=== PATIENT | female | born 1990 | race African-American/Black ===

== ENCOUNTER 2020-05-08 11:35 | Outpatient (REF) | payer OTHER, SELFPAY ==
[2020-05-09 02:50] LABS: CT PCR NOT DETECTED (Not Detect.); NG PCR NOT DETECTED (Not Detect.)
[2020-05-09 09:07] LABS: BV Int Neg Control Negative (Negative); BV Int Pos Control Positive (Positive)
[2020-05-10 18:16] LABS: HPV mRNA E6/E7 rflx Not Detected (Not Detected)
== END 2020-05-08 11:36 | disposition home or self-care (01) ==
LOC: HO.LAB 11:35
PROVIDERS: PCP Internal Medicine Medical Oncology; Referring Provider Internal Medicine Medical Oncology; Visit Provider Advanced Practice Midwife
DX: Z01.419 Encounter for gynecological examination (general) (routine) without abnormal findings (principal); E10.65 Type 1 diabetes mellitus with hyperglycemia; R33.9 Retention of urine, unspecified; Z20.2 Contact with and (suspected) exposure to infections with a predominantly sexual mode of transmission
CPT/HCPCS: 87480; 87491; 87510; 87591; 87624; 87625; 87660; 88142

== ENCOUNTER 2020-06-06 06:51 | Outpatient (REF) | payer OTHER, SELFPAY | END 2020-06-06 06:52 | disposition home or self-care (01) | LOC: HO.LAB 06:51 | PROVIDERS: Visit Provider Internal Medicine | DX: Z20.828 Contact with and (suspected) exposure to other viral communicable diseases (principal) | CPT/HCPCS: C9803; U0003 ==

== ENCOUNTER 2020-06-20 23:56 | Emergency (ER) | payer OTHER, SELFPAY ==
--- NOTE | 2020-06-21 00:13 | ED.GENADULT ---
HPI - General Adult General Chief complaint: General Medical Stated complaint: Hyperglycemia Time Seen by Provider: 06/21/20 00:13 Source: patient Mode of arrival: ambulatory Limitations: no limitations History of Present Illness HPI narrative: Patient type 1 diabetic on insulin pump for last 2 days noticed her blood sugar in the range of 300 never used to be high before patient adjusted the insulin pump but still reading high 350 prior to arrival. Patient denied any nausea vomiting drinking enough fluids no urinary complaints no cough no fever no chills Onset (ago): day(s) (2) Related Data Home Medications Medication Instructions Recorded Confirmed etonogestrel 68 mg subdermal 68 mg SUBDERMAL ea 05/08/20 05/15/20 implant Previous Rx's Medication Instructions Recorded insulin lispro 100 unit/mL 0 - 75 unit SUBCUT DAILY #90 ml 06/17/20 subcutaneous solution Allergies Allergy/AdvReac Type Severity Reaction Status Date / Time No Known Allergies Allergy Verified 05/15/20 13:16 Review of Systems Review of Systems: Constitutional : No Weight loss, No Fever, No Chills ENT/Mouth : No sore throat, No Rhinorrhea Eyes: No Eye Pain, No Swelling Cardiovascular : No Chest Pain, no Dyspnea on Exertion, No Orthopnea, No Edema, No Palpitations, no SOB Respiratory : No Cough, No Sputum Gastrointestinal : no Nausea, No Vomiting, No Diarrhea, No abdominal Pain, No Hematochezia, No Melena Genitourinary : No Dysuria, No Urinary Frequency Musculoskeletal : No joint pain, No Myalgias, No Joint Swelling Skin : No Skin Lesions, No rash Neuro : No Weakness, No Numbness, No Dizziness, No Headache Psych : No Anxiety/Panic, No Depression Heme/Lymph: No Bruising, No Lymphadenopathy Endocrine : No Polyuria, No Polydipsia All other systems reviewed and are negative [facility]LY [facility] Past Medical History Medical History Type 1 diabetes mellitus with hyperglycemia Surgical History History of left breast biopsy Family History Family History Paternal Grandmother Diabetes Maternal Aunt Breast cancer Social History Social History Household Members: Family Alcohol intake: never Smoking Status: Never smoker Use of substances other than those prescribed or required for medical reasons: No Substance Use Type: Marijuana Advance Directives: No Advance Directives Information Provided: No Sexual orientation: Straight/Heterosexual Gender identity: female Physical Exam Vital Signs: Vital Signs: Last Vital Signs Temp 98.7 F 06/21/20 00:15 Pulse 76 06/21/20 00:15 Resp 18 06/21/20 01:59 BP 137/73 06/21/20 00:15 Pulse Ox 100 06/21/20 00:15 Body Mass Index 26.9 Appearance: Alert. Oriented X3. No acute distress. Eyes: Pupils equal, round and reactive to light. ENT: Pharynx normal. Neck: Normal inspection. Neck supple. CVS: Normal heart rate and rhythm. Pulses normal. Respiratory: No respiratory distress. Breath sounds normal. Abdomen: Soft and nontender. Bowel sounds are present, no mass palpable, no CVA tenderness Skin: Skin warm and dry. Normal skin color. Normal skin turgor. Extremities: No lower extremity edema. Neuro: Oriented X 3. No motor deficit. No sensory deficit. Medical Decision Making MDM Narrative Medical decision making narrative: Patient diabetic type 1 on insulin pump came with hypoglycemia workup showed hypogastrium without any ketoacidosis dehydrated. Patient improved after IV fluids patient advised to drink plenty of fluids and follow-up with PCP Differential Diagnosis Differential Diagnosis: Ketoacidosis, UTI Lab Data Lab results reviewed: Yes I reviewed the patient's lab results. Result diagrams: 06/21/20 00:50 06/21/20 00:50 Labs: Lab Results 06/21/20 06/21/20 06/21/20 Range/Units 00:14 00:28 00:28 WBC (4.8-10.8) X10*3/uL RBC (4.20-5.50) X10*6/uL Hgb (12.0-16.0) g/dl Hct (37-47) % MCV (80-98) fL MCH (27.0-33.0) pg MCHC (31.0-35.0) g/dl RDW (11.0-16.0) % Plt Count (160-400) X10*3/uL MPV (9.4-12.3) fL Immature Gran % (Auto) (0.0-0.4) % Neut % (Auto) (45-73) % Lymph % (Auto) (20-40) % [place] % (Auto) (2-11) % Eos % (Auto) (0-4) % Baso % (Auto) (0-2) % Lymph # (Auto) (1.2-4.9) X10*3/uL [place] # (Auto) (0.1-1.2) X10*3/uL Eos # (Auto) (0.0-0.4) X10*3/uL Baso # (Auto) (0.0-0.2) X10*3/uL Abs Immat Gran (auto) (0.00-0.03) X10*3/uL Absolute Neuts (auto) (2.0-8.3) X10*3/uL Absolute Nucleated RBC (0.0-0.012) X10*3/uL Nucleated RBC % (auto) (0.0-0.2) /100WBC Sodium (135-145) mmol/L Potassium (3.3-5.1) mmol/l Chloride (96-108) mmol/L Carbon Dioxide (22-29) mmol/L Anion Gap (12-20) BUN (9-16) mg/dL Creatinine (0.5-1.4) mg/dL Estim Creat Clear Calc Estimated GFR POC Glucose 306 H (60-115) mg/dL Random Glucose (60-115) mg/dL Calcium (8.4-10.2) mg/dL Total Bilirubin (0.0-1.0) mg/dL Direct Bilirubin (0.0-0.5) mg/dL AST (5-31) U/L ALT (0-31) U/L Alkaline Phosphatase (39-117) U/L Total Protein (6.5-8.0) g/dL Albumin (3.5-5.0) g/dL Lipase (8-78) U/L Urine Color YELLOW Urine Appearance CLEAR Urine pH 5.5 (5.0-8.0) Ur Specific Spencer 1.025 (1.005-1.025) Urine Protein NEG (NEG-TRACE) MG/DL Urine Glucose (UA) 250 H (NEG) MG/DL Urine Ketones >=80 (NEG) MG/DL Urine Blood NEG (NEG) Urine Nitrite NEG (NEG) Ur Leukocyte Esterase NEG (NEG) Urine Test NEGATIVE (NEGATIVE) Acetone, Qual (Negative) 06/21/20 06/21/20 06/21/20 Range/Units 00:50 00:50 00:50 WBC 6.7 (4.8-10.8) X10*3/uL RBC 4.13 L (4.20-5.50) X10*6/uL Hgb 12.7 (12.0-16.0) g/dl Hct 37.4 (37-47) % MCV 90.6 (80-98) fL MCH 30.8 (27.0-33.0) pg MCHC 34.0 (31.0-35.0) g/dl RDW 11.8 (11.0-16.0) % Plt Count 239 (160-400) X10*3/uL MPV 9.7 (9.4-12.3) fL Immature Gran % (Auto) 0.1 (0.0-0.4) % Neut % (Auto) 46.0 (45-73) % Lymph % (Auto) 43.6 H (20-40) % [place] % (Auto) 7.6 (2-11) % Eos % (Auto) 2.1 (0-4) % Baso % (Auto) 0.6 (0-2) % Lymph # (Auto) 2.9 (1.2-4.9) X10*3/uL [place] # (Auto) 0.5 (0.1-1.2) X10*3/uL Eos # (Auto) 0.1 (0.0-0.4) X10*3/uL Baso # (Auto) 0.0 (0.0-0.2) X10*3/uL Abs Immat Gran (auto) 0.01 (0.00-0.03) X10*3/uL Absolute Neuts (auto) 3.1 (2.0-8.3) X10*3/uL Absolute Nucleated RBC 0.000 (0.0-0.012) X10*3/uL Nucleated RBC % (auto) 0.0 (0.0-0.2) /100WBC Sodium 132 L (135-145) mmol/L Potassium 4.3 (3.3-5.1) mmol/l Chloride 101 (96-108) mmol/L Carbon Dioxide 20 L (22-29) mmol/L Anion Gap 15 (12-20) BUN 18 H (9-16) mg/dL Creatinine 0.91 (0.5-1.4) mg/dL Estim Creat Clear Calc 103.8 Estimated GFR > 60 POC Glucose (60-115) mg/dL Random Glucose 321 H (60-115) mg/dL Calcium 8.4 (8.4-10.2) mg/dL Total Bilirubin 1.1 H (0.0-1.0) mg/dL Direct Bilirubin 0.4 (0.0-0.5) mg/dL AST 21 (5-31) U/L ALT 14 (0-31) U/L Alkaline Phosphatase 53 (39-117) U/L Total Protein 6.7 (6.5-8.0) g/dL Albumin 3.9 (3.5-5.0) g/dL Lipase 19 (8-78) U/L Urine Color Urine Appearance Urine pH (5.0-8.0) Ur Specific Spencer (1.005-1.025) Urine Protein (NEG-TRACE) MG/DL Urine Glucose (UA) (NEG) MG/DL Urine Ketones (NEG) MG/DL Urine Blood (NEG) Urine Nitrite (NEG) Ur Leukocyte Esterase (NEG) Urine Test (NEGATIVE) Acetone, Qual Negative (Negative) 06/21/20 06/21/20 Range/Units 01:36 02:42 WBC (4.8-10.8) X10*3/uL RBC (4.20-5.50) X10*6/uL Hgb (12.0-16.0) g/dl Hct (37-47) % MCV (80-98) fL MCH (27.0-33.0) pg MCHC (31.0-35.0) g/dl RDW (11.0-16.0) % Plt Count (160-400) X10*3/uL MPV (9.4-12.3) fL Immature Gran % (Auto) (0.0-0.4) % Neut % (Auto) (45-73) % Lymph % (Auto) (20-40) % [place] % (Auto) (2-11) % Eos % (Auto) (0-4) % Baso % (Auto) (0-2) % Lymph # (Auto) (1.2-4.9) X10*3/uL [place] # (Auto) (0.1-1.2) X10*3/uL Eos # (Auto) (0.0-0.4) X10*3/uL Baso # (Auto) (0.0-0.2) X10*3/uL Abs Immat Gran (auto) (0.00-0.03) X10*3/uL Absolute Neuts (auto) (2.0-8.3) X10*3/uL Absolute Nucleated RBC (0.0-0.012) X10*3/uL Nucleated RBC % (auto) (0.0-0.2) /100WBC Sodium (135-145) mmol/L Potassium (3.3-5.1) mmol/l Chloride (96-108) mmol/L Carbon Dioxide (22-29) mmol/L Anion Gap (12-20) BUN (9-16) mg/dL Creatinine (0.5-1.4) mg/dL Estim Creat Clear Calc Estimated GFR POC Glucose 293 H 197 H (60-115) mg/dL Random Glucose (60-115) mg/dL Calcium (8.4-10.2) mg/dL Total Bilirubin (0.0-1.0) mg/dL Direct Bilirubin (0.0-0.5) mg/dL AST (5-31) U/L ALT (0-31) U/L Alkaline Phosphatase (39-117) U/L Total Protein (6.5-8.0) g/dL Albumin (3.5-5.0) g/dL Lipase (8-78) U/L Urine Color Urine Appearance Urine pH (5.0-8.0) Ur Specific Spencer (1.005-1.025) Urine Protein (NEG-TRACE) MG/DL Urine Glucose (UA) (NEG) MG/DL Urine Ketones (NEG) MG/DL Urine Blood (NEG) Urine Nitrite (NEG) Ur Leukocyte Esterase (NEG) Urine Test (NEGATIVE) Acetone, Qual (Negative) Discharge Plan Discharge Clinical Impression: Type 1 diabetes mellitus with hyperglycemia Patient Disposition: Home, Self-Care Instructions: Diabetic Hyperglycemia (ED) Additional Instructions: Drink plenty of fluids take your insulin as prescribed follow with PCP if not better Prescriptions: No Action insulin lispro [Humalog U-100 Insulin] 100 unit/mL solution 0 - 75 unit subcut DAILY Qty: 90 RF: 2 Nexplanon 68 mg implant 68 mg subdermal RF: 0
[2020-06-21 00:15] VITALS: BP 137/73; PULSE 76; RESP 18; TEMP 37.1; O2SAT 100; BMI 26.9
[2020-06-21 00:22] LABS: Glucose, Whole Blood 306 mg/dL (60-115)
[2020-06-21 00:34] LABS: Appearance Urine CLEAR; Color Urine YELLOW; Glucose Urine UA 250 MG/DL (NEG); Leukocyte Esterase Urine NEG (NEG); Nitrite Urine NEG (NEG); PH 5.5 (5.0-8.0); Specific Gravity - Urine 1.025 (1.005-1.025); UACC Culture Trigger NO; Urine Blood NEG (NEG); Urine Ketones >=80 MG/DL (NEG); Urine Protein NEG (NEG-TRACE)
[2020-06-21 00:35] LABS: UPreg QC Valid YES; Urine Pregnancy NEGATIVE (NEGATIVE)
[2020-06-21] MEDS: 0.9 % Sodium Chloride 1,000 ML 999 ML IVCONT ×2 (00:51→01:53)
[2020-06-21 00:57] LABS: Basophils Percent Auto 0.6 % (0-2); Eosinophils Absolute Auto 0.1 X10*3/uL (0.0-0.4); Eosinophils Percent Auto 2.1 % (0-4); Hematocrit 37.4 % (37-47); Hemoglobin 12.7 g/dl (12.0-16.0); Imm Gran Abs Auto 0.01 X10*3/uL (0.00-0.03); Imm Gran Pct Auto 0.1 % (0.0-0.4); Lymphocytes Absolute Auto 2.9 X10*3/uL (1.2-4.9); Lymphocytes Percent Auto 43.6 % (20-40); MANUAL DIFF FLAG NO; Mean Corpuscular Hemoglobin 30.8 pg (27.0-33.0); Mean Corpuscular Volume 90.6 fL (80-98); Mean Platelet Volume 9.7 fL (9.4-12.3); Monocytes Absolute Auto 0.5 X10*3/uL (0.1-1.2); Monocytes Percent Auto 7.6 % (2-11); Neutrophils Absolute Auto 3.1 X10*3/uL (2.0-8.3); Platelet Count 239 X10*3/uL (160-400); Red Blood Count 4.13 X10*6/uL (4.20-5.50); Red Cell Distribution Width 11.8 % (11.0-16.0); White Blood Count 6.7 X10*3/uL (4.8-10.8)
[2020-06-21 01:27] LABS: Anion Gap 15 (12-20); Blood Urea Nitrogen 18 mg/dL (9-16); Calcium 8.4 mg/dL (8.4-10.2); Carbon Dioxide 20 mmol/L (22-29); Chloride 101 mmol/L (96-108); Creatinine Clr Calc Pharmacy 103.8; Estimated Glomerular Filt Rate > 60; Glucose Random 321 mg/dL (60-115); Potassium 4.3 mmol/l (3.3-5.1); Sodium 132 mmol/L (135-145)
[2020-06-21 01:29] LABS: Alanine Aminotransferase 14 U/L (0-31); Albumin Level 3.9 g/dL (3.5-5.0); Alkaline Phosphatase 53 U/L (39-117); Aspartate Amino Transferase 21 U/L (5-31); Bilirubin Direct 0.4 mg/dL (0.0-0.5); Bilirubin Total 1.1 mg/dL (0.0-1.0); Lipase 19 U/L (8-78); Total Protein 6.7 g/dL (6.5-8.0)
[2020-06-21 01:41] LABS: Glucose, Whole Blood 293 mg/dL (60-115)
[2020-06-21] MEDS: Insulin Lispro 100 UNIT/ML 3 ML VIAL 8 UNIT SUBCUT (01:52)
[2020-06-21 01:59] VITALS: RESP 18
[2020-06-21 02:25] LABS: Acetone, serum QL Negative (Negative)
[2020-06-21 02:47] LABS: Glucose, Whole Blood 197 mg/dL (60-115)
== END 2020-06-21 03:15 | disposition home or self-care (01) ==
PROVIDERS: Emergency Provider Internal Medicine; PCP Internal Medicine Medical Oncology
DX: E10.65 Type 1 diabetes mellitus with hyperglycemia (principal); Z79.4 Long term (current) use of insulin; Z96.41 Presence of insulin pump (external) (internal)
CPT/HCPCS: 11981; 11982; 11983; 36415; 80048; 80076; 81003; 81025; 82009; 82947; 83690; 85025; 96360; 96361; 99284

== ENCOUNTER 2020-07-25 07:07 | Outpatient (REF) | payer OTHER, SELFPAY | END 2020-07-25 07:08 | disposition home or self-care (01) | LOC: HO.LAB 07:07 | PROVIDERS: Visit Provider Internal Medicine | DX: Z20.822 Contact with and (suspected) exposure to COVID-19 (principal) | CPT/HCPCS: 36415; C9803; U0003 ==

== ENCOUNTER 2020-08-10 07:52 | Outpatient (REF) | payer OTHER, SELFPAY | END 2020-08-10 07:53 | disposition home or self-care (01) | LOC: HO.LAB 07:52 | PROVIDERS: Visit Provider Internal Medicine | DX: Z20.822 Contact with and (suspected) exposure to COVID-19 (principal) | CPT/HCPCS: 36415; C9803; U0003; U0005 ==

== ENCOUNTER → 2020-09-11 14:31 | Outpatient (BNVA) | payer OTHER, SELFPAY | PROVIDERS: PCP Internal Medicine Medical Oncology; Visit Provider Nurse Practitioner Gerontology | DX: E10.65 Type 1 diabetes mellitus with hyperglycemia (principal); Z79.4 Long term (current) use of insulin; Z71.3 Dietary counseling and surveillance | CPT/HCPCS: 82947; 99212 ==

== ENCOUNTER 2020-09-12 08:47 | Outpatient (REF) | payer OTHER, SELFPAY | END 2020-09-12 08:48 | disposition home or self-care (01) | LOC: HO.LAB 08:47 | PROVIDERS: Visit Provider Internal Medicine | DX: Z20.822 Contact with and (suspected) exposure to COVID-19 (principal) | CPT/HCPCS: 36415; C9803; U0003; U0005 ==

== ENCOUNTER 2020-09-26 12:23 | Outpatient (REF) | payer OTHER, SELFPAY ==
[2020-09-26 14:08] LABS: MANUAL DIFF FLAG NO
[2020-09-26 14:16] LABS: Basophils Absolute Auto 0.1 X10*3/uL (0.0-0.2); Basophils Percent Auto 0.9 % (0-2); Eosinophils Absolute Auto 0.2 X10*3/uL (0.0-0.4); Eosinophils Percent Auto 3.3 % (0-4); Hematocrit 40.3 % (37-47); Hemoglobin 13.5 g/dl (12.0-16.0); Imm Gran Abs Auto 0.01 X10*3/uL (0.00-0.03); Imm Gran Pct Auto 0.2 % (0.0-0.4); Lymphocytes Absolute Auto 2.3 X10*3/uL (1.2-4.9); Lymphocytes Percent Auto 39.6 % (20-40); Mean Corpuscular HGB Conc 33.5 g/dl (31.0-35.0); Mean Corpuscular Hemoglobin 30.8 pg (27.0-33.0); Mean Platelet Volume 10.4 fL (9.4-12.3); Monocytes Absolute Auto 0.4 X10*3/uL (0.1-1.2); Monocytes Percent Auto 7.2 % (2-11); Neutrophils Absolute Auto 2.9 X10*3/uL (2.0-8.3); Neutrophils Percent Auto 48.8 % (45-73); Platelet Count 270 X10*3/uL (160-400); Red Blood Count 4.38 X10*6/uL (4.20-5.50); White Blood Count 5.8 X10*3/uL (4.8-10.8)
[2020-09-26 14:50] LABS: Alanine Aminotransferase 10 U/L (0-31); Albumin Level 4.1 g/dL (3.5-5.0); Alkaline Phosphatase 50 U/L (39-117); Anion Gap 13 (12-20); Aspartate Amino Transferase 16 U/L (5-31); Bilirubin Total 1.1 mg/dL (0.0-1.0); Blood Urea Nitrogen 18 mg/dL (9-16); Calcium 8.8 mg/dL (8.4-10.2); Carbon Dioxide 27 mmol/L (22-29); Chloride 101 mmol/L (96-108); Estimated Glomerular Filt Rate > 60; Glucose Random 179 mg/dL (60-115); Potassium 4.3 mmol/L (3.3-5.1); Sodium 137 mmol/L (135-145); Total Protein 7.1 g/dL (6.5-8.0)
[2020-09-26 14:58] LABS: Free T4 (Free Thyroxine) 0.79 ng/dL (0.71-1.85); Thyroid Stimulating Hormone 0.75 uIU/mL (0.32-4.0)
[2020-09-26 14:59] LABS: Erythrocyte Sedimentation Rate 6 MM/HR (0-20)
== END 2020-09-26 12:24 | disposition home or self-care (01) ==
LOC: HO.10HDL 12:23
PROVIDERS: Visit Provider Internal Medicine Medical Oncology
DX: E10.9 Type 1 diabetes mellitus without complications (principal); E66.09 Other obesity due to excess calories
CPT/HCPCS: 36415; 80053; 84439; 84443; 85025; 85652

== ENCOUNTER 2020-10-03 07:41 | Outpatient (REF) | payer OTHER, SELFPAY ==
[2020-10-03 09:52] LABS: SARS COV2 PCR INHOUSE NEGATIVE (Negative)
== END 2020-10-03 07:42 | disposition home or self-care (01) ==
LOC: HO.LAB 07:41
PROVIDERS: Visit Provider Internal Medicine
DX: Z20.822 Contact with and (suspected) exposure to COVID-19 (principal)
CPT/HCPCS: C9803; U0003

== ENCOUNTER 2020-10-04 08:01 | Outpatient (REF) | payer OTHER, SELFPAY ==
--- NOTE | ~2020-10-04 | US_ITS ---
EXAMINATION: US ABDOMEN COMPLETE CLINICAL INFORMATION: Bloating, abdominal pain. COMPARISON: None TECHNIQUE: Real-time imaging of the abdominal viscera. FINDINGS: PANCREAS: The visualized head and body of the pancreas appears unremarkable. Remainder of the pancreas is obscured by bowel gas. ABDOMINAL AORTA: The proximal, mid, and distal segments are normal in caliber. INFERIOR VENA CAVA: Visualized portions are normal. LIVER: The liver is normal in size. The liver contour is normal. Parenchymal echogenicity is normal. No focal hepatic lesion. There is no intrahepatic biliary duct dilatation seen. GALLBLADDER: Normal. The gallbladder is physiologically distended without evidence of stones, sludge, polyps, wall thickening or pericholecystic fluid. COMMON BILE DUCT: Normal in caliber measuring 0.3 cm in diameter. RIGHT KIDNEY: Normal. No hydronephrosis. No renal calculi or focal parenchymal lesions. The kidney measures 10.2 cm in maximum dimension. LEFT KIDNEY: Normal. No hydronephrosis. No renal calculi or focal parenchymal lesions. The kidney measures 11.4 cm in maximum dimension. SPLEEN: Normal. The spleen measures 9.2 cm in maximum dimension. FREE FLUID: None. US/US abdomen complete IMPRESSION: Unremarkable abdominal ultrasound. No acute findings seen.
== END 2020-10-04 08:02 | disposition home or self-care (01) ==
LOC: HO.US 08:01
PROVIDERS: PCP Family Medicine; Visit Provider Internal Medicine Medical Oncology
DX: R10.9 Unspecified abdominal pain (principal); R14.0 Abdominal distension (gaseous); R14.1 Gas pain
CPT/HCPCS: 76700

== ENCOUNTER → 2020-12-10 13:02 | Outpatient (BNVA) | payer OTHER, SELFPAY | PROVIDERS: PCP Internal Medicine Medical Oncology; Visit Provider Nurse Practitioner Gerontology | DX: E10.65 Type 1 diabetes mellitus with hyperglycemia (principal) | CPT/HCPCS: 82947 ==

== ENCOUNTER → 2021-01-14 11:45 | Outpatient (BNVA) | payer OTHER, SELFPAY | PROVIDERS: PCP Internal Medicine Medical Oncology; Visit Provider Advanced Practice Midwife ==

== ENCOUNTER → 2021-01-28 10:29 | Outpatient (BNVA) | payer OTHER, SELFPAY | PROVIDERS: Visit Provider Advanced Practice Midwife | DX: Z30.46 Encounter for surveillance of implantable subdermal contraceptive (principal); Z30.011 Encounter for initial prescription of contraceptive pills | CPT/HCPCS: 11982 ==

== ENCOUNTER 2021-04-30 16:22 | Outpatient (REF) | payer OTHER, SELFPAY ==
[2021-04-30 16:42] LABS: MANUAL DIFF FLAG NO
[2021-04-30 17:21] LABS: Basophils Absolute Auto 0.1 X10*3/uL (0.0-0.2); Basophils Percent Auto 0.8 % (0-2); Eosinophils Absolute Auto 0.1 X10*3/uL (0.0-0.4); Eosinophils Percent Auto 1.4 % (0-4); Hematocrit 38.9 % (37.0-47.0); Hemoglobin 13.1 g/dl (12.0-16.0); Imm Gran Abs Auto 0.02 X10*3/uL (0.00-0.03); Imm Gran Pct Auto 0.3 % (0.0-0.4); Lymphocytes Absolute Auto 2.4 X10*3/uL (1.2-4.9); Lymphocytes Percent Auto 36.6 % (20-40); Mean Corpuscular HGB Conc 33.7 g/dl (31.0-35.0); Mean Corpuscular Hemoglobin 30.3 pg (27.0-33.0); Mean Corpuscular Volume 89.8 fL (80.0-98.0); Mean Platelet Volume 9.7 fL (9.4-12.3); Monocytes Absolute Auto 0.5 X10*3/uL (0.1-1.2); Monocytes Percent Auto 7.9 % (2-11); Neutrophils Absolute Auto 3.48 x10*3/uL (2.0-8.3); Platelet Count 264 X10*3/uL (160-400); Red Blood Count 4.33 X10*6/uL (4.20-5.50); Red Cell Distribution Width 11.6 % (11.0-16.0); White Blood Count 6.6 X10*3/uL (4.8-10.8)
[2021-04-30 17:45] LABS: Alanine Aminotransferase 13 U/L (0-31); Albumin Level 3.9 g/dL (3.5-5.0); Alkaline Phosphatase 45 U/L (39-117); Anion Gap 12 (12-20); Aspartate Amino Transferase 21 U/L (5-31); Bilirubin Total 0.6 mg/dL (0.0-1.0); Blood Urea Nitrogen 19 mg/dL (9-16); C Reactive Protein 0.34 mg/dL (< or = 0.50); Calcium 8.6 mg/dL (8.4-10.2); Carbon Dioxide 27 mmol/L (22-29); Chloride 104 mmol/L (96-108); Estimated Glomerular Filt Rate > 60; Glucose Random 141 mg/dL (60-115); Potassium 4.5 mmol/L (3.3-5.1); Sodium 138 mmol/L (135-145); Total Protein 6.7 g/dL (6.5-8.0)
[2021-04-30 18:11] LABS: Erythrocyte Sedimentation Rate 7 MM/HR (0-20)
== END 2021-04-30 16:23 | disposition home or self-care (01) ==
LOC: HO.LAB 16:22
PROVIDERS: PCP Internal Medicine Medical Oncology; Visit Provider Internal Medicine Medical Oncology
DX: M31.6 Other giant cell arteritis (principal)
CPT/HCPCS: 36415; 80053; 85025; 85652; 86140

== ENCOUNTER → 2021-09-18 12:32 | Outpatient (BNVA) | payer OTHER, SELFPAY | PROVIDERS: PCP Internal Medicine Medical Oncology; Visit Provider Nurse Practitioner Gerontology | DX: E10.65 Type 1 diabetes mellitus with hyperglycemia (principal); Z79.4 Long term (current) use of insulin; Z96.41 Presence of insulin pump (external) (internal) | CPT/HCPCS: 82947; 83036; 99212 ==

== ENCOUNTER → 2021-09-26 07:56 | Outpatient (BNVA) | payer OTHER, SELFPAY | PROVIDERS: PCP Internal Medicine Medical Oncology; Visit Provider Registered Nurse Diabetes Educator | DX: E10.65 Type 1 diabetes mellitus with hyperglycemia (principal); Z71.3 Dietary counseling and surveillance | CPT/HCPCS: 99211 ==

== ENCOUNTER → 2021-12-18 07:29 | Outpatient (BNVA) | payer OTHER, SELFPAY | PROVIDERS: PCP Internal Medicine Medical Oncology; Visit Provider Nurse Practitioner Gerontology | DX: E10.65 Type 1 diabetes mellitus with hyperglycemia (principal); Z46.81 Encounter for fitting and adjustment of insulin pump; Z79.4 Long term (current) use of insulin | CPT/HCPCS: 82947; 99212 ==

== ENCOUNTER 2021-12-18 08:20 | Outpatient (REF) | payer OTHER, SELFPAY ==
[2021-12-18 10:36] LABS: Alanine Aminotransferase 15 U/L (0-31); Albumin Level 3.9 g/dL (3.5-5.0); Alkaline Phosphatase 46 U/L (39-117); Anion Gap 12 (12-20); Aspartate Amino Transferase 23 U/L (5-31); Bilirubin Total 1.1 mg/dL (0.0-1.0); Blood Urea Nitrogen 16 mg/dL (9-16); Calcium 8.6 mg/dL (8.4-10.2); Carbon Dioxide 26 mmol/L (22-29); Chloride 104 mmol/L (96-108); Cholesterol 189 mg/dL; Estimated Glomerular Filt Rate > 60; Glucose Fasting 80 mg/dL (60-99); HDL Cholesterol 81 mg/dL; LDL Cholesterol Calculated 99 mg/dl; Potassium 3.6 mmol/L (3.3-5.1); Sodium 138 mmol/L (135-145); Triglycerides 47 mg/dL
[2021-12-18 10:56] LABS: Free T4 (Free Thyroxine) 0.86 ng/dL (0.71-1.85)
[2021-12-18 11:14] LABS: Microalbum/Creatinine Ratio Ur 314.5 ug/mg cr
== END 2021-12-18 08:21 | disposition home or self-care (01) ==
LOC: HO.10HDL 08:20
PROVIDERS: Visit Provider Nurse Practitioner Gerontology
DX: E10.65 Type 1 diabetes mellitus with hyperglycemia (principal)
CPT/HCPCS: 36415; 80053; 80061; 82043; 84439; 84443

== ENCOUNTER → 2022-03-25 08:06 | Outpatient (BNVA) | payer OTHER, SELFPAY | PROVIDERS: PCP Internal Medicine Medical Oncology; Visit Provider Internal Medicine Endocrinology, Diabetes & Metabolism | DX: E10.65 Type 1 diabetes mellitus with hyperglycemia (principal); E10.29 Type 1 diabetes mellitus with other diabetic kidney complication; Z96.41 Presence of insulin pump (external) (internal) | CPT/HCPCS: 82947; 83036; 99212 ==

== ENCOUNTER → 2022-04-08 08:28 | Outpatient (BNVA) | payer OTHER, SELFPAY | PROVIDERS: PCP Internal Medicine Medical Oncology; Visit Provider Registered Nurse Diabetes Educator | DX: Z46.81 Encounter for fitting and adjustment of insulin pump (principal); E10.65 Type 1 diabetes mellitus with hyperglycemia; Z79.4 Long term (current) use of insulin | CPT/HCPCS: 99211 ==

== ENCOUNTER 2022-04-10 08:33 | Outpatient (REF) | payer OTHER, SELFPAY ==
[2022-04-10 16:49] LABS: CT PCR NOT DETECTED (Not Detect.); NG PCR NOT DETECTED (Not Detect.)
== END 2022-04-10 08:34 | disposition home or self-care (01) ==
LOC: HO.LNP 08:33
PROVIDERS: Visit Provider Advanced Practice Midwife
DX: Z01.419 Encounter for gynecological examination (general) (routine) without abnormal findings (principal); Z11.8 Encounter for screening for other infectious and parasitic diseases; Z11.3 Encounter for screening for infections with a predominantly sexual mode of transmission
CPT/HCPCS: 87491; 87591

== ENCOUNTER 2022-04-14 09:28 | Outpatient (REF) | payer OTHER, SELFPAY ==
[2022-04-14 11:01] LABS: Anion Gap 14 (12-20); Blood Urea Nitrogen 15 mg/dL (9-16); Calcium 8.6 mg/dL (8.4-10.2); Carbon Dioxide 26 mmol/L (22-29); Chloride 101 mmol/L (96-108); Estimated Glomerular Filt Rate > 60; Glucose Random 118 mg/dL (60-115); Sodium 137 mmol/L (135-145)
[2022-04-14 11:14] LABS: HBc Num1 0.11 S/CO (0.00-0.79); HIV AB/AG Nonreactive (Nonreactive); HIV Num 1 0.05 S/CO (0.00-0.99); Hepatitis B Core Antibody Nonreactive (Nonreactive); ~HepC Num1 0.15 S/CO (0.00-0.79); ~Hepatitis C Antibody Nonreactive (Nonreactive)
[2022-04-14 11:29] LABS: Syphilis Screen Nonreactive (Nonreactive)
== END 2022-04-14 09:29 | disposition home or self-care (01) ==
LOC: HO.10HDL 09:28
PROVIDERS: Absent Provider Internal Medicine Endocrinology, Diabetes & Metabolism; Visit Provider Advanced Practice Midwife
DX: Z11.4 Encounter for screening for human immunodeficiency virus [HIV] (principal); E10.29 Type 1 diabetes mellitus with other diabetic kidney complication; R80.9 Proteinuria, unspecified; Z20.2 Contact with and (suspected) exposure to infections with a predominantly sexual mode of transmission
CPT/HCPCS: 36415; 80048; 86704; 86780; 86803; 87389

== ENCOUNTER → 2022-10-22 10:27 | Outpatient (BNVA) | payer OTHER, SELFPAY | PROVIDERS: PCP Internal Medicine Medical Oncology; Visit Provider Internal Medicine Endocrinology, Diabetes & Metabolism | DX: E10.65 Type 1 diabetes mellitus with hyperglycemia (principal); E10.29 Type 1 diabetes mellitus with other diabetic kidney complication; R80.9 Proteinuria, unspecified | CPT/HCPCS: 82947; 83036; 99212 ==

== ENCOUNTER 2023-01-29 10:18 | Outpatient (AMB) | payer OTHER, SELFPAY ==
--- NOTE | 2023-01-29 10:20 | MHC.OFFVIS ---
Intake Vital Signs 01/29/23 10:23 Height 5 ft 9 in Weight 206 lb 2.115 oz BMI 30.4 BP 106/72 Blood Pressure Location Lt brachial Position Sitting Pulse 82 Intake Visit Reasons: dm1 Intake Note: Patient present today to follow up on Type 1 Diabetes Mellitus. Patient receives DME supplies through: [facility] Last Diabetic Eye exam: October 21, 2022 Last Podiatry Visit: Does not see a Animal Damage Control Agent Random Glucose: 154 mg/dl HgA1C: 6.8 Multi Sensor Operator Required: No Accompanied by: Self / Same As Patient Allergies No Known Allergies Allergy (Verified 01/29/23 10:23) Medication List - Last Reconciled 01/29/23 by William Drew MD blood-glucose meter,continuous (Dexcom G6 Furniture Upholstery Mechanic) As directed blood-glucose sensor (Dexcom G6 Sensor device) As directed blood-glucose transmitter (Dexcom G6 Transmitter device) As directed fluoxetine 10 mg PO DAILY glucagon 3 mg/actuation (Baqsimi) 3 mg intranasal ONCE insulin lispro (Humalog U-100 Insulin) up to 75 units per day via pump subcut daily; valsartan 80 mg PO DAILY HPI HPI Comments History of Present Illness Details Patient is a 31 yo female with DM type 1 diagnosed at age 11 who presents continued management of diabetes. Patient was last seen 12/18/21. Past medical history includes : Dm1 Micro and macrovascular complications: none hypoglycemia: about once and pump alarms appropriately. Hyperglycemia; blood sugars elevated after meals. Exercise: is working out for several hours at a time, CGM: Average 153 [address] 75 for the past 2 weeks. CGM in use 11 days. range 40-356 Below target range of less than 70 mg/dL 6%, within target range of 70-179 mg/dL 65%, above target range of 179 mg/dL 29%. Pattern shows overnight hypoglycemia Basal IQ use 100% of the time. Average suspension per day 9.5 times with an average suspension of 180 minutes. Cartridge and tubing changes every 3.0 days. Total daily dose 27.25units per day, 50% basal, 50% food bolus, 11% correction bolus Diabetes medications: Humalog via Tandem T:Slim basal rates 12:00 AM 0.75 units/hour 8:00 AM 0.80 units/hour, 1000 AM : 0.85 units/hour, 2 PM 0.8 10:00 pm 0.78units/hour, Correction factor 12:00 am 1u:52 mg/dl 8:00 am 1 u 50 10Am 1 u:45 2 PM 1:48 10 PM 1;50 Carb ratio 12 A =1:15 8 AM 1:12 breakfat 10AM =1:15 2PM 1:16 dinner target blood sugars 120, insulin action is 4 hours. Eye exam:08/2022 , appt denies retinopathy pattern shows falling blood sugars overnight but increases post breakfast and post dinner Laboratory Tests 09/18/21 12:47 Hgb A1c (Clinic) 7.2 H 09/26/20 12/10/20 04/30/21 12:38 14:02 16:40 Creatinine 0.85 0.86 Estimated GFR > 60 > 60 Hgb A1c (Clinic) 6.7 H PFSH Medical History Depression Type 1 diabetes mellitus with hyperglycemia Surgical History History of left breast biopsy Family History Paternal Grandmother Diabetes Maternal Aunt Breast cancer Social History Household Members: Family Housing: Apartment Alcohol intake: current Alcohol intake frequency: holidays/special occasions only Patient Tobacco Use Status: Never used Tobacco Substance Use Type: Marijuana Current occupational status: employed Current occupation: [id number] Sexual orientation: Straight/Heterosexual Gender identity: Female Female Reproductive History Menstrual Age of Menarche: 13 Physical Exam Vital Signs: Last Vital Signs Pulse 82 01/29/23 10:23 BP 106/72 01/29/23 10:23 BMI result Body Mass Index 30.4 Absence of Cushingoid features. Absence of acromegalic features. Neck exam reveals nl size thyroid about 15 gms. No thyroid nodules palpable. No carotid bruits present. Lungs CTA. Heart S1 S2, Reg R/R. No M/R/ G. Skin exam reveals absence of vitiligo or acanthosis nigricans. Abdominal exam reveals Soft NT/ND with NA BS. No organomegaly present. Extrem Other: Visual exam of foot performed. No ulcerations or open lesions. No onchomycosis, no callouses.Pulses 2 + distally. Sensation intact to monofilament exam. Vibratory sensation sensed 10 seconds in right, 10 seconds in left with 128 Hz tuning fork Results AMB Hemoglobin A1c AMB Hemoglobin A1c 6.8 % Last Edit by EVELIO Flores on 01/29/23 10:43 Results Reviewed Results Reviewed: 01/29/23 10:29 Glucose, Whole Blood Routine Laboratory Last Values Glucose (Clinic) 154 mg/dL (60-115) H 01/29/23 10:29 Assessment & Plan Assessment & Plan (1) Type 1 diabetes mellitus with hyperglycemia: Code(s): E10.65 - Type 1 diabetes mellitus with hyperglycemia Plan: This is a 31-year-old black female with a history of type 1 diabetes being treated with T-slim pump with Dexcom with excellent glycemic control and known microvascular complications namely micro albuminuria. Plan is to have the pt lower the overnight basal a 00:00 to 0.7 units/hour.Will have pt f/u with CDE. (2) Type 1 diabetes mellitus with proteinuria: Code(s): E10.29 - Type 1 diabetes mellitus with other diabetic kidney complication; R80.9 - Proteinuria, unspecified Orders: Orders AMB Hemoglobin A1c Today E11.9 - Type 2 diabetes mellitus without complications Coding Level of Care Code Est Pt Level 4 (39991) Diagnoses Type 1 diabetes mellitus with hyperglycemia E10.65 Type 1 diabetes mellitus with proteinuria E10.29; R80.9
[2023-01-29 10:23] VITALS: BP 106/72; PULSE 82; BMI 30.4
[2023-01-29 10:33] LABS: Glucose, Whole Blood 154 mg/dL (60-115)
== END 2023-01-29 12:05 | disposition home or self-care (01) ==
PROVIDERS: PCP Internal Medicine Medical Oncology; Visit Provider Internal Medicine Endocrinology, Diabetes & Metabolism
DX: E10.65 Type 1 diabetes mellitus with hyperglycemia (principal); E10.29 Type 1 diabetes mellitus with other diabetic kidney complication; R80.9 Proteinuria, unspecified; E11.9 Type 2 diabetes mellitus without complications
CPT/HCPCS: 99214

== ENCOUNTER → 2023-01-29 10:18 | Outpatient (BNVA) | payer OTHER, SELFPAY | PROVIDERS: Visit Provider Internal Medicine Endocrinology, Diabetes & Metabolism | DX: E10.65 Type 1 diabetes mellitus with hyperglycemia (principal); E10.29 Type 1 diabetes mellitus with other diabetic kidney complication; R80.9 Proteinuria, unspecified | CPT/HCPCS: 82947; 83036; 99212 ==

== ENCOUNTER 2023-06-08 14:31 | Outpatient (AMB) | payer OTHER, SELFPAY ==
--- NOTE | 2023-06-08 15:08 | MHC.AMDMED ---
Intake Intake Visit Reasons: dm1/CONFIRMED Certified Emergency Vehicle Technician Required: No Accompanied by: Self / Same As Patient Allergies No Known Allergies Allergy (Verified 01/29/23 10:23) [facility] Comprehensive Diabetes Asmnt Most Recent Diabetes Results: Creatinine 0.80 mg/dL (0.5-1.4) 04/14/22 Blood Urea Nitrogen 15 mg/dL (9-16) 04/14/22 Sodium 137 mmol/L (135-145) 04/14/22 Potassium 4.0 mmol/L (3.3-5.1) 04/14/22 Chloride 101 mmol/L (96-108) 04/14/22 Carbon Dioxide 26 mmol/L (22-29) 04/14/22 Calcium 8.6 mg/dL (8.4-10.2) 04/14/22 [facility] Medical History Depression Type 1 diabetes mellitus with hyperglycemia Surgical History History of left breast biopsy Family History Paternal Grandmother Diabetes Maternal Aunt Breast cancer Social History Household Members: Family Housing: Apartment Alcohol intake: current Alcohol intake frequency: holidays/special occasions only Patient Tobacco Use Status: Never used Tobacco Substance Use Type: Marijuana Current occupational status: employed 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 The following topics were reviewed today: -different between control IQ verses basal IQ - activity mode - sleep schedule -Pump therapy basic concepts: Basal/bolus, insulin to carb ratio, correction factor, insulin on board -CGM settings(if integrated system): Patient does not currently have high or low alert settings on her insulin Patient above target 50% At target 46% Below target 4% Insulin delivery settings patient reports she ran out of pump supplies and was manually injecting for approximately a week and half. She now has adequate amount of pump supplies but she had changed her overnight insulin to carb ratio to be 1-15 instead of 1-17, and strength in the correction factor which was causing overnight hypoglycemia Troubleshooting after starting new pod or inserting new insulin set: Occlusion, adhesive tape sensitivity, redness Check BG 2 hours after site change Safety information: Reviewed the Importance of a backup plan, for manual injections, proper prescriptions and emergency supplies ketone strips, and rules for testing for ketones, patient states she knows the rules for testing for ketones and how to manually calculate correction in mealtime boluses in case of pump failure Patient understands the basic concepts of pump therapy, how to give insulin for meals and snacks, how to troubleshoot for hyper and hypoglycemia. Setting verified by CDCES Basal rate(s) (units/hour) : 12 AM? to 12 AM? 0.8 units / hr Bolus setting Insulin Carbohydrate Ratio (s) 12 AM? to 8 AM? 1:15 New 12 AM? to 8 AM? 1:16 8 AM to 10 PM 1:17 10 PM to 12 AM 1:16 Correction Factor / Sensitivity Factor 12 AM? to 8 AM? 1:52 New 12 AM? to 8 AM? 1:55 8 AM to 10 PM 1:55 10 PM to 12 AM 1:55 Active Insulin Time:? 2 hours Target(s): 12 AM? to 12 AM? 120 Patient Instructions: patient will contact Diabetes Education if she needs assistance setting new insulin patient will follow-up with outreach educator JAMI Coding Level of Care Code Est Pt Level 1 (95419) Diagnoses Type 1 diabetes mellitus with proteinuria E10.29; R80.9
== END 2023-06-08 15:57 | disposition home or self-care (01) ==
PROVIDERS: PCP Internal Medicine Medical Oncology; Visit Provider Registered Nurse Diabetes Educator
DX: E10.29 Type 1 diabetes mellitus with other diabetic kidney complication (principal); R80.9 Proteinuria, unspecified

== ENCOUNTER → 2023-06-08 14:31 | Outpatient (BNVA) | payer OTHER, SELFPAY | PROVIDERS: PCP Internal Medicine Medical Oncology; Visit Provider Registered Nurse Diabetes Educator | DX: Z46.81 Encounter for fitting and adjustment of insulin pump (principal); E10.29 Type 1 diabetes mellitus with other diabetic kidney complication; R80.9 Proteinuria, unspecified | CPT/HCPCS: 99211 ==

== ENCOUNTER 2023-07-08 10:30 | Outpatient (AMB) | payer OTHER, SELFPAY ==
[2023-07-08 10:37] VITALS: BP 110/68; BMI 31.0
--- NOTE | 2023-07-08 10:37 | MHC.OFFVIS ---
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 Doing well with concerns: wants daily suppression therapy as she is a new relationship. She tries to eat healthy and stays active with exercise. Regular monthly menses x 4-5d, painful x 2 d. Uses OTC meds for cramping. Currently is sexually active, using condoms. She denies vaginal itching and irritation. STI screening offered; she accepts. Last pap smear 2019, negative. [facility] Medical History Depression Type 1 diabetes mellitus with hyperglycemia Surgical History History of left breast biopsy Family History Paternal Grandmother Diabetes Maternal Aunt Breast cancer Family/Other Colon cancer Social History Household Members: Family Housing: Apartment Alcohol intake: current Alcohol intake frequency: holidays/special occasions only Patient Tobacco Use Status: Never used Tobacco Substance Use Type: Marijuana Current occupational status: employed Current occupation: [employer] Sexual orientation: Straight/Heterosexual Gender identity: Female Female Reproductive History Menstrual Age of Menarche: 13 Duration of menses: 3-5 days Date of last menstrual period: 06/22/23 control method: none Total pregnancies: 0 Date of last pap smear: 05/09/20 (NEGATIVE) History of abnormal pap smear: No Review of Systems Const All systems reviewed & are unremarkable except as noted in HPI and below Reports as per HPI Eyes Reports no additional complaints ENT Reports no additional complaints Card Reports no additional complaints Resp Reports no additional complaints GI Reports as per HPI and Reports no additional complaints Reports as per HPI Musc Reports no additional complaints Skin/Breast Reports as per HPI Neuro Reports no additional complaints Psych Reports no additional complaints Endo Reports no additional complaints Casey/Lymph Reports no additional complaints Aller/Immun Reports no additional complaints Physical Exam Vital Signs: Last Vital Signs BP 110/68 07/08/23 10:37 BMI result Body Mass Index 31.0 Const General: cooperative, healthy appearing, no acute distress, well developed and alert Orientation/consciousness: patient oriented x3 HEENT Head: Yes normal to inspection Eyes General: appearance normal, both eyes and all related structures Neck Neck: Yes normal visual inspection Thyroid: Thyroid normal Chest Other: Left breast ridge of firm tissue from 5-7 o'clock overall breast on the left side is larger Chest palpation & inspection: normal inspection of the chest and other (no puckering, dimpling, peau de orange, retraction, discharge, masses) Breast/axilla inspection: normal inspection of the breasts Breast/axilla palpation: normal palpation of the breasts Resp Effort & Inspection: normal respiratory effort GI Inspection: Yes normal to inspection Palpation (GI): Soft to palpation Rectal Exam - Female: deferred General: Yes bladder normal to palpation External Female Exam: normal external appearance and normal appearance of the urethra Speculum Exam - Vagina: normal appearance of the vagina, normal palpation, normal vaginal discharge and vaginal bleeding Speculum Exam - Cervix: normal appearance of the cervix and normal palpation Bimanual exam- vagina & uterus: normal bimanual exam, normal palpation, uterine size normal, bladder normal to palpation, normal palpation and non-tender Bimanual Exam- Adnexa, other: no masses OB/external & speculum: vaginal bleeding Skin General skin exam: no rashes or lesions noted Rashes: no rashes Neuro General: patient oriented x3 Cognition (Neuro): normal cognition Extrem General: Yes normal to inspection Psych Attitude: cooperative Thought process: Normal thought process present Assessment & Plan Assessment & Plan (1) Well woman exam with routine gynecological exam: Code(s): Z01.419 - Encounter for gynecological examination (general) (routine) without abnormal findings (2) Breast lump: Code(s): N63.0 - Unspecified lump in unspecified breast Plan Discussed: Current recommendations for pap smears per ASCCP guidelines. Breast awareness and periodic breast exams. Maintain a healthy lifestyle including a well balanced diet and routine exercise. Use condoms for STI and prevention. Planned breast ultrasound and diagnostic mammogram for left breast, follow-up in person for results. All of her questions and concerns were addressed to the best of my ability and shared decision making. She is agreeable to the plan of care. 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 This note is constructed using voice recognition software. While every effort has been made to ensure accuracy, applications engineer manufacturing errors may have been included. Orders: Orders HIV Ab/Ag Today Z20.2 - Contact with and (suspected) exposure to infections with a predominantly sexual mode of transmission Hepatitis B Core Antibody Today Z20.2 - Contact with and (suspected) exposure to infections with a predominantly sexual mode of transmission Syphilis Screen Today Z20.2 - Contact with and (suspected) exposure to infections with a predominantly sexual mode of transmission US breast LT complete Today N63.0 - Unspecified lump in unspecified breast MM tomosynthesis diagnostic BI Today Z12.31 - Encounter for screening mammogram for malignant neoplasm of breast Hepatitis C Antibody Today Z20.2 - Contact with and (suspected) exposure to infections with a predominantly sexual mode of transmission Bacterial Vaginosis Panel Today Z20.2 - Contact with and (suspected) exposure to infections with a predominantly sexual mode of transmission CT NG by PCR Today Z20.2 - Contact with and (suspected) exposure to infections with a predominantly sexual mode of transmission Medications: New valacyclovir (Valtrex) taken daily 500 mg PO DAILY 90 tabs 4RF antiviral 90 days Coding Level of Care Code Est Pt Prev Care 18-39y(42963) Diagnoses Well woman exam with routine gynecological exam Z01.419 Breast lump N63.0
== END 2023-07-08 11:45 | disposition home or self-care (01) ==
LOC: HO.HWS 10:30
PROVIDERS: PCP Internal Medicine Medical Oncology; Visit Provider Advanced Practice Midwife
DX: Z01.419 Encounter for gynecological examination (general) (routine) without abnormal findings (principal); N63.0 Unspecified lump in unspecified breast
CPT/HCPCS: 99395

== ENCOUNTER 2023-07-08 10:30 | Outpatient (REF) | payer OTHER, SELFPAY ==
[2023-07-09 04:02] LABS: CT PCR NOT DETECTED (Not Detect.); NG PCR NOT DETECTED (Not Detect.)
[2023-07-09 09:22] LABS: BV Int Neg Control Negative (Negative); BV Int Pos Control Positive (Positive)
== END 2023-07-08 10:31 | disposition home or self-care (01) ==
LOC: HO.LNP 10:30
PROVIDERS: PCP Internal Medicine Medical Oncology; Visit Provider Advanced Practice Midwife
DX: Z01.419 Encounter for gynecological examination (general) (routine) without abnormal findings (principal); N94.10 Unspecified dyspareunia; N63.23 Unspecified lump in the left breast, lower outer quadrant; Z11.3 Encounter for screening for infections with a predominantly sexual mode of transmission; Z20.2 Contact with and (suspected) exposure to infections with a predominantly sexual mode of transmission
CPT/HCPCS: 0353U; 87480; 87510; 87660; 99395

== ENCOUNTER 2023-07-13 08:59 | Outpatient (AMB) | payer OTHER, SELFPAY ==
--- NOTE | 2023-07-13 09:01 | MHC.OFFVIS ---
Intake Vital Signs 07/13/23 09:02 Height 5 ft 9 in Weight 208 lb 1.862 oz BMI 30.7 Intake Visit Reasons: DM1-confirmed Intake Note: Patient presents today to follow up on D1MT. Last Diabetic Eye exam: 2022 Last Podiatry Visit: None Random Glucose: 270 mg/dl HgA1C: 8.2% Preventative Maintenance Technician Required: No Accompanied by: Self / Same As Patient Allergies No Known Allergies Allergy (Verified 07/13/23 09:19) Medication List - Last Reconciled 07/13/23 by William Drew MD blood-glucose meter,continuous (Dexcom G6 Press Tender Long Goods) As directed blood-glucose sensor (Dexcom G6 Sensor device) As directed blood-glucose transmitter (Dexcom G6 Transmitter device) As directed fluoxetine 10 mg PO DAILY glucagon 3 mg/actuation (Baqsimi) 3 mg intranasal ONCE insulin lispro (Humalog U-100 Insulin) up to 75 units per day via pump subcut daily; valacyclovir (Valtrex) 500 mg PO DAILY 90 days valsartan 80 mg PO DAILY HPI HPI Comments History of Present Illness Details Patient is a 33 yo female with DM type 1 diagnosed at age 11 who presents continued management of diabetes. Past medical history includes : Dm1 Micro and macrovascular complications: none hypoglycemia: about once and pump alarms appropriately. Hyperglycemia; blood sugars elevated after meals. Exercise: is working out for several hours at a time, CGM: Average 176 Sd 41.5 for the past 2 weeks. CGM in use 92.1 days. range lo - 390 Below target range of less than 70 mg/dL3 %, within target range of 70-179 mg/dL50 %, above target range of 179 mg/dL46 %. Pattern shows overnight hypoglycemia Basal IQ use 100% of the time. Average suspension per day 9.5 times with an average suspension of 180 minutes. Cartridge and tubing changes every 3.0 days. Total daily dose 34units per day, 52% basal, %48 food bolus, 2% correction bolus Diabetes medications: Humalog via Tandem T:Slim Basal rate(s) (units/hour) : 12 AM? to 8 AM? 0.85 units / hr 8 AM to 10 A = 0.9 10 A to 12 MN = 0.85 Bolus setting Insulin Carbohydrate Ratio (s) 12 AM? to 8 AM? 1:15 New 12 AM? to 8 AM? 1:16 8A-10A =1:17 10 AM to 2 PM 1:17 2 PM to 10 P= 1:17 10 PM to 8 AM 1:16 Correction Factor / Sensitivity Factor 12 AM? to 8 AM? 1:52 New 12 AM? to 8 AM? 1:55 8 AM to 10 PM 1:55 10 PM to 12 AM 1:55 Active Insulin Time:? 2 hours Target(s): 12 AM? to 12 AM? 120 Eye exam:08/2022 , appt denies retinopathy Some overnight hypoglycemia Laboratory Tests 09/18/21 12:47 Hgb A1c (Clinic) 7.2 H 09/26/20 12/10/20 04/30/21 12:38 14:02 16:40 Creatinine 0.85 0.86 Estimated GFR > 60 > 60 Hgb A1c (Clinic) 6.7 H PFSH Medical History Depression Type 1 diabetes mellitus with hyperglycemia Surgical History History of left breast biopsy Family History Paternal Grandmother Diabetes Maternal Aunt Breast cancer Family/Other Colon cancer Social History Household Members: Family Housing: Apartment Alcohol intake: current Alcohol intake frequency: holidays/special occasions only Patient Tobacco Use Status: Never used Tobacco Substance Use Type: Marijuana Current occupational status: employed 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 Absence of acromegalic features. Neck exam reveals nl size thyroid about 15 gms. No thyroid nodules palpable. No carotid bruits present. Lungs CTA. Heart S1 S2, Reg R/R. No M/R/ G. Skin exam reveals absence of vitiligo or acanthosis nigricans. Abdominal exam reveals Soft NT/ND with NA BS. No organomegaly present. Extrem Other: Visual exam of foot performed. No ulcerations or open lesions. No onchomycosis, no callouses.Pulses 2 + distally. Sensation intact to monofilament exam. Vibratory sensation sensed 10 seconds in right, 10 seconds in left with 128 Hz tuning fork Results AMB Hemoglobin A1c AMB Hemoglobin A1c 8.2 % Last Edit by Dahiana Agee on 07/13/23 09:26 Assessment & Plan Assessment & Plan (1) Type 1 diabetes mellitus with hyperglycemia: Code(s): E10.65 - Type 1 diabetes mellitus with hyperglycemia Plan: This is a 33-year-old black female with a history of type 1 diabetes being treated with T-slim pump with Dexcom with excellent glycemic control and known microvascular complications namely micro albuminuria. Plan is to decrease the basal rate to 0.8 units/hour overnight and tighten the bolus from 08:00 to 22:00 to 01:15..Will have pt f/u with CDE. Will also recheck basic metabolic panel, lipid profile microalbumin to creatinine ratio Orders: Orders Lipid Panel Today E10.29 - Type 1 diabetes mellitus with other diabetic kidney complication, E10.65 - Type 1 diabetes mellitus with hyperglycemia, R80.9 - Proteinuria, unspecified AMB Hemoglobin A1c Today E10.65 - Type 1 diabetes mellitus with hyperglycemia Basic Metabolic Panel Today E10.29 - Type 1 diabetes mellitus with other diabetic kidney complication, E10.65 - Type 1 diabetes mellitus with hyperglycemia, R80.9 - Proteinuria, unspecified Microalbumin, Random (w Creat) Today E10.29 - Type 1 diabetes mellitus with other diabetic kidney complication, E10.65 - Type 1 diabetes mellitus with hyperglycemia, R80.9 - Proteinuria, unspecified Coding Level of Care Code Est Pt Level 4 (91198) Diagnoses Type 1 diabetes mellitus with hyperglycemia E10.65
[2023-07-13 09:02] VITALS: BMI 30.7
[2023-07-13 09:21] LABS: Glucose, Whole Blood 270 mg/dL (60-115)
== END 2023-07-13 10:05 | disposition home or self-care (01) ==
PROVIDERS: PCP Internal Medicine Medical Oncology; Visit Provider Internal Medicine Endocrinology, Diabetes & Metabolism
DX: E10.65 Type 1 diabetes mellitus with hyperglycemia (principal)
CPT/HCPCS: 99214

== ENCOUNTER → 2023-07-13 08:59 | Outpatient (BNVA) | payer OTHER, SELFPAY | PROVIDERS: PCP Internal Medicine Medical Oncology; Visit Provider Internal Medicine Endocrinology, Diabetes & Metabolism | DX: Z46.81 Encounter for fitting and adjustment of insulin pump (principal); E10.65 Type 1 diabetes mellitus with hyperglycemia; Z79.4 Long term (current) use of insulin | CPT/HCPCS: 82947; 83036; 99212 ==

== ENCOUNTER 2023-07-30 14:25 | Outpatient (REF) | payer MEDICAID, SELFPAY ==
--- NOTE | ~2023-07-30 | MM_ITS ---
EXAMINATION: MM DIAGNOSTIC DIGITAL BREAST TOMOSYNTHESIS, BILATERAL US BREAST LIMITED, LEFT MAMMOGRAPHY: CLINICAL INFORMATION: 33-year-old female, history of benign excisional biopsy left breast in 2017, in which patient's provider felt a ridge of firm tissue spanning 5-7 o'clock inferior left breast, just below the excisional biopsy scar. Diagnostic for evaluation. Patient also due for bilateral screening. COMPARISON: Mammography: 02/10/2017 left mammogram. No prior right mammogram. TECHNIQUE: Digital breast tomosynthesis is performed in both the craniocaudal and mediolateral oblique views along with computer-aided detection (CAD). Synthesized 2D images are generated from the tomosynthesis. FINDINGS: The breasts are heterogeneously dense, which may obscure small masses (ACR BI-RADS breast composition Category c). Mammography demonstrates scar marker in the inferior left breast anterior one third. Palpable BB marker has been placed by the technologist just posterior to this in the left 6:00 axis approximately. No definite underlying mass, abnormal calcifications, or areas of architectural distortion aside from mild postsurgical scarring. No definite mammographic correlate to the palpable focus of concern. The parenchymal pattern is stable from the prior exam. Right breast demonstrates no suspicious masses, suspicious grouped calcifications, or areas of architectural distortion. There is no skin thickening or axillary abnormality in either breast. ULTRASOUND: CLINICAL INFORMATION: As above. COMPARISON: 02/10/2017 left breast, 06/27/2016 left breast. TECHNIQUE: Targeted sonographic evaluation LEFT breast was performed using a high frequency linear transducer. Attention was focused on the palpable region of concern, 5-7:00 axis anterior left breast just behind the scar. Selected archived documentation. FINDINGS: LEFT BREAST: There is heterogeneously dense fibroglandular tissue present. There is a prominent ridge of fibrocystic tissue which most likely relates and correlates to the focus of palpable concern in the 5-7 o'clock axis of the left breast. There is no cystic abnormality, suspicious mass, abnormal shadowing, or edema within the soft tissue planes. MM/MM tomosynthesis diagnostic BI IMPRESSION: There are no findings in either breast suspicious for malignancy. There are stable post excisional biopsy changes in the anterior inferior left breast. Region of palpable concern inferior left breast spanning 5-7 o'clock axis just behind the excisional biopsy scar appears to correlate with a linear focus of dense fibrocystic tissue in this region. No suspicious masses. Findings are benign and no further follow-up recommended. OVERALL ASSESSMENT: Mammography: BI-RADS 2 - Benign Findings Ultrasound: BI-RADS 2 - Benign Findings RECOMMENDATION: Mammo at 40 or earlier if clinically needed Results were provided to the patient at time of visit by the technologist. This patient's information was entered into a reminder system with a target due date for their next mammogram.
== END 2023-07-30 14:26 | disposition home or self-care (01) ==
LOC: HO.MAMMO 14:25
PROVIDERS: PCP Internal Medicine Medical Oncology; Visit Provider Advanced Practice Midwife
DX: N63.25 Unspecified lump in the left breast, overlapping quadrants (principal)
CPT/HCPCS: 76642; 77062; 77066

== ENCOUNTER → 2023-07-30 14:30 | Outpatient (BNV) | payer MEDICAID, SELFPAY | PROVIDERS: PCP Internal Medicine Medical Oncology; Visit Provider Radiology Diagnostic Radiology | DX: R92.322 Mammographic fibroglandular density, left breast (principal) | CPT/HCPCS: 76642; 77062; 77066 ==

== ENCOUNTER 2023-11-03 07:58 | Outpatient (AMB) | payer OTHER, SELFPAY ==
--- NOTE | 2023-11-03 08:04 | A.OFFVIS_ITS ---
Vital Signs 11/03/23 08:05 Height 5 ft 9 in Weight 207 lb 0.225 oz BMI 30.6 BP 116/72 Blood Pressure Location Rt brachial Position Sitting Pulse 62 Pulse Source Pulse Oximeter Intake Visit Reasons: [id number] Intake Note: Patient presents today to follow up on D1MT. Last Diabetic Eye exam: 02/2023 Last Podiatry Visit:Doesn't have one Random Glucose: 104 mg/dl HgA1c: 7.4% Steward/Stewardess Lounge Required: No Accompanied by: Self / Same As Patient Allergies No Known Allergies Allergy (Verified 11/03/23 08:13) HPI Comments Details: Patient is a 33 yo female with DM type 1 diagnosed at age 11 who presents continued management of diabetes. Past medical history includes : Dm1 Micro and macrovascular complications: none hypoglycemia: daily Hyperglycemia; blood sugars elevated after meals. Exercise: is working out for several hours at a time, CGM: Average 164 Sd 39 for the past 2 weeks. CGM in use 8.8 days. range lo - 390 Below target range of less than 70 mg/dL 4 %, within target range of 70-179 mg/dL59 %, above target range of 179 mg/dL366 %. Pattern shows overnight hypoglycemia Basal IQ use 100% of the time. Average suspension per day 9.5 times with an average suspension of 180 minutes. Cartridge and tubing changes every 3.0 days. Total daily dose 30units per day, 53% basal, %47 food bolus, 2% correction bolus Diabetes medications: Humalog via Tandem T:Slim Basal rate(s) (units/hour) : 12 AM? to 8 AM? 0.8 units / hr 8 AM to 10 A = 0.9 10 A to 2P = 0.85 2PM to 10 PM = 0.88 10 PM to 12 AM =0.9 Bolus setting Insulin Carbohydrate Ratio (s) New 12 AM? to 8 AM? 1:16 8A-10A =1:16 10 AM to 2 PM 1:16 2 PM to 10 P= 1:17 10 PM to 8 AM 1:17 Correction Factor / Sensitivity Factor 12 AM? to 8 AM? 1:52 New 12 AM? to 8 AM? 1:55 8 AM to 10 PM 1:55 10 PM to 12 AM 1:55 Active Insulin Time:? 2 hours Target(s): 12 AM? to 12 AM? 120 Eye exam: , needs to make appt jhad appt last Summer denies retinopathy Some overnight hypoglycemia and after lunch Laboratory Tests 09/18/21 12:47 Hgb A1c (Clinic) 7.2 H 09/26/20 12/10/20 04/30/21 12:38 14:02 16:40 Creatinine 0.85 0.86 Estimated GFR > 60 > 60 Hgb A1c (Clinic) 6.7 H PFS Medical History Depression Type 1 diabetes mellitus with hyperglycemia Surgical History History of left breast biopsy Family History Paternal Grandmother Diabetes Maternal Aunt Breast cancer Family/Other Colon cancer Social History Household Members: Family Housing: Apartment Alcohol intake: current Alcohol intake frequency: holidays/special occasions only Patient Tobacco Use Status: Never used Tobacco Substance Use Type: Marijuana Current occupational status: employed Current occupation: [employer] Sexual orientation: Straight/Heterosexual Gender identity: Female Female Reproductive History Menstrual Age of Menarche: 13 Physical Exam Vital Signs: Last Vital Signs Pulse 62 11/03/23 08:05 BP 116/72 11/03/23 08:05 BMI result Body Mass Index 30.6 Absence of Cushingoid features. Absence of acromegalic features. Neck exam reveals nl size thyroid about 15 gms. No thyroid nodules palpable. No carotid bruits present. Lungs CTA. Heart S1 S2, Reg R/R. No M/R/ G. Skin exam reveals absence of vitiligo or acanthosis nigricans. Abdominal exam reveals Soft NT/ND with NA BS. No organomegaly present. Extrem Other: Visual exam of foot performed. No ulcerations or open lesions. No onchomycosis, no callouses.Pulses 2 + distally. Sensation intact to monofilament exam. Vibratory sensation sensed 10 seconds in right, 10 seconds in left with 128 Hz tuning fork Results AMB Hemoglobin A1c AMB Hemoglobin A1c 7.4 % Last Edit by EVELIO Kennedy on 11/03/23 08:21 Results Reviewed Results Reviewed: Laboratory Last Values Glucose (Clinic) 104 mg/dL (60-115) 11/03/23 08:11 Assessment & Plan Assessment & Plan (1) Type 1 diabetes mellitus with hyperglycemia: Code(s): E10.65 - Type 1 diabetes mellitus with hyperglycemia Category: Medical Plan: This is a 33-year-old black female with a history of type 1 diabetes being treated with T-slim pump with Dexcom with good glycemic control and known microvascular complications namely micro albuminuria. Plan is to decrease the basal rate to 0.7 units/hour overnight at 12 AM and tighten the bolus from 08:00 to 10:00 to 01:15..Will have pt f/u with CDE. Will also recheck basic metabolic panel, lipid profile microalbumin to creatinine ratio. We also talked about potentially upgrading to a Tandem Mobi or potentially switching to an iLet . 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
[2023-11-03 08:05] VITALS: BP 116/72; PULSE 62; BMI 30.6
[2023-11-03 08:15] LABS: Glucose, Whole Blood 104 mg/dL (60-115)
== END 2023-11-03 08:42 | disposition home or self-care (01) ==
PROVIDERS: PCP Internal Medicine Medical Oncology; Visit Provider Internal Medicine Endocrinology, Diabetes & Metabolism
DX: Z13.9 Encounter for screening, unspecified (principal); E10.65 Type 1 diabetes mellitus with hyperglycemia
CPT/HCPCS: 99214

== ENCOUNTER → 2023-11-03 07:58 | Outpatient (BNVA) | payer MEDICAID, SELFPAY | PROVIDERS: PCP Internal Medicine Medical Oncology; Visit Provider Internal Medicine Endocrinology, Diabetes & Metabolism | DX: E10.65 Type 1 diabetes mellitus with hyperglycemia (principal); Z96.41 Presence of insulin pump (external) (internal) | CPT/HCPCS: 82947; 83036; 99212 ==

== ENCOUNTER 2023-11-03 08:44 | Outpatient (REF) | payer OTHER, SELFPAY ==
[2023-11-03 12:00] LABS: Anion Gap 14 (12-20); Blood Urea Nitrogen 15 mg/dL (9-16); Carbon Dioxide 27 mmol/L (22-29); Chloride 103 mmol/L (96-108); Cholesterol 199 mg/dL (<200); Estimated Glomerular Filt Rate > 60; Glucose Random 101 mg/dL (60-115); HDL Cholesterol 80 mg/dL (>40); LDL Cholesterol Calculated 108 mg/dL (<100); Potassium 3.7 mmol/L (3.3-5.1); Sodium 140 mmol/L (135-145); Triglycerides 59 mg/dL (<150)
== END 2023-11-03 08:45 | disposition home or self-care (01) ==
LOC: HO.10HDL 08:44
PROVIDERS: Visit Provider Internal Medicine Endocrinology, Diabetes & Metabolism
DX: E10.29 Type 1 diabetes mellitus with other diabetic kidney complication (principal); E10.65 Type 1 diabetes mellitus with hyperglycemia; R80.9 Proteinuria, unspecified
CPT/HCPCS: 36415; 80048; 80061; 82947; 83036; 99212

== ENCOUNTER 2024-02-03 08:39 | Outpatient (AMB) | payer MEDICAID, SELFPAY ==
--- NOTE | 2024-02-03 08:40 | A.OFFVIS_ITS ---
Vital Signs 02/03/24 08:42 Height 5 ft 9 in Weight 198 lb 6.656 oz BMI 29.3 BP 116/78 Blood Pressure Location Rt brachial Position Sitting Pulse 96 Pulse Source Pulse Oximeter Intake Visit Reasons: DM 1/CONFIRMED Intake Note: Patient presents today for to re-establish treatment for Type 1 Diabetes Mellitus: Last Diabetic eye exam was on: DUE Last Podiatry exam was on: Does not see a Green House Manager Most recent HbA1c: 7.2%, 02/03/2024 Random Glucose- 90 mg/dL, Today Receiving Worker Required: No Accompanied by: Self / Same As Patient Allergies No Known Allergies Allergy (Verified 02/03/24 08:40) HPI Comments Details: Patient is a 33 yo female with DM type 1 diagnosed at age 11 who presents for continued management of diabetes. She was last seen by Dr. Drew 11/19 and by Veronica TRAN 06/20. A new tandem pump with G7 was shipped to her house several months ago. She has not opened it and is considering a change to islet and we will contact company to see if the tandem in it's unopened box is returnable Past medical history includes : Dm1 Micro and macrovascular complications: nephropathy followed by Nephrology at [facility]. She is seen annually. Has annual eye exam. Has minor retinopathy which is unchanged over several years per patient history. Does not see podiatry. Denies numbness tingling cramping hypoglycemia: daily Hyperglycemia; blood sugars elevated after meals. Exercise: is working out for several hours at a time, G6 average glucose: [147] Glucose Management indicator unable to calculate TIme in range: [11 ] % very high (above 250) 16 % high (181-250) 65 % in range (70-180] 5 % low (69-55) 5 % very low (below 54) Pattern shows overnight hypoglycemia and lows after a higher sugar correction, she made a few adjustments to correct this several weeks ago. Basal IQ use 100% of the time. Average sensor use 82.3% Total daily dose 24.4 units per day, 62% basal, %38 bolus Diabetes medications: Humalog via Tandem T:Slim Basal rate(s) (units/hour) : 12 AM? to 8 AM? 0.75 units / hr New 0.7 8 AM to 10 A = 0.8 new 0.75 10 A to 2P = 0.8 2PM to 10 PM = 0.8 10 PM to 12 AM =0.8 Bolus setting Insulin Carbohydrate Ratio (s) 12AM 1:18 8 AM 1:17 2 PM 1:17 10 PM 1:17 Correction Factor / Sensitivity Factor 12 AM? 1:60 8 AM 1:59 10 AM 1:59 NEW 1:65 2 PM 1:59 NEW 1:65 10 PM 1:60 New 1:65 Active Insulin Time:? 2 hours Target(s): [facility] Medical History Depression Type 1 diabetes mellitus with hyperglycemia Surgical History History of left breast biopsy Family History Paternal Grandmother Diabetes Maternal Aunt Breast cancer Family/Other Colon cancer Social History Household Members: Family Housing: Apartment Alcohol intake: current Alcohol intake frequency: holidays/special occasions only Patient Tobacco Use Status: Never used Tobacco Substance Use Type: Marijuana Current occupational status: employed Current occupation: [employer] Sexual orientation: Straight/Heterosexual Gender identity: Female Female Reproductive History Menstrual Age of Menarche: 13 Physical Exam Vital Signs: Last Vital Signs Pulse 96 02/03/24 08:42 BP 116/78 02/03/24 08:42 BMI result Body Mass Index 29.3 Const General: cooperative and healthy appearing Nutritional Appearance: average body habitus Limitations: no limitations Neck Neck: Yes normal visual inspection Thyroid: Thyroid normal Lymphatic: no lymphadenopathy noted Resp Effort & Inspection: normal respiratory effort Cardio Jugular venous distension: no JVD Rate: regular rate Rhythm: regular rhythm Heart sounds: S1 normal heart sound present and S2 normal heart sound present Extrem Other: Visual exam of foot performed. No ulcerations or open lesions. No onchomycosis, very flat, plantar callouses . Sensation intact to monofilament exam. Vibratory sensation is normal with 128 Hz tuning fork. Results AMB Hemoglobin A1c AMB Hemoglobin A1c 7.2 % Last Edit by EVELIO Flores on 02/03/24 09:02 Results Reviewed Results Reviewed: Laboratory Last Values Glucose (Clinic) 90 mg/dL (60-115) 02/03/24 08:49 Laboratory Tests 09/26/20 04/30/21 12/18/21 12:38 16:40 08:25 Plt Count 264 Potassium Creatinine Estimated GFR Hgb A1c (Clinic) Calcium AST 23 ALT 15 Triglycerides Cholesterol LDL Cholesterol, Calc HDL Cholesterol TSH 0.75 Free T4 0.79 Urine Creatinine 311.92 Urine Microalbumin 981.0 Microalb/Creat Ratio 314.5 01/29/23 07/13/23 11/03/23 10:35 09:21 08:16 Plt Count Potassium Creatinine Estimated GFR Hgb A1c (Clinic) 6.8 H 8.2 H 7.4 H Calcium AST ALT Triglycerides Cholesterol LDL Cholesterol, Calc HDL Cholesterol TSH Free T4 Urine Creatinine Urine Microalbumin Microalb/Creat Ratio 11/03/23 08:46 Plt Count Potassium 3.7 Creatinine 0.84 Estimated GFR > 60 Hgb A1c (Clinic) Calcium 9.0 AST ALT Triglycerides 59 Cholesterol 199 LDL Cholesterol, Calc 108 H HDL Cholesterol 80 TSH Free T4 Urine Creatinine Urine Microalbumin Microalb/Creat Ratio Assessment & Plan Assessment & Plan (1) Type 1 diabetes mellitus with proteinuria: Code(s): E10.29 - Type 1 diabetes mellitus with other diabetic kidney complication; R80.9 - Proteinuria, unspecified Category: Medical Plan: Type 1 diabetic with A1c reduced today in the office to 7.2% from 7.4%. She is on a tandem pump with G6 and has received a new pump several months ago. She is considering calling the company to see if this can be returned in its unopened box. I advised her that I was not certain of the return policy with tandem. She is considering either an islet or Omnipod. She has been struggling with her blood sugars dropping too low after a higher sugar correction for lunch and supper and some nighttime hypoglycemia. She changed her pump settings several weeks ago but believes this is not enough of a change. Today we decreased overnight basal at 12 and 8 a.m. however this will do that all to change any over night hypoglycemia since she is primarily in auto mode. Her correction factor was adjusted from 10:00 to 22:00 and she will call if this has not taking care of the hypos and if her blood sugar average is not on target. She will contact her car filler and have her recent urine and blood work sent If she decides to stay with the T slim she will call to set up appointment with Veronica TRAN to set up new pump and to set up for G7. She will need a prescription at that point Patient teaching: The patient was counseled to always carry a source of sugar and on the rule of 15's: Take 3 glucose tablets and repeat again in 15 minutes if blood sugar is not in normal range. Continue to repeat every 15 minutes until blood sugar is normal. The patient was counseled to achieve a target A1C of 7% (154 avg). Fasting blood sugars should be 90-130 in the morning and less than 180 two hours after meals. Reviewed the relationship between poor diabetic control and the developement of complications The patient was counseled to wear closed toe shoes, never walk barefooted and to inspect the feet daily. For any signs of infection or open wound patient should notify PCP or go to urgent care. Reviewed the Importance of a backup plan, for manual injections, proper prescriptions and emergency supplies ketone strips, and rules for testing for ketones, patient states he/she knows the rules for testing for ketones and how to manually calculate correction in mealtime boluses in case of pump failure Patient understands the basic concepts of pump therapy, how to give insulin for meals and snacks, how to troubleshoot for hyper and hypoglycemia. Orders: Orders AMB Hemoglobin A1c Today E11.9 - Type 2 diabetes mellitus without complications Medications: New insulin glargine (Lantus U-100 Insulin) 15 units (0.15 mL) subcut DAILY 30 days PRN 10 mL 1RF Pump failure MDD 15 units E10.29 - Type 1 diabetes mellitus with other diabetic kidney complication, R80.9 - Proteinuria, unspecified Coding Level of Care Code Est Pt Level 5 (37860) Complex EM visit Add On G2211 Diagnoses Type 1 diabetes mellitus with proteinuria E10.29; R80.9 Time Spent (min) 60 Comment Time spent reviewing labs/previous provider notes, face to face, chart documentation
[2024-02-03 08:42] VITALS: BP 116/78; PULSE 96; BMI 29.3
[2024-02-03 08:53] LABS: Glucose, Whole Blood 90 mg/dL (60-115)
== END 2024-02-03 09:16 | disposition home or self-care (01) ==
PROVIDERS: PCP Internal Medicine Medical Oncology; Visit Provider Nurse Practitioner Adult Health
DX: E10.29 Type 1 diabetes mellitus with other diabetic kidney complication (principal); R80.9 Proteinuria, unspecified; E11.9 Type 2 diabetes mellitus without complications
CPT/HCPCS: 99215

== ENCOUNTER → 2024-02-03 08:39 | Outpatient (BNVA) | payer MEDICAID, SELFPAY | PROVIDERS: PCP Internal Medicine Medical Oncology; Visit Provider Nurse Practitioner Adult Health | DX: E10.65 Type 1 diabetes mellitus with hyperglycemia (principal); E10.29 Type 1 diabetes mellitus with other diabetic kidney complication; R80.9 Proteinuria, unspecified; Z96.41 Presence of insulin pump (external) (internal) | CPT/HCPCS: 82947; 83036; 99212 ==

== ENCOUNTER → 2024-02-22 10:58 | Outpatient (BNVA) | payer OTHER, SELFPAY | PROVIDERS: PCP Internal Medicine Medical Oncology; Visit Provider Advanced Practice Midwife ==

== ENCOUNTER 2024-02-26 09:42 | Outpatient (REF) | payer OTHER, SELFPAY ==
[2024-02-27 06:20] LABS: CT PCR DETECTED (Not Detect.); NG PCR NOT DETECTED (Not Detect.)
[2024-02-27 11:10] LABS: Bacterial Vaginosis PCR POSITIVE (Negative); Candida Group PCR NOT DETECTED (Not Detect); Candida glab krusei PCR NOT DETECTED (Not Detect); Trichomonas vaginalis PCR NOT DETECTED (Not Detect)
== END 2024-02-26 09:43 | disposition home or self-care (01) ==
LOC: HO.LAB 09:42
PROVIDERS: PCP Internal Medicine Medical Oncology; Visit Provider Advanced Practice Midwife
DX: N89.8 Other specified noninflammatory disorders of vagina (principal); Z20.2 Contact with and (suspected) exposure to infections with a predominantly sexual mode of transmission; E10.29 Type 1 diabetes mellitus with other diabetic kidney complication; N92.6 Irregular menstruation, unspecified; R80.9 Proteinuria, unspecified; Z79.4 Long term (current) use of insulin
CPT/HCPCS: 0352U; 87491; 87591; 99212

== ENCOUNTER 2024-02-26 09:42 | Outpatient (AMB) | payer OTHER, SELFPAY ==
[2024-02-26 09:42] VITALS: BP 120/70; BMI 29.1
--- NOTE | 2024-02-26 09:42 | A.OFFVIS_ITS ---
Vital Signs 02/26/24 09:42 Height 5 ft 9 in Weight 197 lb BMI 29.1 BP 120/70 Intake Visit Reasons: ?infection Information Interpreted: clinical only Bias Cutting Machine Operator Vertical: Bias Cutting Machine Operator Vertical Present Allergies No Known Allergies Allergy (Verified 02/26/24 09:43) Medication List - Last Reconciled 02/26/24 by Glenda Gross CNM blood-glucose meter,continuous (Dexcom G6 Bunghole Borer) As directed blood-glucose sensor (Dexcom G6 Sensor device) As directed blood-glucose transmitter (Dexcom G6 Transmitter device) As directed fluoxetine 10 mg PO DAILY glucagon 3 mg/actuation (Baqsimi) 3 mg intranasal ONCE insulin glargine (Lantus U-100 Insulin) 15 units (0.15 mL) subcut DAILY PRN 30 days MDD 15 units insulin lispro (Humalog U-100 Insulin) up to 75 units per day via pump subcut daily; valsartan 80 mg PO DAILY Is last menstrual period known: Yes Last menstrual period: 02/14/24 HPI HPI ?infection: Details: Patient is here for couple of concerns 1 is that she got diagnosed with BV in the winter and it was the 1st time and it was of concern to her she ended up not treating it because she did not have symptoms. She uses condoms exclusively 100% for control and she is comfortable with that and none have broken and they are used continuously. She is sexually active she is not ready to consider conception yet but she is acutely aware her biological clock but she is even more aware of the risks of a as a type 1 diabetic with proteinuria. She sees endocrinology at [facility] and she is very aware of all the health concerns that would be present in the . She is healthy she endeavors keep her sugars in very good control she is not exercising as much as she used to and she can notice that very small amount carbs can affect her blood sugar much more. She is also concerned because this month she had a very unusual. In that it lasted for 7 days and it was heavy different kind of flow. She normally just has a 4 day menses so this is very unusual and in case she does decide to embrace a she wants to know that everything is okay. She also having a little bit of suprapubic discomfort that she is aware of. She is not complaining of any urinary issues she does see a kidney specialist because of her proteinuria and that is why she is on the blood pressure medicine she knows that she would need to go off for 9 months if she did get and she says the kidney specialist told her that would be okay. it is not in her plans at this point. 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 Discharge is otherwise clear and scant cervix is nulliparous long thick closed mobile nontender uterus small anteverted mobile nontender adnexa nontender good muscle tone. External Female Exam: normal external appearance Speculum Exam - Vagina: normal appearance of the vagina and normal vaginal discharge Speculum Exam - Cervix: normal appearance of the cervix Bimanual exam- vagina & uterus: normal bimanual exam, uterine size normal, consistency normal, uterine mobility normal, uterine shape normal and non-tender Bimanual Exam- Adnexa, other: normal adnexae, no masses and No adnexal tenderness Results Reviewed Results Reviewed: Name: Alyce Hardwick Specimen #: [id number] Age/Sex: 30/F Attending: Glenda Gross CNM : 1990 Submitted by: Glenda Gross CNM Collected: 05/08/20 MR #: [id number] Received: 05/09/20 Status: DEP REF Location: .LAB Interpretation Satisfactory for evaluation. Negative for intraepithelial lesion or malignancy. HPV mRNA E6/E7: NOT DETECTED This assay detects E6/E7 viral messenger RNA (mRNA) from 14 high-risk HPV types (16, 18, 31, 33, 35, 39, 45, 51, 52, 56, 58, 59, 66, 68) HPV testing performed by [facility], [place], [place]. See reference laboratory portion of the EMR for entire report. Clinical Information LMP: Spotting 04/06 Previous PAP test: 02/05/17, wnl Material Received ThinPrep cervical Electronically Signed By: Kim King 05/22/20 1524 The Pap Test is a screening procedure with the inherent possibility of both false negative and false positive results. Results should be interpreted in the context of historic and current clinical findings. Reliability of the Pap Test is enhanced by performing the test on a regular repetitive basis. Patient: Alyce Hardwick Age/Sex: 30/F MR#: [id number] Page 1 of 1 Assessment & Plan Assessment & Plan (1) Potential exposure to STD: Code(s): Z20.2 - Contact with and (suspected) exposure to infections with a predominantly sexual mode of transmission Category: Medical (2) Type 1 diabetes mellitus with proteinuria: Code(s): E10.29 - Type 1 diabetes mellitus with other diabetic kidney complication; R80.9 - Proteinuria, unspecified Category: Medical (3) Irregular menstruation, unspecified: Comment: Had unusual menses 02/13/24 x 7 days Code(s): N92.6 - Irregular menstruation, unspecified Category: Medical (4) Vaginal discharge: Code(s): N89.8 - Other specified noninflammatory disorders of vagina Category: Medical (5) Uses condoms as primary control method: Code(s): Z78.9 - Other specified health status Category: Social Hx Plan Extensive visit and full discussion about bacterial vaginosis and it is over diagnosis and the fact that Gardnerella as a normal variant in our vaginal devin. Her discharge appears completely within normal limits discussed that even if it is found on testing it does not need to be treated unless it is contributing to a thick creamy unpleasant smelly vaginal coating discharge that does not rinse off with plain water. Extensive discussion as well about her concerns for potential future childbearing in the face of her type 1 diabetes with proteinuria. She has been diabetic for many many years and is well-versed in keeping her glucose in good control. She has a very aware of the risks and all of the concerns that would be involved with of potential and that is part of the reason she hesitates in addition she wants very much to have a partner who would be a full partner in parenting and she has been making peace with herself that if it does not happen it does not happen. 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 As regards her unusual menses we may never really know what was behind that it was exactly on time. I reviewed with her signs and symptoms of ovulation and for her to start paying attention to timing various sensations and changes in vaginal discharge and trying to use this time self-awareness we will get an ultrasound just to see if there is anything that could explain her unusual bleeding but also then we will correlate any findings when we review with her to where she is in her cycle at the time the ultrasound is done so I asked her to keep very good track. She is considering establishing relationships with providers at [facility] so that if she did get she would not have to scrambled in terms of trying to transfer at a crucial time in the beginning of a so she is very aware of issues. We will see her both for her annual and review the ultrasound. Orders: Orders US pelvic and transvaginal Today E10.29 - Type 1 diabetes mellitus with other diabetic kidney complication, N92.6 - Irregular menstruation, unspecified, R80.9 - Proteinuria, unspecified, Z20.2 - Contact with and (suspected) exposure to infections with a predominantly sexual mode of transmission Coding Level of Care Code Est Pt Level 3 (16350) Diagnoses Potential exposure to STD Z20.2 Type 1 diabetes mellitus with proteinuria E10.29; R80.9 Irregular menstruation, unspecified N92.6 Vaginal discharge N89.8 Uses condoms as primary control method Z78.9
== END 2024-02-26 11:49 | disposition home or self-care (01) ==
PROVIDERS: PCP Internal Medicine Medical Oncology; Visit Provider Advanced Practice Midwife
DX: Z20.2 Contact with and (suspected) exposure to infections with a predominantly sexual mode of transmission (principal); E10.29 Type 1 diabetes mellitus with other diabetic kidney complication; R80.9 Proteinuria, unspecified; N92.6 Irregular menstruation, unspecified; N89.8 Other specified noninflammatory disorders of vagina; Z78.9 Other specified health status
CPT/HCPCS: 99213

== ENCOUNTER 2024-03-04 10:59 | Outpatient (REF) | payer OTHER, SELFPAY ==
--- NOTE | ~2024-03-04 | US_ITS ---
EXAMINATION: US PELVIS CLINICAL INFORMATION: Irregular menstruation COMPARISON: None available. TECHNIQUE: Ultrasound of the pelvis is performed using both transabdominal and transvaginal transducers along with Doppler. Transvaginal imaging is performed due to inadequate visualization transabdominally. FINDINGS: Uterus: The uterus is anteverted and measures 8.8 x 3.5 x 4.5 cm. The double wall endometrial thickness is 1.1 mm. There is additional oblong echogenic nodular area along the endometrium near the fundus measuring 1.4 x 0.7 x 1.5 cm which could represent an endometrial polyp. A small amount of fluid is seen within the endocervical canal The uterus is smooth in contour and has normal myometrial echogenicity. No visible fibroid. Adnexa: Both ovaries are visualized. There is normal color flow to the adnexa. There is no ovarian torsion. There is no pelvic ascites or fluid collection. Right ovary measures 3.5 x 2.6 x 2.5 cm. There is an anechoic simple cyst in the right ovary measuring 2.5 x 2.3 x 2.1 centimeters. Left ovary measures 2.6 x 1.7 x 2.6 cm. Left ovary appears sonographically normal US/US pelvic and transvaginal IMPRESSION: 1. Echogenic nodular area along the endometrium near the fundus which could represent an endometrial polyp. 2. Simple cyst in the right ovary measuring 2.5 cm. Findings are overwhelmingly likely to represent a normal ovarian follicle. No followup imaging recommended. 3. Left ovary appears normal. Electronically signed by: Bunny Celeste MD 03/10/2024 09:37 AM EDT
== END 2024-03-04 11:00 | disposition home or self-care (01) ==
LOC: HO.US 10:59
PROVIDERS: PCP Internal Medicine Medical Oncology; Visit Provider Advanced Practice Midwife
DX: N92.6 Irregular menstruation, unspecified (principal); E10.29 Type 1 diabetes mellitus with other diabetic kidney complication; R80.9 Proteinuria, unspecified; Z20.2 Contact with and (suspected) exposure to infections with a predominantly sexual mode of transmission
CPT/HCPCS: 76830; 76856

== ENCOUNTER 2024-04-07 13:29 | Outpatient (AMB) | payer OTHER, SELFPAY ==
[2024-04-07 13:34] VITALS: BP 112/60; BMI 28.8
--- NOTE | 2024-04-07 13:34 | MHC.OFFVIS ---
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 Engagement Mgr Required: No Information Interpreted: clinical only Agents' Records Clerk: Agents' Records Clerk Present Allergies No Known Allergies Allergy (Verified 04/07/24 13:35) Medication List - Last Reconciled 04/07/24 by Glenda Gross CNM blood-glucose meter,continuous (Dexcom G6 Senior Biostatistician/Group Leader) As directed blood-glucose sensor (Dexcom G6 Sensor device) As directed blood-glucose transmitter (Dexcom G6 Transmitter device) As directed fluoxetine 10 mg PO DAILY glucagon 3 mg/actuation (Baqsimi) 3 mg intranasal ONCE insulin glargine (Lantus U-100 Insulin) 15 units (0.15 mL) subcut DAILY PRN 30 days MDD 15 units insulin lispro (Humalog U-100 Insulin) up to 75 units per day via pump subcut daily; valsartan 80 mg PO DAILY Is last menstrual period known: Yes Last menstrual period: 03/19/24 HPI HPI 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 She had had an abnormal discharge the last visit and is thinking is BV and BV did show up but so the chlamydia she had only had unprotected sex 1 time normally she uses condoms she was not very happy about the chlamydia in she made her partner take the medication he did throw up to doses so she thought that he should get treated again and she is on him to do so. Meanwhile she is using condoms. So we will do a test of cure today. She sometimes has some itching but she is thinks that it might be mild yeast she is a type 1 diabetic she has been having issues with sugars being elevated but they are little bit better now she had to change her insulin pump. 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 Additionally we had ordered an ultrasound to check on things. 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 Sexual orientation: Straight/Heterosexual Gender identity: Female Female Reproductive History Menstrual Age of Menarche: 13 Duration of menses: 3-5 days Date of last menstrual period: 03/19/24 control method: none Total pregnancies: 0 Date of last pap smear: 05/09/20 (negative,2017,WNL) Physical Exam Vital Signs: Last Vital Signs BP 112/60 04/07/24 13:34 BMI result Body Mass Index 28.8 Const General: healthy appearing, comfortable, no acute distress, well developed and alert Nutritional Appearance: average body habitus Orientation/consciousness: patient oriented x3 Limitations: no limitations HEENT Head: Yes normocephalic Neck Neck: Yes normal visual inspection Chest Chest palpation & inspection: normal inspection of the chest Breast/axilla inspection: normal inspection of the breasts and normal inspection of the axillae Breast/axilla palpation: normal palpation of the breasts and normal palpation of the axillae Resp Effort & Inspection: normal respiratory effort GI Inspection: Yes normal to inspection, No Abdominal wall edema and No distended Palpation (GI): Soft to palpation and nontender Other: Normal external exam vagina is moist cervix nulliparous pink smooth healthy appearing scant white discharge cervix is long close thick mobile nontender uterus midposition mobile nontender adnexa not enlarged nontender good tone with Kegel. General: Yes bladder normal to palpation External Female Exam: normal external appearance and normal appearance of the urethra Speculum Exam - Vagina: normal appearance of the vagina, normal palpation and normal vaginal discharge Speculum Exam - Cervix: normal appearance of the cervix, normal palpation and nontender Bimanual exam- vagina & uterus: normal bimanual exam, normal palpation, uterine size normal, bladder normal to palpation, consistency normal, normal palpation, uterine mobility normal, uterine shape normal, No Cervical tenderness present, non-tender and no cervical motion tenderness Bimanual Exam- Adnexa, other: normal adnexae, no masses, normal and No adnexal tenderness Neuro General: patient oriented x3 Results Reviewed Results Reviewed: [address] [address] Ultrasound Report Signed Patient: Alyce Hardwick MR#: [id number] : 1990 Acct:[id number] Age/Sex: 33 / F ADM Date: 03/04/24 Loc: HO.US Attending Dr: Glenda Gross CNM Ordering Physician: Glenda Gross CNM Date of Service: 03/04/24 Procedure(s): US pelvic and transvaginal Accession Number(s): [id number] cc: William Tolentino MD; Glenda Gross CNM~ EXAMINATION: US PELVIS CLINICAL INFORMATION: Irregular menstruation COMPARISON: None available. TECHNIQUE: Ultrasound of the pelvis is performed using both transabdominal and transvaginal transducers along with Doppler. Transvaginal imaging is performed due to inadequate visualization transabdominally. FINDINGS: Uterus: The uterus is anteverted and measures 8.8 x 3.5 x 4.5 cm. The double wall endometrial thickness is 1.1 mm. There is additional oblong echogenic nodular area along the endometrium near the fundus measuring 1.4 x 0.7 x 1.5 cm which could represent an endometrial polyp. A small amount of fluid is seen within the endocervical canal The uterus is smooth in contour and has normal myometrial echogenicity. No visible fibroid. Adnexa: Both ovaries are visualized. There is normal color flow to the adnexa. There is no ovarian torsion. There is no pelvic ascites or fluid collection. Right ovary measures 3.5 x 2.6 x 2.5 cm. There is an anechoic simple cyst in the right ovary measuring 2.5 x 2.3 x 2.1 centimeters. Left ovary measures 2.6 x 1.7 x 2.6 cm. Left ovary appears sonographically normal US/US pelvic and transvaginal IMPRESSION: 1. Echogenic nodular area along the endometrium near the fundus which could represent an endometrial polyp. 2. Simple cyst in the right ovary measuring 2.5 cm. Findings are overwhelmingly likely to represent a normal ovarian follicle. No followup imaging recommended. 3. Left ovary appears normal. Electronically signed by: Bunny Celeste MD 03/10/2024 09:37 AM EDT RP Dictated By: Bunny Celeste MD Signed By: <Electronically signed by Bunny Celeste MD in OV> 03/10/24 0937 DD/ 1110 TD/TT: 03/04/24 1131 Arrt Technologist: Name: Alyce Hardwick Age/Sex: 33/F : 1990 Unit#: [id number] Attend Dr: Glenda Gross CNM Re02/26/24 Status: DEP REF Location: [facility] Disch: SPEC : [id number] VIBHA: 02/26/24-UNK STATUS: COMP REQ : [id number] RECD: 02/26/[address] [facility] [address]: Glenda Gross CNM COMP: 02/27/24 ENTERED: 02/26/24 [facility] DR: William Tolentino MD ORDERED: CT NG by PCR QUERIES: CT NG Source: Vaginal Test Result Flag Reference CT PCR DETECTED A Not Detect. Detected results may be observed after successful antibiotic treatment due to target nucleic acids from residual non-viable chlamydia. As with many diagnostic tests, results from the Xpert CT/NG assay should be interpreted in conjunction with other laboratory and clinical data available to the clinician. Xpert CT/NG performance has not been evaluated in patients less than 14 years of age. The assay should not be used for the evaluation of suspected sexual abuse or for other medico-legal indications. Additional testing is recommended in any circumstance when false positive or false negative results could lead to adverse medical, social or psychological consequences. These results must be reported by the ordering clinician or clinical facility to the [facility] as required by state law. NG PCR NOT DETECTED Not Detect. A not detected test result does not exclude the possibility of infection because test results can be affected by improper specimen collection, concurrent antibiotic therapy, or the number of organisms in the specimen which may be below the sensitivity of the test. As with many diagnostic tests, results from the Xpert CT/NG assay should be interpreted in conjunction with other laboratory and clinical data available to the clinician. Xpert CT/NG performance has not been evaluated in patients less than 14 years of age. The assay should not be used for the evaluation of suspected sexual abuse or for other medico-legal indications. Additional testing is recommended in any circumstance when false positive or false negative results could lead to adverse medical, social or psychological consequences. Assessment & Plan Assessment & Plan (1) Irregular menstruation, unspecified: Comment: Had unusual menses 02/13/24 x 7 days Code(s): N92.6 - Irregular menstruation, unspecified Category: Medical (2) Uses condoms as primary control method: Code(s): Z78.9 - Other specified health status Category: Social Hx (3) Chlamydia infection: Comment: She and partner were treated ( see note), test of cure 04/07/24, using condoms more carefully, offered blood work STI testing. Code(s): A74.9 - Chlamydial infection, unspecified Category: Medical (4) Endometrial polyp: Comment: We will re-evaluate on a follow-up ultrasound and manage accordingly. Code(s): N84.0 - Polyp of corpus uteri Category: Medical (5) Cervical cancer screening: Code(s): Z12.4 - Encounter for screening for malignant neoplasm of cervix Category: Medical (6) Vaginal itching: Comment: occ, Type 1 dm, offering monistat and diflucan for prn use if needed. Code(s): N89.8 - Other specified noninflammatory disorders of vagina Category: Medical Plan -----Discussed in this visit the following: healthy balanced diet, regular and consistent exercise, getting recommended health screens, doing the best she can for her particular health concerns, kegel exercises, pap smear screening and followup recommendations, mammography screening and SBE, normal changes in cycles in her life stage--- . Reviewed in revisited several issues. For the ultrasound with the possible finding of an endometrial polyp we will obtain a repeat ultrasound 2-3 months and then review the findings if indeed there is a polyp or something that needs gynecological follow-up then we will refer appropriately be here or [facility]. Test of cure for chlamydia was done in addition is for testing for all the other vaginal tests. She did have orders in the system from last June for HIV hep B hep C and syphilis. She can not go to the lab now could she is on her way to work but she would be interested in getting those done so I am re ordering them so the order would be still valid whenever she goes to the lab. Reviewed again control she is intent on using condoms very carefully and is re double her efforts. Childbearing is not in the near future discussed biological issues with conception later on. Also had suggested establishing care with a [facility] practice if she was considering childbearing so that she would get to know possible team members so that at the discovery of a she would get early care given her diabetes type 1. RTC 3 months after the ultrasound.. Additionally she has some mild itching which is better now that her sugars are better discussed having p.r.n. prescriptions available to her for use in case she does get a yeast infection so I am sending prescriptions for Monistat with 2 refills and also for Diflucan as often when blood sugars are elevated Diflucan is necessary to treat it more than Monistat I suggest she fill both and have them available to her in the house for if she ever needs them. Orders: Orders HIV Ab/Ag Today A74.9 - Chlamydial infection, unspecified, N92.6 - Irregular menstruation, unspecified, Z78.9 - Other specified health status Syphilis Screen Today A74.9 - Chlamydial infection, unspecified, N92.6 - Irregular menstruation, unspecified, Z78.9 - Other specified health status US pelvic and transvaginal 2 Months A74.9 - Chlamydial infection, unspecified, N84.0 - Polyp of corpus uteri, N89.8 - Other specified noninflammatory disorders of vagina, N92.6 - Irregular menstruation, unspecified, Z12.4 - Encounter for screening for malignant neoplasm of cervix, Z78.9 - Other specified health status Bacterial Vaginosis Panel Today N89.8 - Other specified noninflammatory disorders of vagina Hepatitis B Surface Antigen Today A74.9 - Chlamydial infection, unspecified, N92.6 - Irregular menstruation, unspecified, Z78.9 - Other specified health status Hepatitis C Antibody Today A74.9 - Chlamydial infection, unspecified, N92.6 - Irregular menstruation, unspecified, Z78.9 - Other specified health status CT NG by PCR Today N89.8 - Other specified noninflammatory disorders of vagina PAP + HPV E6/E7 rfx 18/45 Today Z01.419 - Encounter for gynecological examination (general) (routine) without abnormal findings Medications: New miconazole nitrate 2% (Miconazole-7) for use if has mild yeast infection 1 appful vaginal BEDTIME 7 days 45 grams 2RF fluconazole may repeat second dose 72 hrs after first dose if symptoms persist; severe yeast infection or if sugars are also elevated 150 mg PO Q3D 2 doses 2 tabs 2RF Coding Level of Care Code Est Pt Prev Care 18-39y(59385) Diagnoses Irregular menstruation, unspecified N92.6 Uses condoms as primary control method Z78.9 Chlamydia infection A74.9 Endometrial polyp N84.0 Cervical cancer screening Z12.4 Vaginal itching N89.8
== END 2024-04-07 14:19 | disposition home or self-care (01) ==
PROVIDERS: PCP Internal Medicine Medical Oncology; Visit Provider Advanced Practice Midwife
DX: Z01.411 Encounter for gynecological examination (general) (routine) with abnormal findings (principal); N92.6 Irregular menstruation, unspecified; A74.9 Chlamydial infection, unspecified; N84.0 Polyp of corpus uteri; N89.8 Other specified noninflammatory disorders of vagina
CPT/HCPCS: 99395

== ENCOUNTER 2024-04-07 13:29 | Outpatient (REF) | payer OTHER, SELFPAY ==
[2024-04-07 18:10] LABS: Bacterial Vaginosis PCR POSITIVE (Negative); Candida Group PCR NOT DETECTED (Not Detect); Candida glab krusei PCR NOT DETECTED (Not Detect); Trichomonas vaginalis PCR NOT DETECTED (Not Detect)
[2024-04-07 18:40] LABS: CT PCR NOT DETECTED (Not Detect.); NG PCR NOT DETECTED (Not Detect.)
[2024-04-14 20:13] LABS: HPV 16 RNA NOT DETECTED (NOT DETECTED); HPV mRNA E6/E7 Detected (Not Detected)
== END 2024-04-07 13:30 | disposition home or self-care (01) ==
LOC: HO.LAB 13:29
PROVIDERS: PCP Internal Medicine Medical Oncology; Visit Provider Advanced Practice Midwife
DX: N89.8 Other specified noninflammatory disorders of vagina (principal); Z01.419 Encounter for gynecological examination (general) (routine) without abnormal findings; N92.6 Irregular menstruation, unspecified; Z78.9 Other specified health status; A74.9 Chlamydial infection, unspecified; N84.0 Polyp of corpus uteri; Z12.4 Encounter for screening for malignant neoplasm of cervix; R87.5 Abnormal microbiological findings in specimens from female genital organs
CPT/HCPCS: 0352U; 36415; 87491; 87591; 87624; 87625; 88175; 99395

== ENCOUNTER 2024-05-12 11:26 | Outpatient (AMB) | payer OTHER, SELFPAY ==
--- NOTE | 2024-05-12 05:38 | A.OFFVIS_ITS ---
Vital Signs 05/12/24 11:30 Height 5 ft 9 in Weight 196 lb 3.382 oz BMI 29.0 BP 116/78 Blood Pressure Location Rt brachial Position Sitting Pulse 76 Pulse Source Pulse Oximeter Intake Visit Reasons: T1DM/LVM Intake Note: Patient presents today for a follow-up on Type 1 Diabetes Mellitus/Insulin Pump: Last Diabetic eye exam was on: 10/2023 Last Podiatry exam was on: Does not see a Assessment Analyst Most recent HbA1c: 7.5%, 05/12/2024 Random Glucose- 179 mg/dL, Today Paralegal Instructor Required: No Accompanied by: Self / Same As Patient Allergies No Known Allergies Allergy (Verified 05/12/24 11:28) HPI Comments Details: Patient is a 34 yo female with DM type 1 diagnosed at age 11 who presents for continued management of diabetes. She was last seen by myself on at which time she was considering changing to either an islet or Omnipod pump but had received a new tandem. by Veronica Velarde CDE 06/20. Micro and macrovascular complications: nephropathy followed by Nephrology at [facility]. She is seen annually. On ARB Has annual eye exam. Has minor retinopathy which is unchanged over several years per patient history. Last exam 11/2023 Does not see podiatry. Denies numbness tingling cramping Not on statin most recent LDL 107 11/03/2023 hypoglycemia: Hyperglycemia; blood sugars elevated after meals. 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 And was advised to achieve an A1c of 7%. Current pump download shows a GME my of 7%. Should she become she should contact us right away and we will change her insulin targets in the pump she should also discontinue her Arb which her division superintendent has recommended she do. She is taking this for proteinuria not for hypertensive purposes Diabetes medications: Humalog via Tandem T:Slim Basal rate(s) (units/hour) : 12 AM? to 8 AM? 0.70 units / hr 8 AM to 10 A = 0.75 10 A to 2P = 0.8 2PM to 10 PM = 0.8 10 PM to 12 AM =0.8 Bolus setting Insulin Carbohydrate Ratio (s) 12AM 1:18 8 AM 1:17 2 PM 1:17 10 PM 1:17 Correction Factor / Sensitivity Factor 12 AM? 1:65 8 AM 1:65 10 AM 1:65 2 PM 1:65 10 PM 1:65 [facility] Medical History Depression Type 1 diabetes mellitus with hyperglycemia Surgical History History of left breast biopsy Family History Paternal Grandmother Diabetes Maternal Aunt Breast cancer Family/Other Colon cancer Social History Household Members: Family Housing: Apartment Alcohol intake: current Alcohol intake frequency: holidays/special occasions only Patient Tobacco Use Status: Never used Tobacco Substance Use Type: Marijuana Current occupational status: employed Current occupation: [employer] Sexual orientation: Straight/Heterosexual Gender identity: Female Female Reproductive History Menstrual Age of Menarche: 13 Physical Exam Vital Signs: Last Vital Signs Pulse 76 05/12/24 11:30 BP 116/78 05/12/24 11:30 BMI result Body Mass Index 29.0 Const Other: Absence of Cushingoid features. Absence of acromegalic features. Neck exam reveals nl size thyroid about 15 gms. No thyroid nodules palpable. Heart S1 S2, Reg R/R. No M/R G. Skin exam reveals absence of vitiligo or acanthosis nigricans. No edema Visual exam of foot performed. No ulcerations or open lesions. No inter digit maceration or fissuring. No onychomycosis, no callouses. Sensation intact to monofilament exam. Vibratory sensation is normal with 128 Hz tuning fork. Office Procedures Glucose Monitoring Details Details: See [facility] [address] - Glucose monitoring, continuous-physician I&R Procedure code (CPT) selection complete Results AMB Hemoglobin A1c AMB Hemoglobin A1c 7.5 % Last Edit by EVELIO Flores on 05/12/24 11:45 Assessment & Plan Assessment & Plan (1) Type 1 diabetes mellitus with proteinuria: Code(s): E10.29 - Type 1 diabetes mellitus with other diabetic kidney complication; R80.9 - Proteinuria, unspecified Category: Medical Plan: 34-year-old type 1 diabetic with nephropathy followed by Nephrology and mild retinopathy on an insulin pump with A1c of 7.5% 05/12/24. GME my on her sensor is 7% The patient had an opportunity to ask questions regarding treatment plan. The patient expressed understanding and agreement with the above treatment plan. The patient is aware they should contact our office by phone for worsening glucose readings or for any low blood sugars which may warrant a change in diabetes medication. Compliance is encouraged with medications and any followup testing/consults which may have been ordered. She is aware that should she become she needs to stop her Arb immediately as been given authorization for this from her division superintendent as she is taking this only for proteinuria. She should also make an appointment with us and advised the staff that she is so that we can change her targets Orders: Orders AMB Hemoglobin A1c Today E10.29 - Type 1 diabetes mellitus with other diabetic kidney complication, R80.9 - Proteinuria, unspecified AMB Glucose Monitoring Today E10.65 - Type 1 diabetes mellitus with hyperglycemia Patient Instructions: The patient was counseled to always carry a source of sugar and on the rule of 15's: Take 3 glucose tablets and repeat again in 15 minutes if blood sugar is not in normal range. Continue to repeat every 15 minutes until blood sugar is normal. Symptoms of DKA (diabetic ketoacidosis): early: frequent urination, dry mouth, fatigue, feeling ill, severe symptoms: ketones in the urine, abdominal pain, nausea, vomiting and weakness. It is important to hydrate with sugar free liquids every 15-30 minutes and bring the sugars down to normal levels. If you are moderate or severe with ketones or unable to bring glucose to less than 200, go to the emergency room. Troubleshooting after starting new pod or inserting new insulin set: Occlusion, adhesive tape sensitivity, redness Check BG 2 hours after site change Safety information: Importance of a backup plan, for manual injections, proper prescriptions and emergency supplies ketone strips, and rules for testing for ketones The patient was counseled to always carry a source of sugar and on the rule of 15's: Take 3 glucose tablets and repeat again in 15 minutes if blood sugar is not in normal range. Continue to repeat every 15 minutes until blood sugar is normal. Check your feet daily looking for any signs of infection, ulceration and seek medical attention if this occurs. Break in shoes gradually and do not wear open-toed shoes or walk barefooted. Coding Level of Care Code Est Pt Level 4 (56543) Diagnoses Type 1 diabetes mellitus with proteinuria E10.29; R80.9 CPT Codes Details - CPT: 92725 - Glucose monitoring, continuous-physician I&R ([id number]) Time Spent (min) 35 Comment Reviewing labs/provider notes, glucose sensor/pump reports, face to face, chart doc
[2024-05-12 11:30] VITALS: BP 116/78; PULSE 76; BMI 29.0
[2024-05-12 11:40] LABS: Glucose, Whole Blood 179 mg/dL (60-115)
== END 2024-05-12 12:08 | disposition home or self-care (01) ==
PROVIDERS: PCP Internal Medicine Medical Oncology; Visit Provider Nurse Practitioner Adult Health
DX: E10.29 Type 1 diabetes mellitus with other diabetic kidney complication (principal); R80.9 Proteinuria, unspecified
CPT/HCPCS: 95251; 99214

== ENCOUNTER → 2024-05-12 11:26 | Outpatient (BNVA) | payer OTHER, SELFPAY | PROVIDERS: PCP Internal Medicine Medical Oncology; Visit Provider Nurse Practitioner Adult Health | DX: E10.65 Type 1 diabetes mellitus with hyperglycemia (principal); E10.29 Type 1 diabetes mellitus with other diabetic kidney complication; R80.9 Proteinuria, unspecified; Z96.41 Presence of insulin pump (external) (internal) | CPT/HCPCS: 82947; 83036; 99212 ==

== ENCOUNTER 2024-07-08 10:58 | Outpatient (REF) | payer OTHER, SELFPAY ==
--- NOTE | ~2024-07-08 | US_ITS ---
CLINICAL HISTORY: N92.6 - Irregular menstruation, unspecified US pelvis transabdominal and transvaginal with color Doppler Comparison: US/OT/AR - US PELVIC AND TRANSVAGINAL - 03/04/24 11:08 EDT Findings: Transabdominal scanning performed for overall anatomy. Transvaginal scanning performed for additional detail. LMP: 06/16/2024 Anteverted uterus, normal size and echotexture, measuring 7.4 x 3.5 x 4.6 cm. Well defined endometrium, measuring 10.0 mm in thickness. Equivocal endometrial polyp measuring 7 x 10 x 15 mm sonohysterogram would be confirmatory. The right ovary measures, 3.2 x 2.1 x 1.4 cm. Normal sonographic appearance right ovary. Normal color Doppler of the ovary. The left ovary measures, 2.7 x 1.4 x 2.4 cm. 1.0 x 1.7 x 2.4 cm probable corpus luteum. Normal color Doppler of the ovary. No adnexal masses or fluid collections. No free fluid Impression: 1. Uterus normal size and position.Endometrium measures 11 mm in thickness. Equivocal endometrial polyp. Sonohysterogram would be confirmatory. 2. Suspect involuting corpus luteum left ovary. 3. No adnexal masses or fluid collections. This document has been electronically signed by: Kirk Courtney MD on 07/09/2024 16:00:38
--- OUTSIDE RECORDS SUMMARY | 2024-07-08 11:05 | XMS_ITS ---
Author Organization William Tolentino III, MD Address [address] [facility] [place] [address] Care Team Providers Care Retail Worker Name Role Phone William Tolentino Primary Care Provider Allergies Allergen (clinical drug [...] Problem Status W/U Status Risk Notes Problem [id number] Body mass index [BMI] 30.0-30.9, adult (Z68.30) Active confirmed Problem [id number] Obesity, class 1 (E66.811) Active confirmed Her [...] Date Provider Diagnosis William Tolentino III, MD [address] [place] [address] [place] [address] 06/13/2024 [facility] current us e of insulin Z79.4 ; Type 1 diabetes mellitus without complication E10.9 ; Obesity, class 1 E66.811 ; Attention deficit disorder (ADD) in adult F98.8 and Depression, unspecified depression type F32.A Assessments Encounter Date Diagnosis (ICD Code) Assessment Notes Treatment Notes Treatment Clinical Notes 06/13/2024 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 - Z79.4) [...] of the new medication, sertraline Provider Name:William Tolentino, 09/14/2024 11:00:00 AM, [address] [place] [address] [address], [place], [address], Provider Name:William Tolentino, 10/25/2024 11:00:00 AM, [address] [place] [address] [address], [place], [address], Progress Notes * Erendira HARDWICKSukhdeepOB:1990 ([age] yo F)Acc No.[id number]:06/13/2024 Progress Notes Patient:?Alyce [place] Provider:?William Tolentino MD :1990???Age:34 Y???Sex:Female D ate:06/13/2024 Address:[address] [place], [place] [phone] Subjective: * Chief Complaints: * ???Worsening generalized anx ietyMild depressionInsulin-dependent diabetes mellitusInsulin pumpAdhdObesity * HPI: ???COVID-19 Screening:?Questions?Have you had any new onset fever, chills, cough, congestion, sore throat, shortness of breath, muscle aches??No ???:? The patient, a 34-year-old female, presented with [...] a family history of anxiety disorders. * ROS:?General/Constitutional:?pain?only normal aches and pains.?Chills?denies.?Fatigue?admits.?Fever?denies.?ENT:?Decreased hearing?denies.?Respiratory:?Cough?denies.?Cardiovascular:?Chest pain with exertion?denies.?Dyspnea on exertion?denies.?Shortness of breath?denies.?Gastrointestinal:?Constipation?occasional.?Decreased appetite?denies.?Diarrhea?denies.?Heartburn?denies.?Nausea?denies.?Rectal bleeding?denies.?Vomiting?denies.?Hematology:?bruising?denies.?petechiae?denies.?Swollen glands?none have been noted.?Genitourinary:?Frequent urination?denies.?Musculoskeletal:?Muscle aches?denies.?Painful joints?denies.?Sciatica?denies.?Weakness?denies.?Skin:?Itching?denies.?Rash?denies.?Skin lesion(s)?denies.?Neurologic:?Difficulty speaking?denies.?Dizziness?denies.?Headache?denies.?Low back pain?denies.?Psychiatric:?Admits?Anxiety.?Depressed mood?Worsening anxiety, stable depression.? * Medical History:? * Surgical History:?left breas t lumpectomy, Dr. Mercer, fibroadenoma 2016dental extractions 2016No history * Hospitalization/Major Diagno stic Procedure:?No history * Family History:?Father: priya treviño 50 yrs, No information available, diagnosed with HTN.?Mother: alive 46 yrs.?Siblings: alive.?Paternal Grand Mother: alive, diagnosed with DM.?Maternal Grand Mother: alive, diagnosed with CVD.?1 brother(s) , 1 sister(s) - healthy. .? mother side Hx of cancer not sure of who in family. Patient does not have any children. Her mother\'s sister had breast cancer. She has 2 half brothers and 3 half sisters. One of her siblings has autism. Mother has a history of anxiety and takes lexapro. * Social History:?Tobacco Use:?Tobacco Use/Smoking?Patient is a?nonsmoker ?Additional Findings: Tobacco Non-User?Aggressive non-smoker ???Drugs/Alcohol:?Drugs?Have you used drugs other than those for medical reasons in the past 12 months??Yes ?Marijuana??Yes ?Alcohol Screen?Did you have a drink containing alcohol in the past year??Yes ?How often did you have a drink containing alcohol in the past year??2 to 4 times a month (2 points) ?How many drinks did you have on a typical day when you were drinking in the past year??1 or 2 drinks (0 point) ?How often did you have 6 or more drinks on one occasion in the past year??Never (0 point) ?Points?2 ?Interpretation?Negative ???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 She works over 40 hours a week. Patient is working two jobs and considering starting her own business. * Medications:?TakingInsulin L ispro 100 UNIT/ML Solution DIRECTED INJECTION 75 UNITS [...] reviewed and reconciled with the patient * Allergies:?No Known Drug All ergyno[Allergies Verified] Objective: * Vitals:?Ht: 68, Wt: 199, BMI :30.25, BP: 120/79, HR: 63, Temp: 98.1, Ht-cm: 172.72, Wt-k.26. * ???Past Orders: Lab:CT NG by PCR * Collection Date 04/07/2024 02/26/2024 07/08/2023 Collection Time 10:30 AM Order Date 04/07/2024 02/26/2024 07/08/2023 CT PCR NOT DETECTED (Ref Range: Not Detect.) DETECTED?A (Ref Range: Not Detect.) NOT DETECTED (Ref [...] InfectionTNP- ?See NoteSEE NOTE- * Lab:Bacterial Vaginosis Pane l * Collection Date 04/07/2024 02/26/2024 07/08/2023 Collection Time 10:30 AM Order Date 04/07/2024 02/26/2024 07/08/2023 Trichomonas DNA Probe NR NR Negative (Ref Range: Negative) Gardnerella DNA Probe NR NR Positive?A (Ref Range: Negative) Karen DNA Probe NR NR Negative (Ref Range: Negative) Trichomonas vaginalis PCR NOT DETECTED (Ref Range: Not Detect) NOT DETECTED (Ref Range: Not Detect) NR Bacterial Vaginosis PCR POSITIVE?A (Ref Range: Negative) POSITIVE?A (Ref Range: Negative) NR Karen Group PCR NOT DETECTED (Ref Range: Not Detect) NOT DETECTED (Ref Range: Not Detect) NR Karen glab krusei PCR NOT DETECTED (Ref Range: Not Detect) NOT DETECTED (Ref Range: Not Detect) NR * Lab:Glucose, Whole Blood * Collection Date 05/12/2024 02/03/2024 11/03/2023 Collection Time 11:37 AM 08:49 AM 08:11 AM Order Date 05/12/2024 02/03/2024 11/03/2023 Glucose, Whole Blood 179?H (Ref Range: 60-115 mg/dL) 90 (Ref Range: 60-115 mg/dL) 104 (Ref Range: 60-115 mg/dL) * Examination: ???General Examination: ?GENERAL APPEARANCE:?pleasant, well nourished, well developed, in no acute distress, calm and relaxed, obese, woman.?HEAD:?atraumatic, normocephalic.?EYES:?eomi, perrla, anicteric, conjugate.?EARS:?normal.?NOSE:?septum intact.?ORAL CAVITY:?normal, unremarkable.?NECK/THYROID:?no jugular venous distention, no carotid bruit, thyroid normal.?LYMPH NODES:?no enlarged lymph nodes,spleen normal.?SKIN:?no suspicious lesions, anicteric,sensor Left arm.?HEART:?no clicks, gallops, murmurs, or rubs, regular rhythm, S1, S2 normal, no s3, or vascular bruits.?LUNGS:?clear to auscultation .?BREASTS:??no masses palpable bilaterally.?ABDOMEN:?bowel sounds normal, no ascites, no organomegaly, no mass, centripital obesity.?RECTAL EXAM:?not examined.?MUSCULOSKELETAL:?extremities unremarkable, no clubbing, cyanosis or edema.?PERIPHERAL PULSES:?normal.?NEUROLOGIC:?alert and oriented, cranial nerves 2-12 grossly intact, deep tendon reflexes 2+ symmetrical, motor strength normal upper and lower extremities, sensory exam intact.?PSYCH:?alert, oriented, anxious appearing.? : ???Blood Pressure Check - Normal, Weight Check - Lost 8 lbs. ??? Assessment: * Assessment: 1.?Type 1 diabetes mellitus without complication - E10.9 (Primary)???Notes :Her insulin pump continues to function normally as does her monitor. Her hemoglobin A1c is acceptable. 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 Her glucose levels have been satisfactory. She will continue to be managed by endocrinology???3.?Obesity, class 1 - E66.811???Notes :Her body mass index is 30.? We discussed her diet and nutrition.? We made a plan to lose weight at a rate of one half of a pound per week until the body mass index is in the mid normal range.???4.?Attention deficit disorder (ADD) in adult - F98.8???Notes :She was continued on her current regimen.???5.?Depression, unspecified depression type - F32.A???Notes :She was given a trial of an antidepressant on a close follow-up visit. We discussed the risks and benefits of the drug and side effects. She gave informed consent to take the medication.The fluoxetine he has been stopped and she was started on sertraline for the anxiety component which is becoming worse.??? Plan: * Treatment: * Procedure Codes:? * Preventive Medicine:? ??Counseling:?Care goal follow-up plan:?Counseling for abnormal BMI given?Yes ?Above Normal BMI Follow-up?Dietary management education, guidance, and counseling, Dietary needs education, Exercise promotion: strength training, Exercise promotion: stretching, Feeding regime, Giving encouragement to exercise, Lifestyle education regarding diet, Nutrition / feeding management, Nutrition therapy, Prescribed activity/exercise education, Prescribed diet education, Prescribed dietary intake, Special diet education, Weight monitoring , Intervention, Order not done: Medical or Other reason not done * Follow Up:?3 Weeks, 30 days (Reason: Telehealth, To assess the effectiveness of the new medication, sertraline) * Images: * Sign off status: Completed true * Provider:?William Tolentino MD Date:?05/29 Generated for Merti luis/Estefania/Maryjanesmitting on:?07/08/2024 11:05 AM EST History and Physical Notes * [...]
--- OUTSIDE RECORDS SUMMARY | 2024-07-08 11:05 | XMS_ITS ---
Author Organization William Tolentino III, MD Address [address] [place] [address] Care Team Providers Care Construction Carpenter Name Role Phone William Tolentino Primary Care Provider Allergies Allergen (clinical drug ingredient) Drug/Non Drug Allergy documented on EMR Reaction Allergy Type Onset Date Status No Known Drug Allergy Unknown Drug Allergy Active REASON FOR VISIT Follow up Medications Medication SIG (Take, Route, Frequency, Duration) Notes Start Date End Date Status FLUoxetine HCl 10 MG 1 capsule Orally On ce a day 11/25/2022 Active Insulin Lispro 100 UNIT/ML DIRECTED I NJECTION 75 UNITS PER DAY VIA PUMP 30 DAYS Active FLUoxetine HCl 20 MG 1 capsule Orally On ce a day 08/21/2023 Active Valsartan 80 MG Oral Acti ve Cefuroxime Axetil 500 MG 1 tablet Orally every 12 hrs 08/21/2023 Active Social History Tobacco Use: Social History Observation Description Date Details (start date - stop date) Never Smoker NA - NA Sex Assigned At : Social History Observation Description Sex Assigned At Female Tobacco Use/Smoking Question Answer Notes Patient is a nonsmoker Additional Findings: Tobacco Non-User Aggressive non-smoker Encounters Encounter Location Date Provider Diagnosis William Tolentino III, MD [address] [place] [address] [place] [address] 04/20/2024 William Tolentino Plan Of Treatment Medication Medication Name Sig Start Date Stop Date Notes FLUoxetine HCl 10 MG 1 capsule Orally Once a day 3 Insulin Lispro 100 UNIT/ML DIRECTED I NJECTION 75 UNITS PER DAY VIA PUMP 30 DAYS FLUoxetine HCl 20 MG 1 capsule Orally Once a day Valsartan 80 MG Oral Cefuroxime Axetil 500 MG 1 tablet Orally every 12 hrs 07/31 Next Appt Details Provider Name:William Tolentino, 09/14/2024 11:00:00 AM, [address], [place], [address], Provider Name:William Tolentino, 10/25/2024 11:00:00 AM, [address] [facility] [address], [place], [address], Progress Notes * Britney HARDWICKOB:1990 ([age] yo F)Acc No.[id number]:04/20/2024 Progress Notes Patient:?Alyce HARDWICK Provider:?William Tolentino MD :1990???Age:34 Y???Sex:Female D ate:04/20/2024 Address:[address] [place] [address] [facility] [id number] Subjective: * Chief Complaints: * ???1. Follow up. * HPI: ???COVID-19 Screening:?Questions?Have you had any new onset fever, chills, cough, congestion, sore throat, shortness of breath, muscle aches??No ?Have you been exposed to the virus within the last 10 days??No ?Have you travelled internationally in the last 10 days??No ?Have you been exposed to COVID-19 in the past??No * ROS:?General/Constitutional:?pain?only normal aches and pains.?Chills?denies.?Fatigue?admits.?Fever?denies.?ENT:?Decreased hearing?denies.?Respiratory:?Cough?denies.?Cardiovascular:?Chest pain with exertion?denies.?Dyspnea on exertion?denies.?Shortness of breath?denies.?Gastrointestinal:?Constipation?denies.?Decreased appetite?denies.?Diarrhea?denies.?Heartburn?denies.?Nausea?denies.?Rectal bleeding?denies.?Vomiting?denies.?Hematology:?bruising?denies.?petechiae?denies.?Swollen glands?none have been noted.?Genitourinary:?Frequent urination?denies.?Musculoskeletal:?Muscle aches?denies.?Painful joints?denies.?Sciatica?denies.?Weakness?denies.?Skin:?Itching?denies.?Rash?denies.?Skin lesion(s)?denies.?Neurologic:?Difficulty speaking?denies.?Dizziness?denies.?Headache?denies.?Low back pain?denies.?Psychiatric:?Depressed mood?denies.? * Medical History:?Juvenile di abetes mellitus, onset age 11, insulin pump, Family history of breast cancer, maternal, obesity, BMI 30, [employer], , [facility], History of attention deficit disorder at age 6, Depression. * Surgical History:?left breas t lumpectomy, Dr. Mercer, fibroadenoma 2016, dental extractions 2016. * Family History:?Father: priya treviño 50 yrs, No information available, diagnosed with HTN.?Mother: alive 46 yrs, Anxiety, depression, tobacco dependence, back pain, overeaters.?Paternal Grand Mother: alive, diagnosed with DM.?Maternal Grand Mother: alive, diagnosed with CVD.?1 brother(s) , 1 sister(s) - healthy. .? mother side Hx of cancer not sure of who in family. Patient does not have any children. Her mother\'s sister had breast cancer. She has 2 half brothers and 3 half sisters. One of her siblings has autism. 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 She works over 40 hours a week. * Medications:?Taking Insulin Lispro 100 UNIT/ML Solution DIRECTED INJECTION 75 UNITS PER DAY VIA PUMP 30 DAYS , Taking FLUoxetine HCl 10 MG Capsule 1 capsule Orally Once a day , Taking Valsartan 80 MG Tablet Oral , Taking Cefuroxime Axetil 500 MG Tablet 1 tablet Orally every 12 hrs , Taking FLUoxetine HCl 20 MG Capsule 1 capsule Orally Once a day , Medication List reviewed and reconciled with the patient * Allergies:?No Known Drug All ergy. Objective: * Vitals:? * Examination: ???General Examination: ?GENERAL APPEARANCE:?pleasant, well nourished, well developed, in no acute distress, calm and relaxed.?HEAD:?atraumatic, normocephalic.?EYES:?eomi, perrla, anicteric, conjugate.?EARS:?normal.?NOSE:?septum intact.?ORAL CAVITY:?normal, unremarkable.?NECK/THYROID:?no jugular venous distention, no carotid bruit, thyroid normal.?LYMPH NODES:?no enlarged lymph nodes,spleen normal.?SKIN:?no suspicious lesions, anicteric.?HEART:?no clicks, gallops, murmurs, or rubs, regular rhythm, S1, S2 normal, no s3, or vascular bruits.?LUNGS:?clear to auscultation .?BREASTS:??no masses palpable bilaterally.?ABDOMEN:?bowel sounds normal, no ascites, no organomegaly, no mass.?RECTAL EXAM:?not examined.?MUSCULOSKELETAL:?extremities unremarkable, no clubbing, cyanosis or edema.?PERIPHERAL PULSES:?normal.?NEUROLOGIC:?alert and oriented, cranial nerves 2-12 grossly intact, deep tendon reflexes 2+ symmetrical, motor strength normal upper and lower extremities, sensory exam intact.?PSYCH:?alert, oriented.? Assessment: Plan: * Treatment: * Images: * The named appointment provid er may or may not be the originator of this progress note, and it is not deemed complete until electronically signed by the appointment provider. Sign off status: Pending * Provider:?William Tolentino MD Date:?03/30 Generated for Duncan smith/Estefania/Maryjanesmitting on:?07/08/2024 11:05 AM EST History and Physical Notes * HPI (History of Present Illness) Category Sub-Category Detail Notes COVID-19 Screening Questions Have you had any new onset fever, chills, cough, congestion, sore throat, shortness of breath, muscle aches?: No Have you been exposed to the virus withi n the last 10 days?: No Have you travelled internationally in e last 10 days?: No Have you been exposed to COVID-19 in the past?: No Examination Category Sub-Category Detail Notes General Examination GENERAL APPEARANCE: pleasant , well nourished, well developed, in no acute distress, calm and relaxed HEAD: atraumatic, normocep halic EYES: eomi, perrla, anicte fred, conjugate EARS: normal NOSE: septum intact NECK/THYROID: no jugular venous di stention, no carotid bruit, thyroid normal HEART: no clicks, gallops, murmurs, or rubs, regular rhythm, S1, S2 normal, no s3, or vascular bruits LUNGS: clear to auscultatio n ABDOMEN: bowel sounds normal, no ascites, no organomegaly, no mass NEUROLOGIC: alert and oriented, cranial nerves 2-12 grossly intact, deep tendon reflexes 2+ symmetrical, motor strength normal upper and lower extremities, sensory exam intact SKIN: no suspicious lesion s, anicteric PERIPHERAL PULSES: normal BREASTS: no masses palpable b ilaterally MUSCULOSKELETAL: extremities unremark able, no clubbing, cyanosis or edema LYMPH NODES: no enlarged lymph no cassie,spleen normal RECTAL EXAM: not examined PSYCH: alert, oriented ORAL CAVITY: normal, unremarkable
--- OUTSIDE RECORDS SUMMARY | 2024-07-08 11:05 | XMS_ITS | Patient Health Record ---
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 Name Role Phone William Tolentino Primary Care Provider [phone] Allergies Allergen (clinical drug ingredient) Drug/Non Drug Allergy documented on EMR Reaction Allergy Type Onset Date Status No Known Drug Allergy Unknown Drug Allergy Active Results Component Value Reference Range Notes URINE DIP STICK Reviewed date:10/20/2023 11:13:18 AM Interpretation: Performing Lab: Notes/Report: SG 1.025 1.005 - 1.025 pH 5.0 5.0 - 9.0 KASSI Negative Negative - NIT Negative Negative - PRO 15 Negative - Trace GLU Negative Negative - KET Negative Negative - UBG 0.2 0.1 - 1.8 LINUS Negative 0.2 - 1.3 BLD Negative Negative - CT NG by PCR Reviewed date:07/12/2023 06:35:27 AM Interpretation: Performing Lab:[facility], [address] [place] [phone] Notes/Report: Vaginal CT PCR NOT DETECTED Not Detect. A not detected test result does not exclude the possibility of infection because test results can be affected by improper specimen collection, concurrent antibiotic therapy, or the number of organisms in the specimen which may be below the sensitivity of the test. As with many diagnostic tests, results from the Xpert CT/NG assay should be interpreted in conjunction with other laboratory and clinical data available to the clinician. Xpert CT/NG performance has not been evaluated in patients less than 14 years of age. The assay should not be used for the evaluation of suspected sexual abuse or for other medico-legal indications. Additional testing is recommended in any circumstance when false positive or false negative results could lead to adverse medical, social or psychological consequences. NG PCR NOT DETECTED Not Detect. A not detected test result does not exclude the possibility of infection because test results can be affected by improper specimen collection, concurrent antibiotic therapy, or the number of organisms in the specimen which may be below the sensitivity of the test. As with many diagnostic tests, results from the Xpert CT/NG assay should be interpreted in conjunction with other laboratory and clinical data available to the clinician. Xpert CT/NG performance has not been evaluated in patients less than 14 years of age. The assay should not be used for the evaluation of suspected sexual abuse or for other medico-legal indications. Additional testing is recommended in any circumstance when false positive or false negative results could lead to adverse medical, social or psychological consequences. Bacterial Vaginosis Panel Reviewed date:07/12/2023 06:35:27 AM Interpretation: Performing Lab:[address] [address] Notes/Report: Trichomonas DNA Probe Negative Negative Gardnerella DNA Probe Positive Negative Karen DNA Probe Negative Negative Glucose, Whole Blood Reviewed date:07/13/2023 10:03:04 AM Interpretation: Performing Lab:[address] [address] Notes/Report: Glucose, Whole Blood 270 60-115 mg/dL METER #: [id number] Testing performed in the [facility]. MM tomosynthesis diagnostic BI Reviewed date:07/31/2023 10:02:15 AM Interpretation: Performing Lab: Notes/Report: [facility]'s [address] [place] [address] Mammography Report Signed Patient: Alyce Hardwick MR#: [id number] : 1990 Acct:[id number] Age/Sex: 33 / F ADM Date: 07/30/23 Loc: HO.MAMMO Attending Dr: Casandra Benoit CNM Ordering Physician: Casandra Benoit CNM Results: 2Beni gn Findings Date of Service: 07/30/23 Follow Up: Mammo at 40 or e arlier if clinically needed Procedure(s): MM tomosynthesis diagnostic BI Accession Number(s): [id number] cc: William Tolentino MD; Casandra Benoit CNM EXAMINATION: MM DIAGNOSTIC DIGITAL BREAST TOMOSYNTHESIS, BILATERAL US BREAST LIMITED, LEFT MAMMOGRAPHY: CLINICAL INFORMATION: 33-year-old female, history of benign excisional biopsy left breast in 2017, in which patient's provider felt a ridge of firm tissue spanning 5-7 o'clock inferior left breast, just below the excisional biopsy scar. Diagnostic for evaluation. Patient also due for bilateral screening. COMPARISON: Mammography: 02/10/2017 left mammogram. No prior right mammogram. TECHNIQUE: Digital breast tomosynthesis is performed in both the craniocaudal and mediolateral oblique views along with computer-aided detection (CAD). Synthesized 2D images are generated from the tomosynthesis. FINDINGS: The breasts are heterogeneously dense, which may obscure small masses (ACR BI-RADS breast composition Category c). Mammography demonstrates scar marker in the inferior left breast anterior one third. Palpable BB marker has been placed by the technologist just posterior to this in the left 6:00 axis approximately. No definite underlying mass, abnormal calcifications, or areas of architectural distortion aside from mild postsurgical scarring. No definite mammographic correlate to the palpable focus of concern. The parenchymal pattern is stable from the prior exam. Right breast demonstrates no suspicious masses, suspicious grouped calcifications, or areas of architectural distortion. There is no skin thickening or axillary abnormality in either breast. ULTRASOUND: CLINICAL INFORMATION: As above. COMPARISON: 02/10/2017 left breast, 06/27/2016 left breast. TECHNIQUE: Targeted sonographic evaluation LEFT breast was performed using a high frequency linear transducer. Attention was focused on the palpable region of concern, 5-7:00 axis anterior left breast just behind the scar. Selected archived documentation. FINDINGS: LEFT BREAST: There is heterogeneously dense fibroglandular tissue present. There is a prominent ridge of fibrocystic tissue which most likely relates and correlates to the focus of palpable concern in the 5-7 o'clock axis of the left breast. There is no cystic abnormality, suspicious mass, abnormal shadowing, or edema within the soft tissue planes. MM/MM tomosynthesis diagnostic BI IMPRESSION: There are no findings in either breast suspicious for malignancy. There are stable post excisional biopsy changes in the anterior inferior left breast. Region of palpable concern inferior left breast spanning 5-7 o'clock axis just behind the excisional biopsy scar appears to correlate with a linear focus of dense fibrocystic tissue in this region. No suspicious masses. Findings are benign and no further follow-up recommended. OVERALL ASSESSMENT: Mammography: BI-RADS 2 - Benign Findings Ultrasound: BI-RADS 2 - Benign Findings RECOMMENDATION: Mammo at 40 or earlier if clinically needed Results were provided to the patient at time of visit by the technologist. This patient's information was entered into a reminder system with a target due date for their next mammogram. Dictated By: Galileo Barba MD Signed By: <Electronically signed by Galileo Barba MD in OV> 07/30/23 1707 DD/ 1450 TD/TT: Electrician'S Helper: [place] [facility]'s [address] [place] [address] Mammography Report Signed Patient: Alyce Hardwick MR#: [id number] : 1990 Acct:[id number] Age/Sex: 33 / F ADM Date: 07/30/23 Loc: HO.MAMMO Attending Dr: Casandra Benoit CNM Ordering Physician: Casandra Benoit CNM Results: 2Beni gn Findings Date of Service: 07/30/23 Follow Up: Mammo at 40 or e arlier if clinically needed Procedure(s): MM tomosynthesis diagnostic BI Accession Number(s): [id number] cc: William Tolentino MD; Casandra Benoit CNM EXAMINATION: MM DIAGNOSTIC DIGITA L BREAST TOMOSYNTHESIS, BILATERAL US BREAST LIMITED, LEFT MAMMOGRAPHY: CLINICAL INFORMATION: 33-year-old female, history of benign excisional biopsy left breast in 2017, in which patient's provider felt a ridge of firm tissue spanning 5-7 o'clock inferior left breast, just below the excisional biopsy scar. Diagnostic for evaluation. Patient also due for bilateral screening. COMPARISON: Mammography: 017 left mammogram. No prior right mammogram. TECHNIQUE: Digital breast tomosynthesis is performed in both the craniocaudal and mediolateral oblique views along with computer-aided detection (CAD). Synthesized 2D image s are generated from the tomosynthesis. FINDINGS: The breasts are heterogeneously dense, which may obscure small masses (ACR BI-RADS breast composition Category c). Mammography demonstrates scar marker in the inferior left breast anterior one third. Palpable BB marker has been placed by the technologist just posterior to this in the left 6:00 axis approximately. No definite underlying mass, abnormal calcifications, or areas of architectur al distortion aside from mild postsurgical scarring. No definit e mammographic correlate to the palpable focus of concern. The parenchymal pattern is stable from the prior exam. Right breast demonstrates no suspicious masses, suspicious grouped calcifications, or areas of architectural distortion. There is no skin thickening or axillary abnormality in either breast. ULTRASOUND: CLINICAL INFORMATION: As above. COMPARISON: 02/10/[address], 06/27/2016 left breast. TECHNIQUE: Targeted sonographic evaluation LEFT breast was performed using a high frequency linear transducer. Attention was focused on the palpable region of concern, 5-7:00 axis anterior left breast just behind the scar. Selected archi kan documentation. FINDINGS: LEFT BREAST: There i s heterogeneously dense fibroglandular tissue present. There is a prominent ridge of fibrocystic tissue which most likely relates and correlates to the focus of palpable concern in the 5-7 o'clock axis of the left breast. There is no cystic abnormality, suspicious mass, abnormal shadowing, or edema within the soft tissue planes. MM/MM tomosynthesis diagnostic BI IMPRESSION: There are no finding s in either breast suspicious for malignancy. There are stable pos t excisional biopsy changes in the anterior inferior left breast. Region of palpable concern inferior left breast spanning 5-7 o'clock axis just behind the excisional biopsy scar appears to correlate with a linear focus of dens e fibrocystic tissue in this region. No suspicious masses. Findings are benign and no further follow-up recommended. OVERALL ASSESSMENT: Mammography: BI-RADS 2 - Benign Findings Ultrasound: BI-RADS 2 - Benign Findings RECOMMENDATION: Mammo at 40 or earli er if clinically needed Results were provide d to the patient at time of visit by the technologist. This patient's information was entered into a reminder system with a target due date for their next mammogram. Dictated By: Galileo Barba MD Signed By: <Electronically signed by Galileo Barba MD in OV> 07/30/23 1417 DD/ 1450 TD/TT: Electrician'S Helper: US breast LT limited mamm on ly Reviewed date:07/31/2023 10:02:15 AM Interpretation: Performing Lab: Notes/Report: [place] [facility] [address] [place], [place] [address] Ultrasound Report Signed Patient: Alyce Hardwick MR#: [id number] : 1990 Acct:[id number] Age/Sex: 33 / F ADM Date: 07/30/23 Loc: HO.MAMMO Attending Dr: Casandra Benoit CNM Ordering Physician: Casandra Benoit CNM Date of Service: 07/30/23 Procedure(s): US breast LT limited mamm only Accession Number(s): [id number] cc: William Tolentino MD; Casandra Benoit CNM EXAMINATION: MM DIAGNOSTIC DIGITAL BREAST TOMOSYNTHESIS, BILATERAL US BREAST LIMITED, LEFT MAMMOGRAPHY: CLINICAL INFORMATION: 33-year-old female, history of benign excisional biopsy left breast in 2017, in which patient's provider felt a ridge of firm tissue spanning 5-7 o'clock inferior left breast, just below the excisional biopsy scar. Diagnostic for evaluation. Patient also due for bilateral screening. COMPARISON: Mammography: 02/10/2017 left mammogram. No prior right mammogram. TECHNIQUE: Digital breast tomosynthesis is performed in both the craniocaudal and mediolateral oblique views along with computer-aided detection (CAD). Synthesized 2D images are generated from the tomosynthesis. FINDINGS: The breasts are heterogeneously dense, which may obscure small masses (ACR BI-RADS breast composition Category c). Mammography demonstrates scar marker in the inferior left breast anterior one third. Palpable BB marker has been placed by the technologist just posterior to this in the left 6:00 axis approximately. No definite underlying mass, abnormal calcifications, or areas of architectural distortion aside from mild postsurgical scarring. No definite mammographic correlate to the palpable focus of concern. The parenchymal pattern is stable from the prior exam. Right breast demonstrates no suspicious masses, suspicious grouped calcifications, or areas of architectural distortion. There is no skin thickening or axillary abnormality in either breast. ULTRASOUND: CLINICAL INFORMATION: As above. COMPARISON: 02/10/2017 left breast, 06/27/2016 left breast. TECHNIQUE: Targeted sonographic evaluation LEFT breast was performed using a high frequency linear transducer. Attention was focused on the palpable region of concern, 5-7:00 axis anterior left breast just behind the scar. Selected archived documentation. FINDINGS: LEFT BREAST: There is heterogeneously dense fibroglandular tissue present. There is a prominent ridge of fibrocystic tissue which most likely relates and correlates to the focus of palpable concern in the 5-7 o'clock axis of the left breast. There is no cystic abnormality, suspicious mass, abnormal shadowing, or edema within the soft tissue planes. US/US breast LT limited mamm only IMPRESSION: There are no findings in either breast suspicious for malignancy. There are stable post excisional biopsy changes in the anterior inferior left breast. Region of palpable concern inferior left breast spanning 5-7 o'clock axis just behind the excisional biopsy scar appears to correlate with a linear focus of dense fibrocystic tissue in this region. No suspicious masses. Findings are benign and no further follow-up recommended. OVERALL ASSESSMENT: Mammography: BI-RADS 2 - Benign Findings Ultrasound: BI-RADS 2 - Benign Findings RECOMMENDATION: Mammo at 40 or earlier if clinically needed Results were provided to the patient at time of visit by the technologist. This patient's information was entered into a reminder system with a target due date for their next mammogram. Dictated By: Galileo Barba MD Signed By: <Electronically signed by Galileo Barba MD in OV> 07/30/23 1707 DD/ 1550 TD/TT: Electrician'S Helper: [place] [facility] [address] [place] [address] Ultrasound Report Signed Patient: Alyce Hardwick MR#: [id number] : 1990 Acct:[id number] Age/Sex: 33 / F ADM Date: 07/30/23 Loc: HO.MAMMO Attending Dr: Casandra Benoit CNM Ordering Physician: Casandra Benoit CNM Date of Service: 07/30/23 Procedure(s): US dom ast LT limited mamm only Accession Number(s): [id number] cc: William Tolentino MD; Casandra Benoit CNM EXAMINATION: MM DIAGNOSTIC DIGITA L BREAST TOMOSYNTHESIS, BILATERAL US BREAST LIMITED, LEFT MAMMOGRAPHY: CLINICAL INFORMATION: 33-year-old female, history of benign excisional biopsy left breast in 2017, in which patient's provider felt a ridge of firm tissue spanning 5-7 o'clock inferior left breast, just below the excisional biopsy scar. Diagnostic for evaluation. Patient also due for bilateral screening. COMPARISON: Mammography: 017 left mammogram. No prior right mammogram. TECHNIQUE: Digital breast tomosynthesis is performed in both the craniocaudal and mediolateral oblique views along with computer-aided detection (CAD). Synthesized 2D image s are generated from the tomosynthesis. FINDINGS: The breasts are heterogeneously dense, which may obscure small masses (ACR BI-RADS breast composition Category c). Mammography demonstrates scar marker in the inferior left breast anterior one third. Palpable BB marker has been placed by the technologist just posterior to this in the left 6:00 axis approximately. No definite underlying mass, abnormal calcifications, or areas of architectur al distortion aside from mild postsurgical scarring. No definit e mammographic correlate to the palpable focus of concern. The parenchymal pattern is stable from the prior exam. Right breast demonstrates no suspicious masses, suspicious grouped calcifications, or areas of architectural distortion. There is no skin thickening or axillary abnormality in either breast. ULTRASOUND: CLINICAL INFORMATION: As above. COMPARISON: 02/10/[address], 06/27/2016 left breast. TECHNIQUE: Targeted sonographic evaluation LEFT breast was performed using a high frequency linear transducer. Attention was focused on the palpable region of concern, 5-7:00 axis anterior left breast just behind the scar. Selected archi kan documentation. FINDINGS: LEFT BREAST: There i s heterogeneously dense fibroglandular tissue present. There is a prominent ridge of fibrocystic tissue which most likely relates and correlates to the focus of palpable concern in the 5-7 o'clock axis of the left breast. There is no cystic abnormality, suspicious mass, abnormal shadowing, or edema within the soft tissue planes. US/US breast LT limited mamm only IMPRESSION: There are no finding s in either breast suspicious for malignancy. There are stable pos t excisional biopsy changes in the anterior inferior left breast. Region of palpable concern inferior left breast spanning 5-7 o'clock axis just behind the excisional biopsy scar appears to correlate with a linear focus of dens e fibrocystic tissue in this region. No suspicious masses. Findings are benign and no further follow-up recommended. OVERALL ASSESSMENT: Mammography: BI-RADS 2 - Benign Findings Ultrasound: BI-RADS 2 - Benign Findings RECOMMENDATION: Mammo at 40 or earli er if clinically needed Results were provide d to the patient at time of visit by the technologist. This patient's information was entered into a reminder system with a target due date for their next mammogram. Dictated By: Galileo Barba MD Signed By: <Electronically signed by Galileo Barba MD in OV> 07/30/23 1707 DD/ 1550 TD/TT: Electrician'S Helper: Glucose, Whole Blood Reviewed date:11/03/2023 10:10:34 AM Interpretation: Performing Lab:[facility], [address] [place] [phone] Notes/Report: Glucose, Whole Blood 104 60-115 mg/dL METER #: [id number] Testing performed in the Endocrinology Department and Diabetes [address] , [address], [facility]. Diabetic Eye Exam Reviewed date:11/18/2023 03:23:10 PM Interpretation:undefined Performing Lab: Notes/Report: undefined Glucose, Whole Blood Reviewed date:02/14/2024 08:01:45 AM Interpretation: Performing Lab:[facility], [address] [place] [phone] Notes/Report: Glucose, Whole Blood 90 60-115 mg/dL METER #: [id number] Testing performed in the Endocrinology Department and Diabetes [address] , [address], [facility]. CT NG by PCR Reviewed date:02/27/2024 08:39:14 AM Interpretation: Performing Lab:[address] [address] Notes/Report: Vaginal CT PCR DETECTED Not Detect. Detected results may be observed after successful antibiotic treatment due to target nucleic acids from residual non-viable chlamydia. As with many diagnostic tests, results from the Xpert CT/NG assay should be interpreted in conjunction with other laboratory and clinical data available to the clinician. Xpert CT/NG performance has not been evaluated in patients less than 14 years of age. The assay should not be used for the evaluation of suspected sexual abuse or for other medico-legal indications. Additional testing is recommended in any circumstance when false positive or false negative results could lead to adverse medical, social or psychological consequences. These results must be reported by the ordering clinician or clinical facility to the [facility] as required by state law. NG PCR NOT DETECTED Not Detect. A not detected test result does not exclude the possibility of infection because test results can be affected by improper specimen collection, concurrent antibiotic therapy, or the number of organisms in the specimen which may be below the sensitivity of the test. As with many diagnostic tests, results from the Xpert CT/NG assay should be interpreted in conjunction with other laboratory and clinical data available to the clinician. Xpert CT/NG performance has not been evaluated in patients less than 14 years of age. The assay should not be used for the evaluation of suspected sexual abuse or for other medico-legal indications. Additional testing is recommended in any circumstance when false positive or false negative results could lead to adverse medical, social or psychological consequences. Bacterial Vaginosis Panel Reviewed date:02/28/2024 07:23:58 AM Interpretation: Performing Lab:[facility], [address] [place] [phone] Notes/Report: Trichomonas vaginalis PCR NOT DETECTED Not Detect Bacterial Vaginosis PCR POSITIVE Negative The BV organism targets of the Xpert Xpress MVP test can be commensal in women; Xpert Xpress MVP positive results for bacterial vaginosis should be considered in conjunction with other clinical and patient information to determine the disease status. Organisms that are not detected by the Xpert Xpress MVP test have also been reported to be associated with BV and aerobic vaginitis. The Xpert Xpress MVP test performance has not been evaluated in patients under the age of 14. Karen Group PCR NOT DETECTED Not Detect Karen glab krusei PCR NOT DETECTED Not Detect US pelvic and transvaginal Reviewed date:03/13/2024 07:32:41 AM Interpretation: Performing Lab: Notes/Report: [address] [address] Ultrasound Report Signed Patient: Alyce Hardwick MR#: [id number] : 1990 Acct:[id number] Age/Sex: 33 / F ADM Date: 03/04/24 Loc: . Attending Dr: Glenda Gross CNM Ordering Physician: Glenda Gross CNM Date of Service: 03/04/24 Procedure(s): US pelvic and transvaginal Accession Number(s): [id number] cc: William Tolentino MD; Glenda Gross CNM EXAMINATION: US PELVIS CLINICAL INFORMATION: Irregular menstruation COMPARISON: None available. TECHNIQUE: Ultrasound of the pelvis is performed using both transabdominal and transvaginal transducers along with Doppler. Transvaginal imaging is performed due to inadequate visualization transabdominally. FINDINGS: Uterus: The uterus is anteverted and measures 8.8 x 3.5 x 4.5 cm. The double wall endometrial thickness is 1.1 mm. There is additional oblong echogenic nodular area along the endometrium near the fundus measuring 1.4 x 0.7 x 1.5 cm which could represent an endometrial polyp. A small amount of fluid is seen within the endocervical canal The uterus is smooth in contour and has normal myometrial echogenicity. No visible fibroid. Adnexa: Both ovaries are visualized. There is normal color flow to the adnexa. There is no ovarian torsion. There is no pelvic ascites or fluid collection. Right ovary measures 3.5 x 2.6 x 2.5 cm. There is an anechoic simple cyst in the right ovary measuring 2.5 x 2.3 x 2.1 centimeters. Left ovary measures 2.6 x 1.7 x 2.6 cm. Left ovary appears sonographically normal US/US pelvic and transvaginal IMPRESSION: 1. Echogenic nodular area along the endometrium near the fundus which could represent an endometrial polyp. 2. Simple cyst in the right ovary measuring 2.5 cm. Findings are overwhelmingly likely to represent a normal ovarian follicle. No followup imaging recommended. 3. Left ovary appears normal. Electronically signed by: Bunny Celeste MD 03/10/2024 09:37 AM EDT RP Dictated By: Bunny Celeste MD Signed By: <Electronically signed by Bunny Celeste MD in OV> 03/10/24 0937 DD/ 1110 TD/TT: 03/04/24 1131 Electrician'S Helper: [place] [address] Ultrasound Report Signed Patient: Alyce Hardwick MR#: [id number] : 1990 Acct:[id number] Age/Sex: 33 / F ADM Date: 03/04/24 Loc: HO.US Attending Dr: Glenda Gross CNM Ordering Physician: Glenda Gross CNM Date of Service: 03/04/24 Procedure(s): US pel adela and transvaginal Accession Number(s): [id number] cc: William Tolentino MD; Glenda Gross CNM EXAMINATION: US PELVIS CLINICAL INFORMATION: Irregular menstruation COMPARISON: None available. TECHNIQUE: Ultrasound of the pelvis is performed using both transabdominal and transvaginal transducers along with Doppler. Transvaginal imaging is performed due to inadequate visualization transabdominally. FINDINGS: Uterus: The uterus is anteverted and measures 8.8 x 3.5 x 4.5 cm. The double wall endometrial thickness is 1.1 mm. There is additional oblong echogenic nodular area along the endometrium near the fundus measuring 1.4 x 0.7 x 1.5 cm which could represent an endometrial polyp. A small amoun t of fluid is seen within the endocervical canal The uterus is smooth in contour and has normal myometrial echogenicity. No visible fibroid. Adnexa: Both ovaries are visualized. There is normal color flow to the adnexa. There is no ovarian torsion. There is no pelvic ascites or fluid collection. Right ovary measures 3.5 x 2.6 x 2.5 cm. There is an anechoic simple cyst in the right ov mook measuring 2.5 x 2.3 x 2.1 centimeters. Left ovary measures 2.6 x 1.7 x 2.6 cm. Left ovary appears sonographically normal US/US pelvic and transvaginal IMPRESSION: 1. Echogenic nodular area along the endometrium near the fundus which could represent an endometrial polyp. 2. Simple cyst in th e right ovary measuring 2.5 cm. Findings are overwhelmingly likel y to represent a normal ovarian follicle. No followup imaging recommended. 3. Left ovary appear s normal. Electronically rojas d by: Bunny Celeste MD 03/10/2024 09:37 AM EDT Dictated By: Bunny Celeste MD Signed By: <Electronically signed by Bunny Celeste MD in OV> 03/10/24 0937 DD/ 1110 TD/TT: 03/04/24 1131 Electrician'S Helper: CT NG by PCR Reviewed date:04/11/2024 07:10:12 AM Interpretation: Performing Lab:[facility], [address] [place] [phone] Notes/Report: Vaginal CT PCR NOT DETECTED Not Detect. A not detected test result does not exclude the possibility of infection because test results can be affected by improper specimen collection, concurrent antibiotic therapy, or the number of organisms in the specimen which may be below the sensitivity of the test. As with many diagnostic tests, results from the Xpert CT/NG assay should be interpreted in conjunction with other laboratory and clinical data available to the clinician. Xpert CT/NG performance has not been evaluated in patients less than 14 years of age. The assay should not be used for the evaluation of suspected sexual abuse or for other medico-legal indications. Additional testing is recommended in any circumstance when false positive or false negative results could lead to adverse medical, social or psychological consequences. NG PCR NOT DETECTED Not Detect. A not detected test result does not exclude the possibility of infection because test results can be affected by improper specimen collection, concurrent antibiotic therapy, or the number of organisms in the specimen which may be below the sensitivity of the test. As with many diagnostic tests, results from the Xpert CT/NG assay should be interpreted in conjunction with other laboratory and clinical data available to the clinician. Xpert CT/NG performance has not been evaluated in patients less than 14 years of age. The assay should not be used for the evaluation of suspected sexual abuse or for other medico-legal indications. Additional testing is recommended in any circumstance when false positive or false negative results could lead to adverse medical, social or psychological consequences. Bacterial Vaginosis Panel Reviewed date:04/11/2024 07:10:12 AM Interpretation: Performing Lab:[address] [phone] Notes/Report: Trichomonas vaginalis PCR NOT DETECTED Not Detect Bacterial Vaginosis PCR POSITIVE Negative The BV organism targets of the Xpert Xpress MVP test can be commensal in women; Xpert Xpress MVP positive results for bacterial vaginosis should be considered in conjunction with other clinical and patient information to determine the disease status. Organisms that are not detected by the Xpert Xpress MVP test have also been reported to be associated with BV and aerobic vaginitis. The Xpert Xpress MVP test performance has not been evaluated in patients under the age of 14. [employer] PCR NOT DETECTED Not Detect Karen glab krusei PCR NOT DETECTED Not Detect PAP + HPV E6/E7 rfx 18/45 Reviewed date:04/17/2024 08:40:09 AM Interpretation: Performing Lab:[facility], [address] [place] [phone] Notes/Report: SEE SCANNED RESULTS IN EMR HPV 16 RNA NOT DETECTED NOT DETECTED HPV 18/45 RNA NOT DETECTED NOT DETECTED Methodology: Lighting Technician Mediated Amplification Cervical sources are required for HPV testing. If a vaginal source from a patient who has had a total hysterectomy with removal of cervix was submitted, please contact the testing laboratory for alternative testing options. THIS TEST WAS PERFORMED AT: [facility] [address] [place] [phone] SEAN RENE MD HPV mRNA E6/E7 Detected Not Detected Methodology: Lighting Technician-Mediate d Amplification This assay detects E6/E7 viral messenger RNA (mRNA) from 14 high-risk HPV types (16,18,31,33,35,39,45 ,51,52,56,58,59,66,68 ). Cervical sources are required for HPV testing. If a vaginal source from a patient who has had a total hysterectomy with removal of cervix was submitted, please contact the testing laboratory for alternative testing options. For additional information, please refer to http://education.globa.ly/faq/ THI519l8 (This link if provided for information/ educational purposes only.) Thin Prep Source SEE NOTE None given Report Status TNP Clinical Information SEE NOTE None gi gary LMP SEE NOTE NONE GIVEN Previous PAP SEE NOTE NONE GIVEN Previous Biopsy Date SEE NOTE NONE GI GARY State of Adequacy SEE NOTE Satisfactory for evaluation. Endocervical/transfor mation zone component present. General Categorization TNP Interpretation/Result SEE NOTE Cytology Results: Negative for intraepithelial lesion or malignancy. Cytology Comment SEE NOTE This Pap test has been evaluated with computer assisted technology. Video System Repairer SEE NOTE SXA, CT(ASCP) CT screening location: [facility] [address] [address] Review Video System Repairer SEE NOTE MPG, CT(ASCP) CT screening location: [place] [address] Pathologist TNP PAP Infection TNP See Note SEE NOTE EXPLANATORY NOTE: The Pap is a screening test for cervical cancer. It is not a diagnostic test and is subject to false negative and false positive results. It is most reliable when a satisfactory sample, regularly obtained, is submitted with relevant clinical findings and history, and when the Pap result is evaluated along with historic and current clinical information. Glucose, Whole Blood Reviewed date:05/13/2024 08:19:51 PM Interpretation: Performing Lab:[facility], [address] [place] [phone] Notes/Report: Glucose, Whole Blood 179 60-115 mg/dL METER #: [id number] Testing performed in the [facility]ocrin[facility] and [facility] , [address], [facility]. Reason For Referral No Information Medications Medication SIG (Take, Route, Frequency, Duration) Notes Start Date End Date Status Valsartan 80 MG Oral Acti ve FLUoxetine HCl 20 MG 1 capsule Orally On ce a day 08/21/2023 Active Cefuroxime Axetil 500 MG 1 tablet Orally every 12 hrs 08/21/2023 Active Sertraline HCl 50 MG 1 tablet Orally Once a day Active Insulin Lispro 100 UNIT/ML DIRECTED I NJECTION 75 UNITS PER DAY VIA PUMP 30 DAYS Active Immunizations Vaccine Route Administration Date Status Comme nts COVID 19 Moderna Unknown 11/19/2020 Administered COVID 19 Moderna Unknown 06/27/2021 Administered COVID 19 Moderna Unknown 10/22/2020 Administered Social History Tobacco Use: Social History Observation [...] Problem Status W/U Status Risk Notes Problem 175682747 Overweight (E66.3) Active confirmed She has gained 8 pounds and her body mass index is now slightly over 30 which is in the obese range. We discussed her weight loss strategy, her diabetic diet and nutrition. We formulated a plan to lose weight at a rate of one half of a pound per week through a diet restricted in fat calories sodium and concentrated sweets. Problem 956284362 Other obesity (E66.8) Active confirmed Her body mass index is 31.4. We discussed weight reduction strategies and a diabetic diet. We made a plan to lose weight. Problem 890161218 MCFP current use of insulin (Z79.4) Active confirmed Her insulin pump is working well. Her glucose levels have been satisfactory. She will continue to be managed by endocrinology Problem 294273984 Attention deficit disorder (ADD) in adult (F98.8) Active confirmed She was continu ed on her current regimen. Problem 529338824 Type 1 diabetes mellitus without complication (E10.9) Active confirmed Her insulin pum p continues to function normally as does her monitor. Her hemoglobin A1c is acceptable. She remains under the care of endocrinology. Problem 760775804 Body mass index [BMI] 30.0-30.9, adult (Z68.30) Active confirmed Problem 618014145 Bilateral headaches (R51.9) Active confirmed She has had no headaches since her last visit. Problem 52444803 Difficulty concentrating (R41.840) Active confirmed She says that h er previous primary care physician, Dr. Chaves, prescribed this medication, but it was years ago. I referred her back to her psychotherapist for evaluation and if necessary, referral to a prescriber. I made the appointment and I am not trained in psychiatric disorders. Problem 646952064 Obesity, class 1 (E66.811) Active confirmed Her body mass index is 30. We discussed her diet and nutrition. We made a plan to lose weight at a rate of one half of a pound per week until the body mass index is in the mid normal range. Vital Signs Heart Rate 63 /min 06/13/2024 Temperature 98.1 degrees Fahrenheit 06/13/2024 Blood pressure diastolic 79 mm Hg 06/13/2024 Height 68 in 07/05/2024 Blood pressure systolic 120 mm Hg 06/13/2024 Weight 199 lbs 07/05/2024 BMI 30.25 kg/m2 07/05/2024 Encounters Encounter Location Date Provider Diagnosis William Tolentino III, MD [address] [place] [address] [place] [phone] 08/21/2023 William Tolentino long term care administrator current us e of insulin Z79.4 ; Type 1 diabetes mellitus without complication E10.9 ; Bilateral headaches R51.9 ; Overweight E66.3 ; Attention deficit disorder (ADD) in adult F98.8 and Acute non-recurrent sinusitis, unspecified location J01.90 William Tolentino III, MD [address] [place] [address] [place] [phone] 08/31/2023 William Tolentino Type 1 diabetes mellitus without complication E10.9 ; Overweight E66.3 and Attention deficit disorder (ADD) in adult F98.8 William Tolentino III, MD [address] [place] [address] [place] [phone] 10/20/2023 William Tolentino Type 1 diabetes mellitus without complication E10.9 ; Attention deficit disorder (ADD) in adult F98.8 ; Bilateral headaches R51.9 and Other obesity E66.8 William Tolentino III, MD [address] [place] [address] [place] [phone] 06/13/2024 William Tolentino long term care administrator current us e of insulin Z79.4 ; Type 1 diabetes mellitus without complication E10.9 ; Obesity, class 1 E66.811 ; Attention deficit disorder (ADD) in adult F98.8 and Depression, unspecified depression type F32.A William Tolentino III, MD [address] [place] [address] [place] [id number] 07/05/2024 William Tolentino Anxiety, generalized F41.1 ; Type 1 diabetes mellitus without complication E10.9 ; Other obesity due to excess calories E66.09 and Bilateral headaches R51.9 William Tolentino III, MD [address] [place] [address] [place] [phone] 10/29/2023 William Tolentino Assessments Encounter Date Diagnosis (ICD Code) Assessment Notes Treatment Notes Treatment Clinical Notes 08/21/2023 long term care administrator current use of insulin (ICD-10 - Z79.4) Her insulin pump is working well. Her glucose levels have been satisfactory. She will continue to be managed by endocrinology 08/21/2023 Type 1 diabetes mellitus without complication (ICD-10 - E10.9) Her pump is working well. She will continue to have her hemoglobin A1c done by endocrinology. No new problems are present. No change in her medication was needed. 08/31/2023 Overweight (ICD-10 - E66.3) She has gained 8 pounds and her body mass index is now slightly over 30 which is in the obese range. We discussed her weight loss strategy, her diabetic diet and nutrition. We formulated a plan to lose weight at a rate of one half of a pound per week through a diet restricted in fat calories sodium and concentrated sweets. 08/31/2023 Type 1 diabetes mellitus without complication (ICD-10 - E10.9) Her pump is working well. She will continue to have her hemoglobin A1c done by endocrinology. No new problems are present. No change in her medication was needed. 10/20/2023 Attention deficit disorder (ADD) in adult (ICD-10 - F98.8) She was continued on her current regimen. 10/20/2023 Type 1 diabetes mellitus without complication (ICD-10 - E10.9) Her insulin pump continues to function normally as does her monitor. Her hemoglobin A1c is acceptable. She remains under the care of endocrinology. 06/13/2024 MCFP current use of insulin (ICD-10 - Z79.4) Her insulin pump is working well. Her glucose levels have been satisfactory. She will continue to be managed by endocrinology 06/13/2024 Type 1 diabetes mellitus without complication (ICD-10 - E10.9) Her insulin pump continues to function normally as does her monitor. Her hemoglobin A1c is acceptable. She remains under the care of endocrinology. 07/05/2024 Type 1 diabetes mellitus without complication (ICD-10 - E10.9) Her insulin pump continues to function normally as does her monitor. Her hemoglobin A1c is acceptable. She remains under the care of endocrinology. 07/05/2024 Anxiety, generalized (ICD-10 - F41.1) She has noted a marked improvement in her anxiety. She is experiencing calmness. She has had no side effects from sertraline which she has been taking. He was continued for another 21 days. 08/21/2023 Bilateral headaches (ICD-10 - R51.9) She has had no headaches since her last visit. 08/31/2023 Attention deficit disorder (ADD) in adult (ICD-10 - F98.8) She was continued on her current regimen. 10/20/2023 Bilateral headaches (ICD-10 - R51.9) She has had no headaches since her last visit. 06/13/2024 Obesity, class 1 (ICD-10 - E66.811) Her body mass index is 30. We discussed her diet and nutrition. We made a plan to lose weight at a rate of one half of a pound per week until the body mass index is in the mid normal range. 07/05/2024 Other obesity due to excess calories (ICD-10 - E66.09) She is trying to lose weight. She was given an appointment in the near future to return to the office to be weighed, and have her blood pressure checked. 08/21/2023 Overweight (ICD-10 - E66.3) She has gained 8 pounds and her body mass index is now slightly over 30 which is in the obese range. We discussed her weight loss strategy, her diabetic diet and nutrition. We formulated a plan to lose weight at a rate of one half of a pound per week through a diet restricted in fat calories sodium and concentrated sweets. 10/20/2023 Other obesity (ICD-10 - E66.8) Her body mass index is 31.4. We discussed weight reduction strategies and a diabetic diet. We made a plan to lose weight. 06/13/2024 Attention deficit disorder (ADD) in adult (ICD-10 - F98.8) She was continued on her current regimen. 07/05/2024 Bilateral headaches (ICD-10 - R51.9) She has had no headaches since her last visit. 08/21/2023 Attention deficit disorder (ADD) in adult (ICD-10 [...] the anxiety component which is becoming worse. 08/21/2023 Acute non-recurrent sinusitis, unspecified location (ICD-10 - J01.90) She was given an antibiotic and a follow-up visit. Plan Of Treatment Pending Test Test Name Order Date PROFILE, FASTING (COMPREHENSIVE METABOLI C) 10/14/2022 PROFILE, FASTING (COMPREHENSIVE METABOLI C) 11/16/2020 PROFILE, FASTING (COMPREHENSIVE METABOLI C) 10/20/2023 PROFILE, FASTING (COMPREHENSIVE METABOLI C) 06/07/2018 PROFILE, FASTING (COMPREHENSIVE METABOLI C) 07/19/2020 PROFILE, RANDOM (COMPREHENSIVE METABOLIC ) 08/21/2023 PROFILE, RANDOM (COMPREHENSIVE METABOLIC ) 09/26/2020 PROFILE, RANDOM (COMPREHENSIVE METABOLIC ) 09/14/2018 HEMOGLOBIN A1C (GLYCOHEMOGLOBIN) 023 HEMOGLOBIN A1C (GLYCOHEMOGLOBIN) 021 HEMOGLOBIN A1C (GLYCOHEMOGLOBIN) 018 HEMOGLOBIN A1C (GLYCOHEMOGLOBIN) 021 LIPID PANEL 10/14/2022 LIPID PANEL 11/16/2020 LIPID PANEL 06/07/2018 FREE T4 (FT4) 09/26/2020 TSH (THYROID STIMULATING HORMONE) 2023 TSH (THYROID STIMULATING HORMONE) 2020 MICROALBUMIN, RANDOM 10/14/2022 MICROALBUMIN, RANDOM 06/07/2018 CBC w DIFF 10/14/2022 CBC w DIFF 07/19/2020 CBC w DIFF 06/07/2018 CBC w DIFF 09/14/2018 CBC w DIFF 08/21/2023 CBC w DIFF 09/26/2020 CBC w DIFF 11/16/2020 SED RATE (ESR) 09/26/2020 SED RATE (ESR) 08/21/2023 US ABD 09/26/2020 CBC WITH AUTO DIFF 10/20/2023 Uric Acid 08/21/2023 Lipid Panel 10/20/2023 Free T4 (Free Thyroxine) 08/21/2023 Microalbumin, Random 11/16/2020 Hemoglobin A1c 10/20/2023 Next Appt Details Provider Name:William Tolentino, 09/14/2024 11:00:00 AM, [address] [place] [address] [address], [place], [phone], Provider Name:William Tolentino, 10/25/2024 11:00:00 AM, [address] [place] [address] [address], [place], [phone], Insurance Providers Payer Name Payer Address Payer Phone Subscriber Number Group Number Insured Name Patient Relationship to Insured Coverage Start Date Coverage End Date [employer] [address] [address] [place] [address] [id number] Erendira Hardwickee Self - patient is the insured 0 MEDICAID [address] [place], [place] [id number] Alyce Hardwick Self - patient is the insured Medical (General) History Medical History History ICD Code juvenile diabetes mellitus, onset age 11 , insulin pump family history of breast cancer, 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 She is currently on fluoxetine for depression. Surgical History Surgery Date(Month/Year) left breast lumpectomy, Dr. Mercer, [facility] 2016 dental extractions 2015 No history Hospitalization History Reason Date(Month/Year) No history
--- OUTSIDE RECORDS SUMMARY | 2024-07-08 11:05 | XMS_ITS ---
Author Organization William Tolentino III, MD Address [address] [place] [address] Care Team Providers Care [place] Name Role Phone William Tolentino Primary Care Provider [phone] Allergies Allergen (clinical drug ingredient) Drug/Non Drug [...] Date Provider Diagnosis William Tolentino III, MD [address] [place] [address] [place] [address] 07/05/2024 William Tolentino Anxiety, generalized F41.1 ; [...] patient's condition and treatment plan Provider Name:William Tolentino, 09/14/2024 11:00:00 AM, [address] [place] [address] [address], [place], [phone], Provider Name:William Tolentino, 10/25/2024 11:00:00 AM, [address] [place] [address] [address], [place], [phone], Progress Notes * Britney HARDWICKOB:1990 ([age] yo F)Acc No.[id number]:07/05/2024 Patient:?Erendira HARDWICKee Provider:?William Tolentino MD :1990???Age:34 Y???Sex:Female D ate:07/05/2024 Address:[address] [id number] Subjective: * Chief Complaints: * ???Anxiety disorderJuvenile diabetesInsulin pumpHeadachesAttention deficit disorderObesity * HPI: ???:?Telehealth?Location of provider rendering services:?{...} [address] [place] [address] ?Location of patient:?address listed in demographics for today's visit ?Patient identification confirmed using:?Name, ?Telehealth method:?Telephone only. Patient not visible to care provider. ?Consent:?Patient verbally consented to treatment, Patient verbally consented to billing insurance company, Patient informed of any privacy concerns related to method of visit ?Total time spent with patient (mins)?15 ?The patient, a 34-year-old female, reported feeling a lot calmer than her last visit a month ago. She had been prescribed sertraline, which she confirmed to have filled and taken. The doctor noted that she sounded more like her normal self. The patient also reported that her diabetes was doing much better. * ROS:?General/Constitutional:?pain?only normal aches and pains.?Chills?denies.?Fatigue?admits.?Fever?denies.?ENT:?Decreased hearing?denies.?Respiratory:?Cough?denies.?Cardiovascular:?Chest pain with exertion?denies.?Dyspnea on exertion?denies.?Shortness of breath?denies.?Gastrointestinal:?Constipation?occasional.?Decreased appetite?denies.?Diarrhea?denies.?Heartburn?occasional.?Nausea?denies.?Rectal bleeding?denies.?Vomiting?denies.?Hematology:?bruising?denies.?petechiae?denies.?Swollen glands?none have been noted.?Genitourinary:?Frequent urination?at night.?Musculoskeletal:?Muscle aches?denies.?Painful joints?denies.?Sciatica?denies.?Weakness?denies.?Skin:?Itching?denies.?Rash?denies.?Skin lesion(s)?denies.?Neurologic:?Difficulty speaking?denies.?Dizziness?denies.?Headache?denies.?Low back pain?denies.?Psychiatric:?Depressed mood?Improved anxiety.? * Medical History:? * Surgical History:?left raghav t lumpectomy, Dr. 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 She works [...] * Vitals:?Ht: 68, Wt: 199, BMI :30.25, Ht-cm: 172.72, Wt-k.26. * ???Past Orders: Lab:Glucose, Whole Blood * Collection Date [...] InfectionTNP- ?See NoteSEE NOTE- Assessment: * Assessment: 1.?Anxiety, generalized - F4 1.1 (Primary)???Notes :She has noted a marked improvement in her anxiety.? She is experiencing calmness.? She has had no side effects from sertraline which she has been taking.? He was continued for another 21 days.???2.?Type 1 diabetes mellitus without complication - E10.9???Notes :Her insulin pump continues to function normally as does her monitor. Her hemoglobin A1c is acceptable. She remains under the care of endocrinology.???3.?Other obesity due to excess calories - E66.09???Notes :She is trying to lose weight. She was given an appointment in the near future to return to the office to be weighed, and have her blood pressure checked.???4.?Bilateral headaches - R51.9???Notes :She has had no headaches since her last visit.??? Plan: * Treatment: * Procedure Codes:? * [...] done: Medical or Other reason not done ??DM Care Plan:?Patient Lifestyle Goals?Patient wants to be able to manage diabetes without too much effort.?Treatment Goals?HbA1C < 7.0, Blood Sugars less than < 115.?Barriers?no barriers.?Self-Managment Goals?Work on weight loss, with a goal of losing 1 lb per week.? * Follow Up:?2 Months, Sudhir manrique (Reason: OV, Reassessment of patient's condition and treatment plan) * Images: * Sign off status: Completed true * Provider:?William Tolentino MD Date:?12/2024 Generated for Duncan smith/Estefania/Sofya on:?07/08/2024 11:05 AM EST History and Physical Notes * HPI (History of Present Illness) Category Sub-Category Detail Notes Telehealth Location of [facility] rendering services:: {...} [address] [place] [address] Drive [address] [place] [id number] Location of patient:: address listed in demographics [...]
== END 2024-07-08 10:59 | disposition home or self-care (01) ==
LOC: HO.US 10:58
PROVIDERS: PCP Internal Medicine Medical Oncology; Visit Provider Advanced Practice Midwife
DX: N92.6 Irregular menstruation, unspecified (principal); N84.0 Polyp of corpus uteri; A74.9 Chlamydial infection, unspecified; N89.8 Other specified noninflammatory disorders of vagina; Z78.9 Other specified health status
CPT/HCPCS: 76830; 76856

== ENCOUNTER → 2024-07-08 11:00 | Outpatient (BNV) | payer OTHER, SELFPAY | PROVIDERS: PCP Internal Medicine Medical Oncology; Visit Provider Radiology Diagnostic Radiology | DX: N92.6 Irregular menstruation, unspecified (principal); N84.0 Polyp of corpus uteri | CPT/HCPCS: 76830; 76856 ==

== ENCOUNTER 2024-07-19 11:15 | Outpatient (AMB) | payer OTHER, SELFPAY ==
--- NOTE | 2024-07-19 11:17 | A.OFFVIS_ITS ---
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 She reports having nausea and cramps for 2 days out of the 5 of her cycles. She stopped taking OCPs due to making her feel crazy. [facility] Medical History (Updated 07/19/24 @ 14:57 by Casandra Benoit CNM) Depression Type 1 diabetes mellitus with hyperglycemia Surgical History History of left breast biopsy Family History Paternal Grandmother Diabetes Maternal Aunt Breast cancer Family/Other Colon cancer Social History Household Members: Family Housing: Apartment Alcohol intake: current Alcohol intake frequency: holidays/special occasions only Patient Tobacco Use Status: Never used Tobacco Substance Use Type: Marijuana Current occupational status: employed Current occupation: [employer] Sexual orientation: Straight/Heterosexual Gender identity: Female Female Reproductive History Menstrual Age of Menarche: 13 Review of Systems Const All systems reviewed & are unremarkable except as noted in HPI and below Endo Reports no additional complaints Physical Exam Const General: cooperative, healthy appearing and no acute distress Psych Appearance: well kempt Attitude: cooperative Thought process: Normal thought process present Results Reviewed Results Reviewed: [address] [address] Ultrasound Report Signed Patient: Alyce Hardwick MR#: [id number] : 1990 Acct:[id number] Age/Sex: 34 / F ADM Date: 07/08/24 Loc: HO.US Attending Dr: Glenda Gross CNM Ordering Physician: Glenda Gross CNM Date of Service: 07/08/24 Procedure(s): US pelvic and transvaginal Accession Number(s): [id number] cc: William Tolentino MD; Glenda Gross CNM~ CLINICAL HISTORY: N92.6 - Irregular menstruation, unspecified US pelvis transabdominal and transvaginal with color Doppler Comparison: US/OT/LA - US PELVIC AND TRANSVAGINAL - 03/04/24 11:08 EDT Findings: Transabdominal scanning performed for overall anatomy. Transvaginal scanning performed for additional detail. LMP: 06/16/2024 Anteverted uterus, normal size and echotexture, measuring 7.4 x 3.5 x 4.6 cm. Well defined endometrium, measuring 10.0 mm in thickness. Equivocal endometrial polyp measuring 7 x 10 x 15 mm sonohysterogram would be confirmatory. The right ovary measures, 3.2 x 2.1 x 1.4 cm. Normal sonographic appearance right ovary. Normal color Doppler of the ovary. The left ovary measures, 2.7 x 1.4 x 2.4 cm. 1.0 x 1.7 x 2.4 cm probable corpus luteum. Normal color Doppler of the ovary. No adnexal masses or fluid collections. No free fluid Impression: 1. Uterus normal size and position.Endometrium measures 11 mm in thickness. Equivocal endometrial polyp. Sonohysterogram would be confirmatory. 2. Suspect involuting corpus luteum left ovary. 3. No adnexal masses or fluid collections. This document has been electronically signed by: Kirk Courtney MD on 07/09/2024 16:00:38 Dictated By: iKrk Courtney MD Signed By: <Electronically signed by Kirk Courtney MD in OV> 07/09/24 1601 DD/ 1600 TD/TT: 07/09/24 1600 Mobile Application Developer: Assessment & Plan Assessment & Plan (1) Encounter to discuss test results: Code(s): Z71.2 - Person consulting for explanation of examination or test findings (2) Endometrial polyp: Code(s): N84.0 - Polyp of corpus uteri Category: Medical Plan Discussed: Ultrasound findings indicate suggestion of 1.5cm endometrial polyp, recommendations for hysteroscopy evaluation for further diagnosis and removal if indicated. Consult appointment to be made with Dr. Sutton, patient accepting. The patient expressed understanding and agreement with the plan of care. All of her questions and concerns were addressed to the best of my ability. This note is constructed using voice recognition software. While every effort has been made to ensure accuracy, grading machine feeder errors may have been included. Coding Level of Care Code Est Pt Level 3 (91620) Diagnoses Encounter to discuss test results Z71.2 Endometrial polyp N84.0
== END 2024-07-19 14:16 | disposition home or self-care (01) ==
PROVIDERS: PCP Internal Medicine Medical Oncology; Visit Provider Advanced Practice Midwife
DX: N84.0 Polyp of corpus uteri (principal); Z71.2 Person consulting for explanation of examination or test findings
CPT/HCPCS: 99213

== ENCOUNTER → 2024-07-19 11:15 | Outpatient (BNVA) | payer OTHER, SELFPAY | PROVIDERS: PCP Internal Medicine Medical Oncology; Visit Provider Advanced Practice Midwife | DX: N84.0 Polyp of corpus uteri (principal); Z71.2 Person consulting for explanation of examination or test findings | CPT/HCPCS: 99212 ==

== ENCOUNTER → 2024-08-03 07:56 | Outpatient (BNVA) | payer OTHER, SELFPAY | PROVIDERS: PCP Internal Medicine Medical Oncology; Visit Provider Registered Nurse Diabetes Educator | DX: Z46.81 Encounter for fitting and adjustment of insulin pump (principal); E10.65 Type 1 diabetes mellitus with hyperglycemia; Z79.4 Long term (current) use of insulin | CPT/HCPCS: 99211 ==

== ENCOUNTER 2024-09-06 07:58 | Outpatient (REF) | payer OTHER, SELFPAY ==
--- OUTSIDE RECORDS SUMMARY | 2024-09-06 08:14 | XMS_ITS | Clinical Summary ---
Author Organization [facility] Address [address] [facility] [address] [place] [address] Phone Care Team Providers Care Raker Buffing Wheel Name Role Phone William Tolentino MD Primary Care Provider [phone] Allergies No known active allergies Medications insulin lispro (HumaLOG) 100 UNIT/ML patient supplied pump Inject under the skin continuously Up to 75units/day via pump subcut daily Active valsartan (DIOVAN) 80 MG tablet Take 80 mg by mouth 1 (one) time each day 2 Active FLUoxetine (PROzac) 20 MG capsule Take 20 mg by mouth 1 (one) time each day Every day for 30 days 4 Active Active Problems Problem Noted Date Diagnosed Date 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 Proteinuria 05/12/2022 Type 1 diabetes mellitus 05/12/2022 Family History Medical History Relation Comments Cancer Father Cancer Mother Cancer Mother's Sister breast cancer Diabetes Paternal Grandmother Relation Status Comments Father Unknown Mother Mother's Sister Paternal Grandmother Social History Tobacco Use Types Packs/Day Years Used Date Smoking Tobacco: Never Tobacco Cessation:Counseling Given: Not Answered Alcohol Use Standard Drinks/Week Comments Never 0 (1 standard drink = 0.6 oz pure alcohol) Alcoholic Drinks/day: Occasional social drink Comments Unknown Sex and Gender Information Value Date Recorded Sex Assigned at Not on file Legal Sex Female 5:26 PM EST Gender Identity Not on file Sexual Orientation Not on file Last Filed Vital Signs Vital Sign Reading Time Taken Comments Blood Pressure 126/80 11/18/2023 8:43 AM EDT Pulse 74 11/18/2023 8:43 AM EDT Temperature - - Respiratory Rate - - Oxygen Saturation 96% 11/18/2023 8:43 AM EDT Inhaled Oxygen Concentration - - Weight 93.3 kg (205 lb 9.6 oz) 11/18/2023 8:43 A M EDT Height 174 cm (5' 8.5 ) 11/18/2023 8:43 AM EDT Body Mass Index 30.81 11/18/2023 8:43 AM EDT Plan of Treatment Upcoming Encounters Date Type Department Care Team (Late st Contact Info) Description 11/16/2024 9:00 AM EDT Office Visit [facility] [address] [address] Jair Ireland MD [address] [address] Health Maintenance Due Date Last Done Comments Diabetes: Hemoglobin A1C 07/30/2020 Diabetes: Ophthalmology Exam 07/30/2020 Diabetes: Pedal Pulse Checked 07/30/2020 Diabetes: Sensory Foot Exam 07/30/2020 Diabetes: Visual Foot Exam 07/30/2020 Influenza Vaccine (#1) 2024 7, 04/07/2006, 04/16/2005 Hepatitis B Vaccine Completed 04/21/2001, 11/27/2000, 10/26/2000 Pneumococcal Vaccine: Pediatrics (0 to 5 Years) and At-Risk Patients (6 to 64 Years) Aged Out No longer eligible b ased on patient's age to complete this topic Insurance [facility] MEDICAID [facility] MEDICAID Care Teams Raker Buffing Wheel Relationship Specialty Start Date End Date William Tolentino MD [address] [place] [address] [phone] [place], [place] PCP - General Medical Oncology 01/20/22
--- OUTSIDE RECORDS SUMMARY | 2024-09-06 08:14 | XMS_ITS ---
Author Organization William Tolentino III, MD Address [address] [place] [address] Care Team Providers Care Carpet Technician Name Role Phone William Tolentino Primary Care Provider [phone] Allergies Allergen (clinical drug ingredient) Drug/Non Drug Allergy documented on EMR Reaction Allergy Type Onset Date Status No Known Drug Allergy Unknown Drug Allergy Active REASON FOR VISIT Telehealth Medications Medication SIG (Take, Route, Frequency, Duration) [...] Date Provider Diagnosis William Tolentino III, MD [address] [place] [address] [place] [address] 09/05/2024 William Tolentino Severe diarrhea K52.9 Assessments Encounter Date Diagnosis (ICD Code) Assessment Notes Treatment Notes Treatment Clinical Notes 09/05/2024 Severe diarrhea (ICD-10 - K52.9) Plan Of Treatment Medication Medication Name Sig [...] : TV review stool culture Provider Name:William Tolentino, 09/07/2024 01:15:00 PM, [address] [place] [address] [place] [place], [place], [address], Provider Name:William Tolentino, 09/14/2024 11:00:00 AM, [address] [place] [address] [place], [place], [address], Provider Name:William Tolentino, 10/25/2024 11:00:00 AM, [address] [place] [address] [place], [place], [address], Progress Notes * Erendira HARDWICKSukhdeepOB:1990 ([age] yo F)Acc No.[id number]:09/05/2024 Patient:?Alyce HARDWICK Provider:?William Tolentino MD :1990???Age:34 Y???Sex:Female D ate:09/05/2024 Address:[address] [place] [address] [place] Treviño [id number] Subjective: * Chief Complaints: * ???1. Telehealth. * HPI: ???:? sick,cough, thailnd, diarrhea, gradgsfatherfed2 to 12? cough nvd diarrhea gettin better. ?Telehealth?Location of provider rendering services:?{...} [address] [facility] [address] ?Location of patient:?address listed in demographics for today's visit ?Patient identification confirmed using:?Name, ?Telehealth method:?Telephone only. Patient not visible to care provider. ?Consent:?Patient verbally consented to treatment, Patient verbally consented to billing insurance company, Patient informed of any privacy concerns related to method of visit ?Total time spent with patient (mins)?15 * ROS:?General/Constitutional:?pain?only normal aches and pains.?Chills?denies.?Fatigue?admits.?Fever?denies.?ENT:?Decreased hearing?denies.?Respiratory:?Cough?denies.?Cardiovascular:?Chest pain with exertion?denies.?Dyspnea on exertion?denies.?Shortness of breath?denies.?Gastrointestinal:?Constipation?denies.?Decreased appetite?denies.?Diarrhea?denies.?Heartburn?denies.?Nausea?denies.?Rectal bleeding?denies.?Vomiting?denies.?Hematology:?bruising?denies.?petechiae?denies.?Swollen glands?none have been noted.?Genitourinary:?Frequent urination?denies.?Musculoskeletal:?Muscle aches?denies.?Painful joints?denies.?Sciatica?denies.?Weakness?denies.?Skin:?Itching?denies.?Rash?denies.?Skin lesion(s)?denies.?Neurologic:?Difficulty speaking?denies.?Dizziness?denies.?Headache?denies.?Low back pain?denies.?Psychiatric:?Depressed mood?denies.? 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 She is currently on fluoxetine for depression.. * Surgical History:?left breas t lumpectomy, Dr. Mercer, fibroadenoma 2016, dental extractions 2016, No history . * Hospitalization/Major Diagno stic Procedure:?No history . 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 She works over 40 hours a week. Patient is working two jobs and considering starting her own business. * Medications:?Taking Insulin Lispro 100 UNIT/ML Solution DIRECTED INJECTION 75 UNITS PER DAY VIA PUMP 30 DAYS , Taking Valsartan 80 MG Tablet Oral , Taking Cefuroxime Axetil 500 MG Tablet 1 tablet Orally every 12 hrs , Taking Sertraline HCl 50 MG Tablet 1 tablet Orally Once a day , Taking FLUoxetine HCl 20 MG Capsule TAKE 1 CAPSULE BY MOUTH EVERY DAY FOR 30 DAYS , Medication List reviewed and reconciled with the patient * Allergies:?No Known Drug All ergy. Objective: * Vitals:?Ht: 68, Wt: 199, BMI :30.25, Ht-cm: 172.72, Wt-k.26. Assessment: * Assessment: 1.?Severe diarrhea - K52.9?? ? Plan: * Treatment: 2.?Others? Continue Insulin Lispro Solution, 100 UNIT/ML, DIRECTED INJECTION 75 UNITS PER DAY VIA PUMP 30 DAYS;?Continue Valsartan Tablet, 80 MG, Oral;?Continue Cefuroxime Axetil Tablet, 500 MG, 1 tablet, Orally, every 12 hrs;?Continue Sertraline HCl Tablet, 50 MG, 1 tablet, Orally, Once a day;?Continue FLUoxetine HCl Capsule, 20 MG, TAKE 1 CAPSULE BY MOUTH EVERY DAY FOR 30 DAYS.?? * Follow Up:?TV on Thu (Reason : TV review stool culture) * Images: * The named appointment provid er may or may not be the originator of this progress note, and it is not deemed complete until electronically signed by the appointment provider. Sign off status: Pending * Provider:?William Tolentino MD Date:?08/27 Generated for Duncan smith/Estefania/Meghanitting on:?09/06/2024 08:14 AM EDT History and Physical Notes * HPI (History of Present Illness) Category Sub-Category Detail Notes Telehealth Location of [facility] rendering services:: {...} [address] [place] [address] [address] [place] [id number] Location of patient:: address listed in demographics [...]
--- OUTSIDE RECORDS SUMMARY | 2024-09-06 08:14 | XMS_ITS | Encounter Summary ---
Author Organization [facility] Address [address] [place] [address] Phone Care Team Providers Care Talent Development Director Name Role Phone Antonette Degroot NP Primary Care Provider Jb hawley Encounter Details Date Type Department Care Team (Late st Contact Info) Description 02/12/2017 Conversion Encounter [facility] - [address] [address] Social History Tobacco Use Types Packs/Day Years Used Date Smoking Tobacco: Never Assessed Comments Unknown Sex and Gender Information Value Date Recorded Sex Assigned at Not on file Legal Sex Female 4:24 PM EDT Gender Identity Not on file Sexual Orientation Not on file documented as of this encounter Plan of Treatment Not on file documented as of this encounter Visit Diagnoses Not on filedocumented in this encounter Care Teams Talent Development Director Relationship Specialty Start Date End Date Antonette Degroot NP PCP - General 02/06/17 10/06/22 documented as of this encounter
--- OUTSIDE RECORDS SUMMARY | 2024-09-06 08:14 | XMS_ITS | Encounter Summary ---
Author Organization [facility] Address [address] [place] [address] Phone Care Team Providers Care Parachute Rigger Name Role Phone Antonette Degroot DAY LIGHT RELIEF OPERATOR Primary Care Provider Jb hawley Encounter Details Date Type Department Care Team (Late st Contact Info) Description 06/03/2010 Documentation [facility] [place] [facility] [address] [place] [address] Family Medicine, Physician [address] [place] [address] Social History Tobacco Use Types Packs/Day Years [...] on filedocumented in this encounter Care Teams Parachute Rigger Relationship Specialty Start Date End Date Antonette Degroot NP PCP - General 02/06/17 10/06/22 documented as of this encounter
--- OUTSIDE RECORDS SUMMARY | 2024-09-06 08:14 | XMS_ITS ---
Author Organization William Tolentino III, MD Address [address] [facility] [place] [address] Care Team Providers Care Condenser Winder Name Role Phone William Tolentino Primary Care Provider [phone] Allergies Allergen (clinical drug ingredient) Drug/Non Drug [...] Problem Status W/U Status Risk Notes Problem [id number] Body mass index [BMI] 30.0-30.9, adult (Z68.30) Active confirmed Problem [id number] Obesity, class 1 (E66.811) Active confirmed Her [...] Date Provider Diagnosis William Tolentino III, MD [address] [place] [address] [place] [address] 06/13/2024 William Tolentino 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.4 ; Type 1 diabetes mellitus without complication E10.9 ; Obesity, class 1 E66.811 ; Attention deficit disorder (ADD) in adult F98.8 and Depression, unspecified depression type F32.A Assessments Encounter Date Diagnosis (ICD Code) Assessment Notes Treatment Notes Treatment Clinical Notes 06/13/2024 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 (ICD-10 - Z79.4) [...] the new medication, sertraline Provider Name:William Tolentino, 09/07/2024 01:15:00 PM, [address] [place] [address] [place], [place], [address], Provider Name:William Tolentino, 09/14/2024 11:00:00 AM, [address] [place] [address] [place], [place], [address], Provider Name:William Tolentino, 10/25/2024 11:00:00 AM, [address] [place] [address] [place], [address], Progress Notes * Erendira HARDWICKSukhdeepOB:1990 ([age] yo F)Acc No.[id number]:06/13/2024 Progress Notes Patient:?Alyce HARDWICK Provider:?William Tolentino MD :1990???Age:34 Y???Sex:Female D ate:06/13/2024 Address:[address] [place] [address] TERRA Char [id number] Subjective: * Chief Complaints: * ???Worsening generalized [...] stic Procedure:?No history * Family History:?Father: priya e 50 yrs, No information available, diagnosed with [...] point) ?Points?2 ?Interpretation?Negative ???She was born and [place] and 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 She works [...] ?See NoteSEE NOTE- * Lab:Bacterial Vaginosis Zulema l * Collection Date 04/07/2024 02/26/2024 07/08/2023 [...] acceptable. 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
--- OUTSIDE RECORDS SUMMARY | 2024-09-06 08:14 | XMS_ITS | Clinical Summary ---
Author Organization [facility] Address [address] [place] [address] Care Team Providers Care Entertainer Or Variety Artist Name Role Phone Unavailable Primary Care Provider Unavailabl e Social History Tobacco Use Types Packs/Day Years Used Date Smoking Tobacco: Never Assessed Sex and Gender Information Value Date Recorded Sex Assigned at Not on file Gender Identity Not on file Sexual Orientation Not on file Plan of Treatment Not on file
--- OUTSIDE RECORDS SUMMARY | 2024-09-06 08:14 | XMS_ITS | Encounter Summary ---
Author Organization [facility] Address [address] [place] [address] Phone Care Team Providers Care Process Operator Name Role Phone Antonette Degroot NAMED ACCOUNT EXECUTIVE Primary Care Provider Jb hawley Encounter Details Date Type Department Care Team (Late st Contact Info) Description 03/18/2010 Documentation [facility] [place] Family Medicine [address] [place] [address] Family Medicine, Physician [address] [place] [address] Social History Tobacco Use Types Packs/Day Years [...] on filedocumented in this encounter Care Teams Process Operator Relationship Specialty Start Date End Date Antonette Degroot NP PCP - General 02/06/17 10/06/22 documented as of this encounter
--- OUTSIDE RECORDS SUMMARY | 2024-09-06 08:14 | XMS_ITS | Clinical Summary ---
Author Organization [facility] Address [address] [place] [address] Phone Care Team Providers Care Oil Furnace Installer Name Role Phone Unavailable Primary Care Provider Unavailabl e Immunizations Immunization Administration Dates Next Due DTP 05/20/1994, 2,1990,09/06,1990 HPV, Quadrivalent 11/26/2007,07/28/2007,04/14/20 07 Hep B, ped/adol 04/21/2001,11/27/2000,10/26/2000 Hib (PRP-T) 08/12/1991, 1,1990,06/17 Influenza, injectable, trivalent 04/14/2007,03/29,04/16/2005 MMR 10/24/1994,08/12/1991 Meningococcal Conj (Menactra) MCV4P 07/28/2007 OPV 05/20/1994, 2,1990,06/17 Td (adult) (MBL), 2 Lf tetan us toxoid, PF, adsorbed 10/26/2000 Tdap 04/14/2007 Family History Relation Name Status Comments Brother Alive Brother: Alive and well Father Alive Father: Alive a nd well Mother Alive Mother: Allergi es Other No family histo ry of Sudden /HI under age 55, Family history of Strabismus/amblyopia, Family history of ADD/ADHD, No family history of Deafness, No family history of Obesity, No family history of Seizure disorder, No family history of Elevated cholesterol, No family history of Asthma, No family history of Developmental dislocation of hip, Family history of Diabetes mellitus, No family history of Autism, No family history of Migraines Sister Alive Sister: Alive a nd well Social History Tobacco Use Types Packs/Day Years Used Date Smoking Tobacco: Never Assessed Comments Unknown Sex and Gender Information Value Date Recorded Sex Assigned at Not on file Legal Sex Female 4:24 PM EDT Gender Identity Not on file Sexual Orientation Not on file Plan of Treatment Health Maintenance Due Date Last Done Comments Varicella Vaccines (1 of 2 - 13+ 2-dose series) 2003 DTaP,Tdap,and Td Vaccines (7 - Td or Tdap) 04/14/2017 04/14/2007, 10/26/2000, 05/20/1994, Additional history exists Influenza Vaccines (#1) 2024 04/14/20, 04/07/2006, 04/16/2005 COVID-19 Vaccine (2023- season) 2024 HIB Vaccines Completed 08/12/1991, 10/27, 1990, Additional history exists IPV Vaccines Completed 05/20/1994, 10/27, 1990, Additional history exists MMR Vaccines Completed 10/24/1994, 08/12/1991 Hepatitis B Vaccines Completed 04/21/2001, 11/27/2000, 10/26/2000 Meningococcal Vaccine Completed 07/28/2007 HPV Vaccines Completed 11/26/2007, 07/01, 04/14/2007 Hepatitis A Vaccines Aged Out No long er eligible based on patient's age to complete this topic Men B Vaccine Aged Out No longer elig ible based on patient's age to complete this topic Pneumococcal Vaccine Aged Out No long er eligible based on patient's age to complete this topic
--- OUTSIDE RECORDS SUMMARY | 2024-09-06 08:14 | XMS_ITS | Patient Health Record ---
Author Organization William Tolentino III, MD Address [address] [place] [address] [place] [address] Care Team Providers Care Tea Bag Machine Tender Name Role Phone William Tolentino Primary Care [...] 0.2 - 1.3 BLD Negative Negative - Glucose, Whole Blood Reviewed date:11/03/2023 10:10:34 AM Interpretation: Performing Lab:[facility], [address] [place] [phone] Notes/Report: Glucose, Whole Blood 104 60-115 mg/dL METER #: [id number] Testing performed in the [facility], [place]. Diabetic Eye Exam Reviewed date:11/18/2023 03:23:10 PM Interpretation:undefined Performing Lab: Notes/Report: undefined Glucose, Whole Blood Reviewed date:02/14/2024 08:01:45 AM Interpretation: Performing Lab:[facility], [address] [place] [phone] Notes/Report: Glucose, Whole Blood 90 60-115 mg/dL METER #: [id number] Testing performed in the [facility] , [address], [facility]. CT NG by PCR Reviewed date:02/27/2024 08:39:14 AM Interpretation: Performing Lab:[facility], [address] [place] [phone] Notes/Report: Vaginal CT PCR DETECTED Not Detect. [...] ordering clinician or clinical facility to the [facility] as required by state law. NG PCR [...] Panel Reviewed date:02/28/2024 07:23:58 AM Interpretation: Performing Lab:[facility], [address] [place] [phone] Notes/Report: Trichomonas vaginalis PCR NOT DETECTED Not [...] date:03/13/2024 07:32:41 AM Interpretation: Performing Lab: Notes/Report: [address] [address] Ultrasound Report Signed Patient: Alyce Hardwick MR#: [id number] : 1990 Acct:[id number] Age/Sex: 33 / F ADM Date: 03/04/24 Loc: HO.US Attending Dr: Glenda Gross CNM Ordering Physician: Glenda Gross CNM Date of Service: 03/04/24 Procedure(s): US pelvic and transvaginal Accession Number(s): [id number] cc: William Tolentino MD; Glenda Gross CNM [...] 03/10/24 0937 DD/ 1110 TD/TT: 03/04/24 1131 Physician Scientist: [place] [address] Ultrasound Report Signed Patient: Alyce Hardwick MR#: [id number] : 1990 Acct:[id number] Age/Sex: 33 / F ADM Date: 03/04/24 Loc: HO.US Attending Dr: Glenda Gross CNM Ordering Physician: Glenda Gross CNM Date of Service: 03/04/24 Procedure(s): US pel adela and transvaginal Accession Number(s): [id number] cc: William Tolentino MD; Glenda Gross CNM [...] 03/10/24 0937 DD/ 1110 TD/TT: 03/04/24 1131 Physician Scientist: CT NG by PCR Reviewed date:04/11/2024 07:10:12 AM Interpretation: Performing Lab:[facility], [address] [place] [phone] Notes/Report: Vaginal CT PCR NOT DETECTED Not [...] Panel Reviewed date:04/11/2024 07:10:12 AM Interpretation: Performing Lab:[address] [phone] Notes/Report: Trichomonas vaginalis PCR NOT DETECTED Not [...] 18/45 Reviewed date:04/17/2024 08:40:09 AM Interpretation: Performing Lab:[address] [phone] Notes/Report: SEE SCANNED RESULTS IN EMR HPV 16 RNA NOT DETECTED NOT DETECTED HPV 18/45 RNA NOT DETECTED NOT DETECTED Methodology: Pick Out Hand Mediated Amplification Cervical sources are required for HPV testing. If a vaginal source from a patient who has had a total hysterectomy with removal of cervix was submitted, please contact the testing laboratory for alternative testing options. THIS TEST WAS PERFORMED AT: [facility] [address] [place] [phone] SEAN RENE MD HPV mRNA E6/E7 Detected Not Detected Methodology: Pick Out Hand-Mediate d Amplification This assay detects E6/E7 viral messenger RNA (mRNA) from 14 high-risk HPV types (16,18,31,33,35,39,45 ,51,52,56,58,59,66,68 ). Cervical sources are required for HPV testing. If a vaginal source from a patient who has had a total hysterectomy with removal of cervix was submitted, please contact the testing laboratory for alternative testing options. For additional information, please refer to http://education.[employer]faq/ HRP148v7 (This link if provided for information/ educational [...] has been evaluated with computer assisted technology. Lode Miner SEE NOTE SXA, CT(ASCP) CT screening location: [place] [address] Review Lode Miner SEE NOTE MPG, CT(ASCP) CT screening location: [place] [address] Pathologist TNP PAP Infection TNP See Note [...] Blood Reviewed date:05/13/2024 08:19:51 PM Interpretation: Performing Lab:[facility], [address] [place] [phone] Notes/Report: Glucose, Whole Blood 179 60-115 mg/dL METER #: [id number] Testing performed in the [facility] , [address], [facility]. US pelvic and transvaginal Reviewed date:07/09/2024 08:36:54 PM Interpretation: Performing Lab: Notes/Report: [address] [place] [address] Ultrasound Report Signed Patient: Alyce Hardwick MR#: [id number] : 1990 Acct:[id number] Age/Sex: 34 / F ADM Date: 07/08/24 Loc: HO.US Attending Dr: Glenda Gross CNM Ordering Physician: Glenda Gross CNM Date of Service: 07/08/24 Procedure(s): US pelvic and transvaginal Accession Number(s): [id number] cc: William Tolentino MD; Glenda Gross CNM CLINICAL HISTORY: N92.6 - Irregular menstruation, unspecified US pelvis transabdominal and transvaginal with color Doppler Comparison: US/OT/CA - US PELVIC AND TRANSVAGINAL - 03/04/24 11:08 EDT Findings: Transabdominal scanning performed for overall anatomy. Transvaginal scanning performed for additional detail. LMP: 06/16/2024 Anteverted uterus, normal size and echotexture, measuring 7.4 x 3.5 x 4.6 cm. Well defined endometrium, measuring 10.0 mm in thickness. Equivocal endometrial polyp measuring 7 x 10 x 15 mm sonohysterogram would be confirmatory. The right ovary measures, 3.2 x 2.1 x 1.4 cm. Normal sonographic appearance right ovary. Normal color Doppler of the ovary. The left ovary measures, 2.7 x 1.4 x 2.4 cm. 1.0 x 1.7 x 2.4 cm probable corpus luteum. Normal color Doppler of the ovary. No adnexal masses or fluid collections. No free fluid Impression: 1. Uterus normal size and position.Endometrium measures 11 mm in thickness. Equivocal endometrial polyp. Sonohysterogram would be confirmatory. 2. Suspect involuting corpus luteum left ovary. 3. No adnexal masses or fluid collections. This document has been electronically signed by: Kirk Courtney MD on 07/09/2024 16:00:38 Dictated By: Kirk Courtney MD Signed By: <Electronically signed by Kirk Courtney MD in OV> 07/09/24 1601 DD/ 1600 TD/TT: 07/09/24 1600 Physician Scientist: [place] [address] Ultrasound Report Signed Patient: Alyce Hardwick MR#: [id number] : 1990 Acct:[id number] Age/Sex: 34 / F ADM Date: 07/08/24 Loc: HO.US Attending Dr: Glenda Gross CNM Ordering Physician: Glenda Gross CNM Date of Service: 07/08/24 Procedure(s): US pel adela and transvaginal Accession Number(s): [id number] cc: William Tolentino MD; Glenda Gross CNM CLINICAL HISTORY: N9 2.6 - Irregular menstruation, unspecified US pelvis transabdominal and transvaginal with color Doppler Comparison: US/OT/CA - US PELVIC AND TRANSVAGINAL - 03/04/24 11:08 EDT Findings: Transabdominal scann ing performed for overall anatomy. Transvaginal scanning performed f or additional detail. LMP: 06/16/2024 Anteverted uterus, normal size and echotexture, measuring 7.4 x 3.5 x 4.6 cm. Well defined endometrium, measuring 10.0 mm in thickness. Equivocal endometrial polyp measuring 7 x 10 x 15 mm sonohysterogram would be confirmatory. The right ovary measures, 3.2 x 2.1 x 1.4 cm. Normal sonographic appearance right ova ry. Normal color Doppler of the ovary. The left ovary measures, 2.7 x 1.4 x 2.4 cm. 1.0 x 1.7 x 2.4 cm probable corpus luteum. Farnaz l color Doppler of the ovary. No adnexal masses or fluid collections. No free fluid Impression: 1. Uterus normal siz e and position.Endometrium measures 11 mm in thickness. Equivocal endometrial polyp. Sonohysterogram would be confirmatory. 2. Suspect involutin g corpus luteum left ovary. 3. No adnexal masses or fluid collections. This document has be en electronically signed by: Kirk Courtney MD on 07/09/2024 16:00:38 Dictated By: Kirk Courtney MD Signed By: <Electronically signed by Kirk Courtney MD in OV> 07/09/24 1601 DD/ 1600 TD/TT: 07/09/24 1600 Physician Scientist: Reason For Referral No Information Medications Medication [...] Problem Status W/U Status Risk Notes Problem 309030823 Overweight (E66.3) Active confirmed She has gained [...] fat calories sodium and concentrated sweets. Problem 380491654 Other obesity (E66.8) Active confirmed Her body mass index is 31.4. We discussed weight reduction strategies and a diabetic diet. We made a plan to lose weight. 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 Her glucose levels have been satisfactory. She will continue to be managed by endocrinology Problem 619059452 Attention deficit disorder (ADD) in adult (F98.8) Active confirmed She was continu ed on her current regimen. Problem 702341646 Type 1 diabetes mellitus without complication (E10.9) Active confirmed Her insulin pum p continues to function normally as does her monitor. Her hemoglobin A1c is acceptable. She remains under the care of endocrinology. Problem 060447739 Body mass index [BMI] 30.0-30.9, adult (Z68.30) Active confirmed Problem 246700704 Bilateral headaches (R51.9) Active confirmed She has had no headaches since her last visit. Problem 87290513 Difficulty concentrating (R41.840) Active confirmed She says that h er previous primary care physician, Dr. Chaves, prescribed this medication, but it was years ago. I referred her back to her psychotherapist for evaluation and if necessary, referral to a prescriber. I made the appointment and I am not trained in psychiatric disorders. Problem 442675588 Obesity, class 1 (E66.811) Active confirmed Her [...] 79 mm Hg 06/13/2024 Height 68 in 09/05/2024 Blood pressure systolic 120 mm Hg 06/13/2024 Weight 199 lbs 09/05/2024 BMI 30.25 kg/m2 09/05/2024 Encounters Encounter Location Date Provider Diagnosis William Tolentino III, MD [address] [place] [address] [place] [address] 09/05/2024 William Tolentino Severe diarrhea K52. 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 ; Type 1 diabetes mellitus without complication E10.9 ; Obesity, class 1 E66.811 ; Attention deficit disorder (ADD) in adult F98.8 and Depression, unspecified depression type F32.A William Tolentino III, MD [address] [place] [address] [address] [place] [address] 07/05/2024 William Tolentino Anxiety, generalized F41.1 ; Type 1 diabetes mellitus without complication E10.9 ; Other obesity due to excess calories E66.09 and Bilateral headaches R51.9 William Tolentino III, MD [address] [place] [address] [address] [place] [address] 10/29/2023 William Tolentino Assessments Encounter Date Diagnosis (ICD Code) Assessment Notes Treatment Notes Treatment Clinical Notes 09/05/2024 Severe diarrhea (ICD-10 - K52.9) 10/20/2023 Attention deficit disorder (ADD) in adult (ICD-10 - F98.8) She was continued on her current regimen. 10/20/2023 Type 1 diabetes mellitus without complication (ICD-10 - E10.9) Her insulin pump continues to function normally as does her monitor. Her hemoglobin A1c is acceptable. She remains under the care of endocrinology. 06/13/2024 longterm current use of insulin (ICD-10 - Z79.4) [...] He was continued for another 21 days. 10/20/2023 Bilateral headaches (ICD-10 - R51.9) She [...] weighed, and have her blood pressure checked. 10/20/2023 Other obesity (ICD-10 - E66.8) Her body mass index is 31.4. We discussed weight reduction strategies and a diabetic diet. We made a plan to lose weight. 06/13/2024 Attention deficit disorder (ADD) in adult (ICD-10 - F98.8) She was continued on her current regimen. 07/05/2024 Bilateral headaches (ICD-10 - R51.9) She has had no headaches since her last visit. 06/13/2024 Depression, unspecified depression type (ICD-10 - F32.A) She was given a trial of an antidepressant on a close follow-up visit. We discussed the risks and benefits of the drug and side effects. She gave informed consent to take the medication.The fluoxetine he has been stopped and she was started on sertraline for the anxiety component which is becoming worse. Plan Of Treatment Pending Test Test Name Order Date PROFILE, FASTING (COMPREHENSIVE METABOLI C) 10/14/2022 PROFILE, FASTING (COMPREHENSIVE METABOLI C) 06/07/2018 PROFILE, FASTING (COMPREHENSIVE METABOLI C) 11/16/2020 PROFILE, FASTING (COMPREHENSIVE METABOLI C) 10/20/2023 PROFILE, FASTING (COMPREHENSIVE METABOLI C) 07/19/2020 PROFILE, RANDOM (COMPREHENSIVE METABOLIC ) 09/26/2020 PROFILE, RANDOM (COMPREHENSIVE METABOLIC ) 08/21/2023 PROFILE, RANDOM (COMPREHENSIVE METABOLIC ) 09/14/2018 HEMOGLOBIN A1C (GLYCOHEMOGLOBIN) 021 HEMOGLOBIN A1C (GLYCOHEMOGLOBIN) 023 HEMOGLOBIN A1C (GLYCOHEMOGLOBIN) 018 HEMOGLOBIN A1C (GLYCOHEMOGLOBIN) 021 LIPID PANEL 10/14/2022 LIPID PANEL 06/07/2018 LIPID PANEL 11/16/2020 FREE T4 (FT4) 09/26/2020 TSH (THYROID STIMULATING HORMONE) 2023 TSH (THYROID STIMULATING HORMONE) 2020 MICROALBUMIN, RANDOM 10/14/2022 MICROALBUMIN, RANDOM 06/07/2018 CBC w DIFF 09/26/2020 CBC w DIFF 11/16/2020 CBC w DIFF 07/19/2020 CBC w DIFF 10/14/2022 CBC w DIFF 06/07/2018 CBC w DIFF 09/14/2018 CBC w DIFF 08/21/2023 SED RATE (ESR) 08/21/2023 SED RATE (ESR) 09/26/2020 OVA & PARASITES (O&P) 09/05/2024 US ABD 09/26/2020 CBC WITH AUTO DIFF 10/20/2023 Uric Acid 08/21/2023 Lipid Panel 10/20/2023 Free T4 (Free Thyroxine) 08/21/2023 Microalbumin, Random 11/16/2020 Hemoglobin A1c 10/20/2023 Stool Culture 09/05/2024 Next Appt Details Provider Name:William Tolentino, 09/07/2024 01:15:00 PM, [address] [place] [address] [address] [place], [place], [address], Provider Name:William Tolentino, 09/14/2024 11:00:00 AM, [address] [place] [address] [address], [place], [address], Provider Name:William Tolentino, 10/25/2024 11:00:00 AM, [address] [place] [address] [address] [place], [place], [address], Insurance Providers Payer Name Payer Address Payer Phone Subscriber Number Group Number Insured Name Patient Relationship to Insured Coverage Start Date Coverage End Date [employer] [address] [address] [place] [address] [id number] Alyce Hardwick Self - patient is the insured 0 MEDICAID [address] [place], [place] [id number] RonenAlyce Self - patient is the insured Medical (General) History Medical History History ICD Code juvenile diabetes mellitus, onset age 11 , insulin pump family history of breast cancer, materna l obesity, BMI 30 HEALTH DIRECTOR, , [facility] history of attention deficit disorder at age 6 Depression Patient has a history of ADD , which she believes has evolved into ADHD. She is currently on fluoxetine for depression. Surgical History Surgery Date(Month/Year) No history dental extractions 2015 left breast lumpectomy, Dr. Mercer, [facility] 2015 Hospitalization History Reason Date(Month/Year) No history
--- OUTSIDE RECORDS SUMMARY | 2024-09-06 08:15 | XMS_ITS ---
Author Organization William Tolentino III, MD Address [address] [place] [address] Care Team Providers Care Lubrication Technician Name Role Phone William Tolentino Primary [...] Date Provider Diagnosis William Tolentino III, MD [address] [place] [address] [place] [address] 07/05/2024 William Tolentino Anxiety, generalized F41.1 ; [...] condition and treatment plan Provider Name:William Tolentino, 09/07/2024 01:15:00 PM, [address] [place] [address] [place], [address], Provider Name:William Tolentino, 09/14/2024 11:00:00 AM, [facility] [place], [address], Provider Name:William Tolentino, 10/25/2024 11:00:00 AM, [address] [place], [address], Progress Notes * Jin HARDWICK:1990 ([age] yo F)Acc No.[id number]:07/05/2024 Patient:?Alyce HARDWICK Provider:?William Tolentino MD :1990???Age:34 Y???Sex:Female D ate:07/05/2024 Address:[address] [place], [place] [phone] Subjective: * Chief Complaints: * ???Anxiety disorderJuvenile diabetesInsulin pumpHeadachesAttention deficit disorderObesity * HPI: ???:?Telehealth?Location of provider rendering services:?{...} [address] [facility] [address] ?Location of patient:?address listed in demographics for [...] anxiety.? * Medical History:? 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 [...] (Ref Range: Not Detect.) * Lab:Bacterial Vaginosis Zulema alvarez * Collection [...] lb per week.? * Follow Up:?2 Months, Early M arch (Reason: OV, Reassessment of patient's condition and treatment plan) * Images: * Sign off status: Completed true * Provider:?William Tolentino MD Date:?12/2024 Generated for Merti luis/Estefania/eTransmitting on:?09/06/2024 08:14 AM EDT History and Physical Notes * HPI (History of Present Illness) Category Sub-Category Detail Notes Telehealth Location of [facility] rendering services:: {...} [address] [place], [place] [id number] Location of patient:: address listed in demographics [...]
[2024-09-06 11:36] LABS: Adenovirus F 40/41 Not Detected (Not Detect.); Astrovirus Not Detected (Not Detect.); Campylobacter Not Detected (Not Detect.); Cryptosporidium Not Detected (Not Detect.); Cyclospora cayetanensis Not Detected (Not Detect.); E. coli EAEC Detected (Not Detect.); E. coli EPEC Detected (Not Detect.); E. coli ETEC Not Detected (Not Detect.); E. coli STEC Not Detected (Not Detect.); Entamoeba histolytica Not Detected (Not Detect.); Giardia lamblia Not Detected (Not Detect.); Norovirus GI/GII Not Detected (Not Detect.); Plesiomonas shigelloides Not Detected (Not Detect.); Rotavirus A Not Detected (Not Detect.); Salmonella Not Detected (Not Detect.); Sapovirus Not Detected (Not Detect.); Shigella sp./EIEC Not Detected (Not Detect.); Vibrio Not Detected (Not Detect.); Vibrio Cholerae Not Detected (Not Detect.); Yersinia enterocolitica Not Detected (Not Detect.)
== END 2024-09-06 07:59 | disposition home or self-care (01) ==
LOC: HO.LNP 07:58
PROVIDERS: Visit Provider Internal Medicine Medical Oncology
DX: K52.9 Noninfective gastroenteritis and colitis, unspecified (principal)
CPT/HCPCS: 87177; 87209; 87507

== ENCOUNTER 2024-09-14 09:04 | Outpatient (AMB) | payer OTHER, SELFPAY ==
--- NOTE | 2024-09-13 12:33 | A.OFFVIS_ITS ---
Vital Signs 09/14/24 09:10 Height 5 ft 9 in Weight 182 lb 15.739 oz BMI 27.0 BP 114/68 Blood Pressure Location Rt brachial Position Sitting Pulse 84 Pulse Source Pulse Oximeter Pulse Oximetry (%) 99 Oxygen Delivery Method Room Air Intake Visit Reasons: DM Intake Note: Patient presents today for a follow-up on Type 1 Diabetes Mellitus/Insulin Pump: Last Diabetic eye exam was on: 10/2023 Last Podiatry exam was on: Does not see a Curer Foam Rubber Most recent HbA1c: 7.0% 09/14/2024 Random Glucose- 115 mg/dL, Today Hotel General Manager Required: No Accompanied by: Self / Same As Patient Allergies No Known Allergies Allergy (Verified 09/14/24 09:15) HPI Comments Details: Patient is a 34 yo female with DM type 1 diagnosed at age 11 who presents for continued management of diabetes. She was last seen by myself on 05/12/24 at [facility] time she was considering changing to either an islet or Omnipod pump but had received a new tandem. Hgb A1C 09/14/24 % , 05/12/24 7.5% Micro and macrovascular complications: nephropathy followed by Nephrology at [facility]. She is seen annually. On ARB Has annual eye exam. Has minor retinopathy which is unchanged over several years per patient history. Last exam 11/2023 Does not see podiatry. Denies numbness tingling cramping Not on statin most recent LDL 107 11/03/2023 hypoglycemia: Hyperglycemia; blood sugars elevated after meals. Exercise: [employer] 5 days per week 5a to 10am Dexcom average glucose: 180 14 day continuous glucose monitor report reviewed Glucose Managment indicator 7.6 % Days with CGM data 93.5 % TIme in ranges: 18 % very high (above 250) 26 % high ?(181-250) 52 % in range ?(70-180] 3 % low (69-55) 1 % ?very low (below 54) [ ] Standard Deviation Interpretation [ postprandial bumps readings overall 35 points higher than target, patient attributes to recent illness] Total carbs entered 183.5 In basal IQ mode 100% of the time Total daily dose of insulin 30 units 50% basal 50% bolus Back up insulin plan 15 units Lantus plus usual dose of short acting She is not using control. And was advised to achieve an A1c of 7%. Current pump download shows a GME my of 7%. Should she become she should contact us right away and we will change her insulin targets in the pump she should also discontinue her Arb which her results technician has recommended she do. She is taking this for proteinuria not for hypertensive purposes Diabetes medications: Humalog via Tandem T:Slim Basal rate(s) (units/hour) : 12 AM? to 8 AM? 0.70 units / hr 8 AM to 10 A = 0.75 10 A to 2P = 0.8 2PM to 10 PM = 0.8 10 PM to 12 AM =0.8 Bolus setting Insulin Carbohydrate Ratio (s) 12AM 1:18 8 AM 1:17 2 PM 1:17 10 PM 1:17 Correction Factor / Sensitivity Factor 12 AM? 1:65 8 AM 1:65 10 AM 1:65 2 PM 1:65 10 PM 1:65 [facility] Medical History (Updated 07/19/24 @ 14:57 by Casandra Benoit CNM) Depression Type 1 diabetes mellitus with hyperglycemia Surgical History History of left breast biopsy Family History Paternal Grandmother Diabetes Maternal Aunt Breast cancer Family/Other Colon cancer Social History Household Members: Family Housing: Apartment Alcohol intake: current Alcohol intake frequency: holidays/special occasions only Patient Tobacco Use Status: Never used Tobacco Substance Use Type: Marijuana Current occupational status: employed Current occupation: Sexual orientation: Straight/Heterosexual Gender identity: Female Female Reproductive History Menstrual Age of Menarche: 13 Physical Exam Vital Signs: Last Vital Signs Pulse 84 09/14/24 09:10 BP 114/68 09/14/24 09:10 Pulse Ox 99 09/14/24 09:10 Oxygen Delivery Method Room Air 09/14/24 09:10 BMI result Body Mass Index 27.0 Const Other: Absence of Cushingoid features. Absence of acromegalic features. Neck exam reveals nl size thyroid about 15 gms. No thyroid nodules palpable. Heart S1 S2, Reg R/R. No M/R G. Skin exam reveals absence of vitiligo or acanthosis nigricans . Visual exam of foot performed. No ulcerations or open lesions. No inter digit maceration or fissuring. No onychomycosis, no callouses. Sensation intact to monofilament exam. Vibratory sensation is normal with 128 Hz tuning fork. Results AMB Hemoglobin A1c AMB Hemoglobin A1c 7.0 % Last Edit by EVELIO Flores on 09/14/24 09:24 Results Reviewed Results Reviewed: Laboratory Last Values Glucose (Clinic) 115 mg/dL (60-115) 09/14/24 09:16 Hgb A1c (Clinic) 7.0 % (4.0-6.0) H 09/14/24 09:18 Assessment & Plan Assessment & Plan (1) Type 1 diabetes mellitus with hyperglycemia: Code(s): E10.65 - Type 1 diabetes mellitus with hyperglycemia Category: Medical Plan: 34-year-old type 1 diabetic with nephropathy followed by Nephrology and stable retinopathy on a tandem insulin pump with most recent A1c 09/13/2024 7%. She attributes recent increase in numbers over the last 2 weeks to a resolving illness. She had traveled to [facility] and had diarrheal/gi infection which is now resolving. She is interested in switching over to a Dexcom and islet pump. She will schedule her next follow up with Veronica TRAN The patient had an opportunity to ask questions regarding treatment plan. The patient expressed understanding and agreement with the above treatment plan. The patient is aware they should contact our office by phone for worsening glucose readings or for any low blood sugars which may warrant a change in diabetes medication. Compliance is encouraged with medications and any followup testing/consults which may have been ordered. Orders: Orders Basic Metabolic Panel 09/14/24 E10.65 - Type 1 diabetes mellitus with hyperglycemia Lipid Panel 09/14/24 E10.65 - Type 1 diabetes mellitus with hyperglycemia Microalbumin, Random (w Creat) 09/14/24 E10.65 - Type 1 diabetes mellitus with hyperglycemia AMB Hemoglobin A1c 09/14/24 E10.65 - Type 1 diabetes mellitus with hyperglycemia Creatinine Urine 09/14/24 E10.65 - Type 1 diabetes mellitus with hyperglycemia Patient Instructions: Take 15 carb carbohydrate grams to treat a low sugar (3-4 glucose tablets, half a glass of juice or 15 carbohydrate grams of soft candy such as gummie snacks). Recheck your sugar in 15 minutes and re-treat again with 15 carbohydrate grams if low or still with symptoms. Do not drive a car or operate machinery if you do not know what your blood sugar is, if it is low or in excess of 300. The patient was counseled to achieve a target A1C of 7% (154 avg). Fasting blood sugars should be 90-130 in the morning and less than 180 two hours after meals. Reviewed the relationship between poor diabetic control and the development of complications. Symptoms of DKA (diabetic ketoacidosis): early: frequent urination, dry mouth, fatigue, feeling ill, severe symptoms: ketones in the urine, abdominal pain, nausea, vomiting and weakness. It is important to hydrate with sugar free liquids every 15-30 minutes and bring the sugars down to normal levels. If you are moderate or severe with ketones or unable to bring glucose to less than 200, go to the emergency room. Troubleshooting after starting new pod or inserting new insulin set: Occlusion, adhesive tape sensitivity, redness Check BG 2 hours after site change Safety information: Importance of a backup plan, for manual injections, proper prescriptions and emergency supplies ketone strips, and rules for testing for ketones Check your feet daily looking for any signs of infection, drainage, redness, ulceration and seek medical attention if this occurs. Break in shoes gradually and do not wear open-toed shoes or walk stocking footed or barefooted. Coding Level of Care Code Est Pt Level 4 (10722) Complex EM visit Add On G2211 Diagnoses Type 1 diabetes mellitus with hyperglycemia E10.65 Time Spent (min) 30 Comment Time spent reviewing labs/provider notes, face to face, chart doc
[2024-09-14 09:10] VITALS: BP 114/68; PULSE 84; O2SAT 99; BMI 27.0
[2024-09-14 09:19] LABS: Glucose, Whole Blood 115 mg/dL (60-115)
--- OUTSIDE RECORDS SUMMARY | 2024-09-14 09:54 | XMS_ITS | Clinical Summary ---
Author Organization [facility] Address [address] [place] [address] Care Team Providers Care Liquid Fertilizer Servicer Name Role Phone Unavailable Primary Care Provider Unavailabl e Social History Tobacco Use Types Packs/Day Years Used Date Smoking Tobacco: Never Assessed Sex and Gender Information Value Date Recorded Sex Assigned at Not on file Gender Identity Not on file Sexual Orientation Not on file Plan of Treatment Not on file
--- OUTSIDE RECORDS SUMMARY | 2024-09-14 09:54 | XMS_ITS | Patient Health Record ---
Author Organization William Tolentino III, MD Address [address] [place] [address] [place] [address] Care Team Providers Care Drill Press Operator Helper Name Role Phone William Tolentino Primary Care [...] Blood Reviewed date:11/03/2023 10:10:34 AM Interpretation: Performing Lab:[facility], [address] [place] [phone] Notes/Report: Glucose, Whole Blood 104 60-115 mg/dL METER #: [id number] Testing performed in the [facility], [place]. Diabetic Eye Exam Reviewed date:11/18/2023 03:23:10 PM Interpretation:undefined Performing Lab: Notes/Report: undefined Glucose, Whole Blood Reviewed date:02/14/2024 08:01:45 AM Interpretation: Performing Lab:[facility], [address] [place] [phone] Notes/Report: Glucose, Whole Blood 90 60-115 mg/dL METER #: [id number] Testing performed in the [facility] , [address], [facility]. CT NG by PCR Reviewed date:02/27/2024 08:39:14 AM Interpretation: Performing Lab:[facility], [address] [place] [phone] Notes/Report: Vaginal CT PCR DETECTED Not Detect. [...] ordering clinician or clinical facility to the [facility] as required by state law. NG PCR [...] Panel Reviewed date:02/28/2024 07:23:58 AM Interpretation: Performing Lab:[facility], [address] [place] [phone] Notes/Report: Trichomonas vaginalis PCR NOT DETECTED Not [...] date:03/13/2024 07:32:41 AM Interpretation: Performing Lab: Notes/Report: [address] [address] Ultrasound Report Signed Patient: Alyce Hardwick MR#: [id number] : 1990 Acct:[id number] Age/Sex: 33 / F ADM Date: 03/04/24 Loc: HO.US Attending Dr: Glenda Gross CNM Ordering Physician: Glenda Gross CNM Date of Service: 03/04/24 Procedure(s): US pelvic and transvaginal Accession Number(s): [id number] cc: William Tolentino MD; Glenda Gross CNM [...] 03/10/24 0937 DD/ 1110 TD/TT: 03/04/24 1131 Bag Shaker: [place] [address] Ultrasound Report Signed Patient: Alyce Hardwick MR#: [id number] : 1990 Acct:[id number] Age/Sex: 33 / F ADM Date: 03/04/24 Loc: HO.US Attending Dr: Glenda Gross CNM Ordering Physician: Glenda Gross CNM Date of Service: 03/04/24 Procedure(s): US pel adela and transvaginal Accession Number(s): [id number] cc: William Tolentino MD; Glenda Gross CNM [...] 03/10/24 0937 DD/ 1110 TD/TT: 03/04/24 1131 Bag Shaker: CT NG by PCR Reviewed date:04/11/2024 07:10:12 AM Interpretation: Performing Lab:[facility], [address] [place] [phone] Notes/Report: Vaginal CT PCR NOT DETECTED Not [...] Panel Reviewed date:04/11/2024 07:10:12 AM Interpretation: Performing Lab:[address] [address] Notes/Report: Trichomonas vaginalis PCR NOT DETECTED Not [...] 18/45 Reviewed date:04/17/2024 08:40:09 AM Interpretation: Performing Lab:[address] [address] Notes/Report: SEE SCANNED RESULTS IN EMR HPV 16 RNA NOT DETECTED NOT DETECTED HPV 18/45 RNA NOT DETECTED NOT DETECTED Methodology: Psychiatric Np Mediated Amplification Cervical sources are required for HPV testing. If a vaginal source from a patient who has had a total hysterectomy with removal of cervix was submitted, please contact the testing laboratory for alternative testing options. THIS TEST WAS PERFORMED AT: [facility] [address] [place] [phone] SEAN RENE MD HPV mRNA E6/E7 Detected Not Detected Methodology: Psychiatric Np-Mediated Amplification This assay detects E6/E7 viral messenger RNA (mRNA) from 14 high-risk HPV types (16,18,31,33,35,39,45, 51,52,56,58,59,66,68). Cervical sources are required for HPV testing. If a vaginal source from a patient who has had a total hysterectomy with removal of cervix was submitted, please contact the testing laboratory for alternative testing options. For additional information, please refer to http://education.Esphion/faq/FA Q129v1 (This link if provided for information/ educational purposes only.) Thin Prep Source SEE NOTE None given Report Status TNP Clinical Information SEE NOTE None gi gary LMP SEE NOTE NONE GIVEN Previous PAP SEE NOTE NONE GIVEN Previous Biopsy Date SEE NOTE NONE GI GARY State of Adequacy SEE NOTE Satisfactory for evaluation. Endocervical/transform ation zone component present. General Categorization TNP Interpretation/Result SEE NOTE Cytology Results: Negative for intraepithelial lesion or malignancy. Cytology Comment SEE NOTE This Pap test has been evaluated with computer assisted technology. Automobile Spring Repairer SEE NOTE SXA, CT(ASCP) CT screening location: [place] [address] Review Automobile Spring Repairer SEE NOTE MPG, CT(ASCP) CT screening location: [place] [address] Pathologist TNP PAP Infection TNP See Note [...] Blood Reviewed date:05/13/2024 08:19:51 PM Interpretation: Performing Lab:[facility], [address] [place] [phone] Notes/Report: Glucose, Whole Blood 179 60-115 mg/dL METER #: [id number] Testing performed in the [facility], [facility]. US pelvic and transvaginal Reviewed date:07/09/2024 08:36:54 PM Interpretation: Performing Lab: Notes/Report: [address] [place] [address] Ultrasound Report Signed Patient: Alyce Hardwick MR#: [id number] : 1990 Acct:[id number] Age/Sex: 34 / F ADM Date: 07/08/24 Loc: HO.US Attending Dr: Glenda Gross CNM Ordering Physician: Glenda Gross CNM Date of Service: 07/08/24 Procedure(s): US pelvic and transvaginal Accession Number(s): [id number] cc: William Tolentino MD; Glenda Gross CNM CLINICAL HISTORY: N92.6 - Irregular menstruation, unspecified US pelvis transabdominal and transvaginal with color Doppler Comparison: US/OT/WA - US PELVIC AND TRANSVAGINAL - 03/04/24 [...] 07/09/24 1601 DD/ 1600 TD/TT: 07/09/24 1600 Bag Shaker: [place] [address] Ultrasound Report Signed Patient: Alyce Hardwick MR#: [id number] : 1990 Acct:[id number] Age/Sex: 34 / F ADM Date: 07/08/24 Loc: HO.US Attending Dr: Glenda Gross CNM Ordering Physician: Glenda Gross CNM Date of Service: 07/08/24 Procedure(s): US pel adela and transvaginal Accession Number(s): [id number] cc: William Tolentino MD; Glenda Gross CNM CLINICAL HISTORY: N9 2.6 - Irregular menstruation, unspecified US pelvis transabdominal and transvaginal with color Doppler Comparison: US/OT/WA - US PELVIC AND TRANSVAGINAL - 03/04/24 [...] 07/09/24 1601 DD/ 1600 TD/TT: 07/09/24 1600 Bag Shaker: GI Panel (Not yet reviewed b y provider) Interpretation: Performing Lab:[facility], [address] [place] [phone] Notes/Report: Campylobacter Not Detected Not Detect. Plesiomonas shigelloides Not Detected Not Detect. Salmonella Not Detected Not Detect. Vibrio Not Detected Not Detect. Vibrio Cholerae Not Detected Not Detect. Yersinia enterocolitica Not Detected Not Detect. E. coli EAEC Detected Not Detect. E. coli EPEC Detected Not Detect. E. coli ETEC Not Detected Not Detect. E. coli STEC Not Detected Not Detect. E. coli O157 Not applicable Not Detect. E. coli containing the O157 antigen are a subset of Shiga-like toxin-producing E. coli (STEC). Shigella sp./EIEC Not Detected Not Detect. Cryptosporidium Not Detected Not Detect. Cyclospora cayetanensis Not Detected Not Detect. Entamoeba histolytica Not Detected Not Detect. Giardia lamblia Not Detected Not Detect. Adenovirus F 40/41 Not Detected Not Detect. Astrovirus Not Detected Not Detect. Norovirus GI/GII Not Detected Not Detect. Rotavirus A Not Detected Not Detect. Sapovirus Not Detected Not Detect. All results must be correlated with clinical findings. Negative results do not exclude the possibility of gastrointestinal infection and should not be used as the sole basis for diagnosis, treatment, or other management decisions. Virus, bacteria, and parasite nucleic acid may persist in vivo independently of organism viability. Additionally, some organisms may be carried asymptomatically. Detection of organism targets does not imply that the corresponding organisms are infectious or are the causative agents for clinical symptoms. There is a risk of false negative values due to the presence of sequence variants in the gene targets of the assay, amplification inhibitors in specimens, or inadequate numbers of organisms for amplification. The identification of several diarrheagenic E. coli pathotypes has historically relied upon phenotypic characteristics. This panel targets genetic determinants characteristic of most pathogenic strains, but may not detect all strains having phenotypic characteristics of a pathotype. The performance of this test has not been established for monitoring treatment of infection with any of the panel organisms. This assay is performed by Multiplexed PCR, utilizing the [employer] Array. Ova and Parasite (Not yet re viewed by provider) Interpretation: Performing Lab:[facility], [address] [place] [phone] Notes/Report: Ova and Parasite SEE NOTE OVA AND PARASITES, CONC AND PERM SMEAR Micro Number: [id number] Test Status: Final Specimen Source: Stool Specimen Quality: Adequate CONCENTRATION 1: No ova or parasites seen TRICHROME 1: No ova or parasites seen Comment: Screened using Computer Assisted Technology. Routine Ova and Parasite exam may not detect some parasites that occasionally cause diarrheal illness. Cryptosporidium Antigen and/or Cyclospora and Isospora Exam may be ordered to detect these parasites. One negative sample does not necessarily rule out the presence of a parasitic infection. For additional information, please refer to https://2sms.Accruent/faq/F AQ203 (This link is being provided for informational/ educational purposes only.) THIS TEST WAS PERFORMED AT: [facility] [employer] [place] [address] SHAYY KEEN MD Glucose, Whole Blood (Not ye t reviewed by provider) Interpretation: Performing Lab:[facility], [address] [place] [phone] Notes/Report: Glucose, Whole Blood 115 60-115 mg/dL METER #: [id number] Testing performed in the [facility] , [address], [facility]. Reason For Referral No Information Medications [...] Active Valsartan 80 MG Oral Acti ve Immunizations Vaccine Route Administration Date Status Comme [...] Problem Status W/U Status Risk Notes Problem 178158377 Overweight (E66.3) Active confirmed She has gained [...] fat calories sodium and concentrated sweets. Problem 877934413 Other obesity (E66.8) Active confirmed Her body mass index is 31.4. We discussed weight reduction strategies and a diabetic diet. We made a plan to lose weight. 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 Her glucose levels have been satisfactory. She will continue to be managed by endocrinology Problem 349431480 Attention deficit disorder (ADD) in adult (F98.8) Active confirmed She was continu ed on her current regimen. Problem 434900850 Type 1 diabetes mellitus without complication (E10.9) Active confirmed Her insulin pum p continues to function normally as does her monitor. Her hemoglobin A1c is acceptable. She remains under the care of endocrinology. Problem 348910500 Body mass index [BMI] 30.0-30.9, adult (Z68.30) Active confirmed Problem 684525253 Bilateral headaches (R51.9) Active confirmed She has had no headaches since her last visit. Problem 18156642 Difficulty concentrating (R41.840) Active confirmed She says that h er previous primary care physician, Dr. Chaves, prescribed this medication, but it was years ago. I referred her back to her psychotherapist for evaluation and if necessary, referral to a prescriber. I made the appointment and I am not trained in psychiatric disorders. Problem 058714145 Obesity, class 1 (E66.811) Active confirmed Her [...] 79 mm Hg 06/13/2024 Height 68 in 09/07/2024 Blood pressure systolic 120 mm Hg 06/13/2024 Weight 199 lbs 09/07/2024 BMI 30.25 kg/m2 09/07/2024 Encounters Encounter Location Date Provider Diagnosis William Tolentino III, MD [address] [place] [address] [place] [address] 10/20/2023 William Tolentino Type 1 diabetes jade itus without complication E10.9 ; Attention deficit disorder (ADD) in adult F98.8 ; Bilateral headaches R51.9 and Other obesity E66.8 William Tolentino III, MD [address] [place] [address] [place] [address] 06/13/2024 William Tolentino half-way current us e of insulin Z79.4 ; Type 1 diabetes mellitus without complication E10.9 ; Obesity, class 1 E66.811 ; Attention deficit disorder (ADD) in adult F98.8 and Depression, unspecified depression type F32.A William Tolentino III, MD [address] [place] [address] [place] [address] 07/05/2024 William Tolentino Anxiety, generalized F41.1 ; Type 1 diabetes mellitus without complication E10.9 ; Other obesity due to excess calories E66.09 and Bilateral headaches R51.9 William Tolentino III, MD [address] [place] [address] [place] [address] 09/05/2024 William Tolentino Type 1 diabetes jade itus without complication E10.9 ; Bilateral headaches R51.9 ; Overweight E66.3 ; Attention deficit disorder (ADD) in adult F98.8 ; Obesity, class 1 E66.811 and Acute gastroenteritis K52.9 William Tolentino III, MD [address] [place] [address] [place] [address] 09/07/2024 William Tolentino Other obesity due to excess calories E66.09 ; Type 1 diabetes mellitus without complication E10.9 ; Acute gastroenteritis K52.9 and Attention deficit disorder (ADD) in adult F98.8 William Tolentino III, MD [address] [place] [address] [place] [address] 10/29/2023 William Tolentino III, MD [address] [place] [address] DR [place]STORENA [place], [place] [address] 09/13/2024 William Tolentino Assessments Encounter Date Diagnosis (ICD Code) Assessment Notes Treat ment Notes Treatment Clinical Notes 10/20/2023 Attention deficit disorder (ADD) in adult (ICD-10 - F98.8) She was continued on her current regimen. 10/20/2023 Type 1 diabetes mellitus without complication (ICD-10 - E10.9) Her insulin pump continues to function normally as does her monitor. Her hemoglobin A1c is acceptable. She remains under the care of endocrinology. 06/13/2024 half-way current us e of insulin (ICD-10 - Z79.4) Her insulin [...] He was continued for another 21 days. 09/05/2024 Type 1 diabetes mellitus without complication (ICD-10 - E10.9) Her insulin pump continues to function normally as does her monitor. Her hemoglobin A1c is acceptable. She remains under the care of endocrinology. 09/05/2024 Bilateral headaches (ICD-10 - R51.9) She has had no headaches since her last visit. 09/07/2024 Other obesity due to excess calories [...] She remains under the care of endocrinology. 10/20/2023 Bilateral headaches (ICD-10 - R51.9) She [...] weighed, and have her blood pressure checked. 09/05/2024 Overweight (ICD-10 - E66.3) She has [...] in fat calories sodium and concentrated sweets. 09/07/2024 Acute gastroenteriti s (ICD-10 - K52.9) The overran parasites are negative. The stool culture was positive for Escherichia coli EAEDC. She will be treated conservatively. I recommended Imodium. She will hydrate aggressively. 10/20/2023 Other obesity (ICD-1 0 - E66.8) Her body mass index is 31.4. We discussed weight reduction strategies and a diabetic diet. We made a plan to lose weight. 06/13/2024 Attention deficit disorder (ADD) in adult (ICD-10 - F98.8) She was continued on her current regimen. 07/05/2024 Bilateral headaches (ICD-10 - R51.9) She has had no headaches since her last visit. 09/05/2024 Attention deficit disorder (ADD) in adult (ICD-10 - F98.8) She was continued on her current regimen. 09/07/2024 Attention deficit disorder (ADD) in adult [...] the anxiety component which is becoming worse. 09/05/2024 Obesity, class 1 (ICD-10 - E66.811) [...] close followup visit arranged. Plan Of Treatment Pending Test Test Name [...] A1C (GLYCOHEMOGLOBIN) 018 HEMOGLOBIN A1C (GLYCOHEMOGLOBIN) 021 HEMOGLOBIN A1C (GLYCOHEMOGLOBIN) 021 LIPID PANEL 10/14/2022 LIPID PANEL 06/07/2018 LIPID PANEL 11/16/2020 FREE T4 (FT4) 09/26/2020 TSH (THYROID STIMULATING HORMONE) 2023 TSH (THYROID STIMULATING HORMONE) 2020 MICROALBUMIN, RANDOM 10/14/2022 MICROALBUMIN, RANDOM 06/07/2018 CBC w DIFF 09/14/2018 CBC w DIFF 08/21/2023 CBC w DIFF 09/26/2020 CBC w DIFF 11/16/2020 CBC w DIFF 07/19/2020 CBC w DIFF 10/14/2022 CBC w DIFF 06/07/2018 SED RATE (ESR) 08/21/2023 SED RATE (ESR) 09/26/2020 OVA & PARASITES (O&P) 09/05/2024 US ABD 09/26/2020 CBC WITH AUTO DIFF 10/20/2023 Uric Acid 08/21/2023 Lipid Panel 10/20/2023 Free T4 (Free Thyroxine) 08/21/2023 Microalbumin, Random 11/16/2020 Glucose, Whole Blood 09/14/2024 Hemoglobin A1c 10/20/2023 Stool Culture 09/05/2024 GI Panel 09/06/2024 Ova and Parasite 09/06/2024 Next Appt Details Provider Name:William Tolentino, 09/14/2024 11:00:00 AM, [address] [place] [address] [address], [place], [address], Provider Name:William Tolentino, 10/25/2024 11:00:00 AM, [address] [place] [address] [address], [place], [address], Insurance Providers Payer Name Payer Address Payer Phone Subscriber Number Group Number Insured Name Patient Relationship to Insured Coverage Start Date Coverage End Date [employer] [address] [address] [place] [address] [id number] Alyce Hardwick Self - patient is the insured 0 MEDICAID [facility] [address] [place], [place] [id number] Alyce Hardwick Self - patient is the insured Medical (General) History Medical History History ICD Code juvenile diabetes mellitus, onset age 11 , insulin pump family history of breast cancer, materna l obesity, BMI [address], , [facility] history of attention deficit disorder at age 6 Depression Patient has a history of ADD , which she believes has evolved into ADHD. She is currently on fluoxetine for depression. Surgical History Surgery Date(Month/Year) No history dental extractions 2015 left breast lumpectomy, Dr. Mercer [facility] 2015 Hospitalization History Reason Date(Month/Year) No history
--- OUTSIDE RECORDS SUMMARY | 2024-09-14 09:54 | XMS_ITS ---
Author Organization William Tolentino III, MD Address [address] [place] [place] [address] Care Team Providers Care Tax Map Technician Name Role Phone William Tolentino Primary Care Provider REASON FOR VISIT Discontinued [...] Date Provider Diagnosis William Tolentino III, MD [address] [place] [address] [place] [address] 09/13/2024 William Tolentino Plan Of Treatment Next Appt Details Provider Name:William Tolentino, 09/14/2024 11:00:00 AM, [address] [place] [address] [place], [address], Provider Name:William Tolentino, 10/25/2024 11:00:00 AM, [address] [place] [address] [place], [address], Progress Notes * Britney HARDWICKOB:1990 ([age] yo F)Acc No.[id number]:09/13/2024 Patient:?Alyce HARDWICK :1990???Age:34 Y???Sex:Female Address:[address] [place] [address], [place], [address] Subjective: * Chief Complaints: * ???Discontinued Rx * Medical History:? * Surgical History:? * Hospitalization/Major Diagno stic Procedure:? * Medications:?TakingInsulin L ispro 100 UNIT/ML Solution [...] EVERY DAY FOR 30 DAYS Objective: * Vitals:? * Physical Examination:? Assessment: Plan: * Treatment: * Procedure Codes:? * true * Date:? Generated for Duncan smith/Estefania/Sofya on:?09/14/2024 09:54 AM EDT
--- OUTSIDE RECORDS SUMMARY | 2024-09-14 09:54 | XMS_ITS | Clinical Summary ---
Author Organization [facility] Address [address] [facility] [address] [place] [address] Phone Care Team Providers Care Bag Adjuster Name Role Phone William Tolentino MD Primary Care Provider [phone] Allergies No known active allergies Medications insulin [...] Office Visit [facility] [address] [address] Jair Ireland MD [address] [address] Health Maintenance Due Date Last [...] patient's age to complete this topic Insurance [facility] MEDICAID [facility] MEDICAID Care Teams Bag Adjuster Relationship Specialty Start Date End Date William Tolentino MD [address] [place] [address] [phone] [place], [place] PCP - General Medical Oncology 01/20/22
--- OUTSIDE RECORDS SUMMARY | 2024-09-14 09:55 | XMS_ITS ---
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 Name Role Phone William Tolentino [...] Date Provider Diagnosis William Tolentino III, MD [address] [place] [address] [place] [address] 09/14/2024 William Tolentino Plan Of Treatment Medication Medication Name Sig Start Date Stop Date Notes Cefuroxime Axetil 500 MG 1 tablet Orally every 12 hrs 07/31 Sertraline HCl 50 MG 1 tablet Orally Once a day 06/13/2024 Insulin Lispro 100 UNIT/ML DIRECTED I NJECTION 75 UNITS PER DAY VIA PUMP 30 DAYS Valsartan 80 MG Oral Next Appt Details Provider Name:William Tolentino, 09/14/2024 11:00:00 AM, [address] [facility], [place], [address], Provider Name:William Tolentino, 10/25/2024 11:00:00 AM, [address] [facility] [facility], [place], [address], Progress Notes * Britney HARDWICKOB:1990 ([age] yo F)Acc No.[id number]:09/14/2024 Progress Notes Patient:?Alyce HARDWICK Provider:?William Tolentino MD :1990???Age:34 Y???Sex:Female D ate:09/14/2024 Address:[address] [place] [address] [facility] Subjective: * Chief Complaints: * ???1. Follow up. * HPI: ???COVID-19 Screening:?Questions?Have you had any new onset fever, chills, cough, congestion, sore throat, shortness of breath, muscle aches??No * ROS:?General/Constitutional:?pain?only normal aches and pains.?Chills?denies.?Fatigue?admits.?Fever?denies.?ENT:?Decreased hearing?denies.?Respiratory:?Cough?denies.?Cardiovascular:?Chest pain with exertion?denies.?Dyspnea on exertion?denies.?Shortness of breath?denies.?Gastrointestinal:?Constipation?denies.?Decreased appetite?denies.?Diarrhea?denies.?Heartburn?denies.?Nausea?denies.?Rectal bleeding?denies.?Vomiting?denies.?Hematology:?bruising?denies.?petechiae?denies.?Swollen glands?none have been noted.?Genitourinary:?Frequent urination?denies.?Musculoskeletal:?Muscle aches?denies.?Painful joints?denies.?Sciatica?denies.?Weakness?denies.?Skin:?Itching?denies.?Rash?denies.?Skin lesion(s)?denies.?Neurologic:?Difficulty speaking?denies.?Dizziness?denies.?Headache?denies.?Low back pain?denies.?Psychiatric:?Depressed mood?denies.? 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 She works [...] 1 tablet Orally Once a day , Medication List [...] Provider:?William Tolentino MD Date:?08/27 Generated for Duncan smith/Estefania/eTransmitting on:?09/14/2024 09:55 AM EDT History and Physical Notes * [...]
--- OUTSIDE RECORDS SUMMARY | 2024-09-14 09:55 | XMS_ITS ---
Author Organization William Tolentino III, MD Address [address] [address] Care Team Providers Care Banana Grader Name Role Phone William Tolentino Primary Care [...] Date Provider Diagnosis William Tolentino III, MD [address] [place] [address] [place] [address] 09/07/2024 William Tolentino Other obesity due to [...] As Scheduled, [place] son: OV Provider Name:William Tolentino, 09/14/2024 11:00:00 AM, [address] [place] [address] [address], [place], [address], Provider Name:William Tolentino, 10/25/2024 11:00:00 AM, [address] [place] [address] [address], [place], [address], Progress Notes * Britney HARDWICKOB:1990 ([age] yo F)Acc No.[id number]:09/07/2024 Patient:?Alyce HARDWICK Provider:?William Tolentino MD :1990???Age:34 Y???Sex:Female D ate:09/07/2024 Address: [place], [id number] Subjective: * Chief Complaints: * ???URIJuvenile diabetesUses insulin pump * HPI: ???:?This telehealth visit took place over 15 minutes with the patient at home and me in my office.? She gave consent for billing.? She recently came down with an acute illness of cough and congestion and mild fever and diarrhea.? She has just been to [facility].? A stool culture was done and returned showing toxigenic Escherichia coli.? She reports that she is beginning to improve.? She will be treated with fluids and conservative care.? The ova and parasites are still pending.She has had only 2 stools yesterday.? She has had no abdominal pain. ?Telehealth?Location of provider rendering services:?{...} [address] [facility] [address] ?Location of patient:?address listed in demographics for [...] pain with exertion?denies.?Dyspnea on exertion?denies.?Shortness of breath?denies.?Gastrointestinal:?Constipation?denies.?Decreased appetite?denies.?Diarrhea?that is frequent.?Heartburn?denies.?Nausea?frequent.?Rectal bleeding?denies.?Vomiting?denies.?Hematology:?bruising?denies.?petechiae?denies.?Swollen glands?none have been noted.?Genitourinary:?Frequent urination?denies.?Musculoskeletal:?Muscle aches?denies.?Painful joints?denies.?Sciatica?denies.?Weakness?that is generalized.?Skin:?Itching?denies.?Rash?denies.?Skin lesion(s)?denies.?Neurologic:?Difficulty speaking?denies.?Dizziness?denies.?Headache?denies.?Low back pain?denies.?Psychiatric:?Depressed mood?denies.? * Medical History:? * Surgical History:?left bredamien t lumpectomy, Dr. 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 She works [...] :30.25, Ht-cm: 172.72, Wt-k.26. * ???Past Orders: Imaging:US pelvic and transv aginal * Performed Date 07/09/2024 03/04/2024 04:00 PM 11:10 AM Order Date 07/09/2024 03/04/2024 Assessment: * Assessment: 1.?Other obesity due to exce ss calories - E66.09 (Primary)???Notes :She is trying to lose weight. She was given an appointment in the near future to return to the office to be weighed, and have her blood pressure checked.???2.?Type 1 diabetes mellitus without complication - E10.9???Notes :Her insulin pump continues to function normally as does her monitor. Her hemoglobin A1c is acceptable. She remains under the care of endocrinology.???3.?Acute gastroenteritis - K52.9???Notes :The overran parasites are negative.? The stool culture was positive for Escherichia coli EAEDC.? She will be treated conservatively.? I recommended Imodium.? She will hydrate aggressively.???4.?Attention deficit disorder (ADD) in adult - F98.8???Notes :She was continued on her current regimen.??? Plan: * Treatment: * Procedure Codes:? * Preventive Medicine:? ??Counseling:?Care goal follow-up plan:?Counseling for abnormal BMI given?Yes ?Above Normal BMI Follow-up?Dietary management education, guidance, and counseling, Dietary needs education ??DM Care Plan:?Patient Lifestyle Goals?Patient wants to be able to manage diabetes without too much effort.?Treatment Goals?Blood Sugars less than < 115, HbA1C < 7.0.?Barriers?no barriers.?Self-Managment Goals?Work on weight loss, with a goal of losing 1 lb per week.? * Follow Up:?As Scheduled ([place] son: OV) * Images: * Sign off status: Completed true * Provider:?William Tolentino MD Date:?08/27 Generated for Duncan smith/Estefania/eTstacysmitting on:?09/14/2024 09:54 AM EDT History and Physical Notes * HPI (History of Present Illness) Category Sub-Category Detail Notes Telehealth Location of [facility] rendering services:: {...} [address] [place] [address] Location of patient:: address listed in demographics [...]
== END 2024-09-14 10:08 | disposition home or self-care (01) ==
LOC: HO.ENCR 09:04
PROVIDERS: PCP Internal Medicine Medical Oncology; Visit Provider Nurse Practitioner Adult Health
DX: E10.65 Type 1 diabetes mellitus with hyperglycemia (principal)

== ENCOUNTER → 2024-09-14 09:04 | Outpatient (BNVA) | payer OTHER, SELFPAY | PROVIDERS: PCP Internal Medicine Medical Oncology; Visit Provider Nurse Practitioner Adult Health ==

== ENCOUNTER 2024-09-14 09:52 | Outpatient (REF) | payer OTHER, SELFPAY ==
[2024-09-14 10:47] LABS: Anion Gap 10 (12-20); Blood Urea Nitrogen 13 mg/dL (9-16); Calcium 8.8 mg/dL (8.4-10.2); Carbon Dioxide 27 mmol/L (22-29); Chloride 106 mmol/L (96-108); Cholesterol 197 mg/dL (<200); Estimated Glomerular Filt Rate > 60; Glucose Random 110 mg/dL (60-115); HDL Cholesterol 69 mg/dL (>40); LDL Cholesterol Calculated 120 mg/dL (<100); Potassium 3.5 mmol/L (3.3-5.1); Sodium 139 mmol/L (135-145); Triglycerides 43 mg/dL (<150)
[2024-09-14 11:42] LABS: Microalbum/Creatinine Ratio Ur 28.5 ug/mg cr (<30)
== END 2024-09-14 09:53 | disposition home or self-care (01) ==
LOC: HO.10HDL 09:52
PROVIDERS: Visit Provider Nurse Practitioner Adult Health
DX: E10.21 Type 1 diabetes mellitus with diabetic nephropathy (principal); E10.65 Type 1 diabetes mellitus with hyperglycemia; Z96.41 Presence of insulin pump (external) (internal)
CPT/HCPCS: 36415; 80048; 80061; 82043; 82570; 82947; 83036; 99212

== ENCOUNTER 2024-10-05 08:59 | Outpatient (AMB) | payer OTHER, SELFPAY ==
--- OUTSIDE RECORDS SUMMARY | 2024-10-05 09:29 | XMS_ITS | Patient Health Record ---
Author Organization William Tolentino III, MD Address [address] [place] [address] [place] [address] Care Team Providers Care Plastic Fabricator Name Role Phone William Tolentino Primary Care [...] Blood Reviewed date:11/03/2023 10:10:34 AM Interpretation: Performing Lab:[facility], [address] [place] [phone] Notes/Report: Glucose, Whole Blood 104 60-115 mg/dL METER #: [id number] Testing performed in the Endocrin[facility] and [facility], [place]. Diabetic Eye Exam Reviewed date:11/18/2023 03:23:10 PM Interpretation:undefined Performing Lab: Notes/Report: undefined Glucose, Whole Blood Reviewed date:02/14/2024 08:01:45 AM Interpretation: Performing Lab:[facility], [address] [place] [phone] Notes/Report: Glucose, Whole Blood 90 60-115 mg/dL METER #: [id number] Testing performed in the [facility]ocrinology Department and [facility] , [address], [facility]. CT NG by PCR Reviewed date:02/27/2024 08:39:14 AM Interpretation: Performing Lab:[facility], [address] [place] [phone] Notes/Report: Vaginal CT PCR DETECTED Not Detect. [...] ordering clinician or clinical facility to the [facility] as required by state law. NG PCR [...] Panel Reviewed date:02/28/2024 07:23:58 AM Interpretation: Performing Lab:[facility], [address] [place] [phone] Notes/Report: Trichomonas vaginalis PCR NOT DETECTED Not [...] date:03/13/2024 07:32:41 AM Interpretation: Performing Lab: Notes/Report: [address] [address] Ultrasound Report Signed Patient: Alyce Hardwick MR#: [id number] : 1990 Acct:[id number] Age/Sex: 33 / F ADM Date: 03/04/24 Loc: HO.US Attending Dr: Glenda Gross CNM Ordering Physician: Glenda Gross CNM Date of Service: 03/04/24 Procedure(s): US pelvic and transvaginal Accession Number(s): [id number] cc: William Tolentino MD; Glenda Gross CNM [...] 03/10/24 0937 DD/ 1110 TD/TT: 03/04/24 1131 Computational Scientist: [place] [address] Ultrasound Report Signed Patient: Alyce Hardwick MR#: [id number] : 1990 Acct:[id number] Age/Sex: 33 / F ADM Date: 03/04/24 Loc: HO.US Attending Dr: Glenda Gross CNM Ordering Physician: Glenda Gross CNM Date of Service: 03/04/24 Procedure(s): US pel adela and transvaginal Accession Number(s): [id number] cc: William Tolentino MD; Glenda Gross CNM [...] 03/10/24 0937 DD/ 1110 TD/TT: 03/04/24 1131 Computational Scientist: CT NG by PCR Reviewed date:04/11/2024 07:10:12 AM Interpretation: Performing Lab:[facility], [address] [place] [phone] Notes/Report: Vaginal CT PCR NOT DETECTED Not [...] Panel Reviewed date:04/11/2024 07:10:12 AM Interpretation: Performing Lab:[address] [address] Notes/Report: Trichomonas vaginalis PCR NOT DETECTED Not [...] 18/45 Reviewed date:04/17/2024 08:40:09 AM Interpretation: Performing Lab:[address] [address] Notes/Report: SEE SCANNED RESULTS IN EMR HPV 16 RNA NOT DETECTED NOT DETECTED HPV 18/45 RNA NOT DETECTED NOT DETECTED Methodology: Diet Therapist Mediated Amplification Cervical sources are required for HPV testing. If a vaginal source from a patient who has had a total hysterectomy with removal of cervix was submitted, please contact the testing laboratory for alternative testing options. THIS TEST WAS PERFORMED AT: [facility] [address] [place] [phone] SEAN RENE MD HPV mRNA E6/E7 Detected Not Detected Methodology: Diet Therapist-Mediated Amplification This assay detects E6/E7 viral messenger RNA (mRNA) from 14 high-risk HPV types (16,18,31,33,35,39,45, 51,52,56,58,59,66,68). Cervical sources are required for HPV testing. If a vaginal source from a patient who has had a total hysterectomy with removal of cervix was submitted, please contact the testing laboratory for alternative testing options. For additional information, please refer to http://education.[employer]/faq/FA Q129v1 (This link if provided for information/ [...] has been evaluated with computer assisted technology. Steward/Stewardess Economy Class SEE NOTE SXA, CT(ASCP) CT screening location: [place] [address] Review Steward/Stewardess Economy Class SEE NOTE MPG, CT(ASCP) CT screening location: [place] [address] Pathologist TNP PAP Infection TNP See Note [...] Blood Reviewed date:05/13/2024 08:19:51 PM Interpretation: Performing Lab:[facility], [address] [place] [phone] Notes/Report: Glucose, Whole Blood 179 60-115 mg/dL METER #: [id number] Testing performed in the [facility]ocrinology [facility] and [facility], [facility]. US pelvic and transvaginal Reviewed date:07/09/2024 08:36:54 PM Interpretation: Performing Lab: Notes/Report: [address] [place] [address] Ultrasound Report Signed Patient: Alyce Hardwick MR#: [id number] : 1990 Acct:[id number] Age/Sex: 34 / F ADM Date: 07/08/24 Loc: HO.US Attending Dr: Glenda Gross CNM Ordering Physician: Glenda Gross CNM Date of Service: 07/08/24 Procedure(s): US pelvic and transvaginal Accession Number(s): [id number] cc: William Tolentino MD; Glenda Gross CNM CLINICAL HISTORY: N92.6 - Irregular menstruation, unspecified US pelvis transabdominal and transvaginal with color Doppler Comparison: US/OT/KY - US PELVIC AND TRANSVAGINAL - 03/04/24 [...] 07/09/24 1601 DD/ 1600 TD/TT: 07/09/24 1600 Computational Scientist: [place] [address] Ultrasound Report Signed Patient: Alyce Hardwick MR#: [id number] : 1990 Acct:[id number] Age/Sex: 34 / F ADM Date: 07/08/24 Loc: HO.US Attending Dr: Glenda Gross CNM Ordering Physician: Glenda Gross CNM Date of Service: 07/08/24 Procedure(s): US pel adela and transvaginal Accession Number(s): [id number] cc: William Tolentino MD; Glenda Gross CNM CLINICAL HISTORY: N9 2.6 - Irregular menstruation, unspecified US pelvis transabdominal and transvaginal with color Doppler Comparison: US/OT/KY - US PELVIC AND TRANSVAGINAL - 03/04/24 [...] 07/09/24 1601 DD/ 1600 TD/TT: 07/09/24 1600 Computational Scientist: GI Panel Reviewed date:09/14/2024 11:08:21 AM Interpretation: Performing Lab:[facility], [address] [place] [phone] Notes/Report: Campylobacter Not Detected Not Detect. Plesiomonas [...] is performed by Multiplexed PCR, utilizing the 3C Plus Array. Ova and Parasite Reviewed date:09/14/2024 11:08:21 AM Interpretation: Performing Lab:[facility], [address] [place] [phone] Notes/Report: Ova and Parasite SEE NOTE OVA AND PARASITES, CONC AND PERM SMEAR Micro Number: [id number] Test Status: Final Specimen Source: Stool Specimen [...] infection. For additional information, please refer to [email or web address]/faq/F [email or web address] (This link is being provided for informational/ educational purposes only.) THIS TEST WAS PERFORMED AT: [place] [address] SHAYY KEEN MD Glucose, Whole Blood Reviewed date:09/14/2024 11:08:21 AM Interpretation: Performing Lab:[facility], [address] [place] [phone] Notes/Report: Glucose, Whole Blood 115 60-115 mg/dL METER #: [id number] Testing performed in the [facility]in[facility] and [facility], [address], [facility]. Reason For Referral No Information Medications Medication [...] Problem Status W/U Status Risk Notes Problem 961659951 Overweight (E66.3) Active confirmed She has gained [...] fat calories sodium and concentrated sweets. Problem 879743029 Other obesity (E66.8) Active confirmed Her body mass index is 31.4. We discussed weight reduction strategies and a diabetic diet. We made a plan to lose weight. Problem 864442395 jail current use of insulin (Z79.4) Active confirmed Her insulin pump is working well. Her glucose levels have been satisfactory. She will continue to be managed by endocrinology Problem 094553804 Attention deficit disorder (ADD) in adult (F98.8) Active confirmed She was continu ed on her current regimen. Problem 740987598 Type 1 diabetes mellitus without complication (E10.9) Active confirmed Her insulin pum p continues to function normally as does her monitor. Her hemoglobin A1c is acceptable. She remains under the care of endocrinology. Problem 755713842 Body mass index [BMI] 30.0-30.9, adult (Z68.30) Active confirmed Problem 172511760 Bilateral headaches (R51.9) Active confirmed She has had no headaches since her last visit. Problem 68651390 Difficulty concentrating (R41.840) Active confirmed She says that h er previous primary care physician, Dr. Chaves, prescribed this medication, but it was years ago. I referred her back to her psychotherapist for evaluation and if necessary, referral to a prescriber. I made the appointment and I am not trained in psychiatric disorders. Problem 201023544 Obesity, class 1 (E66.811) Active confirmed Her body mass index is 30. We discussed her diet and nutrition. We made a plan to lose weight at a rate of one half of a pound per week until the body mass index is in the mid normal range. Vital Signs Heart Rate 86 /min 09/14/2024 Temperature 99.0 degrees Fahrenheit 09/14/2024 Blood pressure diastolic 94 mm Hg 09/14/2024 Height 68 in 09/14/2024 Blood pressure systolic 113 mm Hg 09/14/2024 Weight 194 lbs 09/14/2024 BMI 29.49 kg/m2 09/14/2024 Encounters Encounter Location Date Provider Diagnosis William Tolentino III, MD [address] [place] [address] [place] [address] 10/20/2023 William Tolentino Type 1 diabetes jade itus without complication E10.9 ; Attention deficit disorder (ADD) in adult F98.8 ; Bilateral headaches R51.9 and Other obesity E66.8 William Tolentino III, MD [address] [place] [address] [place] [address] 06/13/2024 William Tolentino jail current us e of insulin Z79.4 ; Type 1 diabetes mellitus without complication E10.9 ; Obesity, class 1 E66.811 ; Attention deficit disorder (ADD) in adult F98.8 and Depression, unspecified depression type F32.A William Tolentino III, MD [address] [place] [address] [place] [address] 07/05/2024 William Tolentino Anxiety, generalized F41.1 ; Type 1 diabetes mellitus without complication E10.9 ; Other obesity due to excess calories E66.09 and Bilateral headaches R51.9 William Tolentino III, MD [address] [place] [address] [place] [address] 09/05/2024 William Tolentino Type 1 diabetes jade itus without complication E10.9 ; Bilateral headaches R51.9 ; Overweight E66.3 ; Attention deficit disorder (ADD) in adult F98.8 ; Obesity, class 1 E66.811 and Acute gastroenteritis K52.9 William Tolentino III, MD [address] [place] [address] [place] [address] 09/07/2024 William Tolentino Other obesity due to excess calories E66.09 ; Type 1 diabetes mellitus without complication E10.9 ; Acute gastroenteritis K52.9 and Attention deficit disorder (ADD) in adult F98.8 William Tolentino III, MD [address] [place] [address] [place] [address] 09/14/2024 William Tolentino Escherichia coli infection A49.8 ; Type 1 diabetes mellitus without complication E10.9 ; 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 06/13/2024 jail current us e of insulin (ICD-10 - [...] remains under the care of endocrinology. 09/14/2024 Type 1 diabetes mellitus without complication (ICD-10 - E10.9) Her insulin pump continues to function normally as does her monitor. Her hemoglobin A1c is acceptable. She remains under the care of endocrinology. 09/14/2024 Escherichia coli infection (ICD-10 - A49.8) This infection has now resolved. She will resume her daily activities. 10/20/2023 Bilateral headaches (ICD-10 - R51.9) She [...] I recommended Imodium. She will hydrate aggressively. 09/14/2024 jail current us e of insulin (ICD-10 - Z79.4) Her insulin pump is working well. Her glucose levels have been satisfactory. She will continue to be managed by endocrinology 10/20/2023 Other obesity (ICD-1 0 - E66.8) [...] She was continued on her current regimen. 09/14/2024 Overweight (ICD-10 - E66.3) She has [...] in fat calories sodium and concentrated sweets. 06/13/2024 Depression, unspecified depression type (ICD-10 - [...] index is in the mid normal range. 09/14/2024 Attention deficit disorder (ADD) in adult (ICD-10 - F98.8) She was continued on her current regimen. 09/05/2024 Acute gastroenteriti s (ICD-10 - K52.9) Her stool will be cultured and examined for ova and parasites. No specific medication was prescribed. I recommended Imodium every 3 hours. She has a close followup visit arranged. Plan Of Treatment Pending Test Test Name Order Date PROFILE, FASTING (COMPREHENSIVE METABOLI C) 10/14/2022 PROFILE, FASTING (COMPREHENSIVE METABOLI C) 10/20/2023 PROFILE, FASTING (COMPREHENSIVE METABOLI C) 06/07/2018 PROFILE, FASTING (COMPREHENSIVE METABOLI C) 11/16/2020 PROFILE, FASTING (COMPREHENSIVE METABOLI C) 07/19/2020 PROFILE, RANDOM (COMPREHENSIVE METABOLIC ) 09/26/2020 PROFILE, RANDOM (COMPREHENSIVE METABOLIC ) 08/21/2023 PROFILE, RANDOM (COMPREHENSIVE METABOLIC ) 09/14/2018 HEMOGLOBIN A1C (GLYCOHEMOGLOBIN) 021 HEMOGLOBIN A1C (GLYCOHEMOGLOBIN) 023 HEMOGLOBIN A1C (GLYCOHEMOGLOBIN) 018 HEMOGLOBIN A1C (GLYCOHEMOGLOBIN) 021 LIPID PANEL 06/07/2018 LIPID PANEL 11/16/2020 LIPID PANEL 10/14/2022 FREE T4 (FT4) 09/26/2020 TSH (THYROID STIMULATING [...] 09/05/2024 Next Appt Details Provider Name:William Tolentino, 10/25/2024 11:00:00 AM, [address] [place] [address] [address], [place], [address], Insurance Providers Payer Name Payer Address Payer Phone Subscriber Number Group Number Insured Name Patient Relationship to Insured Coverage Start Date Coverage End Date [employer] [address] [address] [place] [address] [id number] Alyce Hardwick Self - patient is the insured 0 MEDICAID [facility] [address] [place] [id number] [phone] [id number] Alyce Hardwick Self - patient is the insured Medical (General) History Medical History History ICD Code juvenile diabetes mellitus, onset age 11 , insulin pump family history of breast cancer, materna 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 She is currently on fluoxetine for depression. Surgical History Surgery Date(Month/Year) No history dental extractions 2016 left breast lumpectomy, Dr. Mercer, [facility] 2015 Hospitalization History Reason Date(Month/Year) No history
--- OUTSIDE RECORDS SUMMARY | 2024-10-05 09:29 | XMS_ITS | Clinical Summary ---
Author Organization [facility] Address [address] [facility] [address] [place] [address] Phone Care Team Providers Care Dentistry Professor Name Role Phone William Tolentino MD Primary Care Provider [phone] Allergies No known active allergies Medications insulin [...] Office Visit [facility] [address] [address] Jair Ireland MD [address] [address] Health Maintenance Due Date Last Done Comments Diabetes: Hemoglobin A1C 07/30/2020 Diabetes: Ophthalmology Exam 07/30/2020 Diabetes: Pedal Pulse Checked 07/30/2020 Diabetes: Sensory Foot Exam 07/30/2020 Diabetes: Visual Foot Exam 07/30/2020 Influenza Vaccine (Season Ended) 2025 04/14/2007, 04/07/2006, 04/16/2005 Hepatitis B Vaccine Completed 04/21/2001, 11/27/2000, 10/26/2000 Pneumococcal Vaccine: Pediatrics (0 to 5 Years) and At-Risk Patients (6 to 64 Years) Aged Out No longer eligible b ased on patient's age to complete this topic Insurance [facility] MEDICAID [facility] MEDICA[facility] Care Teams Dentistry Professor Relationship Specialty Start Date End Date William Tolentino MD [address] [place] [address] [phone] [place], [place] PCP - General Medical Oncology 01/20/22
--- OUTSIDE RECORDS SUMMARY | 2024-10-05 09:30 | XMS_ITS ---
Author Organization William Tolentino III, MD Address [address] [place] [address] [address] [place] [facility] [place] [address] Care Team Providers Care Blood Bank Assistant Name Role Phone William Tolentino Primary Care [...] Date Provider Diagnosis William Tolentino III, MD [address] [place] [address] DR NO[place]A [facility] [place] [address] 09/13/2024 William Tolentino Plan Of Treatment Next Appt Details Provider Name:William Tolentino, 10/25/2024 11:00:00 AM, [address] [place] [address] [place], [address], Progress Notes * Erendira HARDWICKSukhdeepOB:1990 ([age] yo F)Acc No.[id number]:09/13/2024 Patient:Alyce ROBERTSON :1990???Age:34 Y???Sex:Female Address:[address] [place], [place] [address], [address] Subjective: * Chief Complaints: * ???Discontinued Rx [...] true * Date:? Generated for Duncan smith/Estefania/Sofya on:?10/05/2024 09:29 AM EDT
--- OUTSIDE RECORDS SUMMARY | 2024-10-05 09:30 | XMS_ITS | Encounter Summary ---
Author Organization [facility] Address [address] [place] [address] Phone Care Team Providers Care One Piece Expansion Maker Hand Name Role Phone Antonette Degroot AERODYNAMIC CONSULTANT Primary Care Provider Jb hawley Encounter Details Date Type Department Care Team (Late st Contact Info) Description 03/18/2010 Documentation [facility] [place] [address] [place] [address] Family Medicine, Physician [address] [place] [address] Social History Tobacco Use Types Packs/Day Years [...] on filedocumented in this encounter Care Teams One Piece Expansion Maker Hand Relationship Specialty Start Date End Date Antonette Degroot NP PCP - General 02/06/17 10/06/22 documented as of this encounter
--- OUTSIDE RECORDS SUMMARY | 2024-10-05 09:30 | XMS_ITS | Encounter Summary ---
Author Organization [facility] Address [address] [place] [address] Phone Care Team Providers Care Inlayer Silver Name Role Phone Antonette Degroot NP Primary Care Provider Jb hawley Encounter Details Date Type Department Care Team (Late st Contact Info) Description 02/12/2017 Conversion Encounter [facility] - [address] [address] Social History Tobacco Use Types Packs/Day Years [...] on filedocumented in this encounter Care Teams Inlayer Silver Relationship Specialty Start Date End Date Antonette Degroot NP PCP - General 02/06/17 10/06/22 documented as of this encounter
--- OUTSIDE RECORDS SUMMARY | 2024-10-05 09:30 | XMS_ITS ---
Author Organization William Tolentino III, MD Address [address] [place] [place] [address] Care Team Providers Care Pile Driver Operator Barge Mounted Name Role Phone William Tolentino Primary Care Provider [phone] Allergies Allergen (clinical drug ingredient) Drug/Non Drug Allergy documented on EMR Reaction Allergy Type Onset Date Status No Known Drug Allergy Unknown Drug Allergy Active REASON FOR VISIT Gastroenteritis, Baptism one diabetes, Anxiety and depression Medications Medication [...] Date Provider Diagnosis William Tolentino III, MD [address] [place] [address] [place] [address] 09/14/2024 William Conleyne Escherichia coli infection A49.8 ; Type 1 diabetes mellitus without complication E10.9 ; 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 She recently went to [facility] and after she returned had an episode of nausea and diarrhea.? A stool culture showed toxigenic Escherichia coli.? This is now resolved with conservative treatment.? She was recently begun on sertraline for anxiety.? I told her to stop the fluoxetine.? She is beginning to feel better emotionally.? Her insulin pump is working well and she is discussing a new or more modern version with her endoocrinologist. ?Questions?Have you had any new onset fever, chills, cough, congestion, sore throat, shortness of breath, muscle aches??No * ROS:?General/Constitutional:?pain?only normal aches and pains.?Chills?denies.?Fatigue?admits.?Fever?denies.?ENT:?Decreased hearing?denies.?Respiratory:?Cough?denies.?Cardiovascular:?Chest pain with exertion?denies.?Dyspnea on exertion?denies.?Shortness of breath?denies.?Gastrointestinal:?Constipation?denies.?Decreased appetite?denies.?Diarrhea?This has resolved recently.?Heartburn?denies.?Nausea?denies.?Rectal bleeding?denies.?Vomiting?denies.?Hematology:?bruising?denies.?petechiae?denies.?Swollen glands?none have been noted.?Genitourinary:?Frequent urination?denies.?Musculoskeletal:?Muscle aches?denies.?Painful joints?denies.?Sciatica?denies.?Weakness?denies.?Skin:?Itching?denies.?Rash?denies.?Skin lesion(s)?denies.?Neurologic:?Difficulty speaking?denies.?Dizziness?denies.?Headache?denies.?Low back pain?denies.?Psychiatric:?Depressed mood?which is mild.? * Medical History:? 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 [...] ergyno[Allergies Verified] Objective: * Vitals:?Ht: 68, Wt: 194, BMI :29.49, BP: 113/94, HR: 86, Temp: 99.0, Ht-cm: 172.72, Wt-k. * ???Past Orders: Imaging:US pelvic and transv [...] ?E. coli STECNot DetectedNot Detect. -?E. coli Z650Seq applicable Not Detect. -?Shigella sp./EIECNot DetectedNot Detect. [...] Whole Blood 115 (Ref Range: 60-115 mg/dL) 179?H (Ref Range: 60-115 mg/dL) 90 (Ref Range: 60-115 mg/dL) * Examination: ???General Examination: ?GENERAL APPEARANCE:?pleasant, well nourished, well developed, in no acute distress, calm and relaxed, overweight, woman.?HEAD:?atraumatic, normocephalic.?EYES:?eomi, perrla, anicteric, conjugate.?EARS:?normal.?NOSE:?septum intact.?ORAL CAVITY:?normal, unremarkable.?NECK/THYROID:?no jugular venous distention, no carotid bruit, thyroid normal.?LYMPH NODES:?no enlarged lymph nodes,spleen normal.?SKIN:?no suspicious lesions, anicteric, Insulin pump in place.?HEART:?no clicks, gallops, murmurs, or rubs, regular rhythm, S1, S2 normal, no s3, or vascular bruits.?LUNGS:?clear to auscultation .?BREASTS:??no masses palpable bilaterally.?ABDOMEN:?bowel sounds normal, no ascites, no organomegaly, no mass.?RECTAL EXAM:?not examined.?MUSCULOSKELETAL:?extremities unremarkable, no clubbing, cyanosis or edema.?PERIPHERAL PULSES:?normal.?NEUROLOGIC:?alert and oriented, cranial nerves 2-12 grossly intact, deep tendon reflexes 2+ symmetrical, motor strength normal upper and lower extremities, sensory exam intact.?PSYCH:?alert, oriented.? Assessment: * Assessment: 1.?Escherichia coli infectio n - A49.8 (Primary)???Notes :This infection has now resolved.? She will resume her daily activities.???2.?Type 1 diabetes mellitus without complication - E10.9???Notes :Her insulin pump continues to function normally as does her monitor. Her hemoglobin A1c is acceptable. 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 Her glucose levels have been satisfactory. She will continue to be managed by endocrinology???4.?Overweight - E66.3???Notes :She has gained 8 pounds and her body mass index is now slightly over 30 which is in the obese range. We discussed her weight loss strategy, her diabetic diet and nutrition. We formulated a plan to lose weight at a rate of one half of a pound per week through a diet restricted in fat calories sodium and concentrated sweets.???5.?Attention deficit disorder (ADD) in adult - F98.8???Notes [...] lb per week.? * Follow Up:?As Scheduled ([place] son: Annual Exam) * Images: * Sign off status: Completed true * Provider:?William Tolentino MD Date:?08/27 Generated for Duncan smith/Estefania/Meghanitting on:?10/05/2024 09:29 AM EDT History and Physical Notes * [...]
--- OUTSIDE RECORDS SUMMARY | 2024-10-05 09:30 | XMS_ITS ---
Author Organization William Tolentino III, MD Address [address] [place] [address] Care Team Providers Care Deckhand Fishing Vessel Name Role Phone William Tolentino Primary Care [...] Date Provider Diagnosis William Tolentino III, MD [address] [address] [place] [address] 09/07/2024 William Tolentino Other obesity due to [...] Scheduled, Crissy son: OV Provider Name:William Tolentino, 10/25/2024 11:00:00 AM, [address] [address] [address] [place] [address], [place], [address], Progress Notes * Britney HARDWICKOB:1990 ([age] yo F)Acc No.[id number]:09/07/2024 Patient:?Alyce HARDWICK Provider:?William Tolentino MD :1990???Age:34 Y???Sex:Female D ate:09/07/2024 Address:[address] [place] [address] [id number] Subjective: * Chief Complaints: * ???URIJuvenile diabetesUses insulin pump * HPI: ???:?This telehealth visit took place over 15 minutes with the patient at home and me in my office.? She gave consent for billing.? She recently came down with an acute illness of cough and congestion and mild fever and diarrhea.? She has just been to [facility].? A stool culture was done and returned showing toxigenic Escherichia coli.? She reports that she is beginning to improve.? She will be treated with fluids and conservative care.? The ova and parasites are still pending.She has had only 2 stools yesterday.? She has had no abdominal pain. ?Telehealth?Location of provider rendering services:?{...} [address] [facility] [address] ?Location of patient:?address listed in demographics for [...] mood?denies.? * Medical History:? 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 She works [...] lb per week.? * Follow Up:?As Scheduled ([place] son: OV) * Images: * Sign off status: Completed true * Provider:?William Tolentino MD Date:?08/27 Generated for Duncan smith/Estefania/eTransmitting on:?10/05/2024 09:29 AM EDT History and Physical Notes * HPI (History of Present Illness) Category Sub-Category Detail Notes Telehealth Location of [facility] rendering services:: {...} [address] [place] [address] Location of patient:: address listed in demographics [...]
--- OUTSIDE RECORDS SUMMARY | 2024-10-05 09:30 | XMS_ITS | Encounter Summary ---
Author Organization [facility] Address [address] [place] [address] Phone Care Team Providers Care Paint Supervisor Name Role Phone Antonette Degroot RN [facility] Primary Care Provider Jb hawley Encounter Details Date Type Department Care Team (Late st Contact Info) Description 06/03/2010 [place]ation [facility] [place] [address] [place] [address] Family Medicine, Physician [address] [place] [address] Social History Tobacco Use Types Packs/Day Years [...] on filedocumented in this encounter Care Teams Paint Supervisor Relationship Specialty Start Date End Date Antonette Degroot NP PCP - General 02/06/17 10/06/22 documented as of this encounter
--- OUTSIDE RECORDS SUMMARY | 2024-10-05 09:30 | XMS_ITS | Clinical Summary ---
Author Organization [facility] Address [address] [place] [address] Care Team Providers Care Associate Entertainment Editor Name Role Phone Unavailable Primary Care Provider Unavailabl e Social History Tobacco Use Types Packs/Day Years Used Date Smoking Tobacco: Never Assessed Sex and Gender Information Value Date Recorded Sex Assigned at Not on file Gender Identity Not on file Sexual Orientation Not on file Plan of Treatment Not on file
--- OUTSIDE RECORDS SUMMARY | 2024-10-05 09:30 | XMS_ITS | Clinical Summary ---
Author Organization [facility] Address [address] [place] [address] Phone Care Team Providers Care Swimming Pool Maintenance Name Role Phone Unavailable Primary Care Provider [...] Other No family histo ry of Sudden /[place] under age 55, Family history of Strabismus/amblyopia, [...]
--- NOTE | 2024-10-05 09:41 | MHC.AMDMED ---
Intake Intake Visit Reasons: DM, discuss new insulin pump Dray Driver Required: No Allergies No Known Allergies Allergy (Verified 09/14/24 09:15) HPI Comprehensive Diabetes Asmnt Most Recent Diabetes Results: Microalb/Creat Ratio 28.5 ug/mg cr (<30) 09/14/24 Cholesterol 197 mg/dL (<200) 09/14/24 HDL Cholesterol 69 mg/dL (>40) 09/14/24 Triglycerides 43 mg/dL (<150) 09/14/24 Creatinine 0.78 mg/dL (0.5-1.4) 09/14/24 Blood Urea Nitrogen 13 mg/dL (9-16) 09/14/24 Sodium 139 mmol/L (135-145) 09/14/24 Potassium 3.5 mmol/L (3.3-5.1) 09/14/24 Chloride 106 mmol/L (96-108) 09/14/24 Carbon Dioxide 27 mmol/L (22-29) 09/14/24 Calcium 8.8 mg/dL (8.4-10.2) 09/14/24 [facility] Medical History (Updated 07/19/24 @ 14:57 by Casandra Benoit CNM) Depression Type 1 diabetes mellitus with hyperglycemia Surgical History History of left breast biopsy Family History Paternal Grandmother Diabetes Maternal Aunt Breast cancer Family/Other Colon cancer Social History Household Members: Family Housing: Apartment Alcohol intake: current Alcohol intake frequency: holidays/special occasions only Patient Tobacco Use Status: Never used Tobacco Substance Use Type: Marijuana Current occupational status: employed 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 yes Reviewed iLet basics today with Patient. Explained pros and cons of iLet. Showed pt example of pump, infusion sets, and cgms currently available. Reviewed need to wear pump and need to change infusion set every 3 days. Also stressed importance of frequent BG checks, 4x daily minimum or use pump that is integrated with CGM.? Patient demonstrated motivation for continued insulin pump education and understands the need to complete education prior to starting insulin pump for best outcome. Patient understands that she may need letter of medical necessity in order to switch from T slim with basal IQ to iLet Portions of this note were created using voice recognition software, please excuse any words or phrases that may have been misinterpreted. Coding Level of Care Code Est Pt Level 1 (35800) Diagnoses Type 1 diabetes mellitus with hyperglycemia E10.65
== END 2024-10-05 10:17 | disposition home or self-care (01) ==
LOC: HO.ENCR 09:00
PROVIDERS: PCP Internal Medicine Medical Oncology; Visit Provider Registered Nurse Diabetes Educator
DX: E10.65 Type 1 diabetes mellitus with hyperglycemia (principal)

== ENCOUNTER → 2024-10-05 08:59 | Outpatient (BNVA) | payer OTHER, SELFPAY | PROVIDERS: PCP Internal Medicine Medical Oncology; Visit Provider Registered Nurse Diabetes Educator | DX: E10.65 Type 1 diabetes mellitus with hyperglycemia (principal); Z96.41 Presence of insulin pump (external) (internal) | CPT/HCPCS: 99211 ==

== ENCOUNTER 2024-10-11 08:32 | Outpatient (REF) | payer OTHER, SELFPAY ==
--- OUTSIDE RECORDS SUMMARY | 2024-10-11 10:14 | XMS_ITS | Clinical Summary ---
Author Organization [facility] Address [address] [place] [address] Care Team Providers Care Architectural Engineer Name Role Phone Unavailable Primary Care Provider Unavailabl e Social History Tobacco Use Types Packs/Day Years Used Date Smoking Tobacco: Never Assessed Sex and Gender Information Value Date Recorded Sex Assigned at Not on file Gender Identity Not on file Sexual Orientation Not on file Plan of Treatment Not on file
--- OUTSIDE RECORDS SUMMARY | 2024-10-11 10:14 | XMS_ITS | Clinical Summary ---
Author Organization [facility] Address [address] [facility] [address] [place] [address] Phone Care Team Providers Care Telegraphic Typewriter Mechanic Name Role Phone William Tolentino MD Primary Care Provider [phone] Allergies No known active allergies Medications insulin [...] Office Visit [facility] [address] [address] Jair Ireland MD [address] [address] Health Maintenance Due Date Last [...] patient's age to complete this topic Insurance [facility] Medicaid [facility] Medicaid Care Teams Telegraphic Typewriter Mechanic Relationship Specialty Start Date End Date William Tolentino MD [address] [place] [address] [address] [place], [place] PCP - General Medical Oncology 01/20/22
--- OUTSIDE RECORDS SUMMARY | 2024-10-11 10:14 | XMS_ITS | Encounter Summary ---
Author Organization [facility] Address [address] [place] [address] Phone Care Team Providers Care Curb And Gutter Laborer Name Role Phone Antonette Degroot PROPERTY MANAGEMENT ASSISTANT Primary Care Provider Jb hawley Encounter Details Date Type Department Care Team (Late st Contact Info) Description 03/18/2010 Documentation [facility] [place] Family Medicine [address] [place] [address] Family Medicine, Physician [address] [place] [address] Social History Tobacco Use Types Packs/Day Years [...] on filedocumented in this encounter Care Teams Curb And Gutter Laborer Relationship Specialty Start Date End Date Antonette Degroot NP PCP - General 02/06/17 10/06/22 documented as of this encounter
--- OUTSIDE RECORDS SUMMARY | 2024-10-11 10:14 | XMS_ITS | Encounter Summary ---
Author Organization [facility] Address [address] [place] [address] Phone Care Team Providers Care Podiatric Medicine Professor Name Role Phone Antonette Degroot ADMISSIONS CONSULTANT Primary Care Provider Jb hawley Encounter Details Date Type Department Care Team (Late st Contact Info) Description 06/03/2010 Documentation [facility] [place] Family Medicine [address] [place] [address] Family Medicine, Physician [address] [place] [address] Social History Tobacco Use Types Packs/Day Years [...] on filedocumented in this encounter Care Teams Podiatric Medicine Professor Relationship Specialty Start Date End Date Antonette Degroot NP PCP - General 02/06/17 10/06/22 documented as of this encounter
--- OUTSIDE RECORDS SUMMARY | 2024-10-11 10:14 | XMS_ITS | Encounter Summary ---
Author Organization [facility] Address [address] [place] [address] Phone Care Team Providers Care Science Technicians Name Role Phone Antonette Degroot NP Primary Care Provider Jb hawley Encounter Details Date Type Department Care Team (Late st Contact Info) Description 02/12/2017 Conversion Encounter [facility] - [address] [address] Social History Tobacco Use Types Packs/Day Years [...] on filedocumented in this encounter Care Teams Science Technicians Relationship Specialty Start Date End Date Antonette Degroot NP PCP - General 02/06/17 10/06/22 documented as of this encounter
--- OUTSIDE RECORDS SUMMARY | 2024-10-11 10:14 | XMS_ITS | Clinical Summary ---
Author Organization [facility] Address [address] [place] [address] Phone Care Team Providers Care Touring Production Manager Name Role Phone Unavailable Primary Care Provider [...] Other No family histo ry of Sudden /[place] under age 55, Family history of Strabismus/amblyopia, [...]
[2024-10-11 10:20] LABS: Hematocrit 41.9 % (37.0-47.0); Mean Corpuscular HGB Conc 33.4 g/dl (31.0-35.0); Mean Corpuscular Hemoglobin 30.2 pg (27.0-33.0); Mean Corpuscular Volume 90.5 fL (80.0-98.0); Mean Platelet Volume 9.8 fL (9.4-12.3); Platelet Count 252 X10*3/uL (160-400); Red Blood Count 4.63 X10*6/uL (4.20-5.50); Red Cell Distribution Width 12.5 % (11.0-16.0); White Blood Count 5.9 X10*3/uL (4.8-10.8)
[2024-10-11 11:16] LABS: HCG Quantitative < 2 mIU/mL; TSH reflex Free T4 0.96 uIU/mL (0.32-4.0)
[2024-10-11 11:17] LABS: HBsAGNum1 0.25 S/CO (0.00-0.99); HIV AB/AG Nonreactive (Nonreactive); HIV Num 1 0.07 S/CO (0.00-0.99); Hepatitis B Surface Antigen Negative (Negative); ~HepC Num1 0.15 S/CO (0.00-0.79); ~Hepatitis C Antibody Nonreactive (Nonreactive)
[2024-10-11 11:18] LABS: Syphilis Screen Nonreactive (Nonreactive)
[2024-10-11 15:18] LABS: Bacterial Vaginosis PCR POSITIVE (Negative); Candida Group PCR NOT DETECTED (Not Detect); Candida glab krusei PCR NOT DETECTED (Not Detect); Trichomonas vaginalis PCR NOT DETECTED (Not Detect)
[2024-10-11 15:48] LABS: CT PCR NOT DETECTED (Not Detect.); NG PCR NOT DETECTED (Not Detect.)
== END 2024-10-11 08:33 | disposition home or self-care (01) ==
LOC: HO.LNP 08:32
PROVIDERS: PCP Internal Medicine Medical Oncology; Visit Provider Obstetrics & Gynecology
DX: N93.9 Abnormal uterine and vaginal bleeding, unspecified (principal); Z20.2 Contact with and (suspected) exposure to infections with a predominantly sexual mode of transmission; B97.7 Papillomavirus as the cause of diseases classified elsewhere; A74.9 Chlamydial infection, unspecified
CPT/HCPCS: 81515; 84443; 84702; 85027; 86780; 86803; 87340; 87389; 87491; 87591; 99212

== ENCOUNTER 2024-10-11 08:32 | Outpatient (AMB) | payer OTHER, SELFPAY ==
--- NOTE | 2024-10-11 08:38 | A.OFFVIS_ITS ---
Intake Visit Reasons: Consult Hysteroscopy per casandra Java Android Developer: Java Android Developer Present (Simran) Accompanied by: Self / Same As Patient Allergies No Known Allergies Allergy (Verified 10/11/24 08:39) Is last menstrual period known: Yes Last menstrual period: 04/26/20 Post menopausal: No Patient : No Do you need a note to return to daycare/school/sports/work: Yes (for surgery on thursday) HPI Comments Details: Presenting referred from Casandra Benoit CNM regarding abnormal pelvic ultrasound done on 07/09/2023 . The patient has been complaining of heavy menstrual cycles associated with pelvic cramping since 03/22 Pelvic ultrasound done in 07/23 showed the following Transabdominal scanning performed for overall anatomy. Transvaginal scanning performed for additional detail. LMP: 06/16/2024 Anteverted uterus, normal size and echotexture, measuring 7.4 x 3.5 x 4.6 cm. Well defined endometrium, measuring 10.0 mm in thickness. Equivocal endometrial polyp measuring 7 x 10 x 15 mm sonohysterogram would be confirmatory. The right ovary measures, 3.2 x 2.1 x 1.4 cm. Normal sonographic appearance right ovary. Normal color Doppler of the ovary. The left ovary measures, 2.7 x 1.4 x 2.4 cm. 1.0 x 1.7 x 2.4 cm probable corpus luteum. Normal color Doppler of the ovary. No adnexal masses or fluid collections. No free fluid CT was positive in 02/19 repeat test of cure in 04/21 was negative Last co testing in 05/22 was negative/HPV E6 E7 positive, HPV 16/18/45 negative COUNT INCLUDES THE [facility] Medical History (Updated 10/11/24 @ 08:59 by Fer Sutton MD) Depression Type 1 diabetes mellitus with hyperglycemia Surgical History History of left breast biopsy Family History Paternal Grandmother Diabetes Maternal Aunt Breast cancer Family/Other Colon cancer Social History Household Members: Family Housing: Apartment Alcohol intake: current Alcohol intake frequency: holidays/special occasions only Patient Tobacco Use Status: Never used Tobacco Substance Use Type: Marijuana Current occupational status: employed Current occupation: Sexual orientation: Straight/Heterosexual Gender identity: Female Female Reproductive History Menstrual Age of Menarche: 13 Date of last menstrual period: 04/26/20 Total pregnancies: 2 Full term: 2 Review of Systems Const All systems reviewed & are unremarkable except as noted in HPI and below Card Reports as per HPI and Reports no additional complaints Resp Reports as per HPI and Reports no additional complaints GI Reports as per HPI and Reports no additional complaints Reports as per HPI Physical Exam Const General: cooperative, healthy appearing and comfortable Resp Effort & Inspection: normal respiratory effort Auscultation: clear to auscultation bilaterally Percussion: percussion normal Cardio Palpation: normal PMI Rate: regular rate Rhythm: regular rhythm Heart sounds: no murmurs and no rubs Peripheral pulses: Peripheral pulses 2+ throughout GI Inspection: Yes normal to inspection Palpation (GI): Soft to palpation, nontender, no guarding, not rigid and No hepatosplenomegaly present Percussion: Yes normal to percussion Auscultation: normal bowel sounds Rectal Exam - Female: deferred General: Yes no CVA tenderness External Female Exam: normal external appearance and normal appearance of the urethra Speculum Exam - Vagina: normal appearance of the vagina, normal palpation, no lesions and no masses Speculum Exam - Cervix: normal appearance of the cervix, normal palpation, no lesions, no masses and nontender Bimanual exam- vagina & uterus: normal bimanual exam, normal palpation, uterine size normal, normal palpation, uterine shape normal, No Cervical tenderness present and non-tender Bimanual Exam- Adnexa, other: normal adnexae Back/Spine/Pelvis Back: no CVA tenderness Assessment & Plan Assessment & Plan (1) Abnormal uterine bleeding (AUB): Comment: Endometrial polyp on ultrasound Code(s): N93.9 - Abnormal uterine and vaginal bleeding, unspecified Category: Medical Plan: CBC, TSH, hCG ordered Discussed with the patient the finding on ultrasound showing endometrial polyp, recommended hysteroscopy D&C possible polypectomy/myomectomy. Discussed with the patient the procedure , all benefits and risks including but not limited to inability to complete the procedure , insufficient endometrial tissue for a complete evaluation of the endometrial cavity , bleeding, infection, possible need for blood transfusion with all its risk ( HIV,syphilis, Hepatitis, anaphylaxis shock, others..), injury to bladder, rectum, possible need for laparoscopy/laparotomy or hysterectomy. The patient verbalized understanding and signed the consent. Instructions given the patient to stay NPO after midnight the day prior to the procedure and to take only the specific medication (s) discussed the morning of the surgical procedure and to schedule a 2 week postoperative appointment (2) HPV (human papilloma virus) infection: Comment: Negative Pap smear 04/21 Code(s): B97.7 - Papillomavirus as the cause of diseases classified elsewhere Category: Medical Plan: Discussed with the patient the result of her pap with positive HPV E6/E7, negative HPV 16/18/45, its significance, risk of progression, persistence, and regression. the false positive/negative rate of a Pap smear as a screening test in detecting cervical cancer and recommended repeat co testing in 05/23. The patient verbalized understanding and agreed with the plan, all questions answered. (3) Positive Chlamydia PCR: Code(s): A74.9 - Chlamydial infection, unspecified Category: Medical Plan: STD screening tests done includes: BV panel for trichomonas, GC/CT will send patient for serology std screening for HIV, RPR, Hep b s Ag, HepC Ab. Instructions given the patient to schedule a follow-up appointment for repeat serology screen in 6 months for possible false negatives. Orders: Orders Hepatitis B Surface Antigen Today Z20.2 - Contact with and (suspected) exposure to infections with a predominantly sexual mode of transmission Syphilis Screen Today Z20.2 - Contact with and (suspected) exposure to infections with a predominantly sexual mode of transmission Hepatitis C Antibody Today Z20.2 - Contact with and (suspected) exposure to infections with a predominantly sexual mode of transmission HIV Ab/Ag Today Z20.2 - Contact with and (suspected) exposure to infections with a predominantly sexual mode of transmission HCG Quantitative Today N93.9 - Abnormal uterine and vaginal bleeding, unspecified TSH reflex Free T4 Today N93.9 - Abnormal uterine and vaginal bleeding, unspecified Complete Blood Count no Diff Today N93.9 - Abnormal uterine and vaginal bleeding, unspecified Coding Level of Care Code Est Pt Level 3 (99721) Diagnoses Abnormal uterine bleeding (AUB) N93.9 HPV (human papilloma virus) infection B97.7 Positive Chlamydia PCR A74.9
--- OUTSIDE RECORDS SUMMARY | 2024-10-11 08:47 | XMS_ITS | Encounter Summary ---
Author Organization [facility] Address [address] [place] [address] Phone Care Team Providers Care Coverstitch Machine Operator Name Role Phone Antonette Degroot SHOE CLEANER Primary Care Provider Jb hawley Encounter Details Date Type Department Care Team (Late st Contact Info) Description 03/18/2010 Documentation [facility] [place] [facility] [address] [place] [address] Family Medicine, Physician [address] [place] [address] Social History Tobacco Use Types Packs/Day Years [...] on filedocumented in this encounter Care Teams Coverstitch Machine Operator Relationship Specialty Start Date End Date Antonette Degroot NP PCP - General 02/06/17 10/06/22 documented as of this encounter
--- OUTSIDE RECORDS SUMMARY | 2024-10-11 08:47 | XMS_ITS | Clinical Summary ---
Author Organization [facility] Address [address] [place] [address] Phone Care Team Providers Care Commercial Account Executive Name Role Phone Unavailable Primary Care Provider [...] Other No family histo ry of Sudden /SD under age 55, Family history of Strabismus/amblyopia, [...]
--- OUTSIDE RECORDS SUMMARY | 2024-10-11 08:47 | XMS_ITS | Encounter Summary ---
Author Organization [facility] Address [address] [place] [address] Phone Care Team Providers Care Box Car Bracer Name Role Phone Antonette Degroot NURSING UNIT COORDINATOR Primary Care Provider Jb hawley Encounter Details Date Type Department Care Team (Late st Contact Info) Description 06/03/2010 Documentation [facility] [place] [address] [place] [address] Family Medicine, Physician [address] [place] [address] Social History Tobacco Use Types Packs/Day Years [...] on filedocumented in this encounter Care Teams Box Car Bracer Relationship Specialty Start Date End Date Antonette Degroot NP PCP - General 02/06/17 10/06/22 documented as of this encounter
--- OUTSIDE RECORDS SUMMARY | 2024-10-11 08:47 | XMS_ITS | Encounter Summary ---
Author Organization [facility] Address [address] [place] [address] Phone Care Team Providers Care Supervisor Roving Name Role Phone Antonette Degroot NP Primary Care Provider Jb hawley Encounter Details Date Type Department Care Team (Late st Contact Info) Description 02/12/2017 Conversion Encounter [facility] - [address] [address] Social History Tobacco Use Types Packs/Day Years [...] on filedocumented in this encounter Care Teams Supervisor Roving Relationship Specialty Start Date End Date Antonette Degroot NP PCP - General 02/06/17 10/06/22 documented as of this encounter
--- OUTSIDE RECORDS SUMMARY | 2024-10-11 08:47 | XMS_ITS | Patient Health Record ---
Author Organization William Tolentino III, MD Address [address] [place] [address] [place] [address] Care Team Providers Care Microsoft Bi Architect Name Role Phone William Tolentino Primary Care Provider [phone] Allergies Allergen (clinical drug ingredient) Drug/Non Drug [...] Blood Reviewed date:11/03/2023 10:10:34 AM Interpretation: Performing Lab:[facility], [address] [place] [phone] Notes/Report: Glucose, Whole Blood 104 60-115 mg/dL METER #: [id number] Testing performed in the [facility], [place]. Diabetic Eye Exam Reviewed date:11/18/2023 03:23:10 PM Interpretation:undefined Performing Lab: Notes/Report: undefined Glucose, Whole Blood Reviewed date:02/14/2024 08:01:45 AM Interpretation: Performing Lab:[facility], [address] [place] [phone] Notes/Report: Glucose, Whole Blood 90 60-115 mg/dL METER #: [id number] Testing performed in the [facility] , [address], [facility]. CT NG by PCR Reviewed date:02/27/2024 08:39:14 AM Interpretation: Performing Lab:[facility], [address] [place] [phone] Notes/Report: Vaginal CT PCR DETECTED Not Detect. [...] ordering clinician or clinical facility to the [facility] as required by state law. NG [...] Panel Reviewed date:02/28/2024 07:23:58 AM Interpretation: Performing Lab:[facility], [address] [place] [phone] Notes/Report: Trichomonas vaginalis PCR NOT DETECTED Not [...] date:03/13/2024 07:32:41 AM Interpretation: Performing Lab: Notes/Report: [address] [address] Ultrasound Report Signed Patient: Alyce Hardwick MR#: [id number] : 1990 Acct:[id number] Age/Sex: 33 / F ADM Date: 03/04/24 Loc: HO.US Attending Dr: Glenda Gross CNM Ordering Physician: Glenda Gross CNM Date of Service: 03/04/24 Procedure(s): US pelvic and transvaginal Accession Number(s): [id number] cc: William Tolentino MD; Glenda Gross CNM [...] 03/10/24 0937 DD/ 1110 TD/TT: 03/04/24 1131 Rn Clinical Documentation Specialist: [place] [address] Ultrasound Report Signed Patient: Alyce Hardwick MR#: [id number] : 1990 Acct:[id number] Age/Sex: 33 / F ADM Date: 03/04/24 Loc: HO.US Attending Dr: Glenda Gross CNM Ordering Physician: Glenda Gross CNM Date of Service: 03/04/24 Procedure(s): US pel adela and transvaginal Accession Number(s): [id number] cc: William Tolentino MD; Glenda Gross CNM [...] 03/10/24 0937 DD/ 1110 TD/TT: 03/04/24 1131 Rn Clinical Documentation Specialist: CT NG by PCR Reviewed date:04/11/2024 07:10:12 AM Interpretation: Performing Lab:[facility], [address] [place] [phone] Notes/Report: Vaginal CT PCR NOT DETECTED Not [...] Panel Reviewed date:04/11/2024 07:10:12 AM Interpretation: Performing Lab:[address] [address] Notes/Report: Trichomonas vaginalis PCR NOT DETECTED Not [...] 18/45 Reviewed date:04/17/2024 08:40:09 AM Interpretation: Performing Lab:[address] [address] Notes/Report: SEE SCANNED RESULTS IN EMR HPV 16 RNA NOT DETECTED NOT DETECTED HPV 18/45 RNA NOT DETECTED NOT DETECTED Methodology: Interior Designer Mediated Amplification Cervical sources are required for HPV testing. If a vaginal source from a patient who has had a total hysterectomy with removal of cervix was submitted, please contact the testing laboratory for alternative testing options. THIS TEST WAS PERFORMED AT: [facility] [address] [place] [phone] SEAN RENE MD HPV mRNA E6/E7 Detected Not Detected Methodology: Interior Designer-Mediated Amplification This assay detects E6/E7 viral messenger RNA (mRNA) from 14 high-risk HPV types (16,18,31,33,35,39,45, 51,52,56,58,59,66,68). Cervical sources are required for HPV testing. If a vaginal source from a patient who has had a total hysterectomy with removal of cervix was submitted, please contact the testing laboratory for alternative testing options. For additional information, please refer to http://education.Kukupia/faq/FA Q129v1 (This link if provided for information/ [...] has been evaluated with computer assisted technology. Linseed Oil Boiler SEE NOTE SXA, CT(ASCP) CT screening location: [place] [address] Review Linseed Oil Boiler SEE NOTE MPG, CT(ASCP) CT screening location: [place] [address] Pathologist TNP PAP Infection TNP See Note [...] Blood Reviewed date:05/13/2024 08:19:51 PM Interpretation: Performing Lab:[facility], [address] [place] [phone] Notes/Report: Glucose, Whole Blood 179 60-115 mg/dL METER #: [id number] Testing performed in the [facility]ocrinology [facility], [facility]. US pelvic and transvaginal Reviewed date:07/09/2024 08:36:54 PM Interpretation: Performing Lab: Notes/Report: [address] [place] [address] Ultrasound Report Signed Patient: Alyce Hardwick MR#: [id number] : 1990 Acct:[id number] Age/Sex: 34 / F ADM Date: 07/08/24 Loc: HO.US Attending Dr: Glenda Gross CNM Ordering Physician: Glenda Gross CNM Date of Service: 07/08/24 Procedure(s): US pelvic and transvaginal Accession Number(s): [id number] cc: William Tolentino MD; Glenda Gross CNM CLINICAL HISTORY: N92.6 - Irregular menstruation, unspecified US pelvis transabdominal and transvaginal with color Doppler Comparison: US/OT/NC - US PELVIC AND TRANSVAGINAL - 03/04/24 [...] 07/09/24 1601 DD/ 1600 TD/TT: 07/09/24 1600 Rn Clinical Documentation Specialist: [place] [address] Ultrasound Report Signed Patient: Alyce Hardwick MR#: [id number] : 1990 Acct:[id number] Age/Sex: 34 / F ADM Date: 07/08/24 Loc: HO.US Attending Dr: Glenda Gross CNM Ordering Physician: Glenda Gross CNM Date of Service: 07/08/24 Procedure(s): US pel adela and transvaginal Accession Number(s): [id number] cc: William Tolentino MD; Glenda Gross CNM CLINICAL HISTORY: N9 2.6 - Irregular menstruation, unspecified US pelvis transabdominal and transvaginal with color Doppler Comparison: US/OT/NC - US PELVIC AND TRANSVAGINAL - 03/04/24 [...] 07/09/24 1601 DD/ 1600 TD/TT: 07/09/24 1600 Rn Clinical Documentation Specialist: GI Panel Reviewed date:09/14/2024 11:08:21 AM Interpretation: Performing Lab:[facility], [address] [place] [phone] Notes/Report: Campylobacter Not Detected Not Detect. Plesiomonas [...] is performed by Multiplexed PCR, utilizing the [employer] Array. Ova and Parasite Reviewed date:09/14/2024 11:08:21 AM Interpretation: Performing Lab:[facility], [address] [place] [phone] Notes/Report: Ova and Parasite SEE NOTE OVA AND PARASITES, CONC AND PERM SMEAR Micro Number: [id number] Test Status: Final Specimen Source: Stool Specimen [...] infection. For additional information, please refer to https://Parallels.GoGoPin/faq/F AQ203 (This link is being provided for informational/ educational purposes only.) THIS TEST WAS PERFORMED AT: [place] [address] SHAYY KEEN MD Glucose, Whole Blood Reviewed date:09/14/2024 11:08:21 AM Interpretation: Performing Lab:[facility], [address] [place] [phone] Notes/Report: Glucose, Whole Blood 115 60-115 mg/dL METER #: [id number] Testing performed in the [facility], [address], [facility]. Reason For Referral No Information Medications [...] Problem Status W/U Status Risk Notes Problem 085893418 Overweight (E66.3) Active confirmed She has gained [...] fat calories sodium and concentrated sweets. Problem 805389784 Other obesity (E66.8) Active confirmed Her body mass index is 31.4. We discussed weight reduction strategies and a diabetic diet. We made a plan to lose weight. Problem 214549145 MCC current use of insulin (Z79.4) Active confirmed Her insulin pump is working well. Her glucose levels have been satisfactory. She will continue to be managed by endocrinology Problem 961223240 Attention deficit disorder (ADD) in adult (F98.8) Active confirmed She was continu ed on her current regimen. Problem 280240433 Type 1 diabetes mellitus without complication (E10.9) Active confirmed Her insulin pum p continues to function normally as does her monitor. Her hemoglobin A1c is acceptable. She remains under the care of endocrinology. Problem 019681738 Body mass index [BMI] 30.0-30.9, adult (Z68.30) Active confirmed Problem 024557836 Bilateral headaches (R51.9) Active confirmed She has had no headaches since her last visit. Problem 84865146 Difficulty concentrating (R41.840) Active confirmed She says that h er previous primary care physician, Dr. Chaves, prescribed this medication, but it was years ago. I referred her back to her psychotherapist for evaluation and if necessary, referral to a prescriber. I made the appointment and I am not trained in psychiatric disorders. Problem 849516163 Obesity, class 1 (E66.811) Active confirmed Her [...] Date Provider Diagnosis William Tolentino III, MD [address] [place] [address] [place] [address] 10/20/2023 William Tolentino Type 1 diabetes jade itus without complication E10.9 ; Attention deficit disorder (ADD) in adult F98.8 ; Bilateral headaches R51.9 and Other obesity E66.8 William Tolentino III, MD [address] [place] [address] [place] [address] 06/13/2024 William Tolentino oil heaterman current us e of insulin Z79.4 ; Type 1 diabetes mellitus without complication E10.9 ; Obesity, class 1 E66.811 ; Attention deficit disorder (ADD) in adult F98.8 and Depression, unspecified depression type F32.A William Tolentino III, MD [address] [place] [address] [place] [address] 07/05/2024 William Tolentino Anxiety, generalized F41.1 ; Type 1 diabetes mellitus without complication E10.9 ; Other obesity due to excess calories E66.09 and Bilateral headaches R51.9 William Tolentino III, MD [address] [place] [address] [place] [address] 09/05/2024 William Tolentino Type 1 diabetes jade itus without complication E10.9 ; Bilateral headaches R51.9 ; Overweight E66.3 ; Attention deficit disorder (ADD) in adult F98.8 ; Obesity, class 1 E66.811 and Acute gastroenteritis K52.9 William Tolentino III, MD [address] [place] [address] [place] [address] 09/07/2024 William Tolentino Other obesity due to excess calories E66.09 ; Type 1 diabetes mellitus without complication E10.9 ; Acute gastroenteritis K52.9 and Attention deficit disorder (ADD) in adult F98.8 William Tolentino III, MD [address] [place] [address] [place] [address] 09/14/2024 William Tolentino Escherichia coli infection A49.8 ; Type 1 diabetes mellitus without complication E10.9 ; oil heaterman current use of insulin Z79.4 ; Overweight E66.3 and Attention deficit disorder (ADD) in adult F98.8 William Tolentino III, MD [address] [place] [address] [address] [place] [address] 10/29/2023 William Tolentino III, MD [address] [place] [address] [address] [place] [address] 09/13/2024 William Tolentino Assessments Encounter Date Diagnosis [...] remains under the care of endocrinology. 06/13/2024 oil heaterman current us e of insulin (ICD-10 - [...] recommended Imodium. She will hydrate aggressively. 09/14/2024 oil heaterman current us e of insulin (ICD-10 - [...] Details Provider Name:William Tolentino, 10/25/2024 11:00:00 AM, [address] [place] [address] [address], [place], [address], Insurance Providers Payer Name Payer Address Payer Phone Subscriber Number Group Number Insured Name Patient Relationship to Insured Coverage Start Date Coverage End Date [employer] [address] [address] [place] [address] [id number] Alyce Hardwick Self - patient is the insured 0 MEDICAID [facility] [address] [place] [id number] [phone] [id number] Alyce Hardwick Self - patient is the insured Medical (General) History Medical History History ICD Code juvenile diabetes mellitus, onset age 11 , insulin pump family history of breast cancer, 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 She is currently on fluoxetine for depression. Surgical History Surgery Date(Month/Year) No history dental extractions 2016 left breast lumpectomy, Dr. Mercer, [facility] 2015 Hospitalization History Reason Date(Month/Year) No history
--- OUTSIDE RECORDS SUMMARY | 2024-10-11 08:47 | XMS_ITS | Clinical Summary ---
Author Organization [facility] Address [address] [facility] [address] [place] [address] Phone Care Team Providers Care Cop Name Role Phone William Tolentino MD Primary Care Provider [phone] Allergies No known active allergies Medications insulin [...] Office Visit [facility] [address] [address] Jair Ireland MD [address] [address] Health Maintenance Due Date Last Done Comments Diabetes: Hemoglobin A1C 07/30/2020 Diabetes: Ophthalmology Exam 07/30/2020 Diabetes: Pedal Pulse Checked 07/30/2020 Diabetes: Sensory Foot Exam 07/30/2020 Diabetes: Visual Foot Exam 07/30/2020 Influenza Vaccine (Season Ended) 2025 04/14/2007, 04/07/2006, 04/16/2005 Hepatitis B Vaccine Completed 04/21/2001, 11/27/2000, 10/26/2000 Pneumococcal Vaccine: Peds ( 0 to 5 Years) and At-Risk Patients (6 to 49 Years) Aged Out No longer eligi ble based on patient's age to complete this topic Insurance [facility] Medicaid [facility] Medicaid Care Teams Cop Relationship Specialty Start Date End Date William Tolentino MD [address] [place] [address] [address] [place], [place] PCP - General Medical Oncology 01/20/22
--- OUTSIDE RECORDS SUMMARY | 2024-10-11 08:48 | XMS_ITS ---
Author Organization William Tolentino III, MD Address [address] [facility] [place] [address] Care Team Providers Care Healthcare Economics Consultant Name Role Phone William Tolentino Primary Care Provider [phone] Allergies Allergen (clinical drug ingredient) Drug/Non Drug Allergy documented on EMR Reaction Allergy Type Onset Date Status No Known Drug Allergy Unknown Drug Allergy Active REASON FOR VISIT Gastroenteritis, Shinto one diabetes, Anxiety and depression Medications Medication [...] Date Provider Diagnosis William Tolentino III, MD [address] [place] [address] [place] [address] 09/14/2024 William Conleyne Escherichia coli infection A49.8 ; Type 1 diabetes mellitus without complication E10.9 ; watermaster current use of insulin Z79.4 ; Overweight [...] remains under the care of endocrinology. 09/14/2024 watermaster current use of insulin (ICD-10 - Z79.4) [...] Next Appt Details Follow Up: As Scheduled, [place] son: Annual Exam Provider Name:William Polkrne, 10/25/2024 11:00:00 AM, [address] [place] [address] [address], [place], [address], Progress Notes * Britney HARDWICKOB:1990 ([age] yo F)Acc No.[id number]:09/14/2024 Progress Notes Patient:?Alyce HARDWICK Provider:?William Tolentino MD :1990???Age:34 Y???Sex:Female D ate:09/14/2024 Address:[place] Subjective: * Chief Complaints: * ???GastroenteritisJew one di abetesAnxiety and depression * HPI: ???COVID-19 Screening:? 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 [...] ?E. coli STECNot DetectedNot Detect. -?E. coli B295Mfq applicable Not Detect. -?Shigella sp./EIECNot DetectedNot Detect. [...] acceptable. She remains under the care of endocrinology.???3.?watermaster current use of insulin - Z79.4???Notes :Her [...] lb per week.? * Follow Up:?As Scheduled ([place] son: Annual Exam) * Images: * Sign off status: Completed true * Provider:?William Tolentino MD Date:?08/27 Generated for Duncan smith/Estefania/Meghanitting on:?10/11/2024 08:48 AM EDT History and Physical Notes * [...]
--- OUTSIDE RECORDS SUMMARY | 2024-10-11 08:48 | XMS_ITS ---
Author Organization William Tolentino III, MD Address [address] [facility] [address] [place] [address] Care Team Providers Care Crucible Furnace Tender Name Role Phone William Tolentino Primary [...] Date Provider Diagnosis William Tolentino III, MD [address] [place] [address] [place] [address] 09/07/2024 William Tolentino Other obesity due to [...] OV Provider Name:William Tolentino, 10/25/2024 11:00:00 AM, [address] [place] [address] [address] [place] [address], [place], [address], Progress Notes * Britney HARDWICKOB:1990 ([age] yo F)Acc No.[id number]:09/07/2024 Patient:?Alyce HARDWICK Provider:?William Tolentino MD :1990???Age:34 Y???Sex:Female D ate:09/07/2024 Address:[address] [place] [address] [place] Subjective: * Chief Complaints: * ???URIJuvenile diabetesUses insulin pump * HPI: ???:?This telehealth visit took place over 15 minutes with the patient at home and me in my office.? She gave consent for billing.? She recently came down with an acute illness of cough and congestion and mild fever and diarrhea.? She has just been to [facility] A stool culture was done and returned showing toxigenic Escherichia coli.? She reports that she is beginning to improve.? She will be treated with fluids and conservative care.? The ova and parasites are still pending.She has had only 2 stools yesterday.? She has had no abdominal pain. 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 [...] week.? * Follow Up:?As Scheduled (Crissy son: OV) * Images: * Sign off status: Completed true * Provider:?William Tolentino MD Date:?08/27 Generated for Duncan smith/Estefania/eTransmitting on:?10/11/2024 08:47 AM EDT History and Physical Notes * HPI (History of Present Illness) Category Sub-Category Detail Notes Telehealth Location of [facility] rendering services:: {...} [address] [place] [address] Location of patient:: address listed in demographics [...]
--- OUTSIDE RECORDS SUMMARY | 2024-10-11 08:48 | XMS_ITS | Clinical Summary ---
Author Organization [facility] Address [address] [place] [address] Care Team Providers Care Marine Architect Name Role Phone Unavailable Primary Care Provider Unavailabl e Social History Tobacco Use Types Packs/Day Years Used Date Smoking Tobacco: Never Assessed Sex and Gender Information Value Date Recorded Sex Assigned at Not on file Gender Identity Not on file Sexual Orientation Not on file Plan of Treatment Not on file
--- OUTSIDE RECORDS SUMMARY | 2024-10-11 08:48 | XMS_ITS ---
Author Organization William Tolentino III, MD Address [address] [place] [address] [place] [address] Care Team Providers Care User Experience Designer Name Role Phone William Tolentino Primary Care [...] Date Provider Diagnosis William Tolentino III, MD [address] [place] [address] [address] [facility] [address] 09/13/2024 William Tolentino Plan Of Treatment Next Appt Details Provider Name:William Tolentino, 10/25/2024 11:00:00 AM, [address] [place] [address] [address] [place] [facility] [place] [address], Progress Notes * Erendira HARDWICKSukhdeepOB:1990 ([age] yo F)Acc No.[id number]:09/13/2024 Patient:Alyce ROBERTSON :1990???Age:34 Y???Sex:Female Address:[address] [place], [place] [address], [address] Subjective: * Chief Complaints: * ???Discontinued Rx [...] true * Date:? Generated for Duncan smith/Estefania/Sofya on:?10/11/2024 08:48 AM EDT
== END 2024-10-11 09:24 | disposition home or self-care (01) ==
LOC: HO.HWS 08:32
PROVIDERS: PCP Internal Medicine Medical Oncology; Visit Provider Obstetrics & Gynecology
DX: N93.9 Abnormal uterine and vaginal bleeding, unspecified (principal); B97.7 Papillomavirus as the cause of diseases classified elsewhere; A74.9 Chlamydial infection, unspecified
CPT/HCPCS: 99213

== ENCOUNTER 2024-11-04 06:57 | Day surgery (SDC) | payer OTHER, SELFPAY ==
--- OUTSIDE RECORDS SUMMARY | 2024-10-11 17:03 | XMS_ITS | Clinical Summary ---
Author Organization [facility] [address] [facility] [address] [place] [address] Phone Care Team Providers Care Business Developer Name Role Phone William Tolentino MD Primary Care Provider [phone] Allergies No known active allergies Medications insulin [...] Office Visit [facility] [address] [address] Jair Ireland MD [address] [address] Health Maintenance Due Date Last [...] patient's age to complete this topic Insurance [facility] Medicaid [facility] Medicaid Care Teams Business Developer Relationship Specialty Start Date End Date William Tolentino MD [address] [place] [address] [address] [place], [place] PCP - General Medical Oncology 01/20/22
--- OUTSIDE RECORDS SUMMARY | 2024-10-11 17:04 | XMS_ITS | Encounter Summary ---
Author Organization [facility] Address [address] [place] [address] Phone Care Team Providers Care Agriculture Professor Name Role Phone Antonette Degroot MANAGER [place] Primary Care Provider Jb hawley Encounter Details Date Type Department Care Team (Late st Contact Info) Description 06/03/2010 Documentation [facility] [place] [address] [place] [address] Family Medicine, Physician [address] [place] [address] Social History Tobacco Use Types Packs/Day Years [...] on filedocumented in this encounter Care Teams Agriculture Professor Relationship Specialty Start Date End Date Antonette Degroot NP PCP - General 02/06/17 10/06/22 documented as of this encounter
--- OUTSIDE RECORDS SUMMARY | 2024-10-11 17:04 | XMS_ITS | Encounter Summary ---
Author Organization [facility] Address [address] [place] [address] Phone Care Team Providers Care Turnstile Attendant Name Role Phone Antonette Degroot NP Primary Care Provider Jb hawley Encounter Details Date Type Department Care Team (Late st Contact Info) Description 02/12/2017 Conversion Encounter [facility] - [address] [address] Social History Tobacco Use Types Packs/Day Years [...] on filedocumented in this encounter Care Teams Turnstile Attendant Relationship Specialty Start Date End Date Antonette Degroot NP PCP - General 02/06/17 10/06/22 documented as of this encounter
--- OUTSIDE RECORDS SUMMARY | 2024-10-11 17:04 | XMS_ITS | Encounter Summary ---
Author Organization [facility] Address [address] [place] [address] Phone Care Team Providers Care Interior Decorator Name Role Phone Antonette Degroot EXTERIOR DOOR INSTALLER Primary Care Provider Jb hawley Encounter Details Date Type Department Care Team (Late st Contact Info) Description 03/18/2010 Documentation [facility] [place] Family Medicine [address] [place] [address] Family Medicine, Physician [address] [place] [address] Social History Tobacco Use Types Packs/Day Years [...] on filedocumented in this encounter Care Teams Interior Decorator Relationship Specialty Start Date End Date Antonette Degroot NP PCP - General 02/06/17 10/06/22 documented as of this encounter
--- OUTSIDE RECORDS SUMMARY | 2024-10-11 17:04 | XMS_ITS | Clinical Summary ---
Author Organization [facility] Address [address] [place] [address] Phone Care Team Providers Care Pretzel Packer Name Role Phone Unavailable Primary Care Provider [...] Other No family histo ry of Sudden /[place] under age 55, Family history of Strabismus/amblyopia, [...]
--- OUTSIDE RECORDS SUMMARY | 2024-10-11 17:04 | XMS_ITS | Clinical Summary ---
Author Organization [facility] Address [address] [place] [address] Care Team Providers Care Spring Upholsterer Name Role Phone Unavailable Primary Care Provider Unavailabl e Social History Tobacco Use Types Packs/Day Years Used Date Smoking Tobacco: Never Assessed Sex and Gender Information Value Date Recorded Sex Assigned at Not on file Gender Identity Not on file Sexual Orientation Not on file Plan of Treatment Not on file
[2024-11-02 07:26] VITALS: BMI 31.2
[2024-11-04 07:06] VITALS: BP 107/56; PULSE 78; RESP 18; TEMP 36.1; O2SAT 97; BMI 31.2
[2024-11-04 07:17] LABS: UPreg QC Valid YES; Urine Pregnancy NEGATIVE (NEGATIVE)
--- NOTE | 2024-11-04 07:30 | MHC.SHP ---
Pre-Procedural Eval Section A - 24 Hr Update-Section A only Date of Service: 11/04/24 The patient is an INPATIENT: No Changes since office visit: No Cold of Flu in the past 2 weeks, No New Medical Problems, No Changes in Medication and No Patient answered all questions The patient has been examined within 24 hours of the surgical procedure. The History & Physical has been completed within 30 days and I have reviewed it.: Yes Section B - Complete if H&P > 30 days Chief Complaint: Abnormal uterine and vaginal bleeding, unspecified Allergies: Allergies Allergy/AdvReac Type Severity Reaction Status Date / Time No Known Allergies Allergy Verified 10/11/24 08:39 Plan Diagnosis/Plan: Unchanged I have reviewed the history and physical and performed a pertinent physical examination on my patient. No changes have occurred unless specified. Time Spent With Patient Time: Total time managing care of this patient today ____ minutes.
--- NOTE | 2024-11-04 07:46 | HO.ANESPROP2 ---
Documented by User: Adamaris Camargo NP 11/02/24 12:58 HPI - Anesthesia Eval Consult details Narrative: 34yo F for D&C Hysteroscopy possible myomectomy/polypectomy PMFSH Active Problems Active Problems: All Active Problems Positive Chlamydia PCR (Acute) HPV (human papilloma virus) infection (Acute) Abnormal uterine bleeding (AUB) (Acute) Vaginal itching (Acute) Cervical cancer screening (Acute) Endometrial polyp (Acute) Chlamydia infection (Acute) Uses condoms as primary control method (Acute) Vaginal discharge (Acute) Irregular menstruation, unspecified (Acute) Encounter for annual routine gynecological examination (Acute) Type 1 diabetes mellitus with proteinuria (Acute) Encounter for removal and reinsertion of Nexplanon (Acute) Urinary retention (Acute) Potential exposure to STD (Acute) Etonogestrel implant for control (Acute) Well woman exam with routine gynecological exam (Acute) Type 1 diabetes mellitus with hyperglycemia (Acute) Past Medical History Medical History (Updated 10/11/24 @ 08:59 by Fer Sutton MD) Depression Type 1 diabetes mellitus with hyperglycemia Family History Family History Paternal Grandmother Diabetes Maternal Aunt Breast cancer Family/Other Colon cancer Surgical History Surgical History History of left breast biopsy Social History Social History Household Members: Family Housing: Apartment Alcohol intake: current Alcohol intake frequency: holidays/special occasions only Patient Tobacco Use Status: Never used Tobacco Substance Use Type: Marijuana Have you been hit, kicked, punched, or otherwise hurt by someone within the past year? If so, by whom?: No Are you DNR?: No Advance Directives: No Advance Directives Information Provided: Yes Current occupational status: employed Current occupation: Sexual orientation: Straight/Heterosexual Gender identity: Female Meds Allergies Allergy/AdvReac Type Severity Reaction Status Date / Time No Known Allergies Allergy Verified 10/11/24 08:39 Home Medications ?Medication ?Instructions ?Recorded ?Confirmed ?Last Taken ?Type blood-glucose sensor (Dexcom G6 03/25/22 04/07/24 Unknown History Sensor device) blood-glucose transmitter (Dexcom 03/25/22 04/07/24 Unknown History G6 Transmitter device) blood-glucose,slubber frame changer,cont 03/25/22 04/07/24 Unknown History (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 10 mg capsule 10 mg PO DAILY 01/29/23 04/07/24 11/04/24 History Exam Height,Weight and Vital Signs: Height 5 ft 8 in Weight 92.986 kg Assessment and Plan Assessment Anesthesia Assessment: Chart Reviewed Documented by User: Sulma Ray DO 11/04/24 07:48 [facility] Past Medical History Medical History (Updated 10/11/24 @ 08:59 by Fer Sutton MD) Depression Type 1 diabetes mellitus with hyperglycemia Family History Family History Paternal Grandmother Diabetes Maternal Aunt Breast cancer Family/Other Colon cancer Family history of problems with anesthesia: No Surgical History Surgical History History of left breast biopsy History of Problems with Anesthesia: No Social History Social History Household Members: Family Housing: Apartment Alcohol intake: current Alcohol intake frequency: holidays/special occasions only Patient Tobacco Use Status: Never used Tobacco Substance Use Type: Marijuana Have you been hit, kicked, punched, or otherwise hurt by someone within the past year? If so, by whom?: No Are you DNR?: No Advance Directives: No Advance Directives Information Provided: Yes Current occupational status: employed Current occupation: Sexual orientation: Straight/Heterosexual Gender identity: Female Meds Allergies Allergy/AdvReac Type Severity Reaction Status Date / Time No Known Allergies Allergy Verified 10/11/24 08:39 Home Medications ?Medication ?Instructions ?Recorded ?Confirmed ?Last Taken ?Type blood-glucose sensor (Dexcom G6 03/25/22 04/07/24 Unknown History Sensor device) blood-glucose transmitter (Dexcom 03/25/22 04/07/24 Unknown History G6 Transmitter device) blood-glucose,slubber frame changer,cont 03/25/22 04/07/24 Unknown History (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 10 mg capsule 10 mg PO DAILY 01/29/23 04/07/24 11/04/24 History Exam Exam Date and Time: 11/04/24 0745 Height,Weight and Vital Signs: Height 5 ft 8 in Weight 92.986 kg Vital Signs Temperature 96.9 F 11/04/24 07:06 Pulse Rate 78 11/04/24 07:06 Respiratory Rate 18 11/04/24 07:06 Blood Pressure 107/56 L 11/04/24 07:06 Pulse Oximetry 97 11/04/24 07:06 Oxygen Delivery Method Room Air 11/04/24 07:06 Temperature 96.9 F 11/04/24 07:06 Pulse Rate 78 11/04/24 07:06 Respiratory Rate 18 11/04/24 07:06 Blood Pressure 107/56 L 11/04/24 07:06 Pulse Oximetry 97 11/04/24 07:06 Oxygen Delivery Method Room Air 11/04/24 07:06 Airway Mallampati Class: I TM Dist: >3cm Neck ROM: Full Loose/Missing/Broken Teeth: No (patient denies any loose or broken teeth) Heart: S1S2 Lungs: CTAB Assessment and Plan Assessment Anesthesia Assessment: Anesthesia Plan Discussed and Chart Reviewed Final Anesthetic Review Family History of Problems with Anesthesia: No History of Problems with Anesthesia: No NPO: Yes ASA Class: II Final Preanesthetic Review: No Changes in Pt Med Stat, Meds/Allgs Chart Reviewed, Consent Obtained/Reviewed and Anes Risks/Benef Reviewed Patient Risk: Low Procedure Risk: Low Anesthetic Plan Anesthetic Plan: GA and Agree w/ Assess. and Plan Disposition: Standard PACU
--- NOTE | 2024-11-04 08:39 | P.OP_ITS ---
Operative Note Operative Note Date of Service: 11/04/24 Narrative: Preop Diagnosis: Abnormal uterine bleeding Operation: Diagnostic Hysteroscopy, Dilataion & Curettage Post Op Diagnosis: Normal endometrial and endocervical cavity, no evidence of pathology QBL: Minimal Anesthesia: GLMA Surgeon: Fer Sutton MD Animal Shelter Supervisor: None Complication: None Pathology: Endometrial Scrapings Procedure: The patient was put in the dorsal lithotomy position, scrubbed, and draped in the usual manner. A sterile speculum was inserted in the patient's vagina. The anterior lip of the cervix was grasped with a single tooth tenaculum. The cervix was dilated up to 5 mm, then the scope was inserted in the patient's uterus. Inspection revealed normal endocervical & endometrial cavity with no evidence of pathology. The scope was taken out of the uterine cavity , then sharp curetting was carried on with no complications. At the end of the procedure, all instruments were taken out of the patient uterine and vaginal cavity. The single tooth tenaculum was removed and homeostasis was assured using pressure. The patient tolerated the procedure well and was transferred to the PACU in a stable condition.
--- NOTE | 2024-11-04 08:39 | PM.OP ---
Brief Operative Note Date of Service: 11/04/24 Pre-op diagnosis: Abnormal uterine bleeding Post-op diagnosis: same (Normal endometrial cavity) Procedure: Hysteroscopy D&C Surgeon: Fer Sutton MD Anesthesia: GLMA Was an Scientific Programmer Analyst used for this Procedure?: No Estimated blood loss (mL): 0 Pathology: other (Endometrial Scrapping.) Condition: stable Disposition: PACU
[2024-11-04 08:45] VITALS: BP 115/72; PULSE 53; RESP 16; TEMP 36.1; O2SAT 100
[2024-11-04 08:50] VITALS: BP 121/70; PULSE 62; RESP 16; O2SAT 100
[2024-11-04 08:55] VITALS: BP 120/72; PULSE 59; RESP 16; O2SAT 100
[2024-11-04 09:00] VITALS: BP 124/72; PULSE 69; RESP 16; O2SAT 100
[2024-11-04 09:15] VITALS: BP 140/80; PULSE 64; RESP 16; O2SAT 97
== END 2024-11-04 09:59 | disposition home or self-care (01) ==
PROVIDERS: PCP Internal Medicine Medical Oncology; Visit Provider Obstetrics & Gynecology
PROC: 0UDB8ZZ Extraction of Endometrium, Via Natural or Artificial Opening Endoscopic (ICD-10-PCS; CPT 58558; principal; 2024-11-04 08:40)
DX: N93.9 Abnormal uterine and vaginal bleeding, unspecified (principal); N85.01 Benign endometrial hyperplasia; B97.7 Papillomavirus as the cause of diseases classified elsewhere; A74.9 Chlamydial infection, unspecified; E10.65 Type 1 diabetes mellitus with hyperglycemia; F32.A Depression, unspecified; Z79.4 Long term (current) use of insulin; Z79.899 Other long term (current) drug therapy
CPT/HCPCS: 58558; 81025; 88305; J0131; J1885; J2003; J2405; J2704; J3010

== ENCOUNTER → 2024-11-04 06:57 | Outpatient (BNV) | payer OTHER, SELFPAY | PROVIDERS: PCP Internal Medicine Medical Oncology; Visit Provider Obstetrics & Gynecology | DX: N93.9 Abnormal uterine and vaginal bleeding, unspecified (principal) | CPT/HCPCS: 58558 ==

== ENCOUNTER 2024-11-10 11:57 | Outpatient (AMB) | payer OTHER, SELFPAY ==
--- NOTE | 2024-11-10 12:01 | MHC.OFFVIS ---
Intake Visit Reasons: post op Allergies No Known Allergies Allergy (Verified 10/11/24 08:39) HPI Comments Details: The patient is presenting post hysteroscopy D&C no complaints minimal vaginal bleeding no feverishness chills or abdominal pain. The pathology showed the following: Endometrium, curettage: Benign late secretory endometrium; no atypia or carcinoma. Comment: Some fragments may be derived from benign functional polyps. The following workup was done.: H&H= 14/41.9 TSH, hCG, GC and chlamydia were negative. Pelvic ultrasound done in 07/23 showed the following Transabdominal scanning performed for overall anatomy. Transvaginal scanning performed for additional detail. LMP: 06/16/2024 Anteverted uterus, normal size and echotexture, measuring 7.4 x 3.5 x 4.6 cm. Well defined endometrium, measuring 10.0 mm in thickness. Equivocal endometrial polyp measuring 7 x 10 x 15 mm sonohysterogram would be confirmatory. The right ovary measures, 3.2 x 2.1 x 1.4 cm. Normal sonographic appearance right ovary. Normal color Doppler of the ovary. The left ovary measures, 2.7 x 1.4 x 2.4 cm. 1.0 x 1.7 x 2.4 cm probable corpus luteum. Normal color Doppler of the ovary. No adnexal masses or fluid collections. No free fluid CT was positive in 02/19 repeat test of cure in 04/21 was negative Last co testing in 05/22 was negative/HPV E6 E7 positive, HPV 16/18/45 negative 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 All pros, cons, risks and benefits if each option was discussed with the patient and the patient decided to think about it and get back to us. All questions answered the patient verbalized understanding. Coding Level of Care Code Est Pt Level 3 (31298) Diagnoses Abnormal uterine bleeding (AUB) N93.9
--- OUTSIDE RECORDS SUMMARY | 2024-11-10 12:57 | XMS_ITS ---
Author Organization William Tolentino III, MD Address [address] [facility] [place] [address] Care Team Providers Care Bilingual Executive Assistant Name Role Phone William Tolentino Primary Care Provider [phone] Allergies Allergen (clinical drug ingredient) Drug/Non Drug [...] Provider Diagnosis William Tolentino III, MD [address] [place] [address] [place] [address] 10/25/2024 William Tolentino Type 1 diabetes mellitus without complication E10.9 ; Attention deficit disorder (ADD) in adult F98.8 ; detention current use of insulin Z79.4 ; Bilateral [...] (ADD) in adult (ICD-10 - F98.8) 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 (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 [...] december, on: OV review labs Provider Name:William Tolentino, 01/24/2025 10:45:00 AM, [address] [facility] [place], [place], [address], Provider Name:William Tolentino, 10/26/2025 11:00:00 AM, [address] [facility] [place], [place], [address], Progress Notes * Britney HARDWICKOB:1990 ([age] yo F)Acc No.[id number]:10/25/2024 Progress Notes Patient:?Alyce HARDWICK Provider:?William Tolentino MD :1990???Age:34 Y???Sex:Female D ate:10/25/2024 Address:[address] [place] [address] [place], [id number] Subjective: * Chief Complaints: * ???Annual exam * HPI: ???Depression Screening:?She returns to the office at the age of 34 for her annual physical examination has no new complaints and feels well.? Her industrial health engineer, Dr. Sutton has scheduled her for a uterine polypectomy in 2 weeks.? She is expected to return home afterwards.? He has had no vaginal bleeding.? Her hemoglobin A1c is satisfactory.? Efforts are underway to replace her old insulin pump with a Anders.? She denies any chest pain shortness breath nausea vomiting diarrhea bleeding.? Blood work is available and was reviewed with her in detail.She has a industrial health engineer whom she prefers to have do her breast examination pelvic examination examination. ?PHQ-9?Little interest or pleasure in doing things?Not at all ?Feeling down, depressed, or hopeless?Not at all ?Trouble falling or staying asleep, or sleeping too much?Not at all ?Feeling tired or having little energy?Not at all ?Poor appetite or overeating?Not at all ?Feeling bad about yourself or that you are a failure, or have let yourself or your family down?Not at all ?Trouble concentrating on things, such as reading the newspaper or watching television?Not at all ?Moving or speaking so slowly that other people could have noticed; or the opposite, being so fidgety or restless that you have been moving around a lot more than usual?Not at all ?Thoughts that you would be better off or of hurting yourself in some way?Not at all ?Total Score?0 ???COVID-19 Screening:?Questions?Have you had any new onset fever, chills, cough, congestion, sore throat, shortness of breath, muscle aches??No ???SDOH Questions:?SDOH Questions?In the past year have you been worried about losing your housing??No ?In the past year have you or any family members you live with been unable to get any of the following when it was really needed? Check all that apply:?None * ROS:?General/Constitutional:?pain?only normal aches and pains.?Chills?denies.?Fatigue?admits.?Fever?denies.?ENT:?Decreased hearing?denies.?Respiratory:?Cough?denies.?Cardiovascular:?Chest pain with exertion?denies.?Dyspnea on exertion?denies.?Shortness of breath?denies.?Gastrointestinal:?Constipation?occasional.?Decreased appetite?denies.?Diarrhea?denies.?Heartburn?denies.?Nausea?denies.?Rectal bleeding?denies.?Vomiting?denies.?Hematology:?bruising?denies.?petechiae?denies.?Swollen glands?none have been noted.?Genitourinary:?Frequent urination?at night.?Musculoskeletal:?Muscle aches?denies.?Painful joints?denies.?Sciatica?denies.?Weakness?denies.?Skin:?Itching?denies.?Rash?denies.?Skin lesion(s)?denies.?Neurologic:?Difficulty speaking?denies.?Dizziness?denies.?Headache?denies.?Low back pain?denies.?Psychiatric:?Depressed mood?denies.? * Medical History:? * Surgical History:?left raghav [...] and takes lexapro. 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 [...] the patient * Allergies:?No Known Drug All ergyNo Known Food Allergyno[Allergies Verified] Objective: * Vitals:?Ht: 68, Wt: 184, BMI :27.97, BP: 116/76, HR: 67, Temp: 97.9, Ht-cm: 172.72, Wt-k.46. * ???Past Orders: ???Lab:GI Panel (Order Date - 09/06/2024) (Collection Date & Time - 09/06/2024 06:50 AM) ? Value Reference Range ?Campylobacter Not Detected Not De tect. - ?Plesiomonas shigelloides Not Detected Not Detect. - ?Salmonella Not Detected Not Detec t. - ?Vibrio Not Detected Not Detect. - ?Vibrio Cholerae Not Detected Not Detect. - ?Yersinia enterocolitica Not Detected Not Detect. - ?E. coli EAEC Detected A Not Det ect. - ?E. coli EPEC Detected A Not Det ect. - ?E. coli ETEC Not Detected Not Det ect. - ?E. coli STEC Not Detected Not Det ect. - ?E. coli O157 Not applicable Not D etect. - ?Shigella sp./EIEC Not Detected No t Detect. - ?Cryptosporidium Not Detected Not Detect. - ?Cyclospora cayetanensis Not Detected Not Detect. - ?Entamoeba histolytica Not Detected Not Detect. - ?Giardia lamblia Not Detected Not Detect. - ?Adenovirus F 40/41 Not Detected N ot Detect. - ?Astrovirus Not Detected Not Detec t. - ?Norovirus GI/GII Not Detected Not Detect. - ?Rotavirus A Not Detected Not Dete ct. - ?Sapovirus Not Detected Not Detect . - ???Lab:Ova and Parasite (Ord er Date - 09/06/2024) (Collection Date & Time - 09/06/2024 06:50 AM) ? Value Reference Range ?Ova and Parasite SEE NOTE - Lab:Glucose, Whole [...] (Ref Range: Not Detect) Bacterial Vaginosis PCR POSITIVE?A (Ref Range: Negative) POSITIVE?A (Ref Range: Negative) POSITIVE?A (Ref Range: Negative) Karen Group PCR NOT [...] 5.94.8-10.8 - X10*3/uL?Red Blood Count4.634.20-5.50 - X10*6/uL ?Taixrwaaop42.012.0-16.0 - g/dl?Sdtwphmqek57.937.0-47.0 - % ?Mean Corpuscular Upeioi97.580.0-98.0 - fL?Mean Corpuscular Yuxxhzjoox53.227.0-33.0 - pg?Mean Corpuscular HGB Conc33.431.0-35.0 - g/dl?Red Cell Distribution Width12.511.0-16.0 - %?Platelet Count [id number] - X10*3/uL?Mean Platelet Volume9.89.4-12.3 - fL?NRBC Pct [...] Antibody NonreactiveNonreactive - ???Lab:HCG Quantitative (Order Date - 10/11/2024) (Collection Date & Time - 10/11/2024 09:35 AM)?ValueReference Range?HCG Quantitative< 2- mIU/mL ???Lab:Hepatitis B Surface Antigen (Order Date - 10/11/2024) (Collection Date & Time - 10/11/2024 09:35 AM)?ValueReference Range?Hepatitis B Surface AntigenNegativeNegative - ???Lab:Syphilis Screen (Order Date - 10/11/2024) (Collection Date & Time - 10/11/2024 09:35 AM)?ValueReference Range?Syphilis Screen NonreactiveNonreactive - * Lab:CT NG by PCR * Collection Date 10/11/2024 04/07/2024 02/26/2024 Collection Time 08:32 AM Order Date 10/11/2024 04/07/2024 02/26/2024 CT PCR NOT DETECTED (Ref Range: Not Detect.) NOT DETECTED (Ref Range: Not Detect.) DETECTED?A (Ref Range: Not Detect.) NG PCR NOT [...] -) Menstrating No NR no * Examination: ???General Examination: ?GENERAL APPEARANCE:?pleasant, well nourished, well developed, in no acute distress, calm and relaxed, overweight, woman.?HEAD:?atraumatic, normocephalic.?EYES:?eomi, perrla, anicteric, conjugate.?EARS:?normal.?NOSE:?septum intact.?ORAL CAVITY:?normal, unremarkable.?NECK/THYROID:?no jugular venous distention, no carotid bruit, thyroid normal.?LYMPH NODES:?no enlarged lymph nodes,spleen normal.?SKIN:?no suspicious lesions, anicteric.?HEART:?no clicks, gallops, murmurs, or rubs, regular rhythm, S1, S2 normal, no s3, or vascular bruits.?LUNGS:?clear to auscultation .?BREASTS:?Declined, prefers this be done by industrial health engineer.?ABDOMEN:?bowel sounds normal, no ascites, no organomegaly, no mass, overweight.?RECTAL EXAM:?not examined.?MUSCULOSKELETAL:?extremities unremarkable, no clubbing, cyanosis or edema.?PERIPHERAL PULSES:?normal.?NEUROLOGIC:?alert and oriented, cranial nerves 2-12 grossly intact, deep tendon reflexes 2+ symmetrical, motor strength normal upper and lower extremities, sensory exam intact.?PSYCH:?alert, oriented.? Assessment: * Assessment: 1.?Type 1 diabetes mellitus without complication - E10.9 (Primary)???Notes :Her insulin pump is working well.? Will soon be replaced by a 1.? Her hemoglobin A1c is satisfactory as is her fasting glucose.? 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 Her glucose levels have been satisfactory. She will continue to be managed by endocrinology???4.?Bilateral headaches - R51.9???Notes :She has had no headaches since her last visit.???5.?Overweight - E66.3???Notes :She has gained 8 pounds and her body mass index is now slightly over 30 which is in the obese range. We discussed her weight loss strategy, her diabetic diet and nutrition. We formulated a plan to lose weight at a rate of one half of a pound per week through a diet restricted in fat calories sodium and concentrated sweets.??? Plan: * Treatment: 2.?Attention deficit disorde r (ADD) in adult?LAB: PROFILE, RANDOM (COMPREHENSIVE METABOLIC) ?LAB: CBC w DIFF ?LAB: Hemoglobin A1c 3.?Others? Continue Insulin Lispro Solution, 100 UNIT/ML, DIRECTED INJECTION 75 UNITS PER DAY VIA PUMP 30 DAYS;?Continue Valsartan Tablet, 80 MG, Oral;?Continue Sertraline HCl Tablet, 50 MG, 1 tablet, Orally, Once a day.?? * Labs:? * ?Lab: URINE DIP STICK (C ollection Date & Time - 10/25/2024) ? Value Reference Range ?SG 1.020 1.005 - 1.025 * ?pH 6.0 5.0 - 9.0 * ?KASSI Negative Negative - * ?NIT Negative Negative - * ?PRO 15 Negative - Trac e * ?GLU Negative Negative - * ?KET 5 Negative - * ?UBG 0.2 0.1 - 1.8 * ?LINUS Negative 0.2 - 1.3 * ?BLD 5-10 Negative - * ?Menstrating No * Procedure Codes:?18658 URINE -NO MICRO * Preventive Medicine:? ??Counseling:?Care goal follow-up plan:?Counseling [...] losing 1 lb per week.? * Follow Up:?end of December (Reas on: OV review labs) * Images: * Sign off status: Completed true * Provider:?William Tolentino MD Date:?09/28 Generated for Duncan smith/Estefania/eTransmitting on:?11/10/2024 12:57 PM EDT History and Physical Notes * HPI [...] Declined, prefers th is be done by industrial health engineer MUSCULOSKELETAL: extremities unremark able, no clubbing, cyanosis or edema LYMPH NODES: no enlarged lymph no cassie,spleen normal RECTAL EXAM: not examined PSYCH: alert, oriented ORAL CAVITY: normal, unremarkable
--- OUTSIDE RECORDS SUMMARY | 2024-11-10 12:57 | XMS_ITS | Patient Health Record ---
Author Organization William Tolentino III, MD Address [address] [place] [address] [place] [address] Care Team Providers Care Sole Leveler Name Role Phone William Tolentino Primary Care [...] 1.3 BLD 5-10 Negative - Menstrating No Diabetic Eye Exam Reviewed date:11/18/2023 03:23:10 PM Interpretation:undefined Performing Lab: Notes/Report: undefined Glucose, Whole Blood Reviewed date:02/14/2024 08:01:45 AM Interpretation: Performing Lab:[facility], [address] [place] [address] Notes/Report: Glucose, Whole Blood 90 60-115 mg/dL METER #: [id number] Testing performed in the Endocrinology Department and [facility], [address] [place] [address] Almita Franklin [facility]. [facility] NG by PCR Reviewed date:02/27/2024 08:39:14 AM Interpretation: Performing Lab:[facility], [address] [place] [address] Notes/Report: Vaginal CT PCR DETECTED Not Detect. [...] ordering clinician or clinical facility to the [facility] as required by state law. NG [...] Panel Reviewed date:02/28/2024 07:23:58 AM Interpretation: Performing Lab:[facility], [address] [place] [address] Notes/Report: Trichomonas vaginalis PCR NOT DETECTED Not [...] date:03/13/2024 07:32:41 AM Interpretation: Performing Lab: Notes/Report: [address] [address] Ultrasound Report Signed Patient: Alyce Hradwick MR#: [id number] : 1990 Acct:[id number] Age/Sex: 33 / F ADM Date: 03/04/24 Loc: HO.US Attending Dr: Glenda Gross CNM Ordering Physician: Glenda Gross CNM Date of Service: 03/04/24 Procedure(s): US pelvic and transvaginal Accession Number(s): [id number] cc: William Tolentino MD; Glenda Gross CNM [...] 03/10/24 0937 DD/ 1110 TD/TT: 03/04/24 1131 Loader Operator/Ground Leader: [place] [address] Ultrasound Report Signed Patient: Alyce Hardwick MR#: [id number] : 1990 Acct:[id number] Age/Sex: 33 / F ADM Date: 03/04/24 Loc: HO.US Attending Dr: Glenda Gross CNM Ordering Physician: Glenda Gross CNM Date of Service: 03/04/24 Procedure(s): US pelvic and transvaginal Accession Number(s): [id number] cc: William Tolentino MD; Glenda Gross CNM [...] 03/10/24 0937 DD/ 1110 TD/TT: 03/04/24 1131 Loader Operator/Ground Leader: CT NG by PCR Reviewed date:04/11/2024 07:10:12 AM Interpretation: Performing Lab:[facility], [address] [place] [phone] Notes/Report: Vaginal CT PCR NOT DETECTED Not [...] Panel Reviewed date:04/11/2024 07:10:12 AM Interpretation: Performing Lab:[address] [address] Notes/Report: Trichomonas vaginalis PCR NOT DETECTED Not [...] 18/45 Reviewed date:04/17/2024 08:40:09 AM Interpretation: Performing Lab:[address] [address] Notes/Report: SEE SCANNED RESULTS IN EMR HPV 16 RNA NOT DETECTED NOT DETECTED HPV 18/45 RNA NOT DETECTED NOT DETECTED Methodology: Cut Off Sawyer Log Mediated Amplification Cervical sources are required for HPV testing. If a vaginal source from a patient who has had a total hysterectomy with removal of cervix was submitted, please contact the testing laboratory for alternative testing options. THIS TEST WAS PERFORMED AT: [facility] [address] [place] [address] SEAN RENE MD HPV mRNA E6/E7 Detected Not Detected Methodology: Cut Off Sawyer Log-Mediated Amplification This assay detects E6/E7 viral messenger RNA (mRNA) from 14 high-risk HPV types (16,18,31,33,35,39,45, 51,52,56,58,59,66,68). Cervical sources are required for HPV testing. If a vaginal source from a patient who has had a total hysterectomy with removal of cervix was submitted, please contact the testing laboratory for alternative testing options. For additional information, please refer to http://education.[employer]/faq/FA Q129v1 (This link if provided for information/ [...] has been evaluated with computer assisted technology. Sample Maker Hand SEE NOTE SXA, CT(ASCP) CT screening location: [place] [address] Review Sample Maker Hand SEE NOTE MPG, CT(ASCP) CT screening location: [place] [address] Pathologist TNP PAP Infection TNP See Note [...] Blood Reviewed date:05/13/2024 08:19:51 PM Interpretation: Performing Lab:[facility], [address] [place] [phone] Notes/Report: Glucose, Whole Blood 179 60-115 mg/dL METER #: [id number] Testing performed in the [facility]in[facility] , [address], [facility]. US pelvic and transvaginal Reviewed date:07/09/2024 08:36:54 PM Interpretation: Performing Lab: Notes/Report: [address] [address] Ultrasound Report Signed Patient: Alyce Hardwick MR#: [id number] : 1990 Acct:[id number] Age/Sex: 34 / F ADM Date: 07/08/24 Loc: HO.US Attending Dr: Glenda Gross CNM Ordering Physician: Glenda Gross CNM Date of Service: 07/08/24 Procedure(s): US pelvic and transvaginal Accession Number(s): [id number] cc: William Tolentino MD; Cass,Glenda T CNM CLINICAL HISTORY: N92.6 - Irregular menstruation, unspecified US pelvis transabdominal and transvaginal with color Doppler Comparison: US/OT/AL - US PELVIC AND TRANSVAGINAL - 03/04/24 [...] MD on 07/09/2024 16:00:38 Dictated By: Kirk Courtnye MD Signed By: <Electronically signed by Kirk Courtney MD in OV> 07/09/24 1601 DD/ 1600 TD/TT: 07/09/24 1600 Loader Operator/Ground Leader: [place] [address] Ultrasound Report Signed Patient: Alyce Hardwick MR#: [id number] : 1990 Acct:[id number] Age/Sex: 34 / F ADM Date: 07/08/24 Loc: HO.US Attending Dr: Glenda Gross CNM Ordering Physician: Glenda Gross CNM Date of Service: 07/08/24 Procedure(s): US pelvic and transvaginal Accession Number(s): [id number] cc: William Tolentino MD; Glenda Gross CNM CLINICAL HISTORY: N92.6 - Irregular menstruation, unspecified US pelvis transabdominal and transvaginal with color Doppler Comparison: US/OT/AL - US PELVIC AND TRANSVAGINAL - 03/04/24 [...] 07/09/24 1601 DD/ 1600 TD/TT: 07/09/24 1600 Loader Operator/Ground Leader: GI Panel Reviewed date:09/14/2024 11:08:21 AM Interpretation: Performing Lab:[facility], [address] [place] [phone] Notes/Report: Campylobacter Not Detected Not Detect. Plesiomonas [...] is performed by Multiplexed PCR, utilizing the [employer] Array. Ova and Parasite Reviewed date:09/14/2024 11:08:21 AM Interpretation: Performing Lab:[facility], [address] [place] [phone] Notes/Report: Ova and Parasite SEE NOTE OVA AND PARASITES, CONC AND PERM SMEAR Micro Number: [id number] Test Status: Final Specimen Source: Stool Specimen [...] infection. For additional information, please refer to https://education.[employer]/faq/F AQ203 (This link is being provided for informational/ educational purposes only.) THIS TEST WAS PERFORMED AT: [place] [address] SHAYY KEEN MD Glucose, Whole Blood Reviewed date:09/14/2024 11:08:21 AM Interpretation: Performing Lab:[address] [address] Notes/Report: Glucose, Whole Blood 115 60-115 mg/dL METER #: [id number] Testing performed in the [facility] , [address], [facility]. Complete Blood Count no Diff Reviewed date:10/15/2024 07:22:28 AM Interpretation: Performing Lab:[facility], [address] [place] [phone] Notes/Report: White Blood Count 5.9 4.8-10.8 X10*3/uL Red Blood Count 4.63 4.20-5.50 X10*6/uL Hemoglobin 14.0 12.0-16.0 g/dl Hematocrit 41.9 37.0-47.0 % Mean Corpuscular Volume 90.5 80.0-98.0 fL Mean Corpuscular Hemoglobin 30.2 27.0-33.0 pg Mean Corpuscular HGB Conc 33.4 31.0-35.0 g/dl Red Cell Distribution Width 12.5 11.0-16.0 % Platelet Count 252 160-400 X10*3/uL Mean Platelet Volume 9.8 9.4-12.3 fL NRBC Pct Auto 0.0 0.0-0.2 /100WBC NRBC Abs Auto 0.000 0.0-0.012 X10*3/uL TSH reflex Free T4 Reviewed date:10/15/2024 07:22:28 AM Interpretation: Performing Lab:[address] [address] Notes/Report: TSH reflex Free T4 0.96 0.32-4.0 uIU/mL HCG Quantitative Reviewed date:10/15/2024 07:22:28 AM Interpretation: Performing Lab:[facility], [address] [place] [phone] Notes/Report: HCG Quantitative < 2 Weeks post LMP Approximate hCG (Last Menstrual Period) Range (mIU/ml) 3 - 4 weeks 9 - 130 4 - 5 weeks 75 - 2,600 5 - 6 weeks 850 - 20,800 6 - 7 weeks 4000 - 100,200 7 - 12 weeks 11,500 - 289,000 12 - 16 weeks 18,300 - 137,000 16 - 29 weeks (2nd trimester) 1,400 - 53,000 29 - 41 weeks (3rd trimester) 940 - 60,000 The [employer] B-hCG assay is used for the early detection of ; it cannot be used to diagnose any condition unrelated to . If a B-hCG level is not supported by the clinical evidence, results should be confirmed by an alternative method (qualitative urine hCG, for example). Syphilis Screen Reviewed date:10/15/2024 07:22:28 AM Interpretation: Performing Lab:[facility], [address] [place] [phone] Notes/Report: Syphilis Screen Nonreactive Nonreactive CT NG by PCR Reviewed date:10/15/2024 07:22:28 AM Interpretation: Performing Lab:[facility], [address] [place] [phone] Notes/Report: Vaginal CT PCR NOT DETECTED Not [...] or psychological consequences. Bacterial Vaginosis Panel Reviewed date:10/15/2024 07:22:28 AM Interpretation: Performing Lab:[address] [address] Notes/Report: Trichomonas vaginalis PCR NOT DETECTED Not [...] glab krusei PCR NOT DETECTED Not Detect HIV Ab/Ag Reviewed date:10/15/2024 07:22:28 AM Interpretation: Performing Lab:[address] [address] Notes/Report: HIV AB/AG Nonreactive Nonreactive HIV-1 p24 Ag and/or HIV-1/HIV-2 Ab not detected. A test result that is nonreactive does not exclude the possibility of exposure to or infection with HIV-1 and/or HIV-2. Nonreactive results in this assay for individuals with prior exposure to HIV-1 and/or HIV-2 may be due to antigen and antibody levels that are below the limit of detection of this assay. The [employer] Amania HIV Ag/Ab Combo assay result and supplemental assay results should be interpreted in conjunction with the patient's clinical presentation, history and other laboratory results. If the results are inconsistent with clinical evidence, additional testing is suggested to confirm the result. Hepatitis C Antibody Reviewed date:10/15/2024 07:22:28 AM Interpretation: Performing Lab:[facility], [address] [place] [phone] Notes/Report: Hepatitis C Antibody Nonreactive Nonreactive Antibodies to HCV not detected; does not exclude early acute HCV infection. Hepatitis B Surface Antigen Reviewed date:10/15/2024 07:22:28 AM Interpretation: Performing Lab:[facility], [address] [place] [phone] Notes/Report: Hepatitis B Surface Antigen Negative Negative Pathology (Not yet reviewed by provider) Interpretation: Performing Lab:[facility], [address] [place] [phone] Notes/Report: -- ---- Name: Alyce Hardwick Age/Sex: 34/F : 1990 Unit#: [id number] Attend Dr: Fer Sutton MD Re11/04/24 Status : [facility] Location: [facility] Disch: -- ---- SPEC : [id number] RECD : 11/04/24 STATUS: ARIA TREJO NUM: [id number] VIBHA: 11/04/[address] [facility] [address]: Fer Sutton MD ENTERED: 11/04/24-03 18 SP TYPE: Surgical OTHR DR: William Tolentino MD ORDERED: HE Stain/2, Gross Micro L4 Diagnosis Endometrium, curettage: Benign late secretory endometrium; no atypia or carcinoma. Comment: Some fragments may be derived from benign functional polyps. Clinical History Abnormal uterine/vaginal bleeding Microscopic Description Microscopic sections reviewed. Material Received [facility] Gross Description Received in formalin , on Telfa, are fragments of red-pink soft tissue mixed with mucus and clotted blood formin g an aggregate measuring 3.5 x 2.8 x 0.3 cm which is wrapped in lens paper and entirely submitted for microscopic examination, multiple pieces in cassettes A1 and A2. ([facility]) Copies To: William Tolentino MD [address], [address] [place], [place] [id number] Fer Sutton MD [facility] [address] [place] [address] -- ---- Signed (signature on file) Ivelisse Ovando 11/07/24 1342 -- ---- END OF REPORT Ur Preg Test Reviewed date:11/06/2024 03:00:11 PM Interpretation: Performing Lab:[facility], [address] [place] [address], [place] [address] Notes/Report: Urine NEGATIVE NEGATIVE This test was developed to detect early . False negative results may occur after the 5th - 7th week of when using this test method. If clinically indicated, consider a serum hCG. Reason For Referral No Information Medications Medication SIG (Take, Route, Frequency, Duration) Notes Start Date End Date Status Sertraline HCl 50 MG 1 tablet Orally Once a day Active Valsartan 80 MG Oral Acti ve Insulin Lispro 100 UNIT/ML INJECTION 75 UNITS PER DAY VIA PUMP 30 DAYS Injection daily for 28 days Active Immunizations Vaccine Route Administration Date Status [...] ast year? No Points 0 Interpretation Negative Problems Problem Type SNOMED Code ICD Code Onset Dates Problem Status W/U Status Risk Notes Problem 745366343 Overweight (E66.3) Active confirmed She has gained [...] fat calories sodium and concentrated sweets. Problem 316616603 Other obesity (E66.8) Active confirmed Her body mass index is 31.4. We discussed weight reduction strategies and a diabetic diet. We made a plan to lose weight. Problem 145436684 retirement current use of insulin (Z79.4) Active confirmed Her insulin pump is working well. Her glucose levels have been satisfactory. She will continue to be managed by endocrinology Problem 328979484 Attention deficit disorder (ADD) in adult (F98.8) Active confirmed She was continu ed on her current regimen. Problem 411544605 Type 1 diabetes mellitus without complication (E10.9) Active confirmed Her insulin pum p is working well. Will soon be replaced by a 1. Her hemoglobin A1c is satisfactory as is her fasting glucose. No change in her regimen was made. Problem 581370965 Body mass index [BMI] 30.0-30.9, adult (Z68.30) Active confirmed Problem 743415188 Bilateral headaches (R51.9) Active confirmed She has had no headaches since her last visit. Problem 53616056 Difficulty concentrating (R41.840) Active confirmed She says that h er previous primary care physician, Dr. Chaves, prescribed this medication, but it was years ago. I referred her back to her psychotherapist for evaluation and if necessary, referral to a prescriber. I made the appointment and I am not trained in psychiatric disorders. Problem 083638514 Obesity, class 1 (E66.811) Active confirmed Her body mass index is 30. We discussed her diet and nutrition. We made a plan to lose weight at a rate of one half of a pound per week until the body mass index is in the mid normal range. 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 insulin Z79.4 ; Type 1 diabetes mellitus without complication E10.9 ; Obesity, class 1 E66.811 ; Attention deficit disorder (ADD) in adult F98.8 and Depression, unspecified depression type F32.A William Tolentino III, MD [address] [place] [address] [place] [address] 07/05/2024 William Tolentino Anxiety, generalized F41.1 ; Type 1 diabetes mellitus without complication E10.9 ; Other obesity due to excess calories E66.09 and Bilateral headaches R51.9 William Tolentino III, MD [address] [place] [address] [place] [address] 09/05/2024 William Tolentino Type 1 diabetes jade itus without complication E10.9 ; Bilateral headaches R51.9 ; Overweight E66.3 ; Attention deficit disorder (ADD) in adult F98.8 ; Obesity, class 1 E66.811 and Acute gastroenteritis K52.9 William Tolentino III, MD [address] [place] [address] [place] [address] 09/07/2024 William Tolentino Other obesity due to excess calories E66.09 ; Type 1 diabetes mellitus without complication E10.9 ; Acute gastroenteritis K52.9 and Attention deficit disorder (ADD) in adult F98.8 William Tolentino III, MD [address] [place] [address] [place] [address] 09/14/2024 William Tolentino Escherichia coli infection A49.8 ; Type 1 diabetes mellitus without complication E10.9 ; terminal operations manager current use of insulin Z79.4 ; Overweight E66.3 and Attention deficit disorder (ADD) in adult F98.8 William Tolentino III, MD [address] [place] [address] [place] [address] 10/25/2024 William Tolentino Type 1 diabetes jade itus without complication E10.9 ; Attention deficit disorder (ADD) in adult F98.8 ; retirement current use of insulin Z79.4 ; Bilateral headaches R51.9 and Overweight E66.3 William Tolentino III, MD [address] [place] [address] [place] [address] 09/13/2024 William Tolentino Assessments Encounter Date Diagnosis (ICD Code) Assessment Notes Treat ment Notes Treatment Clinical Notes 06/13/2024 retirement current us e of insulin (ICD-10 - [...] resolved. She will resume her daily activities. 10/25/2024 Attention deficit disorder (ADD) in adult (ICD-10 - F98.8) 10/25/2024 Type 1 diabetes mellitus without complication (ICD-10 - E10.9) Her insulin pump is working well. Will soon be replaced by a 1. Her hemoglobin A1c is satisfactory as is her fasting glucose. No change in her regimen was made. 06/13/2024 Obesity, class 1 (ICD-10 - E66.811) [...] recommended Imodium. She will hydrate aggressively. 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 Her glucose levels have been satisfactory. She will continue to be managed by endocrinology 10/25/2024 retirement current us e of insulin (ICD-10 - Z79.4) Her insulin pump is working well. Her glucose levels have been satisfactory. She will continue to be managed by endocrinology 06/13/2024 Attention deficit disorder (ADD) in adult [...] in fat calories sodium and concentrated sweets. 10/25/2024 Bilateral headaches (ICD-10 - R51.9) She [...] She was continued on her current regimen. 10/25/2024 Overweight (ICD-10 - E66.3) She has [...] fat calories sodium and concentrated sweets. 09/05/2024 Acute gastroenteriti s (ICD-10 - K52.9) [...] 09/26/2020 PROFILE, RANDOM (COMPREHENSIVE METABOLIC ) 09/14/2018 PROFILE, RANDOM (COMPREHENSIVE METABOLIC ) 10/25/2024 HEMOGLOBIN A1C (GLYCOHEMOGLOBIN) 023 HEMOGLOBIN A1C (GLYCOHEMOGLOBIN) 021 HEMOGLOBIN A1C (GLYCOHEMOGLOBIN) 018 HEMOGLOBIN A1C (GLYCOHEMOGLOBIN) 021 LIPID PANEL 10/14/2022 LIPID PANEL 11/16/2020 LIPID PANEL 06/07/2018 FREE T4 (FT4) 09/26/2020 TSH (THYROID STIMULATING HORMONE) 2023 TSH (THYROID STIMULATING HORMONE) 2020 MICROALBUMIN, RANDOM 10/14/2022 MICROALBUMIN, RANDOM 06/07/2018 CBC w DIFF 06/07/2018 CBC w DIFF 09/14/2018 CBC w DIFF 08/21/2023 CBC w DIFF 10/25/2024 CBC w DIFF 09/26/2020 CBC w DIFF 11/16/2020 CBC w DIFF 10/14/2022 CBC w DIFF 07/19/2020 SED RATE (ESR) 08/21/2023 SED RATE (ESR) 09/26/2020 OVA & PARASITES (O&P) 09/05/2024 US ABD 09/26/2020 CBC WITH AUTO DIFF 10/20/2023 Uric Acid 08/21/2023 Lipid Panel 10/20/2023 Free T4 (Free Thyroxine) 08/21/2023 Microalbumin, Random 11/16/2020 Pathology 11/04/2024 Hemoglobin A1c 10/25/2024 Hemoglobin A1c 10/20/2023 Stool Culture 09/05/2024 Next Appt Details Provider Name:William Tolentino, 01/24/2025 10:45:00 AM, [address] [place] [address] [address], [place], [address], Provider Name:William Tolentino, 10/26/2025 11:00:00 AM, [address] [place] [address] [address], [place], [address], Insurance Providers Payer Name Payer Address Payer Phone Subscriber Number Group Number Insured Name Patient Relationship to Insured Coverage Start Date Coverage End Date [employer] [address] [address] [place] [address] [id number] Ronen Alyce Self - patient is the insured 0 [place] [address] [place], [place] [id number] Erendira Hardwickee Self - patient is the insured Medical (General) History Medical History History ICD Code juvenile diabetes mellitus, onset age 11 , insulin pump family history of breast cancer, 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 She is currently on fluoxetine for depression. Surgical History Surgery Date(Month/Year) No history dental extractions 2015 left breast lumpectomy, Dr. Mercer, [facility] 2016 Hospitalization History Reason Date(Month/Year) No history
--- OUTSIDE RECORDS SUMMARY | 2024-11-10 12:58 | XMS_ITS | Clinical Summary ---
Author Organization [facility] Address [address] [facility] [facility] [address] [facility] [address] [place] [address] Phone Care Team Providers Care Motor Brakeman Name Role Phone William Tolentino MD Primary Care Provider [phone] Allergies No known active allergies Medications insulin [...] Office Visit [facility] [address] [address] Jair Ireland MD [address] [address] Health Maintenance Due Date Last Done Comments Diabetes: Hemoglobin A1C 07/30/2020 Diabetes: Ophthalmology Exam 07/30/2020 Diabetes: Pedal Pulse Checked 07/30/2020 Diabetes: Sensory Foot Exam 07/30/2020 Diabetes: Visual Foot Exam 07/30/2020 Influenza Vaccine (Season Ended) 2025 Hepatitis B Vaccine Completed 04/21/2001, 11/27/2000, 10/26/2000 Pneumococcal Vaccine: Peds ( 0 to 5 Years) and At-Risk Patients (6 to 49 Years) Aged Out No longer eligi ble based on patient's age to complete this topic Insurance [facility] Medicaid [facility] Medicaid Care Teams Motor Brakeman Relationship Specialty Start Date End Date William Tolentino MD [address] [place] [address] [address] [place], [place] PCP - General Medical Oncology 01/20/22
--- OUTSIDE RECORDS SUMMARY | 2024-11-10 12:58 | XMS_ITS ---
Author Organization William Tolentino III, MD Address [address] [facility] [place] [address] Care Team Providers Care Benefits Consulting Analyst Name Role Phone William Tolentino Primary Care [...] Date Provider Diagnosis William Tolentino III, MD [address] [place] [address] [place] [address] 09/13/2024 William Tolentino Plan Of Treatment Next Appt Details Provider Name:William Tolentino, 01/24/2025 10:45:00 AM, [address] [place] [address] [place], [address], Provider Name:William Tolentino, 10/26/2025 11:00:00 AM, [address] [place] [address] [place], [address], Progress Notes * Britney HARDWICKOB:1990 ([age] yo F)Acc No.[id number]:09/13/2024 Patient:?Alyce HARDWICK :1990???Age:34 Y???Sex:Female Address:[address] [place] [address], [place], [address] Subjective: * Chief Complaints: * ???Discontinued Rx [...] true * Date:? Generated for Duncan smith/Estefania/Sofya on:?11/10/2024 12:57 PM EDT
--- OUTSIDE RECORDS SUMMARY | 2024-11-10 12:58 | XMS_ITS | Clinical Summary ---
Author Organization [facility] Address [address] [place] [address] Phone Care Team Providers Care Sales Representative Cash Registers Name Role Phone Unavailable Primary Care Provider [...] Other No family histo ry of [place] /[place] under age 55, Family history of Strabismus/amblyopia, [...]
--- OUTSIDE RECORDS SUMMARY | 2024-11-10 12:58 | XMS_ITS | Clinical Summary ---
Author Organization [facility] Address [address] [place] [address] Care Team Providers Care Career Development Engineer Name Role Phone Unavailable Primary Care Provider Unavailabl e Social History Tobacco Use Types Packs/Day Years Used Date Smoking Tobacco: Never Assessed Sex and Gender Information Value Date Recorded Sex Assigned at Not on file Gender Identity Not on file Sexual Orientation Not on file Plan of Treatment Not on file
--- OUTSIDE RECORDS SUMMARY | 2024-11-10 12:58 | XMS_ITS | Encounter Summary ---
Author Organization [facility] Address [address] [place] [address] Phone Care Team Providers Care Vehicle Delivery Worker Name Role Phone Antonette Degroot NP Primary Care Provider Jb hawley Encounter Details Date Type Department Care Team (Late st Contact Info) Description 02/12/2017 Conversion Encounter [facility] - [address] [address] Social History Tobacco Use Types Packs/Day Years [...] on filedocumented in this encounter Care Teams Vehicle Delivery Worker Relationship Specialty Start Date End Date Antonette Degroot NP PCP - General 02/06/17 10/06/22 documented as of this encounter
--- OUTSIDE RECORDS SUMMARY | 2024-11-10 12:58 | XMS_ITS ---
Author Organization William Tolentino III, MD Address [address] [place] [address] Care Team Providers Care Agriculture Mechanic Name Role Phone William Tolentino Primary Care Provider Allergies Allergen (clinical drug ingredient) Drug/Non Drug Allergy documented on EMR Reaction Allergy Type Onset Date Status No Known Drug Allergy Unknown Drug Allergy Active REASON FOR VISIT Gastroenteritis, Spiritism one diabetes, Anxiety and depression Medications Medication [...] Provider Diagnosis William Tolentino III, MD [address] [place] [address] [place] [address] 09/14/2024 William Tolentino Escherichia coli infection A49.8 ; Type 1 diabetes mellitus without complication E10.9 ; halfway current use of insulin Z79.4 ; Overweight [...] remains under the care of endocrinology. 09/14/2024 halfway current use of insulin (ICD-10 - Z79.4) [...] Scheduled, Crissy son: Annual Exam Provider Name:William Tolentino, 01/24/2025 10:45:00 AM, [address] [facility] [address], [place], [address], Provider Name:William Tolentino, 10/26/2025 11:00:00 AM, [address] [facility] [address], [place], [address], Progress Notes * Britney HARDWICKOB:1990 ([age] yo F)Acc No.[id number]:09/14/2024 Progress Notes Patient:?Alyce HARDWICK Provider:?William Tolentino MD :1990???Age:34 Y???Sex:Female D ate:09/14/2024 Address:[address] [place] [address] [place]ON[place] Tre[place], [phone] Subjective: * Chief Complaints: * ???GastroenteritisJew one di abetesAnxiety and depression * HPI: ???COVID-19 Screening:? 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 She works [...] ?E. coli STECNot DetectedNot Detect. -?E. coli Q764Ekk applicable Not Detect. -?Shigella sp./EIECNot DetectedNot Detect. [...] acceptable. 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
--- OUTSIDE RECORDS SUMMARY | 2024-11-10 12:58 | XMS_ITS | Encounter Summary ---
Author Organization [facility] Address [address] [place] [address] Phone Care Team Providers Care Liberal Arts Dean Name Role Phone Antonette Degroot INVENTORY CONTROLLER Primary Care Provider Jb hawley Encounter Details Date Type Department Care Team (Late st Contact Info) Description 03/18/2010 Documentation [facility] [place] Family Medicine [address] [place] [address] Family Medicine, Physician [address] [place] [address] Social History Tobacco Use Types Packs/Day Years [...] on filedocumented in this encounter Care Teams Liberal Arts Dean Relationship Specialty Start Date End Date Antonette Degroot NP PCP - General 02/06/17 10/06/22 documented as of this encounter
--- OUTSIDE RECORDS SUMMARY | 2024-11-10 12:58 | XMS_ITS | Encounter Summary ---
Author Organization [facility] Address [address] [place] [address] Phone Care Team Providers Care Riveting Machine Operator Automatic Name Role Phone Antonette Degroot DIESEL MECHANIC FARM Primary Care Provider Jb hawley Encounter Details Date Type Department Care Team (Late st Contact Info) Description 06/03/2010 Documentation [facility] [place] [address] [place] [address] Family Medicine, Physician [address] [place] [address] Social History Tobacco Use Types Packs/Day Years [...] on filedocumented in this encounter Care Teams Riveting Machine Operator Automatic Relationship Specialty Start Date End Date Antonette Degroot NP PCP - General 02/06/17 10/06/22 documented as of this encounter
== END 2024-11-10 12:20 | disposition home or self-care (01) ==
LOC: HO.HWS 11:57
PROVIDERS: PCP Internal Medicine Medical Oncology; Visit Provider Obstetrics & Gynecology
DX: N93.9 Abnormal uterine and vaginal bleeding, unspecified (principal)
CPT/HCPCS: 99213

== ENCOUNTER → 2024-11-10 11:57 | Outpatient (BNVA) | payer OTHER, SELFPAY | PROVIDERS: PCP Internal Medicine Medical Oncology; Visit Provider Obstetrics & Gynecology | DX: N93.9 Abnormal uterine and vaginal bleeding, unspecified (principal) | CPT/HCPCS: 99212 ==

== ENCOUNTER 2024-11-29 07:51 | Outpatient (AMB) | payer OTHER, SELFPAY ==
--- OUTSIDE RECORDS SUMMARY | 2024-11-29 07:54 | XMS_ITS | Patient Health Record ---
Author Organization William Tolentino III, MD Address [address] [place] [address] [place] [address] Care Team Providers Care Petroleum Blending Plant Operator Name Role Phone William Tolentino Primary Care [...] 1.3 BLD 5-10 Negative - Menstrating No Glucose, Whole Blood Reviewed date:02/14/2024 08:01:45 AM Interpretation: Performing Lab:[facility], [address] [place] [phone] Notes/Report: Glucose, Whole Blood 90 60-115 mg/dL METER #: [id number] Testing performed in the Endocrinology Department and [facility], [address] [place] [address] Almita Franklin [address] NG by PCR Reviewed date:02/27/2024 08:39:14 AM Interpretation: Performing Lab:[facility], [address] [place] [phone] Notes/Report: Vaginal CT PCR DETECTED Not Detect. [...] facility to the [facility] as required by state law. NG [...] Panel Reviewed date:02/28/2024 07:23:58 AM Interpretation: Performing Lab:[facility], [address] [place] [phone] Notes/Report: Trichomonas vaginalis PCR NOT DETECTED Not [...] date:03/13/2024 07:32:41 AM Interpretation: Performing Lab: Notes/Report: [facility] [address] Ultrasound Report Signed Patient: Alyce Hardwick MR#: [id number] : 1990 Acct:[id number] Age/Sex: 33 / F ADM Date: 03/04/24 Loc: HO.US Attending Dr: Glenda Gross CNM Ordering Physician: Glenda Gross CNM Date of Service: 03/04/24 Procedure(s): US pelvic and transvaginal Accession Number(s): [id number] cc: William Tolentino MD; Glenda Gross CNM [...] 03/10/24 0937 DD/ 1110 TD/TT: 03/04/24 1131 U.S. Senator: [address] [address] Ultrasound Report Signed Patient: Alyce Hardwick MR#: [id number] : 1990 Acct:[id number] Age/Sex: 33 / F ADM Date: 03/04/24 Loc: HO.US Attending Dr: Glenda Gross CNM Ordering Physician: Glenda Gross CNM Date of Service: 03/04/24 Procedure(s): US pelvic and transvaginal Accession Number(s): [id number] cc: William Tolentino MD; Glenda Gross CNM [...] 03/10/24 0937 DD/ 1110 TD/TT: 03/04/24 1131 U.[address]. Senator: CT NG by PCR Reviewed date:04/11/2024 07:10:12 AM Interpretation: Performing Lab:[facility], [address] [place] [phone] Notes/Report: Vaginal CT PCR NOT DETECTED Not [...] Panel Reviewed date:04/11/2024 07:10:12 AM Interpretation: Performing Lab:[facility], [address] [place] [phone] Notes/Report: Trichomonas vaginalis PCR NOT DETECTED Not [...] 18/45 Reviewed date:04/17/2024 08:40:09 AM Interpretation: Performing Lab:[facility], [address] [place] [phone] Notes/Report: SEE SCANNED RESULTS IN EMR HPV 16 RNA NOT DETECTED NOT DETECTED HPV 18/45 RNA NOT DETECTED NOT DETECTED Methodology: Receiver Bulk System Mediated Amplification Cervical sources are required for HPV testing. If a vaginal source from a patient who has had a total hysterectomy with removal of cervix was submitted, please contact the testing laboratory for alternative testing options. THIS TEST WAS PERFORMED AT: [facility] [address] [place] [phone] SEAN RENE MD HPV mRNA E6/E7 Detected Not Detected Methodology: Receiver Bulk System-Mediated Amplification This assay detects E6/E7 viral messenger RNA (mRNA) from 14 high-risk HPV types (16,18,31,33,35,39,45, 51,52,56,58,59,66,68). Cervical sources are required for HPV testing. If a vaginal source from a patient who has had a total hysterectomy with removal of cervix was submitted, please contact the testing laboratory for alternative testing options. For additional information, please refer to http://education.Telller/faq/FA Q129v1 (This link if provided for information/ [...] has been evaluated with computer assisted technology. Glaucoma Specialist SEE NOTE SXA, CT(ASCP) CT screening location: [place] [address] Review Glaucoma Specialist SEE NOTE MPG, CT(ASCP) CT screening location: [place] [address] Pathologist TNP PAP Infection TNP See Note [...] Blood Reviewed date:05/13/2024 08:19:51 PM Interpretation: Performing Lab:[facility], [address] [place] [phone] Notes/Report: Glucose, Whole Blood 179 60-115 mg/dL METER #: [id number] Testing performed in the [facility] , [address] [place] [address]. US pelvic and transvaginal Reviewed date:07/09/2024 08:36:54 PM Interpretation: Performing Lab: Notes/Report: [address] [address] Ultrasound Report Signed Patient: Alyce Hardwick MR#: [id number] : 1990 Acct:[id number] Age/Sex: 34 / F ADM Date: 07/08/24 Loc: HO.US Attending Dr: Glenda Gross CNM Ordering Physician: Glenda Gross CNM Date of Service: 07/08/24 Procedure(s): US pelvic and transvaginal Accession Number(s): [id number] cc: William Tolentino MD; Glenda Gross CNM CLINICAL HISTORY: N92.6 - Irregular menstruation, unspecified US pelvis transabdominal and transvaginal with color Doppler Comparison: US/OT/PA - US PELVIC AND TRANSVAGINAL - 03/04/24 [...] 07/09/24 1601 DD/ 1600 TD/TT: 07/09/24 1600 U.S. Senator: [place] [address] Ultrasound Report Signed Patient: Alyce Hardwick MR#: [id number] : 1990 Acct:[id number] Age/Sex: 34 / F ADM Date: 07/08/24 Loc: HO.US Attending Dr: Glenda Gross CNM Ordering Physician: Glenda Gross CNM Date of Service: 07/08/24 Procedure(s): US pelvic and transvaginal Accession Number(s): [id number] cc: William Tolentino MD; Glenda Gross CNM CLINICAL HISTORY: N92.6 - Irregular menstruation, unspecified US pelvis transabdominal and transvaginal with color Doppler Comparison: US/OT/PA - US PELVIC AND TRANSVAGINAL - 03/04/24 [...] 07/09/24 1601 DD/ 1600 TD/TT: 07/09/24 1600 U.S. Senator: GI Panel Reviewed date:09/14/2024 11:08:21 AM Interpretation: Performing Lab:[facility], [address] [place] [phone] Notes/Report: Campylobacter Not Detected Not Detect. Plesiomonas [...] is performed by Multiplexed PCR, utilizing the Shoutitout Array. Ova and Parasite Reviewed date:09/14/2024 11:08:21 AM Interpretation: Performing Lab:[facility], [address] [place] [phone] Notes/Report: Ova and Parasite SEE NOTE OVA AND PARASITES, CONC AND PERM SMEAR Micro Number: [id number] Test Status: Final Specimen Source: Stool Specimen [...] infection. For additional information, please refer to https://education.eSeekers.com/faq/F AQ203 (This link is being provided for informational/ educational purposes only.) THIS TEST WAS PERFORMED AT: [facility] [address] SHAYY KEEN MD Glucose, Whole Blood Reviewed date:09/14/2024 11:08:21 AM Interpretation: Performing Lab:[facility], [address] [place] [phone] Notes/Report: Glucose, Whole Blood 115 60-115 mg/dL METER #: [id number] Testing performed in the [facility] , [address], [facility]. Complete Blood Count no Diff Reviewed date:10/15/2024 07:22:28 AM Interpretation: Performing Lab:[address] [address] Notes/Report: White Blood Count 5.9 4.8-10.8 X10*3/uL [...] T4 Reviewed date:10/15/2024 07:22:28 AM Interpretation: Performing Lab:[facility], [address] [place] [phone] Notes/Report: TSH reflex Free T4 0.96 0.32-4.0 uIU/mL HCG Quantitative Reviewed date:10/15/2024 07:22:28 AM Interpretation: Performing Lab:[address] [address] Notes/Report: HCG Quantitative < 2 Weeks post [...] Screen Reviewed date:10/15/2024 07:22:28 AM Interpretation: Performing Lab:[facility], [address] [place] [phone] Notes/Report: Syphilis Screen Nonreactive Nonreactive CT NG by PCR Reviewed date:10/15/2024 07:22:28 AM Interpretation: Performing Lab:[facility], [address] [place] [phone] Notes/Report: Vaginal CT PCR NOT DETECTED Not [...] Panel Reviewed date:10/15/2024 07:22:28 AM Interpretation: Performing Lab:[address] [phone] Notes/Report: Trichomonas vaginalis PCR NOT DETECTED Not [...] Ab/Ag Reviewed date:10/15/2024 07:22:28 AM Interpretation: Performing Lab:[address] [address] Notes/Report: HIV AB/AG Nonreactive Nonreactive HIV-1 p24 [...] limit of detection of this assay. The etaskr HIV Ag/Ab Combo assay result and supplemental assay results should be interpreted in conjunction with the patient's clinical presentation, history and other laboratory results. If the results are inconsistent with clinical evidence, additional testing is suggested to confirm the result. Hepatitis C Antibody Reviewed date:10/15/2024 07:22:28 AM Interpretation: Performing Lab:[address] [phone] Notes/Report: Hepatitis C Antibody Nonreactive Nonreactive Antibodies to HCV not detected; does not exclude early acute HCV infection. Hepatitis B Surface Antigen Reviewed date:10/15/2024 07:22:28 AM Interpretation: Performing Lab:[facility], [address] [place] [phone] Notes/Report: Hepatitis B Surface Antigen Negative Negative Pathology (Not yet reviewed by provider) Interpretation: Performing Lab:[facility], [address] [place] [phone] Notes/Report: -- ---- Name: Alyce Hardwick Age/Sex: 34/F : 1990 Unit#: [id number] Attend Dr: Fer Sutton MD Re11/04/24 Status : [facility] Location: [facility] Disch: -- ---- SPEC : [id number] RECD : 11/04/24 STATUS: CEDRICKMicaela NEIL NUM: [id number] VIBHA: 11/04/[address] [facility] [address]: Fer Sutton MD ENTERED: 11/04/24 SP TYPE: Surgical OTHR DR: William Tolentino MD ORDERED: HE Stain/2, Gross Micro L4 Diagnosis Endometrium, curettage: Benign late secretory endometrium; no atypia or carcinoma. Comment: Some fragments may be derived from benign functional polyps. Clinical History Abnormal uterine/vaginal bleeding Microscopic Description Microscopic sections reviewed. Material Received [facility] Gross Description Received in formalin , on Telfa, are fragments of red-pink soft tissue mixed with mucus and clotted blood formin g an aggregate measuring 3.5 x 2.8 x 0.3 cm which is wrapped in lens paper and entirely submitted for microscopic examination, multiple pieces in cassettes A1 and A2. ([facility]) Copies To: William Tolentino MD [address], [address] [place] [address] Fer Sutton MD [facility] [address] [place] [address] -- ---- Signed (signature on file) Ivelisse Charlotte Hall 11/07/24 1342 -- ---- END OF REPORT Ur Preg Test Reviewed date:11/06/2024 03:00:11 PM Interpretation: Performing Lab:[facility], [address] [place] [address], [place] [address] Notes/Report: Urine NEGATIVE NEGATIVE This test was [...] Problem Status W/U Status Risk Notes Problem 295311113 Overweight (E66.3) Active confirmed She has gained [...] fat calories sodium and concentrated sweets. Problem 515346775 Other obesity (E66.8) Active confirmed Her body mass index is 31.4. We discussed weight reduction strategies and a diabetic diet. We made a plan to lose weight. Problem 244555488 long term care pharmacist current use of insulin (Z79.4) Active confirmed Her insulin pump is working well. Her glucose levels have been satisfactory. She will continue to be managed by endocrinology Problem 726613821 Attention deficit disorder (ADD) in adult (F98.8) Active confirmed She was continu ed on her current regimen. Problem 296475921 Type 1 diabetes mellitus without complication (E10.9) Active confirmed Her insulin pum p is working well. Will soon be replaced by a 1. Her hemoglobin A1c is satisfactory as is her fasting glucose. No change in her regimen was made. Problem 404831899 Body mass index [BMI] 30.0-30.9, adult (Z68.30) Active confirmed Problem 312456060 Bilateral headaches (R51.9) Active confirmed She has had no headaches since her last visit. Problem 18883266 Difficulty concentrating (R41.840) Active confirmed She says that h er previous primary care physician, Dr. Chaves, prescribed this medication, but it was years ago. I referred her back to her psychotherapist for evaluation and if necessary, referral to a prescriber. I made the appointment and I am not trained in psychiatric disorders. Problem 391500063 Obesity, class 1 (E66.811) Active confirmed Her [...] Date Provider Diagnosis William Tolentino III, MD [address] [place] [address] [place] [address] 06/13/2024 William Tolentino long term care pharmacist current us e of insulin Z79.4 ; Type 1 diabetes mellitus without complication E10.9 ; Obesity, class 1 E66.811 ; Attention deficit disorder (ADD) in adult F98.8 and Depression, unspecified depression type F32.A William Tolentino III, MD [address] [place] [address] [place] [address] 07/05/2024 William Tolentino Anxiety, generalized F41.1 ; Type 1 diabetes mellitus without complication E10.9 ; Other obesity due to excess calories E66.09 and Bilateral headaches R51.9 William Tolentino III, MD [address] [place] [address] [place] [address] 09/05/2024 William Tolentino Type 1 diabetes jade itus without complication E10.9 ; Bilateral headaches R51.9 ; Overweight E66.3 ; Attention deficit disorder (ADD) in adult F98.8 ; Obesity, class 1 E66.811 and Acute gastroenteritis K52.9 William Tolentino III, MD [address] [place] [address] [place] [address] 09/07/2024 William Tolentino Other obesity due to excess calories E66.09 ; Type 1 diabetes mellitus without complication E10.9 ; Acute gastroenteritis K52.9 and Attention deficit disorder (ADD) in adult F98.8 William Tolentino III, MD [address] [place] [address] [place] [address] 09/14/2024 William Tolentino Escherichia coli infection A49.8 ; Type 1 diabetes mellitus without complication E10.9 ; snf current use of insulin Z79.4 ; Overweight E66.3 and Attention deficit disorder (ADD) in adult F98.8 William Tolentino III, MD [address] [place] [address] [place] [address] 10/25/2024 William Tolentino Type 1 diabetes jade itus without complication E10.9 ; Attention deficit disorder (ADD) in adult F98.8 ; long term care pharmacist current use of insulin Z79.4 ; Bilateral headaches R51.9 and Overweight E66.3 William Tolentino III, MD [address] [place] [address] [place] [address] 09/13/2024 William Tolentino Assessments Encounter Date Diagnosis (ICD Code) Assessment Notes Treat ment Notes Treatment Clinical Notes 06/13/2024 long term care pharmacist current us e of insulin (ICD-10 - [...] recommended Imodium. She will hydrate aggressively. 09/14/2024 snf current us e of insulin (ICD-10 - Z79.4) Her insulin pump is working well. Her glucose levels have been satisfactory. She will continue to be managed by endocrinology 10/25/2024 snf current us e of insulin (ICD-10 - [...] 08/21/2023 PROFILE, RANDOM (COMPREHENSIVE METABOLIC ) 09/14/2018 PROFILE, RANDOM (COMPREHENSIVE METABOLIC ) 10/25/2024 HEMOGLOBIN A1C (GLYCOHEMOGLOBIN) 023 HEMOGLOBIN A1C (GLYCOHEMOGLOBIN) 018 HEMOGLOBIN A1C (GLYCOHEMOGLOBIN) 021 HEMOGLOBIN A1C (GLYCOHEMOGLOBIN) 021 LIPID PANEL 10/14/2022 LIPID PANEL 06/07/2018 LIPID PANEL 11/16/2020 FREE T4 (FT4) 09/26/2020 TSH (THYROID STIMULATING HORMONE) 2023 TSH (THYROID STIMULATING HORMONE) 2020 MICROALBUMIN, RANDOM 10/14/2022 MICROALBUMIN, RANDOM 06/07/2018 CBC w DIFF 07/19/2020 CBC w DIFF 10/14/2022 CBC w DIFF 06/07/2018 CBC w DIFF 09/14/2018 CBC w DIFF 08/21/2023 CBC w DIFF 10/25/2024 CBC w DIFF 09/26/2020 CBC w DIFF 11/16/2020 SED RATE (ESR) 08/21/2023 SED RATE (ESR) 09/26/2020 OVA & PARASITES (O&P) 09/05/2024 US ABD 09/26/2020 CBC WITH AUTO DIFF 10/20/2023 Uric Acid 08/21/2023 Lipid Panel 10/20/2023 Free T4 (Free Thyroxine) 08/21/2023 Microalbumin, Random 11/16/2020 Pathology 11/04/2024 Hemoglobin A1c 10/25/2024 Hemoglobin A1c 10/20/2023 Stool Culture 09/05/2024 Next Appt Details Provider Name:William Rajan, 01/24/2025 10:45:00 AM, [address] [place] [address] [address], [place], [address], Provider Name:William Rajan, 10/26/2025 11:00:00 AM, [address] [place] [address] [address], [place], [address], Insurance Providers Payer Name Payer Address Payer Phone Subscriber Number Group Number Insured Name Patient Relationship to Insured Coverage Start Date Coverage End Date [employer] [address] [address] [place] [address] [id number] RonenAlyce Self - patient is the insured 0 [place] [address] [place], [place] [id number] [place] Alyce Self - patient is the insured Medical (General) History Medical History History ICD Code juvenile diabetes mellitus, onset age 11 , insulin pump family history of breast cancer, 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 She is currently on fluoxetine for depression. Surgical History Surgery Date(Month/Year) No history dental extractions 2016 left breast lumpectomy, Dr. Mercer, [facility] 2015 Hospitalization History Reason Date(Month/Year) No history
--- NOTE | 2024-11-29 09:15 | A.OFFVIS_ITS ---
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: No Accompanied by: Self / Same As Patient Allergies No Known Allergies Allergy (Verified 10/11/24 08:39) HPI Comprehensive Diabetes Asmnt Most Recent Diabetes Results: Microalb/Creat Ratio 28.5 ug/mg cr (<30) 09/14/24 Cholesterol 197 mg/dL (<200) 09/14/24 HDL Cholesterol 69 mg/dL (>40) 09/14/24 Triglycerides 43 mg/dL (<150) 09/14/24 Creatinine 0.78 mg/dL (0.5-1.4) 09/14/24 Blood Urea Nitrogen 13 mg/dL (9-16) 09/14/24 Sodium 139 mmol/L (135-145) 09/14/24 Potassium 3.5 mmol/L (3.3-5.1) 09/14/24 Chloride 106 mmol/L (96-108) 09/14/24 Carbon Dioxide 27 mmol/L (22-29) 09/14/24 Calcium 8.8 mg/dL (8.4-10.2) 09/14/24 [facility] Medical History Depression Type 1 diabetes mellitus with hyperglycemia Surgical History History of left breast biopsy Family History Paternal Grandmother Diabetes Maternal Aunt Breast cancer Family/Other Colon cancer Social History Household Members: Family Housing: Apartment Alcohol intake: current Alcohol intake frequency: holidays/special occasions only Patient Tobacco Use Status: Never used Tobacco Substance Use Type: Marijuana Current occupational status: employed Current occupation: [employer] Sexual orientation: Straight/Heterosexual Gender identity: Female Female Reproductive History Menstrual Age of Menarche: 13 Assessment & Plan Assessment & Plan (1) Type 1 diabetes mellitus with hyperglycemia: Code(s): E10.65 - Type 1 diabetes mellitus with hyperglycemia Plan: Patient presents for pump training for iLet pump and CGM training today. The following topics were reviewed today: -Pump therapy basic concepts: Basal/bolus -Device settings: Bluetooth/mobile connection (if applicable), correct date and time, sound volume -CGM settings(if integrated system): CGM graft views and trend arrows, alerts and alarms, Start new sensor Patient instructed to only announce meals that have carbohydrates For the 1st 7 days: Eat meals that have usual amount of carbs for you in announce them as usual Wait at least 4 hours between eating meals with carbs and announcing again If you are eating between meals, low carb snacks are the best option. Announce meal right away when you start eating If you forget and is more than 30 minutes since started eating do not announce Avoid over treating lows, this can cause hyperglycemia, which will initiate pump to deliver correction bolus Always have extra supplies: CGM sensor Supply to refill your insulin cartridge and replace your infusion set Blood glucose and ketone testing supplies Extra insulin Treatment for low blood glucose Emergency contact information Ketone action plan Keep amira open on your phone, keep your ilet paired with the amira Always sink her data before appointments with your healthcare provider BG run mode: You will go into BG mode if not receiving CGM glucose readings You will be required to enter BG into pump every 4 hours after 72 hours insulin delivery will stop In the 1st week of pump therapy you will need to enter BG every hour after 48 hours without CGM in the 1st week insulin delivery will stop Insulin delivery settings Date, time and weight Instructed patient to only use room temperature insulin, how to load cartridge or fill pod, with insulin. Fill tubing and cannula (if applicable) Inserting infusion set or starting pod Troubleshooting after starting new pod or inserting new insulin set: Occlusion, adhesive tape sensitivity, redness Check BG 2 hours after site change Safety information: Importance of a backup plan, for manual injections, proper prescriptions and emergency supplies ketone strips, and rules for testing for ketones Patient was able to insert insulin set today without difficulty. Patient understands the basic concepts of pump therapy, how to give insulin for meals and snacks, how to troubleshoot for hyper and hypoglycemia. Patient will follow up with [facility] as instructed Patient will contact [facility] with questions or concerns, patient given IT number to support in any technical issues related to insulin pump Portions of this note were created using voice recognition software, please excuse any words or phrases that may have been misinterpreted. Coding Level of Care Code Est Pt Level 1 (40535) Diagnoses Type 1 diabetes mellitus with hyperglycemia E10.65
== END 2024-11-29 09:16 | disposition home or self-care (01) ==
LOC: HO.ENCR 07:52
PROVIDERS: PCP Internal Medicine Medical Oncology; Visit Provider Registered Nurse Diabetes Educator
DX: E10.65 Type 1 diabetes mellitus with hyperglycemia (principal)

== ENCOUNTER → 2024-11-29 07:51 | Outpatient (BNVA) | payer OTHER, SELFPAY | PROVIDERS: PCP Internal Medicine Medical Oncology; Visit Provider Registered Nurse Diabetes Educator | DX: E10.65 Type 1 diabetes mellitus with hyperglycemia (principal); Z71.89 Other specified counseling; Z79.4 Long term (current) use of insulin | CPT/HCPCS: 99211 ==

== ENCOUNTER 2024-12-08 07:23 | Outpatient (AMB) | payer OTHER, SELFPAY ==
--- NOTE | 2024-12-08 07:01 | A.OFFVIS_ITS ---
Vital Signs 12/08/24 07:32 Height 5 ft 8 in Weight 179 lb 10.828 oz BMI 27.3 BP 110/64 Blood Pressure Location Lt brachial Position Sitting Pulse 67 Pulse Source Pulse Oximeter Pulse Oximetry (%) 96 Oxygen Delivery Method Room Air Intake Visit Reasons: DM Intake Note: Patient presents today for a follow-up on Type 1 Diabetes Mellitus/Insulin Pump: Last Diabetic eye exam was on: 10/2023 Has upcoming appt next week Last Podiatry exam was on: Does not see a Farm Operator Most recent HbA1c: 7.2% Random Glucose- 222 mg/dL Court Orderly Required: No Accompanied by: Self / Same As Patient Allergies No Known Allergies Allergy (Verified 12/08/24 07:38) HPI Comments Details: Patient is a 34 yo female with DM type 1 diagnosed at age 11 who presents for continued management of diabetes. She was last seen by CDE last week at which time she was [facility] Hgb A1C 12/13/24 7.2%, 09/14/24 7.0%, 05/12/24 7.5% Dexcom average glucose:unable to get get average for full 14 days, one week ago had lows due to stopping pump and forgetting to restart and was overbolused She reports last few days have been in better range with no lows, TIme in ranges: 8.4% very high (above 250) 11.5 % high ?(181-250) 60.6 % in range ?(70-180] 18.1 % low (69-55) this was based on two days last wee in which one day she had lows 1.4 % ?very low (below 54) Interpretation [ ] Micro and macrovascular complications: nephropathy followed by Nephrology at [facility]. She is seen annually. On ARB Has annual eye exam. Has minor retinopathy in the past which she reports improved at Last exam 11/2023 scheduled late in November Does not see podiatry. Denies numbness tingling cramping Not on statin most recent LDL 107 11/03/2023 hypoglycemia: Hyperglycemia; blood sugars elevated after meals. 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 And was advised to achieve an A1c of 7%. Should she become she should contact us right away and we will change her insulin targets in the pump she should also discontinue her Arb which her clinical rn has recommended she do. She is taking this for proteinuria not for hypertensive purposes [facility] Medical History Depression Type 1 diabetes mellitus with hyperglycemia Surgical History History of left breast biopsy Family History Paternal Grandmother Diabetes Maternal Aunt Breast cancer Family/Other Colon cancer Social History Household Members: Family Housing: Apartment Alcohol intake: current Alcohol intake frequency: holidays/special occasions only Patient Tobacco Use Status: Never used Tobacco Substance Use Type: Marijuana Current occupational status: employed Current occupation: [employer] Sexual orientation: Straight/Heterosexual Gender identity: Female Female Reproductive History Menstrual Age of Menarche: 13 Physical Exam Vital Signs: Last Vital Signs Pulse 67 12/08/24 07:32 BP 110/64 12/08/24 07:32 Pulse Ox 96 12/08/24 07:32 Oxygen Delivery Method Room Air 12/08/24 07:32 BMI result Body Mass Index 27.3 Const Other: Absence of Cushingoid features. Absence of acromegalic features. Neck exam reveals nl size thyroid about 15 gms. No thyroid nodules palpable. Heart S1 S2, Reg R/R. No M/R G. Skin exam reveals absence of vitiligo or acanthosis nigricans. No edema Visual exam of foot performed. No ulcerations or open lesions. No inter digit maceration or fissuring. No onychomycosis, no callouses. Sensation intact to monofilament exam. Vibratory sensation is normal with 128 Hz tuning fork.pulses positive Results AMB Hemoglobin A1c AMB Hemoglobin A1c 7.2 % Last Edit by EVELIO Kennedy on 12/08/24 07:59 Results Reviewed Results Reviewed: Laboratory Last Values Glucose (Clinic) 222 mg/dL (60-115) H 12/08/24 07:40 Assessment & Plan Assessment & Plan (1) Type 1 diabetes mellitus with hyperglycemia: Code(s): E10.65 - Type 1 diabetes mellitus with hyperglycemia Category: Medical Plan: 34-year-old type 1 diabetic recently changed to an islet pump. A1c today of 7.2% only reflects two weeks on new pump. She has follow up with Veronica TRAN in 1 week. We reviewed basics of pump therapy using the ilet and how this differs from her previous pump. He will have fasting labs done and follow up with Dr. Holliday in 3 months. The patient had an opportunity to ask questions regarding treatment plan. The patient expressed understanding and agreement with the above treatment plan. The patient is aware they should contact our office by phone for worsening glucose readings or for any low blood sugars which may warrant a change in diabetes medication. Compliance is encouraged with medications and any followup testing/consults which may have been ordered. Orders: Orders AMB Hemoglobin A1c Today E10.29 - Type 1 diabetes mellitus with other diabetic kidney complication, R80.9 - Proteinuria, unspecified, Z13.9 - Encounter for screening, unspecified Lipid Panel Today E10.65 - Type 1 diabetes mellitus with hyperglycemia Microalbumin, Random (w Creat) Today E10.65 - Type 1 diabetes mellitus with hyperglycemia Comprehensive Met. Panel Today E10.65 - Type 1 diabetes mellitus with hyperglycemia Creatinine Urine Today E10.65 - Type 1 diabetes mellitus with hyperglycemia Coding Level of Care Code Est Pt Level 4 (65358) Complex EM visit Add On G2211 Diagnoses Type 1 diabetes mellitus with hyperglycemia E10.65 Time Spent (min) 30 Comment Time spent reviewing labs/provider notes, face to face, chart doc
--- OUTSIDE RECORDS SUMMARY | 2024-12-08 07:26 | XMS_ITS | Patient Health Record ---
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 CT NG by PCR Reviewed date:02/27/2024 08:39:14 AM Interpretation: Performing Lab:[facility], [address] [place] [address] Notes/Report: Vaginal CT PCR DETECTED Not Detect. [...] ordering clinician or clinical facility to the [facility] as required by state law. NG [...] Panel Reviewed date:02/28/2024 07:23:58 AM Interpretation: Performing Lab:[facility], [address] [place] [address] Notes/Report: Trichomonas vaginalis PCR NOT DETECTED Not [...] date:03/13/2024 07:32:41 AM Interpretation: Performing Lab: Notes/Report: [address] [address] Ultrasound Report Signed Patient: Alyce Hardwick MR#: [id number] : 1990 Acct:[id number] Age/Sex: 33 / F ADM Date: 03/04/24 Loc: HO.US Attending Dr: Glenda Gross CNM Ordering Physician: Glenda Gross CNM Date of Service: 03/04/24 Procedure(s): US pelvic and transvaginal Accession Number(s): [id number] cc: William Tolentino MD; Glenda Gross CNM [...] 03/10/24 0937 DD/ 1110 TD/TT: 03/04/24 1131 Manager New Product: [address] [address] Ultrasound Report Signed Patient: Alyce Hardwick MR#: [id number] : 1990 Acct:[id number] Age/Sex: 33 / F ADM Date: 03/04/24 Loc: HO.US Attending Dr: Glenda Gross CNM Ordering Physician: Glenda Gross CNM Date of Service: 03/04/24 Procedure(s): US pelvic and transvaginal Accession Number(s): [id number] cc: William Tolentino MD; Glenda Gross CNM [...] 03/10/24 0937 DD/ 1110 TD/TT: 03/04/24 1131 Manager New Product: CT NG by PCR Reviewed date:04/11/2024 07:10:12 AM Interpretation: Performing Lab:[facility], [address] [place] [address] Notes/Report: Vaginal CT PCR NOT DETECTED Not [...] Panel Reviewed date:04/11/2024 07:10:12 AM Interpretation: Performing Lab:[facility], [address] [place] [address] Notes/Report: Trichomonas vaginalis PCR NOT DETECTED Not [...] 18/45 Reviewed date:04/17/2024 08:40:09 AM Interpretation: Performing Lab:[facility], [address] [place] [address] Notes/Report: SEE SCANNED RESULTS IN EMR HPV 16 RNA NOT DETECTED NOT DETECTED HPV 18/45 RNA NOT DETECTED NOT DETECTED Methodology: Fire Watchman Mediated Amplification Cervical sources are required for HPV testing. If a vaginal source from a patient who has had a total hysterectomy with removal of cervix was submitted, please contact the testing laboratory for alternative testing options. THIS TEST WAS PERFORMED AT: [facility] [address] [place] [phone] SEAN RENE MD HPV mRNA E6/E7 Detected Not Detected Methodology: Fire Watchman-Mediated Amplification This assay detects E6/E7 viral messenger RNA (mRNA) from 14 high-risk HPV types (16,18,31,33,35,39,45, 51,52,56,58,59,66,68). Cervical sources are required for HPV testing. If a vaginal source from a patient who has had a total hysterectomy with removal of cervix was submitted, please contact the testing laboratory for alternative testing options. For additional information, please refer to http://education.[employer]/faq/FA Q129v1 (This link if provided for information/ [...] has been evaluated with computer assisted technology. Senior Manufacturing Test Engineer SEE NOTE SXA, CT(ASCP) CT screening location: [place] [address] Review Senior Manufacturing Test Engineer SEE NOTE MPG, CT(ASCP) CT screening location: [place] [address] Pathologist TNP PAP Infection TNP See Note [...] Blood Reviewed date:05/13/2024 08:19:51 PM Interpretation: Performing Lab:[facility], [address] [place] [address] Notes/Report: Glucose, Whole Blood 179 60-115 mg/dL METER #: [id number] Testing performed in the [facility] , [address] [place] [address]. US pelvic and transvaginal Reviewed date:07/09/2024 08:36:54 PM Interpretation: Performing Lab: Notes/Report: [address] [address] Ultrasound Report Signed Patient: Alyce Hardwick MR#: [id number] : 1990 Acct:[id number] Age/Sex: 34 / F ADM Date: 07/08/24 Loc: HO.US Attending Dr: Glenda Gross CNM Ordering Physician: Glenda Gross CNM Date of Service: 07/08/24 Procedure(s): US pelvic and transvaginal Accession Number(s): [id number] cc: William Tolentino MD; Glenda Gross CNM CLINICAL HISTORY: N92.6 - Irregular menstruation, unspecified US pelvis transabdominal and transvaginal with color Doppler Comparison: US/OT/OH - US PELVIC AND TRANSVAGINAL - 03/04/24 [...] 07/09/24 1601 DD/ 1600 TD/TT: 07/09/24 1600 Manager New Product: [place] [address] Ultrasound Report Signed Patient: Alyce Hardwick MR#: [id number] : 1990 Acct:[id number] Age/Sex: 34 / F ADM Date: 07/08/24 Loc: HO.US Attending Dr: Glenda Gross CNM Ordering Physician: Glenda Gross CNM Date of Service: 07/08/24 Procedure(s): US pelvic and transvaginal Accession Number(s): [id number] cc: William Tolentino MD; Glenda Gross CNM CLINICAL HISTORY: N92.6 - Irregular menstruation, unspecified US pelvis transabdominal and transvaginal with color Doppler Comparison: US/OT/OH - US PELVIC AND TRANSVAGINAL - 03/04/24 [...] 07/09/24 1601 DD/ 1600 TD/TT: 07/09/24 1600 Manager New Product: GI Panel Reviewed date:09/14/2024 11:08:21 AM Interpretation: Performing Lab:[facility], [address] [place] [address] Notes/Report: Campylobacter Not Detected Not Detect. Plesiomonas [...] is performed by Multiplexed PCR, utilizing the Stromedix Array. Ova and Parasite Reviewed date:09/14/2024 11:08:21 AM Interpretation: Performing Lab:[facility], [address] [place] [phone] Notes/Report: Ova and Parasite SEE NOTE OVA AND PARASITES, CONC AND PERM SMEAR Micro Number: [id number] Test Status: Final Specimen Source: Stool Specimen [...] infection. For additional information, please refer to https://education.[employer].com/faq/F AQ203 (This link is being provided for informational/ educational purposes only.) THIS TEST WAS PERFORMED AT: [facility] [place] [address] SHAYY KEEN MD Glucose, Whole Blood Reviewed date:09/14/2024 11:08:21 AM Interpretation: Performing Lab:[facility], [address] [place] [address] Notes/Report: Glucose, Whole Blood 115 60-115 mg/dL METER #: [id number] Testing performed in the [facility] , [address], [facility]. Complete Blood Count no Diff Reviewed date:10/15/2024 07:22:28 AM Interpretation: Performing Lab:[address] [address] Notes/Report: White Blood Count 5.9 4.8-10.8 X10*3/uL [...] T4 Reviewed date:10/15/2024 07:22:28 AM Interpretation: Performing Lab:[facility], [address] [place] [phone] Notes/Report: TSH reflex Free T4 0.96 0.32-4.0 uIU/mL HCG Quantitative Reviewed date:10/15/2024 07:22:28 AM Interpretation: Performing Lab:[address] [address] Notes/Report: HCG Quantitative < 2 Weeks post [...] Screen Reviewed date:10/15/2024 07:22:28 AM Interpretation: Performing Lab:[facility], [address] [place] [phone] Notes/Report: Syphilis Screen Nonreactive Nonreactive CT NG by PCR Reviewed date:10/15/2024 07:22:28 AM Interpretation: Performing Lab:[facility], [address] [place] [address] Notes/Report: Vaginal CT PCR NOT DETECTED Not [...] Panel Reviewed date:10/15/2024 07:22:28 AM Interpretation: Performing Lab:[address] [address] Notes/Report: Trichomonas vaginalis PCR NOT DETECTED Not [...] Ab/Ag Reviewed date:10/15/2024 07:22:28 AM Interpretation: Performing Lab:[address] [address] Notes/Report: HIV AB/AG Nonreactive Nonreactive HIV-1 p24 [...] limit of detection of this assay. The [employer] HIV Ag/Ab Combo assay result and supplemental assay results should be interpreted in conjunction with the patient's clinical presentation, history and other laboratory results. If the results are inconsistent with clinical evidence, additional testing is suggested to confirm the result. Hepatitis C Antibody Reviewed date:10/15/2024 07:22:28 AM Interpretation: Performing Lab:[address] [address] Notes/Report: Hepatitis C Antibody Nonreactive Nonreactive Antibodies to HCV not detected; does not exclude early acute HCV infection. Hepatitis B Surface Antigen Reviewed date:10/15/2024 07:22:28 AM Interpretation: Performing Lab:[facility], [address] [place] [address] Notes/Report: Hepatitis B Surface Antigen Negative Negative Pathology (Not yet reviewed by provider) Interpretation: Performing Lab:[facility], [address] [place] [address] Notes/Report: -- ---- Name: Alyce Hardwick Age/Sex: 34/F : 1990 Unit#: [id number] Attend Dr: Fer Sutton MD Re11/04/24 Status : [facility] Location: [facility] Disch: -- ---- SPEC : [id number] RECD : 11/04/24 STATUS: CEDRICKMicaela NEIL NUM: [id number] VIBHA: 11/04/[address] [facility] [address]: Fer Sutton MD ENTERED: 11/04/24 SP TYPE: Surgical OTHR DR: William Tolentino MD ORDERED: HE Stain/2, Gross Micro L4 Diagnosis Endometrium, curettage: Benign late secretory endometrium; no atypia or carcinoma. Comment: Some fragments may be derived from benign functional polyps. Clinical History Abnormal uterine/vaginal bleeding Microscopic Description Microscopic sections reviewed. Material Received [facility] Gross Description Received in formalin , on Telfa, are fragments of red-pink soft tissue mixed with mucus and clotted blood formin g an aggregate measuring 3.5 x 2.8 x 0.3 cm which is wrapped in lens paper and entirely submitted for microscopic examination, multiple pieces in cassettes A1 and A2. ([facility]) Copies To: William Tolentino MD [address], [address] [place] [address] Fer Sutton MD [facility] [address] [place] [address] -- ---- Signed (signature on file) Ivelisse Clute 11/07/24 1342 -- ---- END OF REPORT Ur Preg Test Reviewed date:11/06/2024 03:00:11 PM Interpretation: Performing Lab:[facility], [address] [place] [address], [place] [address] Notes/Report: Urine NEGATIVE NEGATIVE This test was [...] 1 tablet Orally Once a day Active Immunizations Vaccine Route Administration Date Status [...] Problem Status W/U Status Risk Notes Problem 308384512 Overweight (E66.3) Active confirmed She has gained [...] fat calories sodium and concentrated sweets. Problem 143251421 Other obesity (E66.8) Active confirmed Her body mass index is 31.4. We discussed weight reduction strategies and a diabetic diet. We made a plan to lose weight. 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 Her glucose levels have been satisfactory. She will continue to be managed by endocrinology Problem 924015510 Attention deficit disorder (ADD) in adult (F98.8) Active confirmed She was continu ed on her current regimen. Problem 439955708 Type 1 diabetes mellitus without complication (E10.9) Active confirmed Her insulin pum p is working well. Will soon be replaced by a 1. Her hemoglobin A1c is satisfactory as is her fasting glucose. No change in her regimen was made. Problem 083708089 Body mass index [BMI] 30.0-30.9, adult (Z68.30) Active confirmed Problem 275468442 Bilateral headaches (R51.9) Active confirmed She has had no headaches since her last visit. Problem 57803735 Difficulty concentrating (R41.840) Active confirmed She says that h er previous primary care physician, Dr. Chaves, prescribed this medication, but it was years ago. I referred her back to her psychotherapist for evaluation and if necessary, referral to a prescriber. I made the appointment and I am not trained in psychiatric disorders. Problem 915555885 Obesity, class 1 (E66.811) Active confirmed Her [...] Date Provider Diagnosis William Tolentino III, MD [address] [place] [address] [place] [address] 06/13/2024 William Tolentino skilled nursing current us e of insulin Z79.4 ; Type 1 diabetes mellitus without complication E10.9 ; Obesity, class 1 E66.811 ; Attention deficit disorder (ADD) in adult F98.8 and Depression, unspecified depression type F32.A William Tolentino III, MD [address] [place] [address] [place] [address] 07/05/2024 William Tolentino Anxiety, generalized F41.1 ; Type 1 diabetes mellitus without complication E10.9 ; Other obesity due to excess calories E66.09 and Bilateral headaches R51.9 William Tolentino III, MD [address] [place] [address] [place] [address] 09/05/2024 William Tolentino Type 1 diabetes jade itus without complication E10.9 ; Bilateral headaches R51.9 ; Overweight E66.3 ; Attention deficit disorder (ADD) in adult F98.8 ; Obesity, class 1 E66.811 and Acute gastroenteritis K52.9 William Tolentino III, MD [address] [place] [address] [place] [address] 09/07/2024 William Tolentino Other obesity due to excess calories E66.09 ; Type 1 diabetes mellitus without complication E10.9 ; Acute gastroenteritis K52.9 and Attention deficit disorder (ADD) in adult F98.8 William Tolentino III, MD [address] [place] [address] [place] [address] 09/14/2024 William Tolentino Escherichia coli infection A49.8 ; Type 1 diabetes mellitus without complication E10.9 ; skilled nursing current use of insulin Z79.4 ; Overweight E66.3 and Attention deficit disorder (ADD) in adult F98.8 William Tolentino III, MD [address] [place] [address] [place] [address] 10/25/2024 William Tolentino Type 1 diabetes jade itus without complication E10.9 ; Attention deficit disorder (ADD) in adult F98.8 ; 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 She will hydrate aggressively. 09/14/2024 skilled nursing current us e of insulin (ICD-10 - Z79.4) Her insulin pump is working well. Her glucose levels have been satisfactory. She will continue to be managed by endocrinology 10/25/2024 skilled nursing current us e of insulin (ICD-10 - [...] Details Provider Name:William Tolentino, 01/24/2025 10:45:00 AM, [address] [place] [address] [address], [place], [address], Provider Name:William Tolentino, 10/26/2025 11:00:00 AM, [address] [place] [address] [address], [place], [address], Insurance Providers Payer Name Payer Address Payer Phone Subscriber Number Group Number Insured Name Patient Relationship to Insured Coverage Start Date Coverage End Date [employer] [address] [address] [place] [address] [id number] Alyce Hardwick Self - patient is the insured 0 [place] [address] [place], [place] [id number] Alyce Hardwick Self - patient is the insured Medical (General) History Medical History History ICD Code juvenile diabetes mellitus, onset age 11 , insulin pump family history of breast cancer, materna l obesity, BMI 30 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 She is currently on fluoxetine for depression. Surgical History Surgery Date(Month/Year) No history dental extractions 2015 left breast lumpectomy, Dr. Mercer, [facility] 2016 Hospitalization History Reason Date(Month/Year) No history
[2024-12-08 07:32] VITALS: BP 110/64; PULSE 67; O2SAT 96; BMI 27.3
[2024-12-08 07:46] LABS: Glucose, Whole Blood 222 mg/dL (60-115)
== END 2024-12-08 08:07 | disposition home or self-care (01) ==
LOC: HO.ENCR 07:24
PROVIDERS: PCP Internal Medicine Medical Oncology; Visit Provider Nurse Practitioner Adult Health
DX: Z13.9 Encounter for screening, unspecified (principal); E10.29 Type 1 diabetes mellitus with other diabetic kidney complication; R80.9 Proteinuria, unspecified; E10.65 Type 1 diabetes mellitus with hyperglycemia
CPT/HCPCS: 99214; G2211

== ENCOUNTER → 2024-12-08 07:23 | Outpatient (BNVA) | payer OTHER, SELFPAY | PROVIDERS: PCP Internal Medicine Medical Oncology; Visit Provider Nurse Practitioner Adult Health | DX: E10.65 Type 1 diabetes mellitus with hyperglycemia (principal) | CPT/HCPCS: 82947; 83036; 99212 ==

== ENCOUNTER 2024-12-12 07:35 | Outpatient (AMB) | payer OTHER, SELFPAY ==
--- NOTE | 2024-12-12 07:29 | A.OFFVIS_ITS ---
Intake Intake Visit Reasons: 60 min Physical Therapist Assistant Required: No Accompanied by: Self / Same As Patient Allergies No Known Allergies Allergy (Verified 12/08/24 07:38) HPI Comprehensive Diabetes Asmnt Most Recent Diabetes Results: 2 Microalb/Creat Ratio 28.5 ug/mg cr (<30) 09/14/24 Cholesterol 197 mg/dL (<200) 09/14/24 HDL Cholesterol 69 mg/dL (>40) 09/14/24 Triglycerides 43 mg/dL (<150) 09/14/24 Creatinine 0.78 mg/dL (0.5-1.4) 09/14/24 Blood Urea Nitrogen 13 mg/dL (9-16) 09/14/24 Sodium 139 mmol/L (135-145) 09/14/24 Potassium 3.5 mmol/L (3.3-5.1) 09/14/24 Chloride 106 mmol/L (96-108) 09/14/24 Carbon Dioxide 27 mmol/L (22-29) 09/14/24 Calcium 8.8 mg/dL (8.4-10.2) 09/14/24 [facility] Medical History Depression Type 1 diabetes mellitus with hyperglycemia Surgical History History of left breast biopsy Family History Paternal Grandmother Diabetes Maternal Aunt Breast cancer Family/Other Colon cancer Social History Household Members: Family Housing: Apartment Alcohol intake: current Alcohol intake frequency: holidays/special occasions only Patient Tobacco Use Status: Never used Tobacco Substance Use Type: Marijuana Current occupational status: employed Current occupation: [employer] Sexual orientation: Straight/Heterosexual Gender identity: Female Female Reproductive History Menstrual Age of Menarche: 13 Assessment & Plan Assessment & Plan (1) Type 1 diabetes mellitus with hyperglycemia: Code(s): E10.65 - Type 1 diabetes mellitus with hyperglycemia Plan: Patient presents for pump training for iLet pump and CGM training today. The following topics were reviewed today: -Pump therapy basic concepts: Basal/bolus -For most effective glucose control bolus prior to meals - Off pump backup insulin plan iLet Alerts: ??? High Alert: 300 mg/dl ??? Low Alert: 75 mg/dl Review of patient's glucose data is difficult because of inconsistent connectivity between insulin pump and cell phone. Patient does seem to be experiencing high percentage of hypoglycemia. Increased target to 130 mg/dL to see this helps alleviate some of the hypoglycemia. Patient declined to [facility] today's appointment She will follow-up in 2 weeks to see if glucose pattern has stabilized. Discussed with patient importance of not over treating lows, if you forget to announce meal and it is more than 30 minutes after eating do not announce meal Instructed patient to only use room temperature insulin, how to load cartridge or fill pod, with insulin. Fill tubing and cannula (if applicable) Troubleshooting after starting new pod or inserting new insulin set: Occlusion, adhesive tape sensitivity, redness Check BG 2 hours after site change Reviewed Safety information: Importance of a backup plan, for manual injections, proper prescriptions and emergency supplies ketone strips, and rules for testing for ketones Patient understands the basic concepts of pump therapy, how to give insulin for meals and snacks, how to troubleshoot for hyper and hypoglycemia. Patient [facility] as instructed Patient will contact [facility] with questions or concerns, patient given IT number to support in any technical issues related to insulin pump Portions of this note were created using voice recognition software, please excuse any words or phrases that may have been misinterpreted. Coding Level of Care Code Est Pt Level 1 (08051) Diagnoses Type 1 diabetes mellitus with hyperglycemia E10.65
== END 2024-12-13 07:58 | disposition home or self-care (01) ==
LOC: HO.ENCR 07:35
PROVIDERS: PCP Internal Medicine Medical Oncology; Visit Provider Registered Nurse Diabetes Educator
DX: E10.65 Type 1 diabetes mellitus with hyperglycemia (principal)

== ENCOUNTER → 2024-12-12 07:35 | Outpatient (BNVA) | payer OTHER, SELFPAY | PROVIDERS: PCP Internal Medicine Medical Oncology; Visit Provider Registered Nurse Diabetes Educator | DX: E10.65 Type 1 diabetes mellitus with hyperglycemia (principal) | CPT/HCPCS: 99211 ==

== ENCOUNTER 2025-05-23 11:24 | Outpatient (REF) | payer OTHER, SELFPAY | END 2025-05-23 11:25 | disposition home or self-care (01) | LOC: HO.LNP 11:24 | PROVIDERS: PCP Internal Medicine Medical Oncology; Visit Provider Obstetrics & Gynecology | DX: Z01.419 Encounter for gynecological examination (general) (routine) without abnormal findings (principal); B97.7 Papillomavirus as the cause of diseases classified elsewhere; N39.41 Urge incontinence | CPT/HCPCS: 87626; 88175; 99395 ==

== ENCOUNTER 2025-05-23 11:24 | Outpatient (AMB) | payer OTHER, SELFPAY ==
--- OUTSIDE RECORDS SUMMARY | 2024-06-13 06:15 | XMS_ITS ---
Author Organization William Tolentino III, MD Address [address] [facility] [place] [place] [address] Care Team Providers Care Waist Cutter Name Role Phone Dr. William Tolentino III Primary Care Provider Allergies Allergen (clinical drug ingredient) Drug/Non Drug [...] Problem Status W/U Status Risk Notes Problem [id number] Body mass index [BMI] 30.0-30.9, adult (Z68.30) Active confirmed Problem 547799695 Obesity, class 1 (E66.811) Active confirmed Her [...] Date Provider Diagnosis William Tolentino III, MD [address] [place] [address] [place] [address] 06/13/2024 William Tolentino [facility] current us e of insulin Z79.4 ; Type 1 diabetes mellitus without complication E10.9 ; Obesity, class 1 E66.811 ; Attention deficit disorder (ADD) in adult F98.8 and Depression, unspecified depression type F32.A Assessments Encounter Date Diagnosis (ICD Code) Assessment Notes Treatment Notes Treatment Clinical Notes 06/13/2024 [facility] current use of insulin (ICD-10 - Z79.4) [...] Provider Name:William Tolentino , 10/26/2025 11:00:00 AM, [address] [place] [address] [place], [address], Progress Notes * Britney HARDWICKOB:1990 ([age] yo F)Acc No.[id number]:06/13/2024 Progress Notes Patient: Alyce HOWE Provider: Shameka Tolentino MD :1990 A ge:34 Y S ex:Female Date:06/13/2024 Address:[address] [place] [address] Char [id number] Subjective: * Chief Complaints: * W orsening [...] N egative 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 She works [...] Date: 08/14/2023 Generated for Duncan smith/Estefania/Sofya on: 07/23/2024 03:07 PM EST History and Physical Notes * HPI [...]
--- OUTSIDE RECORDS SUMMARY | 2024-07-05 05:30 | XMS_ITS ---
Author Organization William Tolentino III, MD Address [address] [place] [address] [place] [address] Care Team Providers Care Culinary Chef Name Role Phone Dr. William Tolentino III Primary Care Provider [phone] Allergies Allergen (clinical drug ingredient) Drug/Non Drug Allergy documented on EMR Reaction Allergy Type Onset Date Status No Known Drug Allergy Unknown Drug Allergy Active REASON FOR VISIT Anxiety disorder, Juvenile diabetes, Insulin pump, Headaches, Attention deficit disorder, Obesity Medications Medication SIG (Take, Route, Frequency, Duration) Notes Start Date End Date Status Valsartan 80 MG Oral Acti ve FLUoxetine HCl 20 MG 1 capsule Orally On a day 08/21/2023 Active Cefuroxime Axetil 500 MG 1 tablet Orally every 12 hrs 08/21/2023 Active Sertraline HCl 50 MG 1 tablet Orally Once a day Active Insulin Lispro 100 UNIT/ML DIRECTED I NJECTION 75 UNITS PER DAY VIA PUMP 30 DAYS Active Social History Tobacco Use: Social History Observation Description Date Details (start date - stop date) Never Smoker NA - NA Sex Assigned At : Social History Observation Description Sex Assigned At Female Tobacco Use/Smoking Question Answer Notes Patient is a nonsmoker Additional Findings: Tobacco Non-User Aggressive non-smoker Vital Signs Height 68 in 07/05/2024 Weight 199 lbs 07/05/2024 BMI 30.25 kg/m2 07/05/2024 Encounters Encounter Location Date Provider Diagnosis William Tolentino III, MD [address] [place] [address] [place] [address] 07/05/2024 William Tolentino Anxiety, generalized F41.1 ; Type 1 diabetes mellitus without complication E10.9 ; Other obesity due to excess calories E66.09 and Bilateral headaches R51.9 Assessments Encounter Date Diagnosis (ICD Code) Assessment Notes Treatment Notes Treatment Clinical Notes 07/05/2024 Anxiety, generalized (ICD-10 - F41.1) She has noted a marked improvement in her anxiety. She is experiencing calmness. She has had no side effects from sertraline which she has been taking. He was continued for another 21 days. 07/05/2024 Type 1 diabetes mellitus without complication (ICD-10 - E10.9) Her insulin pump continues to function normally as does her monitor. Her hemoglobin A1c is acceptable. She remains under the care of endocrinology. 07/05/2024 Other obesity due to excess calories (ICD-10 - E66.09) She is trying to lose weight. She was given an appointment in the near future to return to the office to be weighed, and have her blood pressure checked. 07/05/2024 Bilateral headaches (ICD-10 - R51.9) She has had no headaches since her last visit. Plan Of Treatment Medication Medication Name Sig Start Date Stop Date Notes Valsartan 80 MG Oral FLUoxetine HCl 20 MG 1 capsule Orally Once a day Cefuroxime Axetil 500 MG 1 tablet Orally every 12 hrs 07/31 Sertraline HCl 50 MG 1 tablet Orally Once a day 06/13/2024 Insulin Lispro 100 UNIT/ML DIRECTED I NJECTION 75 UNITS PER DAY VIA PUMP 30 DAYS Next Appt Details Follow Up: 2 Months, Early M arch, Reason: OV, Reassessment of patient's condition and treatment plan Provider Name:William Tolentino , 10/26/2025 11:00:00 AM, [address] [place] [address] [place], [address], Progress Notes * Erendira HARDWICKSukhdeepOB:1990 ([age] yo F)Acc No.[id number]:07/05/2024 Patient: Alyce HOWE Provider: Shameka Tolentino MD :1990 A ge:34 Y S ex:Female Date:07/05/2024 Address:[address] [place] [address] YONIS Pardo [id number] Subjective: * Chief Complaints: * A nxiety disorderJuvenile diabetesInsulin pumpHeadachesAttention deficit disorderObesity * HPI: * : Telehealth L ocation of provider rendering services: { ...} [address] [facility] [address] L ocation of patient: jayro russo listed in demographics for today's visit P atient identification confirmed using: DEEPA Loyd ame T elehealth method: T elephone only. Patient not visible to care provider. C onsent: P atient verbally consented to treatment, Patient verbally consented to billing insurance company, Patient informed of any privacy concerns related to method of visit T otal time spent with patient (mins) 1 5 The patient, a 34-year-old female, reported feeling a lot calmer than her last visit a month ago. She had been prescribed sertraline, which she confirmed to have filled and taken. The doctor noted that she sounded more like her normal self. The patient also reported that her diabetes was doing much better. * ROS: G eneral/Constitutional: pain o nly [...] enies. D iarrhea d enies. H eartburn o ccasional. N ausea d enies. R ectal bleeding d enies. V omiting d enies. H ematology: bruising d enies. p etechiae d enies. S wollen glands n one have been noted. G enitourinary: Frequent urination a t night. M usculoskeletal: Muscle aches d enies. P ainful joints d enies. S ciatica d enies. W eakness d enies. S kin: Itching d enies. R aristides d enies. S kin lesion(s)?denies. N eurologic: Difficulty speaking d enies. D izziness d enies.?Headache d enies. L ow back pain d enies. P sychiatric: Depressed mood I mproved anxiety. 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 She works [...] Capsule 1 capsule Orally Once a day Sertraline HCl 50 MG Tablet 1 tablet Orally Once a day Medication List reviewed and reconciled with the patientTaking Insulin Lispro 100 UNIT/ML Solution DIRECTED INJECTION 75 UNITS PER DAY VIA PUMP 30 DAYS Taking Valsartan 80 MG Tablet Oral Taking Cefuroxime Axetil 500 MG Tablet 1 tablet Orally every 12 hrs Taking FLUoxetine HCl 20 MG Capsule 1 capsule Orally Once a day Taking Sertraline HCl 50 MG Tablet 1 tablet Orally Once a day Medication List reviewed and reconciled with the patient * Allergies: N o Known Drug Allergyno[Allergies Verified] Objective: * Vitals: H t: 68, Wt: 199, BMI:30.25, Ht-cm: 172.72, Wt-k.26. * P ast Orders: Lab:Glucose, Whole Blood * Collection Date 05/12/2024 02/03/2024 11/03/2023 Collection Time 11:37 AM 08:49 AM 08:11 AM Order Date 05/12/2024 02/03/2024 11/03/2023 Glucose, Whole Blood 179 H (Ref Range: 60-115 mg/dL) 90 (Ref Range: 60-115 mg/dL) 104 (Ref Range: 60-115 mg/dL) * Lab:CT NG by PCR * Collection Date 04/07/2024 02/26/2024 07/08/2023 Collection Time 10:30 AM Order Date 04/07/2024 02/26/2024 07/08/2023 CT PCR NOT DETECTED (Ref Range: Not Detect.) DETECTED A (Ref Range: Not Detect.) NOT DETECTED (Ref Range: Not Detect.) NG PCR NOT DETECTED (Ref Range: Not Detect.) NOT DETECTED (Ref Range: Not Detect.) NOT DETECTED (Ref Range: Not Detect.) * Lab:Bacterial Vaginosis Pane l * Collection Date 04/07/2024 02/26/2024 07/08/2023 Collection [...] NOT DETECTED (Ref Range: Not Detect) NR ???Lab:PAP + HPV E6/E7 rfx 18/45 (Order Date - 04/07/2024) (Collection Date & Time - 04/07/2024)?ValueReference Range?HPV 16 RNANOT DETECTEDNOT DETECTED -?HPV 18/45 RNANOT DETECTEDNOT DETECTED -?HPV mRNA E6/E7 DetectedANot Detected -?Thin Prep SourceSEE NOTE-?Report StatusTNP -?Clinical InformationSEE NOTE-?LMPSEE NOTE-?Previous PAP SEE NOTE-?Previous Biopsy DateSEE NOTE-?State of AdequacySEE NOTE- ?General CategorizationTNP-?Interpretation/ResultSEE NOTE- ?Cytology CommentSEE NOTE-?CytotechnologistSEE NOTE-?Review CytotechnologistSEE NOTE-?PathologistTNP-?PAP InfectionTNP- ?See NoteSEE NOTE- Assessment: * Assessment: 1. A nxiety, generalized - F41.1 (Primary) N otes :She has noted a marked improvement in her anxiety. She is experiencing calmness. She has had no side effects from sertraline which she has been taking. He was continued for another 21 days. 2 . T ype 1 diabetes mellitus without complication - E10.9 N otes :Her insulin pump continues to function normally as does her monitor. Her hemoglobin A1c is acceptable. She remains under the care of endocrinology. 3 . O ther obesity due to excess calories - E66.09 N otes :She is trying to lose weight. She was given an appointment in the near future to return to the office to be weighed, and have her blood pressure checked. 4 . B ilateral headaches - R51.9 N otes :She has had no headaches since her last visit. Plan: * Treatment: * Procedure Codes: * [...] done: Medical or Other reason not done DM Care Plan: P atient Lifestyle Goals P atient wants to be able to manage diabetes without too much effort. T reatment Goals H bA1C < 7.0, Blood Sugars less than < 115. B arriers n o barriers. S elf-Managment Goals W ork on weight loss, with a goal of losing 1 lb per week. * Follow Up: 2 Months, Early August (Reason: OV, Reassessment of patient's condition and treatment plan) * Images: * Sign off status: Completed true * Provider: Shameka Tolentino MD Date: 0 07/05/2024 Generated for Duncan smith/Estefania/Meghanitting on: 07/23/2024 03:09 PM EST History and Physical Notes * HPI (History of Present Illness) Category Sub-Category Detail Notes Telehealth Location of [facility] rendering services:: {...} [address] [place], [place] [id number] Location of patient:: address listed in demographics for today's visit Patient identification confirmed using:: Name, Telehealth method:: Telephone only. Mercedez ent not visible to care provider. Consent:: Patient verbally c onsented to treatment, Patient verbally consented to billing insurance company, Patient informed of any privacy concerns related to method of visit Total time spent with patient (mins): 15
--- OUTSIDE RECORDS SUMMARY | 2024-09-05 08:45 | XMS_ITS ---
Author Organization William Tolentino III, MD Address [address] [place] [address] [address] OZUNA Marge [place] [address] Care Team Providers Care Professional Bass Fisherman Name Role Phone Dr. William Tolentino III [...] Date Provider Diagnosis William Tolentino III, MD [address] [place] [address] [place] [address] 09/05/2024 William Tolentino Type 1 diabetes jade [...] Provider Name:William Polkrne , 10/26/2025 11:00:00 AM, [address] [place] [address] [address], [address], [place], [address], Progress Notes * Britney HARDWICKOB:1990 ([age] yo F)Acc No.[id number]:09/05/2024 Patient: Alyce HOWE Provider: Shameka Tolentino MD :1990 A ge:34 Y S ex:Female Date:09/05/2024 Address:[address] [place] [address] [facility] [id number] Subjective: * Chief Complaints: * a cute URIType 1 diabetesADDHObesity * HPI: * : T his telehealth visit took place over 15 min. with the patient at home and me in my office.? She gave consent for billing. This was a telehealth visit because she is sick and coughing and has not stopped diarrhea. 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 [...] 0 09/05/2024 Generated for Duncan smith/Estefania/Meghanitting on: 07/23/2024 03:08 PM EST History and Physical Notes * HPI (History of Present Illness) Category Sub-Category Detail Notes Telehealth Location of [facility] rendering services:: {...} [address] [facility] [place] [address] Location of patient:: address listed in demographics [...]
--- OUTSIDE RECORDS SUMMARY | 2024-09-07 08:15 | XMS_ITS ---
Author Organization William Tolentino III, MD Address [address] [place] [address] [place] [address] Care Team Providers Care Riverboat Master Name Role Phone Dr. William Tolentino III [...] Date Provider Diagnosis William Tolentino III, MD [address] [place] [address] [place] [address] 09/07/2024 William Vargas obesity due to excess [...] Provider Name:William Tolentino , 10/26/2025 11:00:00 AM, [address] [place] [address] [address] [place] [id number], [place], [address], Progress Notes * DEYSIErendiraSukhdeepOB:1990 ([age] yo F)Acc No.[id number]:09/07/2024 Patient: Alyce HOWE Provider: Shameka Tolentino MD :1990 A ge:34 Y S ex:Female Date:09/07/2024 Address:[address] [place] [address] [phone] Subjective: * Chief Complaints: * U RIJuvenile diabetesUses insulin pump * HPI: * : T his telehealth visit took place over 15 minutes with the patient at home and me in my office. She gave consent for billing. She recently came down with an acute illness of cough and congestion and mild fever and diarrhea. She has just been to [facility]. A stool culture was done and returned showing toxigenic Escherichia coli. She reports that she is beginning to improve. She will be treated with fluids and conservative care. The ova and parasites are still pending.She has had only 2 stools yesterday. She has had no abdominal pain. 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 She works [...] 09/07/2024 Generated for Duncan smith/Estefania/eTransmitting on: 1 07/23/2024 03:08 PM EST History and Physical Notes * HPI (History of Present Illness) Category Sub-Category Detail Notes Telehealth Location of formerly [facility] rendering services:: {...} [address] [facility] [address] Location of patient:: address listed in demographics [...]
--- OUTSIDE RECORDS SUMMARY | 2024-09-13 04:55 | XMS_ITS ---
Author Organization William Tolentino III, MD Address [address] [place] [address] [address] [place] [facility] [place] [address] Care Team Providers Care Java Engineer Name Role Phone Dr. William Tolentino III [...] Date Provider Diagnosis William Tolentino III, MD [address] [place] [address] [place] [address] 09/13/2024 William Tolentino Plan Of Treatment Next Appt Details Provider Name:William Tolentino , 10/26/2025 11:00:00 AM, [address] [place] [address] [place], [address], Progress Notes * Britney HARDWICKOB:1990 ([age] yo F)Acc No.[id number]:09/13/2024 Patient: Alyce HOWE :1990 A ge:34 Y S ex:Female Address:[address] [place] [address] [place], [address] Subjective: * Chief Complaints: * D iscontinued [...] * true * Date: Generated for Duncan Hua/Sofya on: 07/23/2024 03:09 PM EST
--- OUTSIDE RECORDS SUMMARY | 2024-09-14 06:00 | XMS_ITS ---
Author Organization William Tolentino III, MD Address [address] [place] [address] [place] [address] Care Team Providers Care Transportation Assistant Name Role Phone Dr. William Tolentino III Primary Care Provider [phone] Allergies Allergen (clinical drug ingredient) Drug/Non Drug Allergy documented on EMR Reaction Allergy Type Onset Date Status No Known Drug Allergy Unknown Drug Allergy Active REASON FOR VISIT Gastroenteritis, Christianity one diabetes, Anxiety and depression Medications Medication SIG (Take, Route, Frequency, Duration) Notes Start Date End Date Status Cefuroxime Axetil 500 MG 1 tablet Orally every 12 hrs 08/21/2023 Active Sertraline HCl 50 MG 1 tablet Orally Once a day Active Insulin Lispro 100 UNIT/ML DIRECTED I NJECTION 75 UNITS PER DAY VIA PUMP 30 DAYS Active Valsartan 80 MG Oral Acti ve Social History Tobacco Use: Social History Observation Description Date Details (start date - stop date) Never Smoker NA - NA Sex Assigned At : Social History Observation Description Sex Assigned At Female Tobacco Use/Smoking Question Answer Notes Patient is a nonsmoker Additional Findings: Tobacco Non-User Aggressive non-smoker Vital Signs Temperature 99.0 degrees Fahrenheit 09/15/19 25 Blood pressure systolic 113 mm Hg 09/15/19 25 Blood pressure diastolic 94 mm Hg 025 Heart Rate 86 /min 09/14/2024 Height 68 in 09/14/2024 Weight 194 lbs 09/14/2024 BMI 29.49 kg/m2 09/14/2024 Encounters Encounter Location Date Provider Diagnosis William Tolentino III, MD [address] [place] [address] [place] [address] 09/14/2024 William Tolentino Escherichia coli infection A49.8 ; Type 1 diabetes mellitus without complication E10.9 ; group home current use of insulin Z79.4 ; Overweight E66.3 and Attention deficit disorder (ADD) in adult F98.8 Assessments Encounter Date Diagnosis (ICD Code) Assessment Notes Treatment Notes Treatment Clinical Notes 09/14/2024 Escherichia coli infection (ICD-10 - A49.8) This infection has now resolved. She will resume her daily activities. 09/14/2024 Type 1 diabetes mellitus without complication (ICD-10 - E10.9) Her insulin pump continues to function normally as does her monitor. Her hemoglobin A1c is acceptable. She remains under the care of endocrinology. 09/14/2024 group home current use of insulin (ICD-10 - Z79.4) Her insulin pump is working well. Her glucose levels have been satisfactory. She will continue to be managed by endocrinology 09/14/2024 Overweight (ICD-10 - E66.3) She has gained [...] in fat calories sodium and concentrated sweets. 09/14/2024 Attention deficit disorder (ADD) in adult (ICD-10 - F98.8) She was continued on her current regimen. Plan Of Treatment Medication Medication Name Sig Start Date Stop Date Notes Cefuroxime Axetil 500 MG 1 tablet Orally every 12 hrs 07/31 Sertraline HCl 50 MG 1 tablet Orally Once a day 06/13/2024 Insulin Lispro 100 UNIT/ML DIRECTED I NJECTION 75 UNITS PER DAY VIA PUMP 30 DAYS Valsartan 80 MG Oral Next Appt Details Follow Up: As Scheduled, Crissy son: Annual Exam Provider Name:William Pardo Raajn , 10/26/2025 11:00:00 AM, [address] [place] [address] [address] [place], [place], [address], Progress Notes * Britney HARDWICKOB:1990 ([age] yo F)Acc No.[id number]:09/14/2024 Progress Notes Patient: Alyce HOWE Provider: Shameka Tolentino MD :1990 A ge:34 Y S ex:Female Date:09/14/2024 Address:[address] [place], [place] [phone] Subjective: * Chief Complaints: * G astroenteritisJew one diabetesAnxiety and depression * HPI: C OVID-19 Screening: She recently went to [facility] and after she returned had an episode of nausea and diarrhea. A stool culture showed toxigenic Escherichia coli. This is now resolved with conservative treatment. She was recently begun on sertraline for anxiety.? I told her to stop the fluoxetine. She is beginning to feel better emotionally. Her insulin pump is working well and she is discussing a new or more modern version with her endoocrinologist. Questions H ave you had any new onset fever, chills, cough, congestion, sore throat, shortness of breath, muscle aches? N o * ROS: G eneral/Constitutional: pain o nly normal aches and pains. C hills d enies.?Fatigue a dmits. F ever d enies. E NT: Decreased hearing d enies. R espiratory: Cough d enies. C ardiovascular: Chest pain with exertion d enies. D yspnea on exertion?denies. S hortness of breath d enies. G astrointestinal: Constipation d enies. D ecreased appetite d enies.?Diarrhea T his has resolved recently. H eartburn d enies. N ausea d enies.?Rectal bleeding d enies. V omiting d enies. [...] pain d enies. P sychiatric: Depressed mood w hich is mild. 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 [...] Objective: * Vitals: H t: 68, Wt: 194, BMI:29.49, BP: 113/94, HR: 86, Temp: 99.0, Ht-cm: 172.72, Wt-k. * P ast Orders: Imaging:US pelvic and transv aginal * Performed Date 07/09/2024 03/04/2024 04:00 PM 11:10 AM Order Date 07/09/2024 03/04/2024 ???Lab:Ova and Parasite (Order Date - 09/06/2024) (Collection Date & Time - 09/06/2024 06:50 AM)?ValueReference Range?Ova and ParasiteSEE NOTE - ???Lab:GI Panel (Order Date - 09/06/2024) (Collection Date & Time - 09/06/2024 06:50 AM)?ValueReference Range?CampylobacterNot DetectedNot Detect. -?Plesiomonas shigelloidesNot DetectedNot Detect. - ?SalmonellaNot DetectedNot Detect. -?VibrioNot DetectedNot Detect. -?Vibrio CholeraeNot DetectedNot Detect. -?Yersinia enterocolitica Not DetectedNot Detect. -?E. coli EAECDetectedANot Detect. -?E. coli EPECDetectedANot Detect. -?E. coli ETECNot DetectedNot Detect. - ?E. coli STECNot DetectedNot Detect. -?E. coli Y454Unt applicable Not Detect. -?Shigella sp./EIECNot DetectedNot Detect. - ?CryptosporidiumNot DetectedNot Detect. -?Cyclospora cayetanensis Not DetectedNot Detect. -?Entamoeba histolyticaNot DetectedNot Detect. - ?Giardia lambliaNot DetectedNot Detect. -?Adenovirus F 40/41Not DetectedNot Detect. -?AstrovirusNot DetectedNot Detect. - ?Norovirus GI/GIINot DetectedNot Detect. -?Rotavirus ANot Detected Not Detect. -?SapovirusNot DetectedNot Detect. - * Lab:Glucose, Whole Blood * Collection Date 09/14/2024 05/12/2024 02/03/2024 Collection Time 09:16 AM 11:37 AM 08:49 AM Order Date 09/14/2024 05/12/2024 02/03/2024 Glucose, Whole Blood 115 (Ref Range: 60-115 mg/dL) 179 H (Ref Range: 60-115 mg/dL) 90 (Ref Range: 60-115 mg/dL) * Examination: G eneral Examination: GENERAL APPEARANCE: p leasant, well nourished, well developed, in no acute distress, calm and relaxed, overweight, woman. HEAD: a traumatic, normocephalic. EYES: e grecia, perrla, anicteric, conjugate. EARS: n ormal. NOSE: s eptum intact. ORAL CAVITY: n ormal, unremarkable. NECK/THYROID: n o jugular venous distention, no carotid bruit, thyroid normal. LYMPH NODES: n o enlarged lymph nodes,spleen normal. SKIN: n o suspicious lesions, anicteric, Insulin pump in place. HEART: n o clicks, gallops, murmurs, or rubs, regular rhythm, S1, S2 normal, no s3, or vascular bruits. LUNGS: c lear to auscultation . BREASTS: no masses palpable bilaterally. ABDOMEN: b owel sounds normal, no ascites, no organomegaly, no mass. RECTAL EXAM: n ot examined. MUSCULOSKELETAL: e xtremities unremarkable, no clubbing, cyanosis or edema. PERIPHERAL PULSES: n ormal. NEUROLOGIC: a lert and oriented, cranial nerves 2-12 grossly intact, deep tendon reflexes 2+ symmetrical, motor strength normal upper and lower extremities, sensory exam intact. PSYCH: a lert, oriented. Assessment: * Assessment: 1. E scherichia coli infection - A49.8 (Primary) N otes :This infection has now resolved. She will resume her daily activities. 2 . T ype 1 diabetes mellitus without complication - E10.9 N otes :Her insulin pump continues to function normally as does her monitor. Her hemoglobin A1c is acceptable. She remains under the care of endocrinology. 3 . L danielle term current use of insulin - Z79.4 N otes :Her insulin pump is working well. Her glucose levels have been satisfactory. She will continue to be managed by endocrinology 4 . O verweight - E66.3 N otes [...] in fat calories sodium and concentrated sweets. 5 . A ttention deficit disorder (ADD) in [...] * Follow Up: A s Scheduled (Reason: Annual Exam) * Images: * Sign off status: Completed true * Provider: Shameka Tolentino MD Date: 0 09/14/2024 Generated for Duncan smith/Estefania/Meghanitting on: 07/23/2024 03:08 [...] in no acute distress, calm and relaxed, overweight, woman HEAD: atraumatic, normocep halic EYES: eomi, [...] exam intact SKIN: no suspicious lesion s, anicteric, Insulin pump in place PERIPHERAL PULSES: normal BREASTS: no masses palpable b ilaterally MUSCULOSKELETAL: extremities unremark able, no clubbing, cyanosis or edema LYMPH NODES: no enlarged lymph no cassie,spleen normal RECTAL EXAM: not examined PSYCH: alert, oriented ORAL CAVITY: normal, unremarkable
--- OUTSIDE RECORDS SUMMARY | 2024-10-25 06:00 | XMS_ITS ---
Author Organization William Tolentino III, MD Address [address] [facility] [place] [address] Care Team Providers Care Animal Herder Name Role Phone Dr. 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 ; Bilateral [...] (ADD) in adult (ICD-10 - F98.8) 10/25/2024 [facility] current use of insulin (ICD-10 - Z79.4) [...] Name:William Tolentino , 10/26/2025 11:00:00 AM, [address] [place] [address] [place], [place], [address], Progress Notes * Britney HARDWICKOB:1990 ([age] yo F)Acc No.[id number]:10/25/2024 Progress Notes Patient: Alyce HOWE Provider: Shameka Tolentino MD :1990 A ge:34 Y S ex:Female Date:10/25/2024 Address:[address] [place] [address] YONIS Pardo [id number] Subjective: * Chief Complaints: * A nnual exam * HPI: D epression Screening: She returns to the office at the age of 34 for her annual physical examination has no new complaints and feels well. Her armor reconnaissance specialist, Dr. 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 She works [...] 5.94.8-10.8 - X10*3/uL?Red Blood Count4.634.20-5.50 - X10*6/uL ?Vegpnyllts96.012.0-16.0 - g/dl?Cbkpvtipnr16.937.0-47.0 - % ?Mean Corpuscular Zwusjz25.580.0-98.0 - fL?Mean Corpuscular Poqkjqcikp64.227.0-33.0 - pg?Mean Corpuscular HGB Conc33.431.0-35.0 - g/dl?Red Cell Distribution Width12.511.0-16.0 - %?Platelet Count [id number] - X10*3/uL?Mean Platelet Volume9.89.4-12.3 - fL?NRBC Pct [...] D eclined, prefers this be done by armor reconnaissance specialist.? 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
--- OUTSIDE RECORDS SUMMARY | 2024-11-30 09:18 | XMS_ITS ---
Author Organization William Tolentino III, MD Address [address] [place] [address] [address] [place] [address] Care Team Providers Care Superintendent Operating Name Role Phone Dr. William Tolentino III Primary Care Provider [phone] REASON FOR VISIT new insulin pump causing low BS Social History Sex Assigned At : Social History Observation Description Sex Assigned At Female Encounters Encounter Location Date Provider Diagnosis William Tolentino III, MD [address] [place] [address] [place] [address] 11/30/2024 William Tolentino Plan Of Treatment Next Appt Details Provider Name:William Tolentino , 10/26/2025 11:00:00 AM, [address] [place] [address] [place], [address], Progress Notes * Erendira HARDWICKSukhdeepOB:1990 ([age] yo F)Acc No.[id number]:11/30/2024 Patient: Alyce HOWE :1990 A ge:34 Y S ex:Female Address:[address] [place] [address] [address] [place], [address] * true * Date: Generated for Merti ng/Fasydg/eTransmitting on: 07/23/2024 03:08 PM EST
--- OUTSIDE RECORDS SUMMARY | 2024-12-05 12:00 | XMS_ITS ---
Author Organization William Tolentino III, MD Address [address] [place] [facility] [place] [address] Care Team Providers Care Clinical Resource Manager Name Role Phone Dr. William Tolentino III Primary Care Provider Allergies Allergen (clinical drug ingredient) Drug/Non Drug Allergy documented on EMR Reaction Allergy Type Onset Date Status No Known Drug Allergy Unknown Drug Allergy Active No Known Food Allergy Unknown Drug Allergy Active REASON FOR VISIT New Concern Medications Medication SIG (Take, Route, Frequency, Duration) Notes Start Date End Date Status Valsartan 80 MG Oral Acti ve Insulin Lispro 100 UNIT/ML INJECTION 75 UNITS PER DAY VIA PUMP 30 DAYS Injection daily Active Sertraline HCl 50 MG 1 tablet Orally Once a day Active Social History Tobacco Use: Social History Observation Description Date Details (start date - stop date) Never Smoker NA - NA Sex Assigned At : Social History Observation Description Sex Assigned At Female Tobacco Control (Standard) Question Answer Notes Tobacco use: Nonsmoker Additional Findings: Tobacco non-user Aggressive nonsmoker Encounters Encounter Location Date Provider Diagnosis William Tolentino III, MD [address] [place] [address] [address] [facility] [place] [address] 12/05/2024 William Tolentino Plan Of Treatment Medication Medication Name Sig Start Date Stop Date Notes Valsartan 80 MG Oral Insulin Lispro 100 UNIT/ML INJECTION 75 UNITS PER DAY VIA PUMP 30 DAYS Injection daily Sertraline HCl 50 MG 1 tablet Orally Once a day 06/13/2024 Next Appt Details Provider Name:William Tolentino , 10/26/2025 11:00:00 AM, [address] [place] [address] [place], [address], Progress Notes * Britney HARDWICKOB:1990 ([age] yo F)Acc No.[id number]:12/05/2024 Progress Notes Patient: Alyce HOWE Provider: Shameka Tolentino MD :1990 A ge:34 Y S ex:Female Date:12/05/2024 Address:[address] [place], [place] [id number] Subjective: * Chief Complaints: * 1 . New Concern. * HPI: C OVID-19 Screening: Questions H [...] d enies. D ecreased appetite d enies.?Diarrhea d enies. H eartburn d enies. N ausea d enies. R ectal bleeding?denies. V omiting d enies. H ematology: bruising [...] Depressed mood d enies. 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 She is currently on fluoxetine for depression.. * Surgical History: l eft breast lumpectomy, Dr. Mercer, fibroadenoma 2016, dental extractions 2016, No history . * Hospitalization/Major Diagno stic Procedure: N o history . 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 She works over 40 hours a week. Patient is working two jobs and considering starting her own business. * Medications: T aking Valsartan 80 MG Tablet Oral , Taking Sertraline HCl 50 MG Tablet 1 tablet Orally Once a day , Taking Insulin Lispro 100 UNIT/ML Solution INJECTION 75 UNITS PER DAY VIA PUMP 30 DAYS Injection daily , Medication List reviewed and reconciled with the patient * Allergies: N o Known Drug Allergy, No Known Food Allergy. Objective: * Vitals: * Examination: G eneral Examination: GENERAL APPEARANCE: p leasant, well nourished, well developed, in no acute distress, calm and relaxed. HEAD: a traumatic, normocephalic. EYES: e grecia, [...] exam intact. PSYCH: a lert, oriented. Assessment: Plan: * Treatment: * Images: * The named appointment provid er may or may not be the originator of this progress note, and it is not deemed complete until electronically signed by the appointment provider. Sign off status: Pending * Provider: Shameka Tolentino MD Date: 0 12/05/2024 Generated for Merti luis/Estefania/eTransmitting on: 07/23/2024 03:08 PM EST History and [...]
--- OUTSIDE RECORDS SUMMARY | 2025-01-24 12:00 | XMS_ITS ---
Author Organization William Tolentino III, MD Address [address] [facility] [place] [address] Care Team Providers Care Immigration Investigator Name Role Phone Dr. William Tolentino III Primary Care Provider [phone] Allergies Allergen (clinical drug ingredient) Drug/Non Drug Allergy documented on EMR Reaction Allergy Type Onset Date Status No Known Drug Allergy Unknown Drug Allergy Active No Known Food Allergy Unknown Drug Allergy Active REASON FOR VISIT Follow up Medications Medication SIG (Take, Route, Frequency, Duration) Notes Start Date End Date Status Insulin Lispro 100 UNIT/ML INJECTION 75 UNITS PER DAY VIA PUMP 30 DAYS Injection daily Active Valsartan 80 MG Oral Acti ve Sertraline HCl 50 MG 1 tablet Orally [...] Date Provider Diagnosis William Tolentino III, MD [address] [place] [address] [address] [facility] [place] [address] 01/24/2025 William Tolentino Plan Of Treatment Medication Medication Name Sig Start Date Stop Date Notes Insulin Lispro 100 UNIT/ML INJECTION 75 UNITS PER DAY VIA PUMP 30 DAYS Injection daily Valsartan 80 MG Oral Sertraline HCl 50 MG 1 tablet Orally Once a day 06/13/2024 Next Appt Details Provider Name:William Tolentino , 10/26/2025 11:00:00 AM, [address] [place] [address] [place], [address], Progress Notes * Britney HARDWICKOB:1990 ([age] yo F)Acc No.[id number]:01/24/2025 Progress Notes Patient: Alyce HOWE Provider: Shameka Tolentino MD :1990 A ge:34 Y S ex:Female Date:01/24/2025 Address:[address] [place], [place] [address]Y[place] [id number] Subjective: * Chief Complaints: * 1 . Follow up. 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 * Medications: T aking Insulin Lispro 100 UNIT/ML Solution INJECTION 75 UNITS PER DAY VIA PUMP 30 DAYS Injection daily , Taking Valsartan 80 MG Tablet Oral [...] * Provider: Shameka Tolentino MD Date: 0 01/24/2025 Generated for Merti luis/Estefania/eTransmitting on: 07/23/2024 03:08 [...]
--- NOTE | 2025-05-23 11:35 | A.OFFVIS_ITS ---
Vital Signs 05/23/25 11:46 Height 5 ft 8 in Weight 180 lb BMI 27.4 Intake Visit Reasons: cotest Childhood Teacher Required: No Information Interpreted: non-clinical & clinical Referral Clerk: Referral Clerk Present (Farida Mcdowell MADALYNKen) Accompanied by: Self / Same As Patient Allergies No Known Allergies Allergy (Verified 05/23/25 11:50) Is last menstrual period known: Yes HPI Comments Details: Presenting for annual exam. No complaints. Last Pap/HPV was in 05/22 was negative/HPV E6 / 7 positive, HPV 16/18/45 negative [facility] Medical History Depression Type 1 diabetes mellitus with hyperglycemia Surgical History History of left breast biopsy Family History Paternal Grandmother Diabetes Maternal Aunt Breast cancer Family/Other Colon cancer Social History Household Members: Significant Other and Family Housing: House Alcohol intake: current Alcohol intake frequency: holidays/special occasions only Patient Tobacco Use Status: Never used Tobacco Use of substances other than those prescribed or required for medical reasons: Yes Substance Use Type: Marijuana Substance Use Frequency: Daily Current occupational status: employed Current occupation: [employer] Sexually active: Yes Sexual orientation: Straight/Heterosexual Gender identity: Female Female Reproductive History Menstrual Age of Menarche: 13 Total pregnancies: 0 Date of last pap smear: 04/07/24 Review of Systems Const All systems reviewed & are unremarkable except as noted in HPI and below Card Reports as per HPI Resp Reports as per HPI GI Reports as per HPI and Reports no additional complaints Reports as per HPI Physical Exam Vital Signs: BMI result Body Mass Index 27.4 Const General: cooperative, healthy appearing and comfortable Chest Chest palpation & inspection: normal inspection of the chest and normal palpation of entire chest wall Breast/axilla inspection: normal inspection of the breasts and normal inspection of the axillae Breast/axilla palpation: normal palpation of the breasts, normal palpation of the axillae and no axillary lymphadenopathy Resp Effort & Inspection: normal respiratory effort Auscultation: clear to auscultation bilaterally Percussion: percussion normal Cardio Palpation: normal PMI Rate: regular rate Rhythm: regular rhythm Heart sounds: no murmurs and no rubs Peripheral pulses: Peripheral pulses 2+ throughout GI Inspection: Yes normal to inspection Palpation (GI): Soft to palpation, nontender, no guarding, not rigid and No hepatosplenomegaly present Percussion: Yes normal to percussion Auscultation: normal bowel sounds Rectal Exam - Female: deferred General: Yes bladder normal to palpation External Female Exam: No lesion Speculum Exam - Vagina: normal appearance of the vagina, normal palpation, normal vaginal discharge and not erythematous Speculum Exam - Cervix: normal appearance of the cervix and normal palpation Bimanual exam- vagina & uterus: normal bimanual exam, normal palpation, uterine size normal, bladder normal to palpation, consistency normal and normal palpation Bimanual Exam- Adnexa, other: normal adnexae, no masses and no tenderness Assessment & Plan Assessment & Plan (1) Well woman exam with routine gynecological exam: Comment: 05/22 Pap negative/HPV positive Code(s): Z01.419 - Encounter for gynecological examination (general) (routine) without abnormal findings Category: Medical Plan: Cotesting done. Counseled the patient about the recommended dietary allowance of 1000 mg of Calcium & 600 IU of vitamin D. The patient was instructed to perform monthly self-breast exams and to schedule an annual exam in a year; All questions answered and the patient verbalized understanding. Instructed the patient to schedule annual exam in a year (2) Urge incontinence: Code(s): N39.41 - Urge incontinence Category: Medical Plan: Discussed with the patient the possible cause of urge incontinence, the workup and options of treatment will refer to Urology for further management. Instructed the patient to call our office back in case a referral appointment is not scheduled, missed or canceled so that we will assist on rescheduling another appointment, the patient verbalized understanding agreed with the plan. Orders: Referrals Urology Referral N39.41 - Urge incontinence Coding Level of Care Code Est Pt Prev Care 18-39y(80042) Diagnoses Well woman exam with routine gynecological exam Z01.419 Urge incontinence N39.41
[2025-05-23 11:46] VITALS: BMI 27.4
--- OUTSIDE RECORDS SUMMARY | 2025-05-23 15:08 | XMS_ITS | Encounter Summary ---
Author Organization [facility] Address [address] [place] [address] Phone Care Team Providers Care Bandoleer Straightener Stamper Name Role Phone Antonette Degroot RAMP AND CARGO SUPERVISOR Primary Care Provider Jb hawley Encounter Details Date Type Department Care Team (Late st Contact Info) Description 06/03/2010 Documentation [facility] [place] [facility] [address] [place] [address] Family Medicine, Physician [address] [place] [address] Social History Tobacco Use Types Packs/Day Years [...] on filedocumented in this encounter Care Teams Bandoleer Straightener Stamper Relationship Specialty Start Date End Date Antonette Degroot NP PCP - General 02/06/17 10/06/22 documented as of this encounter
--- OUTSIDE RECORDS SUMMARY | 2025-05-23 15:08 | XMS_ITS | Patient Health Record ---
Author Organization William Tolentino III, MD Address [address] [facility] [address] [place] [address] Care Team Providers Care Integration Developer Name Role Phone Dr. William Tolentino III [...] 1.3 BLD 5-10 Negative - Menstrating No US pelvic and transvaginal Reviewed date:07/09/2024 08:36:54 PM Interpretation: Performing Lab: Notes/Report: [address] [address] Ultrasound Report Signed Patient: Alyce Hardwick MR#: [id number] : 1990 Acct:[id number] Age/Sex: 34 / F ADM Date: 07/08/24 Loc: HO.US Attending Dr: Glenda Gross CNM Ordering Physician: Glenda Gross CNM Date of Service: 07/08/24 Procedure(s): US pelvic and transvaginal Accession Number(s): [id number] cc: William Tolentino MD; Glenda Gross CNM CLINICAL HISTORY: N92.6 - Irregular menstruation, unspecified US pelvis transabdominal and transvaginal with color Doppler Comparison: US/OT/WI - US PELVIC AND TRANSVAGINAL - 03/04/24 [...] 07/09/24 1601 DD/ 1600 TD/TT: 07/09/24 [address] [place] [address] Ultrasound Report Signed Patient: Alyce Hardwick MR#: [id number] : 1990 Acct:[id number] Age/Sex: 34 / F ADM Date: 07/08/24 Loc: HO.US Attending Dr: Glenda Gross CNM Ordering Physician: Glenda Gross CNM Date of Service: 07/08/24 Procedure(s): US pelvic and transvaginal Accession Number(s): [id number] cc: William Tolentino MD; Glenda Gross CNM CLINICAL HISTORY: N92.6 - Irregular menstruation, unspecified US pelvis transabdominal and transvaginal with color Doppler Comparison: US/OT/WI - US PELVIC AND TRANSVAGINAL - 03/04/24 [...] 07/09/24 1601 DD/ 1600 TD/TT: 07/09/24 [address] GI Panel Reviewed date:09/14/2024 11:08:21 AM Interpretation: Performing Lab:[facility], [address] [place] [phone] Notes/Report: Campylobacter Not Detected Not Detect. Plesiomonas [...] is performed by Multiplexed PCR, utilizing the [employer] Array. Ova and Parasite Reviewed date:09/14/2024 11:08:21 AM Interpretation: Performing Lab:[facility], [address] [place] [phone] Notes/Report: Ova and Parasite SEE NOTE OVA AND PARASITES, CONC AND PERM SMEAR Micro Number: [id number] Test Status: Final Specimen Source: Stool Specimen [...] infection. For additional information, please refer to https://education.[employer]/faq/F AQ203 (This link is being provided for informational/ educational purposes only.) THIS TEST WAS PERFORMED AT: [place] [address] SHAYY KEEN MD Glucose, Whole Blood Reviewed date:09/14/2024 11:08:21 AM Interpretation: Performing Lab:[facility], [address] [place] [phone] Notes/Report: Glucose, Whole Blood 115 60-115 mg/dL METER #: [id number] Testing performed in the Endocrinology Department and [facility], [facility]. Complete Blood Count no Diff Reviewed date:10/15/2024 07:22:28 AM Interpretation: Performing Lab:[facility], [address] [place] [phone] Notes/Report: White Blood Count 5.9 4.8-10.8 X10*3/uL [...] T4 Reviewed date:10/15/2024 07:22:28 AM Interpretation: Performing Lab:[address] [address] Notes/Report: TSH reflex Free T4 0.96 0.32-4.0 uIU/mL HCG Quantitative Reviewed date:10/15/2024 07:22:28 AM Interpretation: Performing Lab:[address] [address] Notes/Report: HCG Quantitative < 2 Weeks post [...] Screen Reviewed date:10/15/2024 07:22:28 AM Interpretation: Performing Lab:[facility], [address] [place] [phone] Notes/Report: Syphilis Screen Nonreactive Nonreactive CT NG by PCR Reviewed date:10/15/2024 07:22:28 AM Interpretation: Performing Lab:[facility], [address] [place] [phone] Notes/Report: Vaginal CT PCR NOT DETECTED Not [...] Panel Reviewed date:10/15/2024 07:22:28 AM Interpretation: Performing Lab:[address] [address] Notes/Report: Trichomonas vaginalis PCR NOT DETECTED Not [...] Ab/Ag Reviewed date:10/15/2024 07:22:28 AM Interpretation: Performing Lab:[address] [address] Notes/Report: HIV AB/AG Nonreactive Nonreactive HIV-1 p24 [...] limit of detection of this assay. The [employer] HIV Ag/Ab Combo assay result and supplemental assay results should be interpreted in conjunction with the patient's clinical presentation, history and other laboratory results. If the results are inconsistent with clinical evidence, additional testing is suggested to confirm the result. Hepatitis C Antibody Reviewed date:10/15/2024 07:22:28 AM Interpretation: Performing Lab:[facility], [address] [place] [phone] Notes/Report: Hepatitis C Antibody Nonreactive Nonreactive Antibodies to HCV not detected; does not exclude early acute HCV infection. Hepatitis B Surface Antigen Reviewed date:10/15/2024 07:22:28 AM Interpretation: Performing Lab:[facility], [address] [place] [phone] Notes/Report: Hepatitis B Surface Antigen Negative Negative Ur Preg Test Reviewed date:11/06/2024 03:00:11 PM Interpretation: Performing Lab:[facility], [address] [place] [address] Notes/Report: Urine NEGATIVE NEGATIVE This test was developed to detect early . False negative results may occur after the 5th - 7th week of when using this test method. If clinically indicated, consider a serum hCG. Pathology Reviewed date:12/09/2024 08:54:30 AM Interpretation: Performing Lab:[facility], [address] [place] [address] Notes/Report: -- ---- Name: Alyce Hardwick Age/Sex: 34/F : 1990 Unit#: [id number] Attend Dr: Fer Sutton MD Re11/04/24 Status : [facility] Location: [facility] Disch: -- ---- SPEC : [id number] RECD : 11/04/24 STATUS: ARIA TREJO NUM: [id number] VIBHA: 11/04/[address] [facility] DR: Fer Sutton MD ENTERED: 11/04/24 SP TYPE: Surgical OTHR DR: William Tolentino MD ORDERED: HE Stain/2, Gross Micro L4 Diagnosis Endometrium, curettage: Benign late secretory endometrium; no atypia or carcinoma. Comment: Some fragments may be derived from benign functional polyps. Clinical History Abnormal uterine/vaginal bleeding Microscopic Description Microscopic sections reviewed. Material Received [facility] Description Received in formalin , on Telfa, are fragments of red-pink soft tissue mixed with mucus and clotted blood formin g an aggregate measuring 3.5 x 2.8 x 0.3 cm which is wrapped in lens paper and entirely submitted for microscopic examination, multiple pieces in cassettes A1 and A2. ([facility]) Copies To: William Tolentino MD [address], [address] [place], [place] [id number] Fer Sutton MD [facility] [address] [place] [address] -- ---- Signed (signature on file) Ivelisse Leos 11/07/24 1342 -- ---- END OF REPORT Glucose, Whole Blood Reviewed date:12/09/2024 08:54:30 AM Interpretation: Performing Lab:[facility], [address] [place] [phone] Notes/Report: Glucose, Whole Blood 222 60-115 mg/dL METER #: [id number] Testing performed in the [facility]ocrinology Department and [facility] , [address], [facility]. Diabetic Eye Exam Reviewed date:12/13/2024 11:29:30 AM Interpretation:undefined Performing Lab: Notes/Report: undefined Reason For Referral No Information Medications Medication [...] Problem Status W/U Status Risk Notes Problem 590225350 Overweight (E66.3) Active confirmed She has gained [...] fat calories sodium and concentrated sweets. Problem 225381215 Other obesity (E66.8) Active confirmed Her body mass index is 31.4. We discussed weight reduction strategies and a diabetic diet. We made a plan to lose weight. Problem 201010917 custodial current use of insulin (Z79.4) Active confirmed Her insulin pump is working well. Her glucose levels have been satisfactory. She will continue to be managed by endocrinology Problem 121335102 Attention deficit disorder (ADD) in adult (F98.8) Active confirmed She was continu ed on her current regimen. Problem 885039994 Type 1 diabetes mellitus without complication (E10.9) Active confirmed Her insulin pum p is working well. Will soon be replaced by a 1. Her hemoglobin A1c is satisfactory as is her fasting glucose. No change in her regimen was made. Problem 441058745 Body mass index [BMI] 30.0-30.9, adult (Z68.30) Active confirmed Problem 941488124 Bilateral headaches (R51.9) Active confirmed She has had no headaches since her last visit. Problem 07049208 Difficulty concentrating (R41.840) Active confirmed She says that h er previous primary care physician, Dr. Chaves, prescribed this medication, but it was years ago. I referred her back to her psychotherapist for evaluation and if necessary, referral to a prescriber. I made the appointment and I am not trained in psychiatric disorders. Problem 255011210 Obesity, class 1 (E66.811) Active confirmed Her [...] Date Provider Diagnosis William Tolentino III, MD [address] [place] [address] [place] [phone] 06/13/2024 William Tolentino custodial current us e of insulin Z79.4 ; Type 1 diabetes mellitus without complication E10.9 ; Obesity, class 1 E66.811 ; Attention deficit disorder (ADD) in adult F98.8 and Depression, unspecified depression type F32.A William Tolentino III, MD [address] [place] [address] [place] [phone] 07/05/2024 William Tolentino Anxiety, generalized F41.1 ; Type 1 diabetes mellitus without complication E10.9 ; Other obesity due to excess calories E66.09 and Bilateral headaches R51.9 William Tolentino III, MD [address] [place] [address] [place] [phone] 09/05/2024 William Tolentino Type 1 diabetes ajde itus without complication E10.9 ; Bilateral headaches R51.9 ; Overweight E66.3 ; Attention deficit disorder (ADD) in adult F98.8 ; Obesity, class 1 E66.811 and Acute gastroenteritis K52.9 William Tolentino III, MD [address] [place] [address] [place] [address] 09/07/2024 William Tolentino Other obesity due to excess calories E66.09 ; Type 1 diabetes mellitus without complication E10.9 ; Acute gastroenteritis K52.9 and Attention deficit disorder (ADD) in adult F98.8 William Tolentino III, MD [address] [place] [address] [place] [address] 09/14/2024 William Tolentino Escherichia coli infection A49.8 ; Type 1 diabetes mellitus without complication E10.9 ; custodial current use of insulin Z79.4 ; Overweight E66.3 and Attention deficit disorder (ADD) in adult F98.8 William Tolentino III, MD [address] [place] [address] [place] [address] 10/25/2024 William Tolentino Type 1 diabetes jade itus without complication E10.9 ; Attention deficit disorder (ADD) in adult F98.8 ; parts counterman current use of insulin Z79.4 ; Bilateral headaches R51.9 and Overweight E66.3 William Tolentino III, MD [address] [place] [address] [place] [phone] 09/13/2024 William Tolentino III, MD [address] [place] [address] [place] [phone] 11/30/2024 William Tolentino Assessments Encounter Date Diagnosis (ICD Code) Assessment Notes Treat ment Notes Treatment Clinical Notes 06/13/2024 custodial current us e of insulin (ICD-10 - [...] recommended Imodium. She will hydrate aggressively. 09/14/2024 custodial current us e of insulin (ICD-10 - Z79.4) Her insulin pump is working well. Her glucose levels have been satisfactory. She will continue to be managed by endocrinology 10/25/2024 parts counterman current us e of insulin (ICD-10 - [...] Thyroxine) 08/21/2023 Microalbumin, Random 11/16/2020 Hemoglobin A1c 10/25/2024 Hemoglobin A1c 10/20/2023 Stool Culture 09/05/2024 Next Appt Details Provider Name:William Tolentino , 10/26/2025 11:00:00 AM, [address] [place] [address] [address], [place], [address], Insurance Providers Payer Name Payer Address Payer Phone Subscriber Number Group Number Insured Name Patient Relationship to Insured Coverage Start Date Coverage End Date [employer] [address] [address] [place] [address] [id number] Alyce Hardwick Self - patient is the insured 0 [place] [address] [place], [place] [id number] Alyce Hardwick Self - patient is the insured Medical (General) History Medical History History ICD Code juvenile diabetes mellitus, onset age 11 , insulin pump family history of breast cancer, 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 She is currently on fluoxetine for depression. Surgical History Surgery Date(Month/Year) No history dental extractions 2015 left breast lumpectomy, Dr. Mercer, [facility] 2015 Hospitalization History Reason Date(Month/Year) No history
--- OUTSIDE RECORDS SUMMARY | 2025-05-23 15:08 | XMS_ITS | Encounter Summary ---
Author Organization [facility] Address [address] [place] [address] Phone Care Team Providers Care Crushing Machine Operator Name Role Phone Antonette Degroot NP Primary Care Provider Jb hawley Encounter Details Date Type Department Care Team (Late st Contact Info) Description 02/12/2017 Conversion Encounter [facility] - [address] [address] Social History Tobacco Use Types Packs/Day Years [...] on filedocumented in this encounter Care Teams Crushing Machine Operator Relationship Specialty Start Date End Date Antonette Degroot NP PCP - General 02/06/17 10/06/22 documented as of this encounter
--- OUTSIDE RECORDS SUMMARY | 2025-05-23 15:08 | XMS_ITS | Encounter Summary ---
Author Organization [facility] Address [address] [place] [address] Phone Care Team Providers Care Tool Programmer Name Role Phone Antonette Degroot SKILLED NURSING PROFESSIONAL Primary Care Provider bJ hawley Encounter Details Date Type Department Care Team (Late st Contact Info) Description 03/18/2010 Documentation [facility] [place] [address] [place] [address] Family Medicine, Physician [address] [place] [address] Social History Tobacco Use Types Packs/Day Years [...] on filedocumented in this encounter Care Teams Tool Programmer Relationship Specialty Start Date End Date Antonette Degroot NP PCP - General 02/06/17 10/06/22 documented as of this encounter
--- OUTSIDE RECORDS SUMMARY | 2025-05-23 15:08 | XMS_ITS | Clinical Summary ---
Author Organization [facility] Address [address] [address] Phone Care Team Providers Care Manager Of Allied Health Services Name Role Phone William Tolentino MD Primary Care Provider [phone] Allergies No known active allergies Medications insulin [...] Proteinuria 05/12/2022 Type 1 diabetes mellitus 05/12/2022 Encounters Date Type Department Care Team Description 03/24/2025 Orders Only [facility] [address] [phone] Lizzy Duncan Type 1 diabetes mellitus with other specified complication (HCC) (Primary Dx); Diabetic glomerulonephritis (HCC) from Last 3 Months Family History Medical History Relation Comments Cancer [...] Care Team (Late st Contact Info) Description 05/30/2025 9:20 AM EST Office Visit [facility] [address] [place] [phone] Jair Ireland MD [address] [phone] Health Maintenance Due Date Last Done Comments Diabetes: Hemoglobin A1C 07/30/2020 Diabetes: Ophthalmology Exam 07/30/2020 Diabetes: Pedal Pulse Checked 07/30/2020 Diabetes: Sensory Foot Exam 07/30/2020 Diabetes: Visual Foot Exam 07/30/2020 Influenza Vaccine (#1) 2025 Hepatitis B Vaccine Completed 04/21/2001, 11/27/2000, 10/26/2000 Pneumococcal Vaccine: Peds ( 0 to 5 Years) and At-Risk Patients (6 to 49 Years) Aged Out No longer eligi ble based on patient's age to complete this topic Insurance [facility] Medicaid [facility] Medicaid Care Teams Manager Of Allied Health Services Relationship Specialty Start Date End Date William Tolentino MD [address] [place] [address] [address] [place], [place] PCP - General Medical Oncology 01/20/22
--- OUTSIDE RECORDS SUMMARY | 2025-05-23 15:08 | XMS_ITS | Clinical Summary ---
Author Organization [facility] Address [address] [place] [address] Phone Care Team Providers Care Boilermaker Welder Name Role Phone Unavailable Primary Care Provider [...] Other No family histo ry of [place] /[place] under age 55, Family history of Strabismus/amblyopia, [...] 05/20/1994, Additional history exists Influenza Vaccines (#1) 2025 04/14/20, 04/07/2006, 04/16/2005 COVID-19 Vaccine (2024- season) 2025 HIB Vaccines Completed 08/12/1991, 10[birth year]27, 1990, Additional [...]
--- OUTSIDE RECORDS SUMMARY | 2025-05-23 15:09 | XMS_ITS | Clinical Summary ---
Author Organization [facility] Address [address] [place] [address] Care Team Providers Care Studio Operator Name Role Phone Unavailable Primary Care Provider Unavailabl e Social History Tobacco Use Types Packs/Day Years Used Date Smoking Tobacco: Never Assessed Sex and Gender Information Value Date Recorded Sex Assigned at Not on file Gender Identity Not on file Sexual Orientation Not on file Plan of Treatment Not on file
== END 2025-05-23 12:19 | disposition home or self-care (01) ==
PROVIDERS: PCP Internal Medicine Medical Oncology; Visit Provider Obstetrics & Gynecology
DX: Z01.419 Encounter for gynecological examination (general) (routine) without abnormal findings (principal); N39.41 Urge incontinence
CPT/HCPCS: 99395; 99459

== ENCOUNTER 2025-06-28 09:58 | Outpatient (AMB) | payer OTHER, SELFPAY ==
--- OUTSIDE RECORDS SUMMARY | 2024-06-13 06:15 | XMS_ITS ---
Author Organization William Tolentino III, MD Address [address] [facility] [place] [address] Care Team Providers Care Street Engineer Name Role Phone Dr. William Tolenitno III Primary Care Provider [phone] Allergies Allergen (clinical drug ingredient) Drug/Non Drug Allergy documented on EMR Reaction Allergy Type Onset Date Status No Known Drug Allergy Unknown Drug Allergy Active REASON FOR VISIT Worsening generalized anxiety, Mild depression, Insulin-dependent diabetes mellitus, Insulin pump, adhd, Obesity Medications Medication SIG (Take, Route, Frequency, Duration) Notes Start Date End Date Status Insulin Lispro 100 UNIT/ML DIRECTED I NJECTION 75 UNITS PER DAY VIA PUMP 30 DAYS Active Valsartan 80 MG Oral Acti ve FLUoxetine HCl 20 MG 1 capsule Orally On ce a day 08/21/2023 Active Sertraline HCl 50 MG 1 tablet Orally Onc e a day for 30 days 06/13/2024 Active Cefuroxime Axetil 500 MG 1 tablet Orally every 12 hrs 08/21/2023 Active Social History Tobacco Use: Social History Observation Description Date Details (start date - stop date) Never Smoker NA - NA Sex Assigned At : Social History Observation Description Sex Assigned At Female Tobacco Use/Smoking Question Answer Notes Patient is a nonsmoker Additional Findings: Tobacco Non-User Aggressive non-smoker Alcohol Screen Question Answer Notes Did you have a drink contain ing alcohol in the past year? Yes How often did you have a dri nk containing alcohol in the past year? 2 to 4 times a month (2 points) How many drinks did you have on a typical day when you were drinking in the past year? 1 or 2 drinks (0 point) How often did you have 6 or more drinks on one occasion in the past year? Never (0 point) Points 2 Interpretation Negative Problems Problem Type SNOMED Code ICD Code Onset Dates Problem Status W/U Status Risk Notes Problem 604953824 Body mass index [BMI] 30.0-30.9, adult (Z68.30) Active confirmed Problem 309729211 Obesity, class 1 (E66.811) Active confirmed Her body mass index is 30. We discussed her diet and nutrition. We made a plan to lose weight at a rate of one half of a pound per week until the body mass index is in the mid normal range. Vital Signs Temperature 98.1 degrees Fahrenheit 06/13/20 24 Blood pressure systolic 120 mm Hg 06/13/20 24 Blood pressure diastolic 79 mm Hg 024 Heart Rate 63 /min 06/13/2024 Height 68 in 06/13/2024 Weight 199 lbs 06/13/2024 BMI 30.25 kg/m2 06/13/2024 Encounters Encounter Location Date Provider Diagnosis William Tolentino III, MD [address] [place] [address] [place] [address] 06/13/2024 William Tolentino [facility] current us e of insulin Z79.4 ; Type 1 diabetes mellitus without complication E10.9 ; Obesity, class 1 E66.811 ; Attention deficit disorder (ADD) in adult F98.8 and Depression, unspecified depression type F32.A Assessments Encounter Date Diagnosis (ICD Code) Assessment Notes Treatment Notes Treatment Clinical Notes 06/13/2024 [facility] current use of insulin (ICD-10 - Z79.4) Her insulin pump is working well. Her glucose levels have been satisfactory. She will continue to be managed by endocrinology 06/13/2024 Type 1 diabetes mellitus without complication (ICD-10 - E10.9) Her insulin pump continues to function normally as does her monitor. Her hemoglobin A1c is acceptable. She remains under the care of endocrinology. 06/13/2024 Obesity, class 1 (ICD-10 - E66.811) Her body mass index is 30. We discussed her diet and nutrition. We made a plan to lose weight at a rate of one half of a pound per week until the body mass index is in the mid normal range. 06/13/2024 Attention deficit disorder (ADD) in adult (ICD-10 - F98.8) She was continued on her current regimen. 06/13/2024 Depression, unspecified depression type (ICD-10 - F32.A) She was given a trial of an antidepressant on a close follow-up visit. We discussed the risks and benefits of the drug and side effects. She gave informed consent to take the medication.The fluoxetine he has been stopped and she was started on sertraline for the anxiety component which is becoming worse. Plan Of Treatment Medication Medication Name Sig Start Date Stop Date Notes Insulin Lispro 100 UNIT/ML DIRECTED I NJECTION 75 UNITS PER DAY VIA PUMP 30 DAYS Valsartan 80 MG Oral FLUoxetine HCl 20 MG 1 capsule Orally Once a day Sertraline HCl 50 MG 1 tablet Orally Onc e a day for 30 days 06/13/2024 Cefuroxime Axetil 500 MG 1 tablet Orally every 12 hrs 07/31 Next Appt Details Follow Up: 3 Weeks, 30 days, Reason: Telehealth, To assess the effectiveness of the new medication, sertraline Provider Name:William Tolentino , 10/26/2025 11:00:00 AM, [address] [place] [address] [place], [address], Progress Notes * Britney HARDWICKOB:1990 ([age] yo F)Acc No.[id number]:06/13/2024 Progress Notes Patient: Alyce HOWE Provider: Shameka Tolentino MD :1990 A ge:34 Y S ex:Female Date:06/13/2024 Address:[address] [place] [address] Char [id number] Subjective: * Chief Complaints: * W orsening generalized anxietyMild depressionInsulin-dependent diabetes mellitusInsulin pumpAdhdObesity * HPI: C OVID-19 Screening: Questions H ave you had any new onset fever, chills, cough, congestion, sore throat, shortness of breath, muscle aches? N o * : The patient, a 34-year-old female, presented with symptoms of anxiety and depression. She reported feeling overwhelmed, with her chest tightening and emotions fluctuating. She also mentioned feeling constantly tired, which she attributed to her anxiety. The patient also reported having been diagnosed with ADD when she was younger, which she believes has evolved into ADHD as an adult. This, she believes, is contributing to her anxiety and depression. She also mentioned that her mother takes Lexapro for anxiety, suggesting a family history of anxiety disorders. * ROS: G eneral/Constitutional: pain o nly normal aches and pains. C hills d enies.?Fatigue a dmits. F ever d enies. E NT: Decreased hearing d enies. R espiratory: Cough d enies. C ardiovascular: Chest pain with exertion d enies. D yspnea on exertion?denies. S hortness of breath d enies. G astrointestinal: Constipation o ccasional. D ecreased appetite d enies. D iarrhea d enies. H eartburn d enies. N ausea d enies. R ectal bleeding d enies. V omiting d enies. H ematology: bruising d enies. p etechiae d enies. S wollen glands n one have been noted. G enitourinary: Frequent urination d enies. M usculoskeletal: Muscle aches d enies. P ainful joints d enies. S ciatica d enies. W eakness d enies. S kin: Itching d enies. R aristides d enies. S kin lesion(s)?denies. N eurologic: Difficulty speaking d enies. D izziness d enies.?Headache d enies. L ow back pain d enies. P sychiatric: Admits A nxiety. D epressed mood W orsening anxiety, stable depression. * Medical History: * Surgical History: l eft breast lumpectomy, Dr. Mercer, fibroadenoma 2016dental extractions 2016No history * Hospitalization/Major Diagno stic Procedure: N o history * Family History: F ather: alive 50 yrs, No information available, diagnosed with HTN. M other: alive 46 yrs. S iblings: alive. P aternal Grand Mother: alive, diagnosed with DM. M aternal Grand Mother: alive, diagnosed with CVD. 1 brother(s) , 1 sister(s) - healthy. . mother side Hx of cancer not sure of who in family. Patient does not have any children. Her mother\'s sister had breast cancer. She has 2 half brothers and 3 half sisters. One of her siblings has autism. Mother has a history of anxiety and takes lexapro. * Social History: T obacco Use: T obacco Use/Smoking P atient is a n onsmoker A dditional Findings: Tobacco Non-User A ggressive non-smoker D rugs/Alcohol: D rugs H ave you used drugs other than those for medical reasons in the past 12 months? Y es M arijuana? Y es Alcohol Screen D id you have a drink containing alcohol in the past year? Y es H ow often did you have a drink containing alcohol in the past year? 2 to 4 times a month (2 points) H ow many drinks did you have on a typical day when you were drinking in the past year? 1 or 2 drinks (0 point) H ow often did you have 6 or more drinks on one occasion in the past year? 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 She works over 40 hours a week. Patient is working two jobs and considering starting her own business. * Medications: T akingInsulin Lispro 100 UNIT/ML Solution DIRECTED INJECTION 75 UNITS PER DAY VIA PUMP 30 DAYS Valsartan 80 MG Tablet Oral Cefuroxime Axetil 500 MG Tablet 1 tablet Orally every 12 hrs FLUoxetine HCl 20 MG Capsule 1 capsule Orally Once a day Taking Insulin Lispro 100 UNIT/ML Solution DIRECTED INJECTION 75 UNITS PER DAY VIA PUMP 30 DAYS Taking Valsartan 80 MG Tablet Oral Taking Cefuroxime Axetil 500 MG Tablet 1 tablet Orally every 12 hrs Taking FLUoxetine HCl 20 MG Capsule 1 capsule Orally Once a day DiscontinuedFLUoxetine HCl 10 MG Capsule 1 capsule Orally Once a day Medication List reviewed and reconciled with the patientDiscontinued FLUoxetine HCl 10 MG Capsule 1 capsule Orally Once a day Medication List reviewed and reconciled with the patient * Allergies: N o Known Drug Allergyno[Allergies Verified] Objective: * Vitals: H t: 68, Wt: 199, BMI:30.25, BP: 120/79, HR: 63, Temp: 98.1, Ht-cm: 172.72, Wt-k.26. * P ast Orders: Lab:CT NG by PCR * Collection Date 04/07/2024 02/26/2024 07/08/2023 Collection Time 10:30 AM Order Date 04/07/2024 02/26/2024 07/08/2023 CT PCR NOT DETECTED (Ref Range: Not Detect.) DETECTED A (Ref Range: Not Detect.) NOT DETECTED (Ref Range: Not Detect.) NG PCR NOT DETECTED (Ref Range: Not Detect.) NOT DETECTED (Ref Range: Not Detect.) NOT DETECTED (Ref Range: Not Detect.) ???Lab:PAP + HPV E6/E7 rfx 18/45 (Order Date - 04/07/2024) (Collection Date & Time - 04/07/2024)?ValueReference Range?HPV 16 RNANOT DETECTEDNOT DETECTED -?HPV 18/45 RNANOT DETECTEDNOT DETECTED -?HPV mRNA E6/E7 DetectedANot Detected -?Thin Prep SourceSEE NOTE-?Report StatusTNP -?Clinical InformationSEE NOTE-?LMPSEE NOTE-?Previous PAP SEE NOTE-?Previous Biopsy DateSEE NOTE-?State of AdequacySEE NOTE- ?General CategorizationTNP-?Interpretation/ResultSEE NOTE- ?Cytology CommentSEE NOTE-?CytotechnologistSEE NOTE-?Review CytotechnologistSEE NOTE-?PathologistTNP-?PAP InfectionTNP- ?See NoteSEE NOTE- * Lab:Bacterial Vaginosis Zulema alvarez * Collection Date 04/07/2024 02/26/2024 07/08/2023 Collection Time 10:30 AM Order Date 04/07/2024 02/26/2024 07/08/2023 Trichomonas DNA Probe NR NR Negative (Ref Range: Negative) Gardnerella DNA Probe NR NR Positive A (Ref Range: Negative) Karen DNA Probe NR NR Negative (Ref Range: Negative) Trichomonas vaginalis PCR NOT DETECTED (Ref Range: Not Detect) NOT DETECTED (Ref Range: Not Detect) NR Bacterial Vaginosis PCR POSITIVE A (Ref Range: Negative) POSITIVE A (Ref Range: Negative) NR Karen Group PCR NOT DETECTED (Ref Range: Not Detect) NOT DETECTED (Ref Range: Not Detect) NR Karen glab krusei PCR NOT DETECTED (Ref Range: Not Detect) NOT DETECTED (Ref Range: Not Detect) NR * Lab:Glucose, Whole Blood * Collection Date 05/12/2024 02/03/2024 11/03/2023 Collection Time 11:37 AM 08:49 AM 08:11 AM Order Date 05/12/2024 02/03/2024 11/03/2023 Glucose, Whole Blood 179 H (Ref Range: 60-115 mg/dL) 90 (Ref Range: 60-115 mg/dL) 104 (Ref Range: 60-115 mg/dL) * Examination: G eneral Examination: GENERAL APPEARANCE: p leasant, well nourished, well developed, in no acute distress, calm and relaxed, obese, woman. HEAD: a traumatic, normocephalic. EYES: e grecia, perrla, anicteric, conjugate. EARS: n ormal. NOSE: s eptum intact. ORAL CAVITY: n ormal, unremarkable. NECK/THYROID: n o jugular venous distention, no carotid bruit, thyroid normal. LYMPH NODES: n o enlarged lymph nodes,spleen normal. SKIN: n o suspicious lesions, anicteric,sensor Left arm.? HEART: n o clicks, gallops, murmurs, or rubs, regular rhythm, S1, S2 normal, no s3, or vascular bruits. LUNGS: c lear to auscultation . BREASTS: no masses palpable bilaterally. ABDOMEN: b owel sounds normal, no ascites, no organomegaly, no mass, centripital obesity. RECTAL EXAM: n ot examined. MUSCULOSKELETAL: e xtremities unremarkable, no clubbing, cyanosis or edema. PERIPHERAL PULSES: n ormal. NEUROLOGIC: a lert and oriented, cranial nerves 2-12 grossly intact, deep tendon reflexes 2+ symmetrical, motor strength normal upper and lower extremities, sensory exam intact. PSYCH: a lert, oriented, anxious appearing. ? - : B lood Pressure Check - Normal, Weight Check - Lost 8 lbs. Assessment: * Assessment: 1. T ype 1 diabetes mellitus without complication - E10.9 (Primary) N otes :Her insulin pump continues to function normally as does her monitor. Her hemoglobin A1c is acceptable. She remains under the care of endocrinology. 2 . L danielle term current use of insulin - Z79.4 N otes :Her insulin pump is working well. Her glucose levels have been satisfactory. She will continue to be managed by endocrinology 3 . O besity, class 1 - E66.811 N otes :Her body mass index is 30. We discussed her diet and nutrition. We made a plan to lose weight at a rate of one half of a pound per week until the body mass index is in the mid normal range. 4 . A ttention deficit disorder (ADD) in adult - F98.8 N otes :She was continued on her current regimen. 5 . D epression, unspecified depression type - F32.A N otes :She was given a trial of an antidepressant on a close follow-up visit. We discussed the risks and benefits of the drug and side effects. She gave informed consent to take the medication.The fluoxetine he has been stopped and she was started on sertraline for the anxiety component which is becoming worse. Plan: * Treatment: * Procedure Codes: * Preventive Medicine: Counseling: C are goal follow-up plan: Counseling for abnormal BMI given Y es Above Normal BMI Follow-up D ietary management education, guidance, and counseling, Dietary needs education, Exercise promotion: strength training, Exercise promotion: stretching, Feeding regime, Giving encouragement to exercise, Lifestyle education regarding diet, Nutrition / feeding management, Nutrition therapy, Prescribed activity/exercise education, Prescribed diet education, Prescribed dietary intake, Special diet education, Weight monitoring , Intervention, Order not done: Medical or Other reason not done * Follow Up: 3 Weeks, 30 days (Reason: Telehealth, To assess the effectiveness of the new medication, sertraline) * Images: * Sign off status: Completed true * Provider: Shameka Tolentino MD Date: 08/14/2023 Generated for Duncan smith/Estefania/Sofya on: 10:52 AM EST History and Physical Notes * HPI (History of Present Illness) Category Sub-Category Detail Notes COVID-19 Screening Questions Have you had any new onset fever, chills, cough, congestion, sore throat, shortness of breath, muscle aches?: No Examination Category Sub-Category Detail Notes General Examination GENERAL APPEARANCE: pleasant , well nourished, well developed, in no acute distress, calm and relaxed, obese, woman HEAD: atraumatic, normocep halic EYES: eomi, perrla, anicte fred, conjugate EARS: normal NOSE: septum intact NECK/THYROID: no jugular venous di stention, no carotid bruit, thyroid normal HEART: no clicks, gallops, murmurs, or rubs, regular rhythm, S1, S2 normal, no s3, or vascular bruits LUNGS: clear to auscultatio n ABDOMEN: bowel sounds normal, no ascites, no organomegaly, no mass, centripital obesity NEUROLOGIC: alert and oriented, cranial nerves 2-12 grossly intact, deep tendon reflexes 2+ symmetrical, motor strength normal upper and lower extremities, sensory exam intact SKIN: no suspicious lesion s, anicteric,sensor Left arm PERIPHERAL PULSES: normal BREASTS: no masses palpable b ilaterally MUSCULOSKELETAL: extremities unremark able, no clubbing, cyanosis or edema LYMPH NODES: no enlarged lymph no cassie,spleen normal RECTAL EXAM: not examined PSYCH: alert, oriented, anx ious appearing ORAL CAVITY: normal, unremarkable
--- OUTSIDE RECORDS SUMMARY | 2024-07-05 05:30 | XMS_ITS ---
Author Organization William Tolentino III, MD Address [address] [place] [address] [place] [address] Care Team Providers Care Square Dance Caller Name Role Phone Dr. William Tolentino III [...] Date Provider Diagnosis William Tolentino III, MD [address] [place] [address] [place] [address] 07/05/2024 William Tolentino Anxiety, generalized F41.1 ; [...] Provider Name:William Tolentino , 10/26/2025 11:00:00 AM, [address] [place] [address] [place], [address], Progress Notes * Erendira HARDWICKSukhdeepOB:1990 ([age] yo F)Acc No.[id number]:07/05/2024 Patient: Alyce HOWE Provider: hSameka Tolentino MD :1990 A ge:34 Y S ex:Female Date:07/05/2024 Address:[address] [place] [address] YONIS Pardo [id number] Subjective: * Chief Complaints: * A nxiety disorderJuvenile diabetesInsulin pumpHeadachesAttention deficit disorderObesity * HPI: * : Telehealth L ocation of provider rendering services: { ...} [address] [facility] [address] L ocation of patient: jayro russo listed [...] ggressive non-smoker 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 She works [...] 0 07/05/2024 Generated for Duncan smith/Estefania/Meghanitting on: 10:53 AM EST History and Physical Notes * HPI (History of Present Illness) Category Sub-Category Detail Notes Telehealth Location of [facility] rendering services:: {...} [address] [place], [place] [id number] Location of patient:: address listed in demographics [...]
--- OUTSIDE RECORDS SUMMARY | 2024-09-05 08:45 | XMS_ITS ---
Author Organization William Tolentino III, MD Address [address] [place] [address] DR OZUNA Marge [place] [address] Care Team Providers Care Refrigeration Systems Installer Name Role Phone Dr. William Tolentino III Primary Care Provider [phone] Allergies Allergen (clinical drug ingredient) Drug/Non Drug Allergy documented on EMR Reaction Allergy Type Onset Date Status No Known Drug Allergy Unknown Drug Allergy Active REASON FOR VISIT acute URI, Type 1 diabetes, ADDH, obesity Medications Medication SIG (Take, Route, Frequency, Duration) Notes Start Date End Date Status Sertraline HCl 50 MG 1 tablet Orally Once a day Active FLUoxetine HCl 20 MG TAKE 1 CAPSULE BY M OUTH EVERY DAY FOR 30 DAYS Active Valsartan 80 MG Oral Acti ve Cefuroxime Axetil 500 MG 1 tablet Orally every 12 hrs 08/21/2023 Active Insulin Lispro 100 UNIT/ML DIRECTED I [...] Aggressive non-smoker Vital Signs Height 68 in 09/05/2024 Weight 199 lbs 09/05/2024 BMI 30.25 kg/m2 09/05/2024 Encounters Encounter Location Date Provider Diagnosis William Tolentino III, MD [address] [place] [address] [place] [address] 09/05/2024 William Tolentino Type 1 diabetes jade itus without complication E10.9 ; Bilateral headaches R51.9 ; Overweight E66.3 ; Attention deficit disorder (ADD) in adult F98.8 ; Obesity, class 1 E66.811 and Acute gastroenteritis K52.9 Assessments Encounter Date Diagnosis (ICD Code) Assessment Notes Treat ment Notes Treatment Clinical Notes 09/05/2024 Type 1 diabetes mellitus without complication (ICD-10 - E10.9) Her insulin pump continues to function normally as does her monitor. Her hemoglobin A1c is acceptable. She remains under the care of endocrinology. 09/05/2024 Bilateral headaches (ICD-10 - R51.9) She has had no headaches since her last visit. 09/05/2024 Overweight (ICD-10 - E66.3) She has gained [...] in fat calories sodium and concentrated sweets. 09/05/2024 Attention deficit disorder (ADD) in adult (ICD-10 - F98.8) She was continued on her current regimen. 09/05/2024 Obesity, class 1 (ICD-10 - E66.811) Her body mass index is 30. We discussed her diet and nutrition. We made a plan to lose weight at a rate of one half of a pound per week until the body mass index is in the mid normal range. 09/05/2024 Acute gastroenteriti s (ICD-10 - K52.9) Her stool will be cultured and examined for ova and parasites. No specific medication was prescribed. I recommended Imodium every 3 hours. She has a close followup visit arranged. Plan Of Treatment Medication Medication Name Sig Start Date Stop Date Notes Sertraline HCl 50 MG 1 tablet Orally Once a day 06/13/2024 FLUoxetine HCl 20 MG TAKE 1 CAPSULE BY M OUTH EVERY DAY FOR 30 DAYS Valsartan 80 MG Oral Cefuroxime Axetil 500 MG 1 tablet Orally every 12 hrs 07/31 Insulin Lispro 100 UNIT/ML DIRECTED I NJECTION 75 UNITS PER DAY VIA PUMP 30 DAYS Pending Test Test Name Order Date OVA & PARASITES (O&P) 09/05/2024 Stool Culture 09/05/2024 Next Appt Details Follow Up: TV on Thu, Reason : TV review stool culture Provider Name:William Polkrne , 10/26/2025 11:00:00 AM, [address] [place] [address] [address], [address], [place], [address], Progress Notes * Britney HARDWICKOB:1990 ([age] yo F)Acc No.[id number]:09/05/2024 Patient: Alyce HOWE Provider: Shameka Tolentino MD :1990 A ge:34 Y S ex:Female Date:09/05/2024 Address:[address] [place] [address] [facility] [id number] Subjective: * Chief Complaints: * a cute URIType 1 diabetesADDHObesity * HPI: * : T his telehealth visit took place over 15 min. with the patient at home and me in my office.? She gave consent for billing. This was a telehealth visit because she is sick and coughing and has not stopped diarrhea. He recently took a trip to [facility] and became ill last visit she came home. I have ordered a stool culture and a sample for ova and parasites. She is afebrile and has no nausea. She was advised to consume fluids until she urinates regularly.? T elephone every 48 hours to report. She does think she is starting to get better. Her grandfather who lives in time and. Telehealth L ocation of provider rendering services: { ...} [address] [facility] [address] L ocation of patient: a ddress listed in demographics for today's visit P atient identification confirmed using: N yolie, T elehealth method: T elephone only. Patient not visible to care provider. C onsent: P atient verbally consented to treatment, Patient verbally consented to billing insurance company, Patient informed of any privacy concerns related to method of visit T otal time spent with patient (mins) 1 5 * ROS: G eneral/Constitutional: pain o nly normal aches and pains. C hills d enies.?Fatigue a dmits. F ever d enies. E NT: Decreased hearing d enies. R espiratory: Cough d enies. C ardiovascular: Chest pain with exertion d enies. D yspnea on exertion?denies. S hortness of breath d enies. G astrointestinal: Constipation d enies. D ecreased appetite d enies.?Diarrhea t hat is frequent. H eartburn d enies. N ausea t hat is mild. R ectal bleeding d enies. V omiting d enies. H ematology: bruising d enies. p etechiae d enies. S wollen glands n one have been noted. G enitourinary: Frequent urination d enies. M usculoskeletal: Muscle aches d enies. P ainful joints d enies. S ciatica d enies. W eakness t hat is mild. S kin: Itching d enies. R aristides d enies. S kin lesion(s)?denies. N eurologic: Difficulty speaking d enies. D izziness d enies.?Headache d enies. L ow back pain d enies. P sychiatric: Depressed mood d enies. 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 She works over 40 hours a week. Patient is working two jobs and considering starting her own business. * Medications: T akingInsulin Lispro 100 UNIT/ML Solution DIRECTED INJECTION 75 UNITS PER DAY VIA PUMP 30 DAYS Valsartan 80 MG Tablet Oral Cefuroxime Axetil 500 MG Tablet 1 tablet Orally every 12 hrs Sertraline HCl 50 MG Tablet 1 tablet Orally Once a day FLUoxetine HCl 20 MG Capsule TAKE 1 CAPSULE BY MOUTH EVERY DAY FOR 30 DAYS Medication List reviewed and reconciled with the patientTaking Insulin Lispro 100 UNIT/ML Solution DIRECTED INJECTION 75 UNITS PER DAY VIA PUMP 30 DAYS Taking Valsartan 80 MG Tablet Oral Taking Cefuroxime Axetil 500 MG Tablet 1 tablet Orally every 12 hrs Taking Sertraline HCl 50 MG Tablet 1 tablet Orally Once a day Taking FLUoxetine HCl 20 MG Capsule TAKE 1 CAPSULE BY MOUTH EVERY DAY FOR 30 DAYS Medication List reviewed and reconciled with the patient * Allergies: N o Known Drug Allergyno[Allergies Verified] Objective: * Vitals: H t: 68, Wt: 199, BMI:30.25, Ht-cm: 172.72, Wt-k.26. Assessment: * Assessment: 1. T ype 1 diabetes mellitus without complication - E10.9 (Primary) N otes :Her insulin pump continues to function normally as does her monitor. Her hemoglobin A1c is acceptable. She remains under the care of endocrinology. 2 . B ilateral headaches - R51.9 N otes :She has had no headaches since her last visit. 3 . O verweight - E66.3 N otes :She has gained 8 pounds and her body mass index is now slightly over 30 which is in the obese range. We discussed her weight loss strategy, her diabetic diet and nutrition. We formulated a plan to lose weight at a rate of one half of a pound per week through a diet restricted in fat calories sodium and concentrated sweets. 4 . A ttention deficit disorder (ADD) in adult - F98.8 N otes :She was continued on her current regimen. 5 . O besity, class 1 - E66.811 N otes :Her body mass index is 30. We discussed her diet and nutrition. We made a plan to lose weight at a rate of one half of a pound per week until the body mass index is in the mid normal range. 6 . A cute gastroenteritis - K52.9 N otes :Her stool will be cultured and examined for ova and parasites. No specific medication was prescribed. I recommended Imodium every 3 hours. She has a close followup visit arranged. Plan: * Treatment: * Labs: * L ab: OVA & PARASITES (O&P) L ab: Stool Culture * Procedure Codes: * Preventive Medicine: Counseling: [...] arriers n o barriers. S elf-Managment Goals S top drinking juice and/or soda, replace with more water, Take blood sugars twice daily and keep a log. Bring log in to next appointment. * Follow Up: T V on Thu (Reason: TV review stool culture) * Images: * Sign off status: Completed true * Provider: Shameka Tolentino MD Date: 0 09/05/2024 Generated for Duncan smith/Estefania/Meghanitting on: 10:52 AM EST History and Physical Notes * HPI (History of Present Illness) Category Sub-Category Detail Notes Telehealth Location of [facility] rendering services:: {...} [address] [facility] [address] Location of patient:: address listed in demographics [...]
--- OUTSIDE RECORDS SUMMARY | 2024-09-07 08:15 | XMS_ITS ---
Author Organization William Tolentino III, MD Address [address] [place] [address] [place] [address] Care Team Providers Care Vibratory Pile Driver Name Role Phone Dr. William Tolentino III Primary Care Provider [phone] Allergies Allergen (clinical drug ingredient) Drug/Non Drug Allergy documented on EMR Reaction Allergy Type Onset Date Status No Known Drug Allergy Unknown Drug Allergy Active REASON FOR VISIT URI, Juvenile diabetes, Uses insulin pump Medications Medication SIG (Take, Route, Frequency, Duration) [...] Aggressive non-smoker Vital Signs Height 68 in 09/07/2024 Weight 199 lbs 09/07/2024 BMI 30.25 kg/m2 09/07/2024 Encounters Encounter Location Date Provider Diagnosis William Tolentino III, MD [address] [place] [address] [place] [address] 09/07/2024 William Vargas obesity due to excess calories E66.09 ; Type 1 diabetes mellitus without complication E10.9 ; Acute gastroenteritis K52.9 and Attention deficit disorder (ADD) in adult F98.8 Assessments Encounter Date Diagnosis (ICD Code) Assessment Notes Treat ment Notes Treatment Clinical Notes 09/07/2024 Other obesity due to excess calories (ICD-10 - E66.09) She is trying to lose weight. She was given an appointment in the near future to return to the office to be weighed, and have her blood pressure checked. 09/07/2024 Type 1 diabetes mellitus without complication (ICD-10 - E10.9) Her insulin pump continues to function normally as does her monitor. Her hemoglobin A1c is acceptable. She remains under the care of endocrinology. 09/07/2024 Acute gastroenteriti s (ICD-10 - K52.9) The overran parasites are negative. The stool culture was positive for Escherichia coli EAEDC. She will be treated conservatively. I recommended Imodium. She will hydrate aggressively. 09/07/2024 Attention deficit disorder (ADD) in adult (ICD-10 - F98.8) She was continued on her current regimen. Plan Of Treatment Medication Medication Name Sig [...] 30 DAYS Next Appt Details Follow Up: As Scheduled, Crissy son: OV Provider Name:William Tolentino , 10/26/2025 11:00:00 AM, [address] [place] [address] [address] [place] [address] [address], [place], [address], Progress Notes * DEYSIErendiraSukhdeepOB:1990 ([age] yo F)Acc No.[id number]:09/07/2024 Patient: Alyce HOWE Provider: Shameka Tolentino MD :1990 A ge:34 Y S ex:Female Date:09/07/2024 Address:[address] [place] [address] [place] [id number] Subjective: * Chief Complaints: * U RIJuvenile diabetesUses insulin pump * HPI: * : T his telehealth visit took place over 15 minutes with the patient at home and me in my office. She gave consent for billing. She recently came down with an acute illness of cough and congestion and mild fever and diarrhea. She has just been to [facility] [place]. A stool culture was done and returned showing toxigenic Escherichia coli. She reports that she is beginning to improve. She will be treated with fluids and conservative care. The ova and parasites are still pending.She has had only 2 stools yesterday. She has had no abdominal pain. Telehealth L ocation of provider rendering services: { ...} [address] [facility] [address] L ocation of patient: jayro russo listed in demographics for today's visit P atient identification confirmed using: DEEPA Loyd ame elehealth method: T elephone only. Patient not [...] frequent. H eartburn d enies. N ausea f requent. R ectal bleeding d enies. V omiting d enies. H ematology: bruising d enies. p etechiae d enies. S wollen glands n one have been noted. G enitourinary: Frequent urination d enies. M usculoskeletal: Muscle aches d enies. P ainful joints d enies. S ciatica d enies. W eakness t hat is generalized. S kin: Itching d enies. 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 [...] Ht-cm: 172.72, Wt-k.26. * P ast Orders: Imaging:US pelvic and transv aginal * Performed Date 07/09/2024 03/04/2024 04:00 PM 11:10 AM Order Date 07/09/2024 03/04/2024 Assessment: * Assessment: 1. O ther obesity due to excess calories - E66.09 (Primary) N otes :She is trying to lose weight. She was given an appointment in the near future to return to the office to be weighed, and have her blood pressure checked. 2 . T ype 1 diabetes mellitus without complication - E10.9 N otes :Her insulin pump continues to function normally as does her monitor. Her hemoglobin A1c is acceptable. She remains under the care of endocrinology. 3 . A cute gastroenteritis - K52.9 N otes :The overran parasites are negative. The stool culture was positive for Escherichia coli EAEDC. She will be treated conservatively. I recommended Imodium. She will hydrate aggressively. 4 . A ttention deficit disorder (ADD) in adult - F98.8 N otes :She was continued on her current regimen. Plan: * Treatment: * Procedure Codes: * Preventive Medicine: Counseling: C are goal follow-up plan: Counseling for abnormal BMI given Y es Above Normal BMI Follow-up D ietary management education, guidance, and counseling, Dietary needs education DM Care Plan: P atient Lifestyle Goals P atient wants to be able to manage diabetes without too much effort. T reatment Goals B lood Sugars less than < 115, HbA1C < 7.0. B arriers n o barriers. S elf-Managment Goals W ork on weight loss, with a goal of losing 1 lb per week. * Follow Up: A s Scheduled (Reason: OV) * Images: * Sign off status: Completed true * Provider: Shameka Tolentino MD Date: 0 09/07/2024 Generated for Duncan smith/Estefania/eTransmitting on: 1 10:53 AM EST History and Physical Notes * HPI (History of Present Illness) Category Sub-Category Detail Notes Telehealth Location of [facility] rendering services:: {...} [address] [facility] [address] Location of patient:: address listed in demographics [...]
--- OUTSIDE RECORDS SUMMARY | 2024-09-13 04:55 | XMS_ITS ---
Author Organization William Tolentino III, MD Address [address] [place] [address] [facility] [place] [address] Care Team Providers Care Asphalt Spreader Name Role Phone Dr. William Tolentino III Primary Care Provider REASON FOR VISIT Discontinued Rx Medications Medication SIG (Take, Route, Frequency, Duration) Notes Start Date End Date Status Cefuroxime Axetil 500 MG 1 tablet Orally every 12 hrs 08/21/2023 Active Sertraline HCl 50 MG 1 tablet Orally Once a day Active Insulin Lispro 100 UNIT/ML DIRECTED I NJECTION 75 UNITS PER DAY VIA PUMP 30 DAYS Active Valsartan 80 MG Oral Acti ve Social History Sex Assigned At : Social History Observation Description Sex Assigned At Female Encounters Encounter Location Date Provider Diagnosis William Tolentino III, MD [address] [place] [address] [place] [address] 09/13/2024 William Tolentino Plan Of Treatment Next Appt Details Provider Name:William Tolentino , 10/26/2025 11:00:00 AM, [address] [place] [address] [place], [address], Progress Notes * Britney HARDWICKOB:1990 ([age] yo F)Acc No.[id number]:09/13/2024 Patient: Alyce HOWE :1990 A ge:34 Y S ex:Female Address:[address] [place] [address] [place], [address] Subjective: * Chief Complaints: * D iscontinued Rx * Medical History: * Surgical History: * Hospitalization/Major Diagno stic Procedure: * Medications: T akingInsulin Lispro 100 UNIT/ML Solution DIRECTED INJECTION 75 UNITS PER DAY VIA PUMP 30 DAYS Valsartan 80 MG Tablet Oral Cefuroxime Axetil 500 MG Tablet 1 tablet Orally every 12 hrs Sertraline HCl 50 MG Tablet 1 tablet Orally Once a day Taking Insulin Lispro 100 UNIT/ML Solution DIRECTED INJECTION 75 UNITS PER DAY VIA PUMP 30 DAYS Taking Valsartan 80 MG Tablet Oral Taking Cefuroxime Axetil 500 MG Tablet 1 tablet Orally every 12 hrs Taking Sertraline HCl 50 MG Tablet 1 tablet Orally Once a day DiscontinuedFLUoxetine HCl 20 MG Capsule TAKE 1 CAPSULE BY MOUTH EVERY DAY FOR 30 DAYS Discontinued FLUoxetine HCl 20 MG Capsule TAKE 1 CAPSULE BY MOUTH EVERY DAY FOR 30 DAYS Objective: * Vitals: * Physical Examination: Assessment: Plan: * Treatment: * Procedure Codes: * true * Date: Generated for Duncan smith/Estefania/Sofya on: 10:53 AM EST
--- OUTSIDE RECORDS SUMMARY | 2024-09-14 06:00 | XMS_ITS ---
Author Organization William Tolentino III, MD Address [address] [place] [address] [place] [address] Care Team Providers Care Utility Mechanic Name Role Phone Dr. William Tolentino III Primary Care Provider Allergies Allergen (clinical drug ingredient) Drug/Non Drug Allergy documented on EMR Reaction Allergy Type Onset Date Status No Known Drug Allergy Unknown Drug Allergy Active REASON FOR VISIT Gastroenteritis, Mandaen one diabetes, Anxiety and depression Medications Medication [...] Provider Diagnosis William Tolentino III, MD [address] [place] [address] [place] [address] 09/14/2024 William Tolentino Escherichia coli infection A49.8 [...] Crissy son: Annual Exam Provider Name:William Pardo Rajan , 10/26/2025 11:00:00 AM, [address] [place] [address] [address], [place], [address], Progress Notes * Britney HARDWICKOB:1990 ([age] yo F)Acc No.[id number]:09/14/2024 Progress Notes Patient: Alyce HOWE Provider: Shameka Tolentino MD :1990 A ge:34 Y S ex:Female Date:09/14/2024 Address:[address] [place], [place] [phone] Subjective: * Chief Complaints: * G astroenteritisJew one diabetesAnxiety and depression * HPI: C OVID-19 Screening: She recently went to [facility] and after she returned had an episode [...] ggressive non-smoker 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 She works [...] ?E. coli STECNot DetectedNot Detect. -?E. coli F752Ncu applicable Not Detect. -?Shigella sp./EIECNot DetectedNot Detect. [...] 0 09/14/2024 Generated for Duncan smith/Estefania/Meghanitting on: 10:53 AM [...]
--- OUTSIDE RECORDS SUMMARY | 2024-10-25 06:00 | XMS_ITS ---
Author Organization William Tolentino III, MD Address [address] [facility] [place] [address] Care Team Providers Care Skin Diving Teacher Name Role Phone Dr. William Tolentino III Primary Care Provider [phone] Allergies Allergen (clinical drug ingredient) Drug/Non Drug Allergy documented on EMR Reaction Allergy Type Onset Date Status No Known Drug Allergy Unknown Drug Allergy Active No Known Food Allergy Unknown Drug Allergy Active Results Component Value Reference Range Notes URINE DIP STICK Reviewed date:10/25/2024 11:18:18 AM Interpretation: Performing Lab: Notes/Report: SG 1.020 1.005 - 1.025 pH 6.0 5.0 - 9.0 KASSI Negative Negative - NIT Negative Negative - PRO 15 Negative - Trace GLU Negative Negative - KET 5 Negative - UBG 0.2 0.1 - 1.8 LINUS Negative 0.2 - 1.3 BLD 5-10 Negative - Menstrating No REASON FOR VISIT annual exam Medications Medication SIG (Take, Route, Frequency, Duration) Notes Start Date End Date Status Sertraline HCl 50 MG 1 tablet Orally Once a day Active Valsartan 80 MG Oral Acti ve Insulin Lispro 100 UNIT/ML DIRECTED I NJECTION 75 UNITS PER DAY VIA PUMP 30 DAYS Active Social History Tobacco Use: Social History Observation Description Date Details (start date - stop date) Never Smoker NA - NA Sex Assigned At : Social History Observation Description Sex Assigned At Female Tobacco Control (Standard) Question Answer Notes Tobacco use: Nonsmoker Additional Findings: Tobacco non-user Aggressive nonsmoker AUDIT-C (Standard) Question Answer Notes Did you have a drink containing alcohol in the p ast year? 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 Will soon be replaced by a 1. Her hemoglobin A1c is satisfactory as is her fasting glucose. No change in her regimen was made. 10/25/2024 Attention deficit disorder (ADD) in adult (ICD-10 - F98.8) 10/25/2024 USP current use of insulin (ICD-10 - Z79.4) Her insulin pump is working well. Her glucose levels have been satisfactory. She will continue to be managed by endocrinology 10/25/2024 Bilateral headaches (ICD-10 - R51.9) She has had no headaches since her last visit. 10/25/2024 Overweight (ICD-10 - E66.3) She has gained [...] in fat calories sodium and concentrated sweets. Plan Of Treatment Medication Medication Name Sig Start Date Stop Date Notes Sertraline HCl 50 MG 1 tablet Orally Once a day 06/13/2024 Valsartan 80 MG Oral Insulin Lispro 100 UNIT/ML DIRECTED I NJECTION 75 UNITS PER DAY VIA PUMP 30 DAYS Pending Test Test Name Order Date PROFILE, RANDOM (COMPREHENSIVE METABOLIC ) 10/25/2024 CBC w DIFF 10/25/2024 Hemoglobin A1c 10/25/2024 Next Appt Details Follow Up: december, on: OV review labs Provider Name:William Tolentino , 10/26/2025 11:00:00 AM, [address] [place] [address] [place], [place], [address], Progress Notes * Britney HARDWICKOB:1990 ([age] yo F)Acc No.[id number]:10/25/2024 Progress Notes Patient: Alyce HOWE Provider: Shameka Tolentino MD :1990 A ge:34 Y S ex:Female Date:10/25/2024 Address:[address] [place] [address] YONIS Pardo [id number] Subjective: * Chief Complaints: * A nnual exam * HPI: D epression Screening: She returns to the office at the age of 34 for her annual physical examination has no new complaints and feels well. Her employment representative, Dr. Sutton has scheduled her for a uterine polypectomy in 2 weeks. She is expected to return home afterwards. He has had no vaginal bleeding. Her hemoglobin A1c is satisfactory. Efforts are underway to replace her old insulin pump with a Anders. She denies any chest pain shortness breath nausea vomiting diarrhea bleeding. Blood work is available and was reviewed with her in detail.She has a employment representative whom she prefers to have do her breast examination pelvic examination examination. PHQ-9 L ittle interest or pleasure in doing things?Not at all F eeling down, depressed, or hopeless N ot at all T rouble falling or staying asleep, or sleeping too much N ot at all F eeling tired or having little energy N ot at all P oor appetite or overeating N ot at all F eeling bad about yourself or that you are a failure, or have let yourself or your family down N ot at all T rouble concentrating on things, such as reading the newspaper or watching television N ot at all M oving or speaking so slowly that other people could have noticed; or the opposite, being so fidgety or restless that you have been moving around a lot more than usual N ot at all T houghts that you would be better off or of hurting yourself in some way N ot at all T otal Score 0 C OVID-19 Screening: Questions H ave you had any new onset fever, chills, cough, congestion, sore throat, shortness of breath, muscle aches? N o S NIKITA Questions: SDOH Questions I n the past year have you been worried about losing your housing? N o I n the past year have you or any family members you live with been unable to get any of the following when it was really needed? Check all that apply: N one * ROS: G eneral/Constitutional: pain o nly [...] Social History: T obacco Use: T obacco Control (Standard) T obacco use: N onsmoker A dditional Findings: Tobacco non-user A ggressive nonsmoker D rugs/Alcohol: D rugs H ave you used drugs other than those for medical reasons in the past 12 months? Y es M arijuana? Y es D rug/Alcohol: A CRISTI-C (Standard) D id you have a drink containing alcohol in the past year? 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 She works over 40 hours a week. Patient is working two jobs and considering starting her own business. * Medications: T akingInsulin Lispro 100 UNIT/ML Solution DIRECTED INJECTION 75 UNITS PER DAY VIA PUMP 30 DAYS Valsartan 80 MG Tablet Oral Sertraline HCl 50 MG Tablet 1 tablet Orally Once a day Taking Insulin Lispro 100 UNIT/ML Solution DIRECTED INJECTION 75 UNITS PER DAY VIA PUMP 30 DAYS Taking Valsartan 80 MG Tablet Oral Taking Sertraline HCl 50 MG Tablet 1 tablet Orally Once a day DiscontinuedCefuroxime Axetil 500 MG Tablet 1 tablet Orally every 12 hrs Medication List reviewed and reconciled with the patientDiscontinued Cefuroxime Axetil 500 MG Tablet 1 tablet Orally every 12 hrs Medication List reviewed and reconciled with the patient * Allergies: N o Known Drug AllergyNo Known Food Allergyno[Allergies Verified] Objective: * Vitals: H t: 68, Wt: 184, BMI:27.97, BP: 116/76, HR: 67, Temp: 97.9, Ht-cm: 172.72, Wt-k.46. * P ast Orders: L ab:GI Panel (Order Date - 09/06/2024) (Collection Date & Time - 09/06/2024 06:50 AM) Value Reference Range Campylobacter Not Detected Not Detect. - Plesiomonas shigelloides Not Detected Not Detect. - Salmonella Not Detected Not Detect. - Vibrio Not Detected Not Detect. - Vibrio Cholerae Not Detected Not Detect. - Yersinia enterocolitica Not Detected Not Detect. - E. coli EAEC Detected A Not Detect. - E. coli EPEC Detected A Not Detect. - E. coli ETEC Not Detected Not Detect. - E. coli STEC Not Detected Not Detect. - E. coli O157 Not applicable Not Detect. - Shigella sp./EIEC Not Detected Not Detect. - Cryptosporidium Not Detected Not Detect. - Cyclospora cayetanensis Not Detected Not Detect. - Entamoeba histolytica Not Detected Not Detect. - Giardia lamblia Not Detected Not Detect. - Adenovirus F 40/41 Not Detected Not Detect. - Astrovirus Not Detected Not Detect. - Norovirus GI/GII Not Detected Not Detect. - Rotavirus A Not Detected Not Detect. - Sapovirus Not Detected Not Detect. - L ab:Ova and Parasite (Order Date - 09/06/2024) (Collection Date & Time - 09/06/2024 06:50 AM) Value Reference Range Ova and Parasite SEE NOTE - Lab:Glucose, Whole Blood * Collection Date 09/14/2024 05/12/2024 02/03/2024 Collection Time 09:16 AM 11:37 AM 08:49 AM Order Date 09/14/2024 05/12/2024 02/03/2024 Glucose, Whole Blood 115 (Ref Range: 60-115 mg/dL) 179 H (Ref Range: 60-115 mg/dL) 90 (Ref Range: 60-115 mg/dL) * Lab:Bacterial Vaginosis Pane l * Collection Date 10/11/2024 04/07/2024 02/26/2024 Collection Time 08:32 AM Order Date 10/11/2024 04/07/2024 02/26/2024 Trichomonas vaginalis PCR NOT DETECTED (Ref Range: Not Detect) NOT DETECTED (Ref Range: Not Detect) NOT DETECTED (Ref Range: Not Detect) Bacterial Vaginosis PCR POSITIVE A (Ref Range: Negative) POSITIVE A (Ref Range: Negative) POSITIVE A (Ref Range: Negative) Karen Group PCR NOT DETECTED (Ref Range: Not Detect) NOT DETECTED (Ref Range: Not Detect) NOT DETECTED (Ref Range: Not Detect) Karen glab krusei PCR NOT DETECTED (Ref Range: Not Detect) NOT DETECTED (Ref Range: Not Detect) NOT DETECTED (Ref Range: Not Detect) ???Lab:Complete Blood Count no Diff (Order Date - 10/11/2024) (Collection Date & Time - 509:35 AM)?ValueReference Range?White Blood Count 5.94.8-10.8 - X10*3/uL?Red Blood Count4.634.20-5.50 - X10*6/uL ?Vpbuolapkl76.012.0-16.0 - g/dl?Ptqbelnaiz56.937.0-47.0 - % ?Mean Corpuscular Ixcpbb86.580.0-98.0 - fL?Mean Corpuscular Zhowdvmrfu51.227.0-33.0 - pg?Mean Corpuscular HGB Conc33.431.0-35.0 - g/dl?Red Cell Distribution Width12.511.0-16.0 - %?Platelet Count [id number] - X10*3/uL?Mean Platelet Volume9.89.4-12.3 - fL?NRBC Pct Auto0.00.0-0.2 - /100WBC?NRBC Abs Auto0.0000.0-0.012 - X10*3/uL ???Lab:HIV Ab/Ag (Order Date - 10/11/2024) (Collection Date & Time - 10/11/2024 09:35 AM)?ValueReference Range?HIV AB/AGNonreactiveNonreactive - ???Lab:TSH reflex Free T4 (Order Date - 10/11/2024) (Collection Date & Time - 10/11/2024 09:35 AM)?ValueReference Range?TSH reflex Free T40.96 0.32-4.0 - uIU/mL ???Lab:Hepatitis C Antibody (Order Date - 10/11/2024) (Collection Date & Time - 10/11/2024 09:35 AM)?ValueReference Range? Hepatitis C Antibody NonreactiveNonreactive - ???Lab:HCG Quantitative (Order Date 10/11/2024) (Collection Date & Time - 10/11/2024 09:35 AM)?ValueReference Range?HCG Quantitative< 2- mIU/mL ???Lab:Hepatitis B Surface Antigen (Order 10/11/2024) (Collection Date & Time - 10/11/2024 09:35 AM)?ValueReference Range?Hepatitis B Surface AntigenNegativeNegative - ???Lab:Syphilis Screen (Order Date 10/11/2024) (Collection Date & Time - 10/11/2024 09:35 AM)?ValueReference Range?Syphilis Screen NonreactiveNonreactive - * Lab:CT NG by PCR * Collection Date 10/11/2024 04/07/2024 02/26/2024 Collection Time 08:32 AM Order Date 10/11/2024 04/07/2024 02/26/2024 CT PCR NOT DETECTED (Ref Range: Not Detect.) NOT DETECTED (Ref Range: Not Detect.) DETECTED A (Ref Range: Not Detect.) NG PCR NOT DETECTED (Ref Range: Not Detect.) NOT DETECTED (Ref Range: Not Detect.) NOT DETECTED (Ref Range: Not Detect.) * Lab:URINE DIP STICK * Collection Date 10/25/2024 10/20/2023 10/14/2022 Order Date 10/25/2024 10/20/2023 10/14/2022 SG 1.020 (Ref Range: 1.005 - 1.025) 1.025 (Ref Range: 1.005 - 1.025) 1.000 (Ref Range: 1.005 - 1.025) pH 6.0 (Ref Range: 5.0 - 9.0) 5.0 (Ref Range: 5.0 - 9.0) 5.0 (Ref Range: 5.0 - 9.0) KASSI Negative (Ref Range: Negative -) Negative (Ref Range: Negative -) neg (Ref Range: Negative -) NIT Negative (Ref Range: Negative -) Negative (Ref Range: Negative -) neg (Ref Range: Negative -) PRO 15 (Ref Range: Negative - Trace) 15 (Ref Range: Negative - Trace) neg (Ref Range: Negative - Trace) GLU Negative (Ref Range: Negative -) Negative (Ref Range: Negative -) neg (Ref Range: Negative -) KET 5 (Ref Range: Negative -) Negative (Ref Range: Negative -) neg (Ref Range: Negative -) UBG 0.2 (Ref Range: 0.1 - 1.8) 0.2 (Ref Range: 0.1 - 1.8) 0.2 (Ref Range: 0.1 - 1.8) LINUS Negative (Ref Range: 0.2 - 1.3) Negative (Ref Range: 0.2 - 1.3) neg (Ref Range: 0.2 - 1.3) BLD 5-10 (Ref Range: Negative -) Negative (Ref Range: Negative -) neg (Ref Range: Negative -) Menstrating No NR no * Examination: G eneral Examination: GENERAL APPEARANCE: [...] nodes,spleen normal. SKIN: n o suspicious lesions, anicteric. HEART: n o clicks, gallops, murmurs, or rubs, regular rhythm, S1, S2 normal, no s3, or vascular bruits. LUNGS: c lear to auscultation . BREASTS: D eclined, prefers this be done by employment representative.? ABDOMEN: b owel sounds normal, no ascites, no organomegaly, no mass, overweight. RECTAL EXAM: n ot examined. MUSCULOSKELETAL: e xtremities unremarkable, no clubbing, cyanosis or edema. PERIPHERAL PULSES: n ormal. NEUROLOGIC: a lert and oriented, cranial nerves 2-12 grossly intact, deep tendon reflexes 2+ symmetrical, motor strength normal upper and lower extremities, sensory exam intact. PSYCH: a lert, oriented. Assessment: * Assessment: 1. T ype 1 diabetes mellitus without complication - E10.9 (Primary) N otes :Her insulin pump is working well. Will soon be replaced by a 1. Her hemoglobin A1c is satisfactory as is her fasting glucose. No change in her regimen was made. 2 . 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 Her glucose levels have been satisfactory. She will continue to be managed by endocrinology 4 . B ilateral headaches - R51.9 N otes :She has had no headaches since her last visit. 5 . O verweight - E66.3 N otes [...] in fat calories sodium and concentrated sweets. Plan: * Treatment: 2. A ttention deficit disorder (ADD) in adult L AB: PROFILE, RANDOM (COMPREHENSIVE METABOLIC) L AB: CBC w DIFF L AB: Hemoglobin A1c 3. O thers Continue Insulin Lispro Solution, 100 UNIT/ML, DIRECTED INJECTION 75 UNITS PER DAY VIA PUMP 30 DAYS; C ontinue Valsartan Tablet, 80 MG, Oral; C ontinue Sertraline HCl Tablet, 50 MG, 1 tablet, Orally, Once a day. * Labs: * L ab: URINE DIP STICK (Collection Date & Time - 10/25/2024) Value Reference Range S G 1.020 1.005 - 1.025 * p H 6.0 5.0 - 9.0 * L EU Negative Negative - * N IT Negative Negative - * P RO 15 Negative - Trace * G ERICH Negative Negative - * K ET 5 Negative - * U BG 0.2 0.1 - 1.8 * B IL Negative 0.2 - 1.3 * B LD 5-10 Negative - * M enstrating No * Procedure Codes: 8 1002 URINE-NO MICRO * Preventive Medicine: Counseling: C are goal [...] 1 lb per week. * Follow Up: e december (Reason: OV review labs) * Images: * Sign off status: Completed true * Provider: Shameka Tolentino MD Date: 0 10/25/2024 Generated for Duncan smith/Estefania/Tonyransmitting on: 10:52 AM EST History and Physical Notes * HPI (History of Present Illness) Category Sub-Category Detail Notes Depression Screening PHQ-9 Little inte rest or pleasure in doing things: Not at all Feeling down, depressed, or hopeless: No t at all Trouble falling or staying asleep, or sl eeping too much: Not at all Feeling tired or having little energy: N ot at all Poor appetite or overeating: Not at all Feeling bad about yourself o r that you are a failure, or have let yourself or your family down: Not at all Trouble concentrating on thi ngs, such as reading the newspaper or watching television: Not at all Moving or speaking so slowly that other people could have noticed; or the opposite, being so fidgety or restless that you have been moving around a lot more than usual: Not at all Thoughts that you would be b walker off or of hurting yourself in some way: Not at all Total Score: 0 COVID-19 Screening Questions Have you had any new onset fever, chills, cough, congestion, sore throat, shortness of breath, muscle aches?: No SDOH Questions SDOH Questions In the past year have you been worried about losing your housing?: No In the past year have you or any family members you live with been unable to get any of the following when it was really needed? Check all that apply:: None Examination Category Sub-Category Detail Notes General Examination [...] normal, no ascites, no organomegaly, no mass, overweight NEUROLOGIC: alert and oriented, cranial nerves 2-12 grossly intact, deep tendon reflexes 2+ symmetrical, motor strength normal upper and lower extremities, sensory exam intact SKIN: no suspicious lesion s, anicteric PERIPHERAL PULSES: normal BREASTS: Declined, prefers th is be done by employment representative MUSCULOSKELETAL: extremities unremark able, no clubbing, cyanosis or edema LYMPH NODES: no enlarged lymph no cassie,spleen normal RECTAL EXAM: not examined PSYCH: alert, oriented ORAL CAVITY: normal, unremarkable
--- OUTSIDE RECORDS SUMMARY | 2024-11-30 09:18 | XMS_ITS ---
Author Organization William Tolentino III, MD Address [address] [place] [address] [address] [facility] [place] [address] Care Team Providers Care Veterans Services Specialist Name Role Phone Dr. William Tolentino III Primary Care Provider REASON FOR VISIT new insulin pump causing low BS Social History Sex Assigned At : Social History Observation Description Sex Assigned At Female Encounters Encounter Location Date Provider Diagnosis William Tolentino III, MD [address] [place] [address] [place] [address] 11/30/2024 William Tolentino Plan Of Treatment Next Appt Details Provider Name:William Tolentino , 10/26/2025 11:00:00 AM, [address] [place] [address] [place], [address], Progress Notes * Erendira HARDWICKeeDOB:1990 ([age] yo F)Acc No.[id number]:11/30/2024 Patient: Alyce HOWE :1990 A ge:34 Y S ex:Female Address:[address] [place] [address] [address] [place], [address] * true * Date: Generated for Merti luis/Fasydg/eTransmitting on: 10:52 AM EST
--- OUTSIDE RECORDS SUMMARY | 2024-12-05 12:00 | XMS_ITS ---
Author Organization William Tolentino III, MD Address [address] [place] [address] Care Team Providers Care Typecasting Machine Operator Name Role Phone Dr. William Tolentino III Primary Care Provider [phone] Allergies Allergen (clinical drug ingredient) Drug/Non Drug [...] Date Provider Diagnosis William Tolentino III, MD [address] [place] [address] [address] [place] [address] 12/05/2024 William Tolentino Plan Of Treatment Medication Medication Name Sig Start Date Stop Date Notes Valsartan 80 MG Oral Insulin Lispro 100 UNIT/ML INJECTION 75 UNITS PER DAY VIA PUMP 30 DAYS Injection daily Sertraline HCl 50 MG 1 tablet Orally Once a day 06/13/2024 Next Appt Details Provider Name:William Tolentino , 10/26/2025 11:00:00 AM, [address] [place] [address] [place], [address], Progress Notes * Britney HARDWICKOB:1990 ([age] yo F)Acc No.[id number]:12/05/2024 Progress Notes Patient: Alyce HOWE Provider: Shameka Tolentino MD :1990 A ge:34 Y S ex:Female Date:12/05/2024 Address:[address] [place], [place] [phone] Subjective: * Chief Complaints: * 1 . 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 She works [...] 0 12/05/2024 Generated for Merti luis/Estefania/eTransmitting on: 1 10:53 AM EST History and [...]
--- OUTSIDE RECORDS SUMMARY | 2025-01-24 12:00 | XMS_ITS ---
Author Organization William Tolentino III, MD Address [address] [place] [address] Care Team Providers Care Fast Food Shift Supervisor Name Role Phone Dr. William Tolentino III Primary Care Provider [phone] Allergies Allergen (clinical drug ingredient) Drug/Non Drug [...] Date Provider Diagnosis William Tolentino III, MD [address] [place] [address] [place] [place] [address] 01/24/2025 William Tolentino Plan Of Treatment Medication Medication Name Sig Start Date Stop Date Notes Insulin Lispro 100 UNIT/ML INJECTION 75 UNITS PER DAY VIA PUMP 30 DAYS Injection daily Valsartan 80 MG Oral Sertraline HCl 50 MG 1 tablet Orally Once a day 06/13/2024 Next Appt Details Provider Name:William Tolentino , 10/26/2025 11:00:00 AM, [address] [place] [address] [place], [address], Progress Notes * Britney HARDWICKOB:1990 ([age] yo F)Acc No.[id number]:01/24/2025 Progress Notes Patient: Alyce HOWE Provider: Shameka Tolentino MD :1990 A ge:34 Y S ex:Female Date:01/24/2025 Address:[address] [place], [place] [address] [id number] Subjective: * Chief Complaints: * 1 . 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 She works [...] 0 01/24/2025 Generated for Merti luis/Estefania/eTransmitting on: 1 10:53 [...]
--- NOTE | 2025-06-28 10:36 | MHC.AMDMED ---
Intake Intake Visit Reasons: T1DM Fitter Up Required: No Accompanied by: Self / Same As Patient Allergies No Known Allergies Allergy (Verified 05/23/25 11:50) PFSH Medical History Depression Type 1 diabetes mellitus with hyperglycemia Surgical History History of left breast biopsy Family History Paternal Grandmother Diabetes Maternal Aunt Breast cancer Family/Other Colon cancer Social History Household Members: Significant Other and Family Housing: House Alcohol intake: current Alcohol intake frequency: holidays/special occasions only Patient Tobacco Use Status: Never used Tobacco Substance Use Type: Marijuana Current occupational status: employed Current occupation: [employer] Sexual orientation: Straight/Heterosexual Gender identity: Female Female Reproductive History Menstrual Age of Menarche: 13 Assessment & Plan Assessment & Plan (1) Type 1 diabetes mellitus with hyperglycemia: Code(s): E10.65 - Type 1 diabetes mellitus with hyperglycemia Plan: Patient presents for pump training for iLet pump and CGM training today. The following topics were reviewed today: -Pump therapy basic concepts: Basal/bolus -For most effective glucose control bolus prior to meals - Off pump backup insulin plan iLet Alerts: ??? High Alert: 300 mg/dl ??? Low Alert: 75 mg/dl Patient is currently struggling with multiple events of hypoglycemia. Reports she frequently has to pause insulin pump, especially during work to keep from glucose dropping. She has been entering high percentage of < meals especially at supper time Patient stated that she eats multiple small meals throughout the day not 3 main meals which she thinks contributes to difficulty in glucose control At today's visit we discussed the importance of using usual for me from meal announcements, Also recommended to patient to do factory reset to restart pump training We increased to higher than usual target. Patient stated at today's visit she would like to do a Omnipod 5 trial Patient will follow up with [facility] as instructed Patient will contact [facility] with questions or concerns, patient given IT number to support in any technical issues related to insulin pump Portions of this note were created using voice recognition software, please excuse any words or phrases that may have been misinterpreted. Coding Level of Care Code G0108 Diab Man Trn Indiv 30min Diagnoses Type 1 diabetes mellitus with hyperglycemia E10.65
--- OUTSIDE RECORDS SUMMARY | 2025-06-28 10:52 | XMS_ITS | Patient Health Record ---
Author Organization William Tolentino III, MD Address [address] [facility] [address] [address] Care Team Providers Care Stave Machine Tender Name Role Phone Dr. William Tolentino III Primary Care Provider [phone] Allergies Allergen (clinical drug ingredient) Drug/Non Drug [...] date:07/09/2024 08:36:54 PM Interpretation: Performing Lab: Notes/Report: [address] [address] Ultrasound Report Signed Patient: Alyce Hardwick MR#: [id number] : 1990 Acct:[id number] Age/Sex: 34 / F ADM Date: 07/08/24 Loc: HO.US Attending Dr: Glenda Gross CNM Ordering Physician: Glenda Gross CNM Date of Service: 07/08/24 Procedure(s): US pelvic and transvaginal Accession Number(s): [id number] cc: William Tolentino MD; Glenda Gross CNM CLINICAL HISTORY: N92.6 - Irregular menstruation, unspecified US pelvis transabdominal and transvaginal with color Doppler Comparison: US/OT/NV - US PELVIC AND TRANSVAGINAL - 03/04/24 [...] 07/09/24 1601 DD/ 1600 TD/TT: 07/09/24 1600 Institution Director: [place] [address] Ultrasound Report Signed Patient: Alyce Hardwick MR#: [id number] : 1990 Acct:[id number] Age/Sex: 34 / F ADM Date: 07/08/24 Loc: HO.US Attending Dr: Glenda Gross CNM Ordering Physician: Glenda Gross CNM Date of Service: 07/08/24 Procedure(s): US pelvic and transvaginal Accession Number(s): [id number] cc: William Tolentino MD; Glenda Gross CNM CLINICAL HISTORY: N92.6 - Irregular menstruation, unspecified US pelvis transabdominal and transvaginal with color Doppler Comparison: US/OT/NV - US PELVIC AND TRANSVAGINAL - 03/04/24 [...] 07/09/24 1601 DD/ 1600 TD/TT: 07/09/24 1600 Institution Director: GI Panel Reviewed date:09/14/2024 11:08:21 AM Interpretation: Performing Lab:[facility], [address] [place] [address] Notes/Report: Campylobacter Not Detected Not Detect. Plesiomonas [...] is performed by Multiplexed PCR, utilizing the Evince Array. Ova and Parasite Reviewed date:09/14/2024 11:08:21 AM Interpretation: Performing Lab:[facility], [address] [place] [address] Notes/Report: Ova and Parasite SEE NOTE OVA AND PARASITES, CONC AND PERM SMEAR Micro Number: [id number] Test Status: Final Specimen Source: Stool Specimen [...] infection. For additional information, please refer to https://education.Mu Dynamics/faq/F AQ203 (This link is being provided for informational/ educational purposes only.) THIS TEST WAS PERFORMED AT: [facility] [address] SHAYY KEEN MD Glucose, Whole Blood Reviewed date:09/14/2024 11:08:21 AM Interpretation: Performing Lab:[facility], [address] [place] [address] Notes/Report: Glucose, Whole Blood 115 60-115 mg/dL METER #: [id number] Testing performed in the Endocrinology [facility] and [facility], [facility]. Complete Blood Count no Diff Reviewed date:10/15/2024 07:22:28 AM Interpretation: Performing Lab:[facility], [address] [place] [address] Notes/Report: White Blood Count 5.9 4.8-10.8 X10*3/uL [...] T4 Reviewed date:10/15/2024 07:22:28 AM Interpretation: Performing Lab:[address] [address] Notes/Report: TSH reflex Free T4 0.96 0.32-4.0 uIU/mL HCG Quantitative Reviewed date:10/15/2024 07:22:28 AM Interpretation: Performing Lab:[address] [address] Notes/Report: HCG Quantitative < 2 Weeks post [...] Screen Reviewed date:10/15/2024 07:22:28 AM Interpretation: Performing Lab:[facility], [address] [place] [address] Notes/Report: Syphilis Screen Nonreactive Nonreactive CT NG by PCR Reviewed date:10/15/2024 07:22:28 AM Interpretation: Performing Lab:[facility], [address] [place] [address] Notes/Report: Vaginal CT PCR NOT DETECTED Not [...] Panel Reviewed date:10/15/2024 07:22:28 AM Interpretation: Performing Lab:[address] [address] Notes/Report: Trichomonas vaginalis PCR NOT DETECTED Not [...] Ab/Ag Reviewed date:10/15/2024 07:22:28 AM Interpretation: Performing Lab:[address] [address] Notes/Report: HIV AB/AG Nonreactive Nonreactive HIV-1 p24 [...] limit of detection of this assay. The PrecisionHawk HIV Ag/Ab Combo assay result and supplemental assay results should be interpreted in conjunction with the patient's clinical presentation, history and other laboratory results. If the results are inconsistent with clinical evidence, additional testing is suggested to confirm the result. Hepatitis C Antibody Reviewed date:10/15/2024 07:22:28 AM Interpretation: Performing Lab:[facility], [address] [place] [address] Notes/Report: Hepatitis C Antibody Nonreactive Nonreactive Antibodies to HCV not detected; does not exclude early acute HCV infection. Hepatitis B Surface Antigen Reviewed date:10/15/2024 07:22:28 AM Interpretation: Performing Lab:[facility], [address] [place] [address] Notes/Report: Hepatitis B Surface Antigen Negative Negative Ur Preg Test Reviewed date:11/06/2024 03:00:11 PM Interpretation: Performing Lab:[facility], [address] [place] [address] Notes/Report: Urine NEGATIVE NEGATIVE This test was developed to detect early . False negative results may occur after the 5th - 7th week of when using this test method. If clinically indicated, consider a serum hCG. Pathology Reviewed date:12/09/2024 08:54:30 AM Interpretation: Performing Lab:[facility], [address] [place] [address] Notes/Report: -- ---- Name: Alyce Hardwick Age/Sex: 34/F : 1990 Unit#: [id number] Attend Dr: Fer Sutton MD Re11/04/24 Status : [facility] Location: [facility] Disch: -- ---- SPEC : [id number] RECD : 11/04/24 STATUS: ARIA TREJO NUM: [id number] VIBHA: 11/04/24 [facility] DR: Fer Sutton MD ENTERED: 11/04/24 SP TYPE: Surgical OTHR DR: William Tolentino MD ORDERED: HE Stain/2, Gross Micro L4 Diagnosis Endometrium, curettage: Benign late secretory endometrium; no atypia or carcinoma. Comment: Some fragments may be derived from benign functional polyps. Clinical History Abnormal uterine/vaginal bleeding Microscopic Description Microscopic sections reviewed. Material Received [facility] Gross Description Received in formalin , on Telfa, are fragments of red-pink soft tissue mixed with mucus and clotted blood formin g an aggregate measuring 3.5 x 2.8 x 0.3 cm which is wrapped in lens paper and entirely submitted for microscopic examination, multiple pieces in cassettes A1 and A2. ([facility]) Copies To: William Tolentino MD [address], [address] [place], [place] [id number] Fer Sutton MD [facility] Women's Services [address] [place] [address] -- ---- Signed (signature on file) Ivelisse Leos 11/07/24 1342 -- ---- END OF REPORT Glucose, Whole Blood Reviewed date:12/09/2024 08:54:30 AM Interpretation: Performing Lab:[facility], [address] [place] [address] Notes/Report: Glucose, Whole Blood 222 60-115 mg/dL METER #: [id number] Testing performed in the [facility]ocrinology Department [facility] , [address], [facility]. Diabetic Eye Exam Reviewed date:12/13/2024 11:29:30 AM Interpretation:undefined Performing Lab: Notes/Report: undefined Pap Smear Reviewed date:06/04/2025 05:53:18 PM Interpretation: Performing Lab:[facility], [address] [place] [address] Notes/Report: -- ---- Name: Alyce Hardwick Age/Sex: 35/F [facility] 1990 [id number] Unit#: [id number] Attend Dr: Fer Sutton MD Re05/23/25 Status : [facility] REF Location: [facility] Disch: -- ---- SPEC : [id number] REC STATUS: ARIA TREJO NUM: [id number] VIBHA: 05/23/25-1145 [facility] DR: Fer Sutton MD ENTERED: 05/24/25 SP TYPE: Pap Smr OT DR: William Tolentino MD ORDERED: Pap Smear Interpretation Satisfactory for evaluation. Negative for intraepithelial lesion or malignancy. Coccobacilli consistent with shift in vaginal devin. HPV High Risk: Negative HPV Genotyping 16: Negative HPV Genotyping 18: Negative Clinical Information LMP: Previous PAP test: 24 HPV+ Other surgery: Other history: Material Received ThinPrep-Cervical Copies To: Wliliam Tolentino MD [address] [facility], [address] [place] [address] Fer Sutton MD [facility] Women's Services [address] [place] [address] -- ---- Signed (signature on file) JUAN FRANCISCO Austin (ASCP) 05/30/25 1124 -- ---- END OF REPORT HPV High risk Reviewed date:06/04/2025 05:53:18 PM Interpretation: Performing Lab:[facility], [address] [place] [address] Notes/Report: HPV High Risk Negative Negative HPV Genotype 16 Negative Negative HPV Genotype 18 Negative Negative HPV testing performed at [facility] (CLIA #[id number]), [address] [place] [address]. Testing for HPV was performed using the Chary SELMA 6800 system. The presence of HPV in the female genital tract is associated with a number of diseases, including cervical carcinoma. The HPV DNA high risk pool tests for HPV 31, 33, 35, 39, 45, 51, 52, 56, 58, 59, 66 and 68. The testing for HPV 16 and 18 genotypes has also been performed. A positive result indicates detection of nucleic acid sequences from one or more subtypes, whereas a negative result indicates such sequences were not detected. Reason For Referral No Information Medications Medication [...] Problem Status W/U Status Risk Notes Problem 321722472 Overweight (E66.3) Active confirmed She has gained [...] fat calories sodium and concentrated sweets. Problem 145917443 Other obesity (E66.8) Active confirmed Her body mass index is 31.4. We discussed weight reduction strategies and a diabetic diet. We made a plan to lose weight. Problem 270404491 care home current use of insulin (Z79.4) Active confirmed Her insulin pump is working well. Her glucose levels have been satisfactory. She will continue to be managed by endocrinology Problem 567357770 Attention deficit disorder (ADD) in adult (F98.8) Active confirmed She was continu ed on her current regimen. Problem 831877741 Type 1 diabetes mellitus without complication (E10.9) Active confirmed Her insulin pum p is working well. Will soon be replaced by a 1. Her hemoglobin A1c is satisfactory as is her fasting glucose. No change in her regimen was made. Problem 130925017 Body mass index [BMI] 30.0-30.9, adult (Z68.30) Active confirmed Problem 514009352 Bilateral headaches (R51.9) Active confirmed She has had no headaches since her last visit. Problem 72811761 Difficulty concentrating (R41.840) Active confirmed She says that h er previous primary care physician, Dr. Chaves, prescribed this medication, but it was years ago. I referred her back to her psychotherapist for evaluation and if necessary, referral to a prescriber. I made the appointment and I am not trained in psychiatric disorders. Problem 640245622 Obesity, class 1 (E66.811) Active confirmed Her [...] Provider Diagnosis William Tolentino III, MD [address] [place] [address] [place] [address] 07/05/2024 William Tolentino Anxiety, generalized F41.1 ; Type 1 diabetes mellitus without complication E10.9 ; Other obesity due to excess calories E66.09 and Bilateral headaches R51.9 William Tolentino III, MD [address] [place] [address] [place] [address] 09/05/2024 William Tolentino Type 1 diabetes jade itus without complication E10.9 ; Bilateral headaches R51.9 ; Overweight E66.3 ; Attention deficit disorder (ADD) in adult F98.8 ; Obesity, class 1 E66.811 and Acute gastroenteritis K52.9 William Tolentino III, MD [address] [place] [address] [place] [phone] 09/07/2024 William Tolentino Other obesity due to excess calories E66.09 ; Type 1 diabetes mellitus without complication E10.9 ; Acute gastroenteritis K52.9 and Attention deficit disorder (ADD) in adult F98.8 William Tolentino III, MD [address] [place] [address] [place] [address] 09/14/2024 William Tolentino Escherichia coli infection A49.8 ; Type 1 diabetes mellitus without complication E10.9 ; care home current use of insulin Z79.4 ; Overweight E66.3 and Attention deficit disorder (ADD) in adult F98.8 William Tolentino III, MD [address] [place] [address] [place] [address] 10/25/2024 William Tolentino Type 1 diabetes jade itus without complication E10.9 ; Attention deficit disorder (ADD) in adult F98.8 ; care home current use of insulin Z79.4 ; Bilateral headaches R51.9 and Overweight E66.3 William Tolentino III, MD [address] [place] [address] [place] [address] 09/13/2024 William Tolentino III, MD [address] [place] [address] [place] [address] 11/30/2024 William Tolentino Assessments Encounter Date Diagnosis (ICD Code) Assessment Notes Treat ment Notes Treatment Clinical Notes 07/05/2024 Type 1 diabetes mellitus without complication [...] No change in her regimen was made. 07/05/2024 Other obesity due to excess calories [...] recommended Imodium. She will hydrate aggressively. 09/14/2024 long term care phlebotomist current us e of insulin (ICD-10 - Z79.4) Her insulin pump is working well. Her glucose levels have been satisfactory. She will continue to be managed by endocrinology 10/25/2024 long term care phlebotomist current us e of insulin (ICD-10 - Z79.4) Her insulin pump is working well. Her glucose levels have been satisfactory. She will continue to be managed by endocrinology 07/05/2024 Bilateral headaches (ICD-10 - R51.9) She [...] no headaches since her last visit. 09/05/2024 Obesity, class 1 (ICD-10 - E66.811) [...] Name:William Tolentino , 10/26/2025 11:00:00 AM, [address] [place] [address] [address] [address], [place], [address], Insurance Providers Payer Name Payer Address Payer Phone Subscriber Number Group Number Insured Name Patient Relationship to Insured Coverage Start Date Coverage End Date [employer] [address] [address] [place] [phone] [id number] Alyce Hardwick Self - patient is the insured 0 MEDICAID [facility] [address] [place] [id number] [phone] [id number] Alyce Hardwick Self - patient is the insured Medical (General) History Medical History History ICD Code juvenile diabetes mellitus, onset age 11 , insulin pump family history of breast cancer, materna l obesity, BMI 30 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 She is currently on fluoxetine for depression. Surgical History Surgery Date(Month/Year) No history dental extractions 2016 left breast lumpectomy, Dr. Mercer, [facility] 2015 Hospitalization History Reason Date(Month/Year) No history
--- OUTSIDE RECORDS SUMMARY | 2025-06-28 10:53 | XMS_ITS | Encounter Summary ---
Author Organization [facility] Address [address] [place] [address] Phone Care Team Providers Care Cigarette Book Maker Name Role Phone Antonette Degroot NP Primary Care Provider Jb hawley Encounter Details Date Type Department Care Team (Late st Contact Info) Description 02/12/2017 Conversion Encounter [facility] - [address] [address] Social History Tobacco Use Types Packs/Day Years [...] on filedocumented in this encounter Care Teams Cigarette Book Maker Relationship Specialty Start Date End Date Antonette Degroot NP PCP - General 02/06/17 10/06/22 documented as of this encounter
--- OUTSIDE RECORDS SUMMARY | 2025-06-28 10:53 | XMS_ITS | Clinical Summary ---
Author Organization [facility] Address [address] [place] [address] Phone Care Team Providers Care Day Care Worker Name Role Phone Unavailable Primary Care Provider [...] Other No family histo ry of Sudden /[place] under age 55, Family history of Strabismus/amblyopia, [...]
--- OUTSIDE RECORDS SUMMARY | 2025-06-28 10:53 | XMS_ITS | Encounter Summary ---
Author Organization [facility] Address [address] [place] [address] Phone Care Team Providers Care Administrative Judge Name Role Phone Antonette Degroot NERVE SPECIALIST Primary Care Provider Jb hawley Encounter Details Date Type Department Care Team (Late st Contact Info) Description 03/18/2010 Documentation [facility] Family Medicine [address] [place] [address] Family Medicine, Physician [address] [place] [address] Social History Tobacco Use Types Packs/Day Years [...] on filedocumented in this encounter Care Teams Administrative Judge Relationship Specialty Start Date End Date Antonette Degroot NP PCP - General 02/06/17 10/06/22 documented as of this encounter
--- OUTSIDE RECORDS SUMMARY | 2025-06-28 10:53 | XMS_ITS | Encounter Summary ---
Author Organization [facility] Address [address] [place] [address] Phone Care Team Providers Care Transmission Engineer Name Role Phone Antonette Degroot LEGAL ANALYST Primary Care Provider Jb hawley Encounter Details Date Type Department Care Team (Late st Contact Info) Description 06/03/2010 Documentation [facility] [address] [place] [address] Family Medicine, Physician [address] [place] [address] Social History Tobacco Use Types Packs/Day Years [...] on filedocumented in this encounter Care Teams Transmission Engineer Relationship Specialty Start Date End Date Antonette Degroot NP PCP - General 02/06/17 10/06/22 documented as of this encounter
--- OUTSIDE RECORDS SUMMARY | 2025-06-28 10:53 | XMS_ITS | Clinical Summary ---
Author Organization [facility] Address [address] [address] Phone Care Team Providers Care Line Haul Truck Driver Name Role Phone William Tolentino MD Primary Care Provider Allergies No known active allergies Medications insulin [...] Care Team (Late st Contact Info) Description 07/17/2025 11:40 AM EST Office Visit [facility] [address]. [address] [address] Jair Ireland MD [address] [address] Health Maintenance Due Date Last [...] patient's age to complete this topic Insurance [facility] Medicaid [facility] Medicaid Care Teams Line Haul Truck Driver Relationship Specialty Start Date End Date William Tolentino MD [address] [place] [address] [address] [place], [place] PCP - General Medical Oncology 01/20/22
--- OUTSIDE RECORDS SUMMARY | 2025-06-28 10:54 | XMS_ITS | Clinical Summary ---
Author Organization [facility] [place] [address] Care Team Providers Care Manager Leadership Development Name Role Phone Unavailable Primary Care Provider Unavailabl e Social History Tobacco Use Types Packs/Day Years Used Date Smoking Tobacco: Never Assessed Sex and Gender Information Value Date Recorded Sex Assigned at Not on file Gender Identity Not on file Sexual Orientation Not on file Plan of Treatment Not on file
== END 2025-06-28 10:44 | disposition home or self-care (01) ==
LOC: HO.ENCR 09:59
PROVIDERS: PCP Internal Medicine Medical Oncology; Visit Provider Registered Nurse Diabetes Educator
DX: E10.65 Type 1 diabetes mellitus with hyperglycemia (principal)

== ENCOUNTER → 2025-06-28 09:58 | Outpatient (BNVA) | payer OTHER, SELFPAY | PROVIDERS: PCP Internal Medicine Medical Oncology; Visit Provider Registered Nurse Diabetes Educator | DX: E10.65 Type 1 diabetes mellitus with hyperglycemia (principal); Z79.4 Long term (current) use of insulin | CPT/HCPCS: G0108 ==